=== PATIENT | male | born 1975 | race Caucasian/White ===

== ENCOUNTER 2019-07-17 21:36 | Emergency (ER) | payer OTHER ==
[~2019-07-17] VITALS: Ht 182.9 cm; Wt 97.5 kg
--- OUTSIDE RECORDS SUMMARY | ~2019-07-17 | XMS | Clinical Summary ---
Demographics + + + | Address | [address] | | | [place] [address] | + + + | Home Phone | | + + + | Preferred Language | Unknown | + + + | Marital Status | Single | + + + | Gnosticist Affiliation | 1013 | + + + | Race | Unknown | + + + | Ethnic Group | Unknown | + + + Author + + + | Author | [facility] | | | and [place] | + + + | Organization | [facility] | | | and [place] | + + + | Address | Unknown | + + + | Phone | Unavailable | + + + Support + + +---------+ + | Name | Relationship | Address | Phone | + + +---------+ + | Mary Annas | ECON | Unknown | | + + +---------+ + Care Team Providers + +------+ + | Care Electroless Plater Name | Role | Phone | + +------+ + | Pedro Carlisle MD | PCP | | + +------+ + Allergies No Known Allergies Medications + + + +---------+------+------+-------+ | Medication | Sig | Dispensed | Refills | Star | End | Statu | | | | | | t | Date | s | | | | | | Date | | | + + + +---------+------+------+-------+ | ALPRAZolam (XANAX) | Take 0.5 mg by mouth | | 0 | | | Activ | | 0.5 mg tablet | as needed for | | | | | e | | | Anxiety. | | | | | | + + + +---------+------+------+-------+ | metoprolol | Take 1 tablet by | 30 | 1 | 07/1 | | Activ | | succinate | mouth Daily. | tablet | | 3/20 | | e | | (TOPROL-XL) 50 mg 24 | | | | 19 | | | | hr tablet | | | | | | | + + + +---------+------+------+-------+ | nicotine | Place 1 patch onto | 30 | 0 | 07/1 | | Activ | | (NICODERM) 14 mg/24 | the skin every 24 | patch | | 3/20 | | e | | hr | hours. | | | 19 | | | + + + +---------+------+------+-------+ Active Problems + + + | Problem | Noted Date | + + + | Heroin use | 08/22/2018 | + + + | Methamphetamine use | 08/22/2018 | + + + | Anxiety | 08/22/2018 | + + + | Chronic pain syndrome | 08/22/2018 | + + + | Type 2 myocardial infarction | 08/22/2018 | + + + | Paroxysmal SVT (supraventricular tachycardia) | 08/22/2018 | + + + | Smoking | 08/22/2018 | + + + Immunizations + + + + | Name | Administration Dates | Next Due | + + + + | Hep B (PED/ADOL) 3 | 08/02/2013 | | | DOSE | | | + + + + | PNEUMOCOCCAL | 07/29/2013 | | | POLYSACCHARIDE | | | | 23-VALENT (PPSV23) | | | + + + + Social History + +-------+ +--------+------+ | Tobacco Use | Types | Packs/Day | Years | Date | | | | | Used | | + +-------+ +--------+------+ | Current Every Day | | 0.5 | 10 | | | Smoker | | | | | + +-------+ +--------+------+ + +---+---+---+ | Smokeless Tobacco: | | | | | Never Used | | | | + +---+---+---+ + + +---------+ + | Alcohol Use | Drinks/Week | oz/Week | Comments | + + +---------+ + | Not Currently | | | | + + +---------+ + + + + | Sex Assigned at | Date Recorded | | | | + + + | Not on file | | + + + + + + + | Job Start Date | Occupation | Industry | + + + + | Not on file | Not on file | Not on file | + + + + + + + + | Travel History | Travel Start | Travel End | + + + + + + | No recent travel history available. | + + Last Filed Vital Signs + + + + + | Vital Sign | Reading | Time Taken | Comments | + + + + + | Blood Pressure | 138/87 | 08/23/2018 12:52 PM | | | | | PDT | | + + + + + | Pulse | 65 | 08/23/2018 12:52 PM | | | | | PDT | | + + + + + | Temperature | 36.4 C (97.6 F) | 08/23/2018 12:52 PM | | | | | PDT | | + + + + + | Respiratory Rate | 18 | 08/23/2018 12:52 PM | | | | | PDT | | + + + + + | Oxygen Saturation | 98% | 08/23/2018 12:52 PM | | | | | PDT | | + + + + + | Inhaled Oxygen | - | - | | | Concentration | | | | + + + + + | Weight | 92.9 kg (204 lb 12.9 | 08/23/2018 6:00 AM | | | | oz) | PDT | | + + + + + | Height | 185.4 cm (6' 1") | 08/22/2018 7:29 PM | | | | | PDT | | + + + + + | Body Mass Index | 27.02 | 08/22/2018 7:29 PM | | | | | PDT | | + + + + + Plan of Treatment + + + + + | Health Maintenance | Due Date | Last Done | Comments | + + + + + | Vaccine: | | | | | Dtap/Tdap/Td (1 - | 6 | | | | Tdap) | | | | + + + + + | Vaccine: Influenza | | 11/19/2017, 12/22/2014, | | | (Season Ended) | 0 | 11/11/2013, Additional history | | | | | exists | | + + + + + | Vaccine: | Completed | 07/29/2013 | | | Pneumococcal 19-64 | | | | + + + + + Results Not on filefrom Last 3 Months Insurance + +--------+ +--------+ +---------+--------+ | Payer | Benefi | Subscriber | Effect | Phone | Address | Type | | | t Plan | ID | [place] | | | | | | / | | Dates | | | | | | Group | | | | | | + +--------+ +--------+ +---------+--------+ | [place] | MEDICA | [id number] | | [phone] | | [place] | | | [place] | | [phone]-Pr | 2 | | id | | | PLUS | | esent | | | | + +--------+ +--------+ +---------+--------+ + +--------+ +--------+ + + | Guarantor Name | Accoun | Relation to | Date | Phone | Billing Address | | | t Type | Patient | of | | | | | | | | | | + +--------+ +--------+ + + | Rohit Cheek | Person | Self [birth year] | [address] | | | al/Fam | | 1976 | [phone] | [place] [address] | | | phillip | | | 7 (Home) | | + +--------+ +--------+ + + Advance Directives + + + + + | Type | Date Recorded | Patient | Explanation | | | | Training Designer | | + + + + + | Power of | | | | | Sales And Events Coordinator | | | | + + + + + | Advance | 08/22/2018 4:08 | | | | Directive | PM | | | + + + + + + + + + + | Code Status | Date | Date | Comments | | | Activated | Inactivated | | + + + + + | Full Code | 08/22/2018 | 08/23/2018 | | | | 4:49 PM | 4:38 PM | | + + + + +
--- OUTSIDE RECORDS SUMMARY | ~2019-07-17 | XMS | Encounter Summary ---
Demographics + + + | Address | [address] | | | [place] [address] | + + + | Home Phone | | + + + | Preferred Language | Unknown | + + + | Marital Status | Single | + + + | Congregation Affiliation | 1013 | + + + | Race | Unknown | + + + | Ethnic Group | Unknown | + + + Author + + + | Author | [facility] | | | and [place] | + + + | Organization | [facility] | | | and [...] Team Providers + +------+ + | Care Grades 9 Through 12 Teacher Name | Role | Phone | + +------+ + | Pedro Carlisle MD | PCP | | + +------+ + Reason for Visit Auth/Cert +--------+--------+ + + + + | Status | Reason | Specialty | Diagnoses / | Referred By | Referred To | | | | | Procedures | Contact | Contact | +--------+--------+ + + + + | | | | Diagnoses | | | | | | | tachycardia | | | +--------+--------+ + + + + Encounter Details +--------+ + + + + | Date | Type | Department | Care Team | Description | +--------+ + + + + | 08/22/ | Hospital | [facility] | Chicho Hurley, | Anxiety; Heroin use; | | 2019 - | Encounter | [facility] | MD Shanelle [address] | NSTEMI (non-ST | | | | [address] [place] | [address] [place] | elevated myocardial | | 08/23/ | | [place] [address] | [place] [address] | infarction) ([facility]); | | 2019 | | [phone] | [phone] | Paroxysmal SVT | | | | | | (supraventricular | | | | | Niko Gruber, | tachycardia) ([facility]); | | | | | [address] | 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[place], [place] | re-entry | | | | | [address] | tachycardia) ([facility]); | | | | | [phone] | Type 2 myocardial | | | | | | infarction ([facility]) | +--------+ + + + + Social History + [...] recent travel history available. | + + documented as of this encounter Last Filed Vital Signs + + + [...] | | + + + + + documented in this encounter Discharge Summaries Niko Gruber MD - 08/23/2018 12:54 PM PDTFormatting of this note might be different f rom the original. DISCHARGE SUMMARY Patient Name: Lucy Cheek : 1975 Date of Admission: 08/22/2018 Date of Discharge: 08/23/18 Admitting Physician: Shanelle Hurley MD Discharging Physician: Niko Gruber MD Primary Care Provider: Pedro Carlisle MD Discharge Diagnoses: Principal Problem: Paroxysmal SVT (supraventricular tachycardia) Active Problems: Heroin use Methamphetamine use Chronic pain syndrome Type 2 myocardial infarction Smoking Anxiety Resolved Problems: * No resolved hospital problems. * Patient Active Problem List Diagnosis Heroin use Methamphetamine use Anxiety Chronic pain syndrome Type 2 myocardial infarction Paroxysmal SVT (supraventricular tachycardia) Smoking Consultants: Dr. Pradip Duarte of cardiology Procedures: 08/22 Echo: Left ventricle is normal in size with mildly reduced systolic function. LVEF is estimated in the range of 40-45%. Diastolic parameters are within normal limits. Mitral valve is mildly thickened with mild regurgitation. Structurally normal tricuspid valve with mild insufficiency and peak velocity consistent with RVSP 51-56 mmHg. Left atrium is mildly enlarged. No results found. Labs in the last 24 hours: Recent Results (from the past 24 hour(s)) Troponin I Result Value Ref Range Troponin I 1.15 (HH) <0.06 ng/mL Basic Metabolic Panel Result Value Ref Range Na 140 136 - 145 mmol/L K 3.8 3.4 - 5.1 mmol/L Cl 107 98 - 107 mmol/L CO2 29 20 - 31 mmol/L Anion Gap 4 3 - 16 mmol/L Glucose 94 60 - 106 mg/dL BUN 19 9 - 23 mg/dL Creatinine 0.99 0.70 - 1.30 mg/dL eGFR if not >60 >=60 mL/min/1.73m2 Ca 8.8 8.7 - 10.4 mg/dL BUN/Creatinine Ratio 19.2 CBC with Differential Result Value Ref Range WBC 9.4 4.0 - 11.0 K/uL RBC 4.53 4.30 - 5.70 M/uL Hemoglobin 13.7 13.5 - 18.0 g/dL Hematocrit 41.5 40.0 - 51.0 % MCV 91.6 83.0 - 101.0 fL MCH 30.2 28.0 - 35.0 pg MCHC 33.0 32.0 - 36.0 g/dL RDW-CV 15.0 (H) <15.0 % RDW-SD 50.3 (H) 35.1 - 46.3 fL Platelet Count 185 140 - 440 K/uL MPV 10.5 6.5 - 12.4 fL % Neutrophils 68.0 45.0 - 82.0 % % Lymphocytes 22.3 20.0 - 45.0 % % Monocytes 8.0 4.0 - 12.0 % % Eosinophils 0.7 0.0 - 5.0 % % Basophils 0.5 0.0 - 1.0 % % Immature Granulocytes 0.5 (H) 0.0 - 0.4 % Absolute Neutrophils 6.38 1.80 - 8.50 K/uL Absolute Lymphocytes 2.10 0.60 - 3.20 K/uL Absolute Monocytes 0.75 0.00 - 1.00 K/uL Absolute Eosinophils 0.07 0.00 - 0.40 K/uL Absolute Basophils 0.05 0.00 - 0.10 K/uL Absolute Immature Granulocytes 0.05 (H) 0.00 - 0.03 K/uL % nRBC 0 0 - 2 per 100 WBCs Absolute nRBC 0.00 0.00 - 0.01 K/uL Magnesium Result Value Ref Range Magnesium 1.9 1.6 - 2.6 mg/dL Phosphorus Result Value Ref Range Phosphorus 3.9 2.4 - 5.1 mg/dL ECG 12 lead Result Value Ref Range VENTRICULAR RATE EKG 71 BPM ATRIAL RATE 71 BPM P-R INTERVAL 140 ms QRS DURATION 92 ms Q-T INTERVAL 400 ms Q-T INTERVAL (CORRECTED) 434 ms P WAVE AXIS 61 degrees QRS AXIS 43 degrees T AXIS 53 degrees INTERPRETATION TEXT Normal sinus rhythm Voltage criteria for left ventricular hypertrophy No previous ECGs available Confirmed by MARGARET KEITH MD ([id number]) on 08/23/2018 7:19:58 AM ECHO Complete Result Value Ref Range BASELINE BLOOD PRESSURE 127/87 mmHg Patient Weight (lbs) 202lbs Patient Height 6'1 Inferior Vena Cava Diameter at Inspiration 1.2 cm Inferior Vena Cava Diameter at Expiration 2.4 cm LVIDd 5.75 cm FS 25 % LA volume 128.89 mL Ascending aorta 3.8 cm Aortic arch 3.27 cm AV mean gradient 1.85 mmHg Aortic Valve Area by Continuity VTI 4.84 cm2 MV Area by P 1/2 method 3.06 cm2 IVRT 96.89 msec LVOT diameter 2.78 cm LVOT peak rodri 65.94 cm/s LVOT peak VTI 13.54 cm AV peak rodri 86.11 cm/s AV VTI 16.97 cm MR max rodri 353.41 cm/s AV peak gradient 2.97 mmHg MV VTI 139.89 cm MV Pressure 1/2 time 71.79 msec LA Volume Index 60 mL/m2 AV LVOT Peak Gradient 1.74 mmHg AV LVOT Mean Gradient 1.05 mmHg TR Peak Gradient 46 mmHg TR Velocity 339.61 cm LV Diastolic Length 4C 9.09 cm LV Thornton's Biplane EF 38 % LV ED Volume (Thornton's) 162.08 ml LV ED Volume Index 75 ml/m2 LV ES Volume 100.43 ml LVOT Mean Velocity 48.91 cm/s MR Alias Velocity 32.12 cm/s MV E' Lateral Velocity 6 cm/s MV E' Septal Velocity 5 cm/s MV Deceleration [place] 127.02 cm/s2 MV Deceleration Time 247.55 msec MV E/A Ratio 0.8 MV Peak A-Wave 39.53 cm/s MV Peak E-Wave 31.44 cm/s AV Mean Velocity 65.68 cm/s LA/Aorta Ratio 1.08 LA Area 29.07 cm2 LA Systolic Pressure 8.55 mmHg MR Pisa Radius 0.58 cm MR Pisa Area 0.2 cm2 MV E/E SEPTAL 6.29 MV E/E LATERAL 5.24 LA Major 0.1697 cm LV ES Volume Index 46 ml/m2 Aortic Root Diameter 4.18 cm IVS Diastolic Thickness MM 1.35 cm LVPW Diastolic Thickness MM 1.22 cm IVS Systolic Thickness MM 1.61 cm LV Systolic Diameter MM 4.3 cm LVPW Systolic Thickness MM 1.7 cm AV Cusp Seperation MM 2.22 cm LA Systolic Diameter MM 4.5 cm TAPSE 1.8 cm Troponin I Result Value Ref Range Troponin I 0.94 (HH) <0.06 ng/mL Basic Metabolic Panel Result Value Ref Range Na 141 136 - 145 mmol/L K 4.0 3.4 - 5.1 mmol/L Cl 109 (H) 98 - 107 mmol/L CO2 27 20 - 31 mmol/L Anion Gap 5 3 - 16 mmol/L Glucose 91 60 - 106 mg/dL BUN 17 9 - 23 mg/dL Creatinine 0.88 0.70 - 1.30 mg/dL eGFR if not >60 >=60 mL/min/1.73m2 Ca 8.8 8.7 - 10.4 mg/dL BUN/Creatinine Ratio 19.3 CBC no Differential Result Value Ref Range WBC 5.9 4.0 - 11.0 K/uL RBC 4.67 4.30 - 5.70 M/uL Hemoglobin 14.0 13.5 - 18.0 g/dL Hematocrit 42.7 40.0 - 51.0 % MCV 91.4 83.0 - 101.0 fL MCH 30.0 28.0 - 35.0 pg MCHC 32.8 32.0 - 36.0 g/dL RDW-CV 14.7 <15.0 % RDW-SD 49.6 (H) 35.1 - 46.3 fL Platelet Count 189 140 - 440 K/uL MPV 10.8 6.5 - 12.4 fL % nRBC 0 0 - 2 per 100 WBCs Absolute nRBC 0.00 0.00 - 0.01 K/uL Magnesium Result Value Ref Range Magnesium 2.0 1.6 - 2.6 mg/dL Troponin I Result Value Ref Range Troponin I 0.58 (HH) <0.06 ng/mL Lipid Panel Result Value Ref Range Triglycerides 189 (H) <=150 mg/dL Cholesterol 124 <=200 mg/dL HDL 37 (L) 40 - 60 mg/dL Chol/HDL Ratio 3.4 LDL, Calculated 49 <=130 mg/dL Drugs of Abuse, Screen, Urine Result Value Ref Range Amphetamine Screen, Urine Negative Negative Barbiturates Screen, Urine Negative Negative Benzodiazepines Screen, Urine Positive (A) Negative Cannabinoids Screen, Urine Negative Negative Cocaine Screen, Urine Negative Negative Methadone Screen, Urine Negative Negative Opiates Screen, Urine Negative Negative Reason for Admission: Please refer to the H&P for full details. In short, this is a 43 y.o. 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 Problem-Oriented Hospital Course: AVNRT: - Recurrent episodes, noted in May ER visit at [facility] as well - Presented to [facility] with this on 08/22, resolved there, transferred for further car diac workup - Started on scheduled metoprolol, no further episodes while in the hospital - This has been a recurrent issue per his report and ER report from May - He had no evidence of heart failure on exam, although EF diminished on echo to 40-45%, tatum devlin due to recent episode of tachycardia - Discussed with Dr. Duarte, who recommended that he follow up with PCP, to consider exerci se treadmill and referral to EP for possible ablation Type 2 TX: - Troponin peaked at 1.15, then fell - Thought to be secondary to above, although consider outpatient treadmill test - Toprol daily Polysubstance abuse: - Admits to IV methamphetamine/heroin use 45 days ago, although denies current use - UDS did not show methamphetamine or opiates - Encourage cessation/outpatient treatment, which he plans to do Smoking: - Encourage cessation - Nicotine patch PRN ordered Anxiety: - Lorazepam PRN given in the hospital, takes alprazolam PRN as outpatient Chronic pain: - Has been on methadone in the past, no acute issues, defer to outpatient provider The patient improved more quickly than expected, and did not require 2 nights of hospitaliz ation. Code Status: Full Code Disposition: Home with mother Discharge Condition: stable Follow-up Information Pedro Carlisle MD In 1 week. Specialty: Emergency Medicine Contact information: [address] [place] [address] [place] [address] Discharge Medications New Medications Details metoprolol succinate 50 mg 24 hr tablet Take 1 tablet by mouth Daily. aka: TOPROL-XL nicotine 14 mg/[address] 1 patch onto the skin every 24 hours. aka: NICODERM Unchanged Medications Details ALPRAZolam 0.5 mg tablet Take 0.5 mg by mouth as needed for Anxiety. aka: XANAX Studies With Pending Results: None Less than 30 minutes were spent on discharge and coordination of post-hospital care. Electronically signed by: Niko Gruber MD, 08/23/2018 12:55 [facility] documented in this encounter Discharge Instructions Instructions Niko Gruber MD - 08/23/2018You were admitted with an extremely fast hea rt rate causing stress on the heart. You need to take metoprolol (Toprol) 50 mg daily in or mathieu to avoid episodes of fast heart rate in the future. The nicotine patch can help you to quit smoking, which will also take stress off the heart. Drink at least 2-3 liters of fluid daily, more if you spend time outside working. documented in this encounter Medications at Time of Discharge + + + +---------+ + + | Medication | Sig | Dispensed | Refills | Start | End Date | | | | | | Date | | + + + +---------+ + + | ALPRAZolam (XANAX) | Take 0.5 mg by mouth | | 0 | | | | 0.5 mg tablet | as needed for | | | | | | | Anxiety. | | | | | + + + +---------+ + + | metoprolol | Take 1 tablet by | 30 | 1 | 08/24/19 | | | succinate | mouth Daily. | tablet | | 19 | | | (TOPROL-XL) 50 mg 24 | | | | | | | hr tablet | | | | | | + + + +---------+ + + | nicotine | Place 1 patch onto | 30 | 0 | 08/24/19 | | | (NICODERM) 14 mg/24 | the skin every 24 | patch | | 19 | | | hr | hours. | | | | | + + + +---------+ + + documented as of this encounter Progress Notes Niko Gruber MD - 08/22/2018 7:[address] Duarte, based on his stor y, would not recommend starting heparin drip, would monitor on telemetry and check echo and check troponins overnight. Start cardiac diet. Sandi Ho, Media Marketing Coordinator - 08/22/2018 7:23 PM PDTF ormatting of this note might be different from the original. HEPARIN MONITORING AND DOSING PER PHARMACY Lucy Cheek is a 43 y.o. male admitted on 08/22/2018 15:36. Heparin infusion is ordered. Diagnosis: ACS Protocol: CARDIAC DOSE 0.2- 0.4 units/mL Maximums: bolus 7,000 units, infusion 1,400 unit/h r Initial assessment: Describe any recent anticoagulant use prior to heparin initiation: na If PHOTOGRAPHER MOTION PICTURE medlist shows Xa inhibitor oral agent or LMWH subcutaneous Consider baseline anti-Xa and evaluate renal function. If recent oral Xa inhibitor, use PTT monitoring for 1-5 days depending on renal func tion and then switch to anti-xa monitoring. Bleeding risks NO History of liver dysfunction or ETOH abuse: NO History of HIT: NO Reason for no bolus or use of Cardiac dose in non-cardiac pts: No Recent Labs Lab 08/22/18 1614 HGB 13.7 HCT 41.5 PLT 185 Date 08/22 Time of Xa test Xa PTT Platelets 185 Current (units/hr) 0 Bolus (units) Hold (minutes) New (units/hr) * Weight at start of infusion 91.9 kg (adjustments based on this dosing weight) ASSESSMENT/PLAN: 1. Communicate with prescriber within 24 hours of infusion start to discuss bleeding risks, clotting risks, goals for therapy, and any other prescriber preferences. 2. DC other anticoagulants as appropriate (list): na 3. Dosing plan: Any adverse events or interruptions in therapy: No, initiating infusion Bolus: 1,100 units IV x 1 Infusion: Initiate at 5,500 units/hr Per dosing protocol 4. Discussed and coordinated with nurse 5. Weight. Admission: Weight: 91.9 kg (202 lb 9.6 oz) Wt. Current: Weight: 91.9 kg (202 lb 9.6 oz) 6. Monitoring - report to attending provider if: HGB < 8 g/dL or drop greater than 2 g/dL from baseline = 11.7 g/dL HCT < 25% or drop greater than 6 points from baseline = 35.5 % PLT < 100 K/uL or drop greater than 50% from baseline = 91 K/uL Rate greater than 25 units/kg/hr = 2,297 units/hr ? Stat PTT, PT/INR, and CBC without diff. if not already done. Draw prior to giving heparin bolus or starting infusion, then initiate heparin therapy SID after labs are drawn. Consider anti-Xa if prior oral Xa inhibitor or LMWH and evaluate latisha l function. ? CBC without diff every other day while on Heparin. ? Xa 6hrs after infusion initiation and any rate change until 2 consecutive Xa are in range then daily. ? If bolus is 5,000 units or greater, consider ordering Xa/PTT in 8 hours ? Next anti-Xa ordered for: 08/23 @ 0400. IMPROVE Bleeding Risk Score Calculator Table: Heparin Infusion Dosing and Monitoring Per P&T approved Heparin Infusion Protocol Electronically signed by: Sandi Martinez, Media Marketing Coordinator 08/22/2018 19:23 docu mented in this encounter Plan of Treatment Not on filedocumented as of this encounter Procedures + +--------+ + + + | Procedure Name | Priori | Date/Time | Associated Diagnosis | Comments | | | ty | | | | + +--------+ + + + | DRUGS OF ABUSE, | Routin | 08/23/2018 | | Results for this | | SCREEN, URINE | e | 7:29 AM | | procedure are in the | | | | PDT | | results section. | + +--------+ + + + | LIPID PANEL | Routin | 08/23/2018 | | Results for this | | | e | 4:35 AM | | procedure are in the | | | | PDT | | results section. | + +--------+ + + + | TROPONIN I | Routin | 08/23/2018 | | Results for this | | | e | 4:35 AM | | procedure are in the | | | | PDT | | results section. | + +--------+ + + + | CBC NO DIFFERENTIAL | Routin | 08/23/2018 | | Results for this | | | e | 4:35 AM | | procedure are in the | | | | PDT | | results section. | + +--------+ + + + | MAGNESIUM | Routin | 08/23/2018 | | Results for this | | | e | 4:35 AM | | procedure are in the | | | | PDT | | results section. | + +--------+ + + + | BASIC METABOLIC | Routin | 08/23/2018 | | Results for this | | PANEL | e | 4:35 AM | | procedure are in the | | | | PDT | | results section. | + +--------+ + + + | TROPONIN I | Routin | 08/22/2018 | | Results for this | | | e | 9:08 PM | | procedure are in the | | | | PDT | | results section. | + +--------+ + + + | ECHO COMPLETE | SID | 08/22/2018 | | Results for this | | | | 7:15 PM | | procedure are in the | | | | PDT | | results section. | + +--------+ + + + | ECG 12 LEAD | SID | 08/22/2018 | | Results for this | | | | 4:28 PM | | procedure are in the | | | | PDT | | results section. | + +--------+ + + + | TROPONIN I | Routin | 08/22/2018 | | Results for this | | | e | 4:14 PM | | procedure are in the | | | | PDT | | results section. | + +--------+ + + + | CBC WITH | Routin | 08/22/2018 | | Results for this | | DIFFERENTIAL | e | 4:14 PM | | procedure are in the | | | | PDT | | results section. | + +--------+ + + + | PHOSPHORUS | Add-On | 08/22/2018 | | Results for this | | | | 4:14 PM | | procedure are in the | | | | PDT | | results section. | + +--------+ + + + | MAGNESIUM | Add-On | 08/22/2018 | | Results for this | | | | 4:14 PM | | procedure are in the | | | | PDT | | results section. | + +--------+ + + + | BASIC METABOLIC | Routin | 08/22/2018 | | Results for this | | PANEL | e | 4:14 PM | | procedure are in the | | | | PDT | | results section. | + +--------+ + + + | ECG - EXTERNAL SCAN | | 08/22/2018 | | Results for this | | | | 12:00 AM | | procedure are in the | | | | PDT | | results section. | + +--------+ + + + documented in this encounter Results Drugs of Abuse, Screen, Urine (08/23/2018 7:29 AM PDT) + + + + + + | Component | Value | Ref Range | Performed | Pathologist | | | | | At | Signature | + + + + + + | Amphetamine | Negative | Negative | [facility] | | | Screen, | | | [facility] | | | Urine | | | MEDICAL | | | | | | CENTER - | | | | | | LABORATORY | | + + + + + + | Barbiturate | Negative | Negative | [facility] | | | s Screen, | | | [facility] | | | Urine | | | MEDICAL | | | | | | CENTER - | | | | | | LABORATORY | | + + + + + + | Benzodiazep | Positive (A) | Negative | [facility] | | | rizwan | | | [facility] | | | Screen, | | | MEDICAL | | | Urine | | | CENTER - | | | | | | LABORATORY | | + + + + + + | Cannabinoid | Negative | Negative | [facility] | | | s Screen, | | | [facility] | | | Urine | | | MEDICAL | | | | | | CENTER - | | | | | | LABORATORY | | + + + + + + | Cocaine | Negative | Negative | [facility] | | | Screen, | | | [facility] | | | Urine | | | MEDICAL | | | | | | CENTER - | | | | | | LABORATORY | | + + + + + + | Methadone | Negative | Negative | [facility] | | | Screen, | | | [facility] | | | Urine | | | MEDICAL | | | | | | CENTER - | | | | | | LABORATORY | | + + + + + + | Opiates | Negative | Negative | [facility] | | | Screen, | | | [facility] | | | Urine | | | MEDICAL | | | | | | CENTER - | | | | | | LABORATORY | | + + + + + + + + | Specimen | + + | Urine | + + + + + + + | Performing | Address | City/State/Zipcode | Phone Number | | Organization | | | | + + + + + | [facility] | [address] | [place] | [phone] | | [facility] | | [address] | | | - LABORATORY | | | | + + + + + Lipid Panel (08/23/2018 4:35 AM PDT) + +---------+ + + + | Component | Value | Ref Range | Performed | Pathologist | | | | | At | Signature | + +---------+ + + + | Triglycerid | 189 (H) | <=150 mg/dL | [facility] | | | es | | | [facility] | | | | | | MEDICAL | | | | | | CENTER - | | | | | | LABORATORY | | + +---------+ + + + | Cholesterol | 124 | <=200 mg/dL | [facility] | | | | | | [facility] | | | | | | MEDICAL | | | | | | CENTER - | | | | | | LABORATORY | | + +---------+ + + + | HDL | 37 (L) | 40 - 60 mg/dL | [facility] | | | | | | [facility] | | | | | | MEDICAL | | | | | | CENTER - | | | | | | LABORATORY | | + +---------+ + + + | Chol/HDL | 3.4 | | [facility] | | | Ratio | | | [facility] | | | | | | MEDICAL | | | | | | CENTER - | | | | | | LABORATORY | | + +---------+ + + + | LDL, | 49 | <=130 mg/dL | [facility] | | | Calculated | | | [facility] | | | | | | MEDICAL | | | | | | CENTER - | | | | | | LABORATORY | | + +---------+ + + + + + | Specimen | + + | Blood | + + + + + + + | Performing | Address | City/State/Zipcode | Phone Number | | Organization | | | | + + + + + | [facility] | [address] | [place] | [phone] | | [facility] | | [address] | | | - LABORATORY | | | | + + + + + Troponin I (08/23/2018 4:35 AM PDT) + + + + + + | Component | Value | Ref Range | Performed | Pathologist | | | | | At | Signature | + + + + + + | Troponin I | 0.58 ()Comment: | <0.06 ng/mL | [facility] | | | | Comment:Reference | | [facility] | | | | Ranges: 0.00-0.06 = | | MEDICAL | | | | NORMAL >0.06 = | | CENTER - | | | | SUSPICIOUS FOR | | LABORATORY | | | | MYOCARDIAL DAMAGE NOTE: | | | | | | Values greater than | | | | | | 0.78 ng/mL have been | | | | | | shown to be strongly | | | | | | associated with acute | | | | | | myocardial infarction. | | | | | | The [employer] | | | | | | Cardiology (ACC) | | | | | | recommends a decision | | | | | | limit of 0.06 ng/mL for | | | | | | this assay. Results | | | | | | greater than 0.06 can | | | | | | reflect a pre-infarct | | | | | | acute coronary syndrome, | | | | | | but can also reflect | | | | | | myocardial necrosis or | | | | | | injury that is not due | | | | | | to coronary artery | | | | | | disease. Some of these | | | | | | causes are sepsis, | | | | | | hypocolemia, atrial | | | | | | fibrillation, heart | | | | | | failure, pulmonary | | | | | | embolism, myocarditis, | | | | | | myocardial contusion, | | | | | | and renal failure. The | | | | | | diagnosis of myocardial | | | | | | infarction should be | | | | | | based on a combination | | | | | | of the patient's | | | | | | clinical presentation | | | | | | and the clinical | | | | | | laboratory test results | | | | | | (especially serial | | | | | | troponin levels). | | | | | | Consistent with previous | | | | | | results. | | | | + + + + + + + + | Specimen | + + | Blood | + + + + + + + | Performing | Address | City/State/Zipcode | Phone Number | | Organization | | | | + + + + + | [facility] | [address] | [place] | [phone] | | [facility] | | [address] | | | - LABORATORY | | | | + + + + + Magnesium (08/23/2018 4:35 AM PDT) + +-------+ + + + | Component | Value | Ref Range | Performed | Pathologist | | | | | At | Signature | + +-------+ + + + | Magnesium | 2.0 | 1.6 - 2.6 mg/dL | [facility] | | | | | | [facility] | | | | | | MEDICAL | | | | | | CENTER - | | | | | | LABORATORY | | + +-------+ + + + + + | Specimen | + + | Blood | + + + + + + + | Performing | Address | City/State/Zipcode | Phone Number | | Organization | | | | + + + + + | [facility] | [address] | [place] | [phone] | | [facility] | | [address] | | | - LABORATORY | | | | + + + + + CBC no Differential (08/23/2018 4:35 AM PDT) + + + + + + | Component | Value | Ref Range | Performed | Pathologist | | | | | At | Signature | + + + + + + | WBC | 5.9 | 4.0 - 11.0 K/uL | [facility] | | | | | | [facility] | | | | | | MEDICAL | | | | | | CENTER - | | | | | | LABORATORY | | + + + + + + | RBC | 4.67 | 4.30 - 5.70 | [facility] | | | | | M/uL | [facility] | | | | | | MEDICAL | | | | | | CENTER - | | | | | | LABORATORY | | + + + + + + | Hemoglobin | 14.0 | 13.5 - 18.0 | [facility] | | | | | g/dL | [facility] | | | | | | MEDICAL | | | | | | CENTER - | | | | | | LABORATORY | | + + + + + + | Hematocrit | 42.7 | 40.0 - 51.0 % | [facility] | | | | | | [facility] | | | | | | MEDICAL | | | | | | CENTER - | | | | | | LABORATORY | | + + + + + + | MCV | 91.4 | 83.0 - 101.0 fL | [facility] | | | | | | [facility] | | | | | | MEDICAL | | | | | | CENTER - | | | | | | LABORATORY | | + + + + + + | MCH | 30.0 | 28.0 - 35.0 pg | [facility] | | | | | | [facility] | | | | | | MEDICAL | | | | | | CENTER - | | | | | | LABORATORY | | + + + + + + | MCHC | 32.8 | 32.0 - 36.0 | [facility] | | | | | g/dL | [facility] | | | | | | [facility] | | | | | | [facility] - | | | | | | LABORATORY | | + + + + + + | RDW-CV | 14.7 | <15.0 % | [facility] | | | | | | [facility] | | | | [facility] | [facility] | | | | | | [facility] - | | | | | | LABORATORY | | + + + + + + | RDW-SD | 49.6 (H) | 35.1 - 46.3 fL | [facility] | | | | | | [facility] | [facility] | [facility] | | | | | | [facility] - | | | | | | LABORATORY | | + + + + + + | Platelet | 189 | 140 - 440 K/uL | [facility] | | | Count | | | [facility] | | | | | | [facility] | | | | | | [facility] - | | | | | | LABORATORY | | + + + + + + | MPV | 10.8 | 6.5 - 12.4 fL | [facility] | | | | | | [facility] | | [facility] | [facility] | | | | | | [facility] - | | | | | | LABORATORY | | + + + + + + | % nRBC | 0 | 0 - 2 per 100 | [facility] | | | | | WBCs | [facility] | | | | | | [facility] | | | | | | [facility] - | | | | | | LABORATORY | | + + + + + + | Absolute | 0.00 | 0.00 - 0.01 | [facility] | | | nRBC | | K/uL | [facility] | | | | | | [facility] | | | | | | [facility] - | | | | | | LABORATORY | | + + + + + + + + | Specimen | + + | Blood | + + + + + + + | Performing | Address | City/State/Zipcode | Phone Number | | Organization | | | | + + + + + | [facility] | [address] | [place] | [phone] | | [facility] | | [address] | | | - LABORATORY | | | | + + + + + Basic Metabolic Panel (08/23/2018 4:35 AM PDT) + + + + + + | Component | Value | Ref Range | Performed | Pathologist | | | | | At | Signature | + + + + + + | Na | 141 | 136 - 145 | [facility] | | | | | mmol/L | [facility] | | | | | | [facility] | | | | | | [facility] - | | | | | | LABORATORY | | + + + + + + | K | 4.0 | 3.4 - 5.1 | [facility] | | | | | mmol/L | [facility] | | | | | | [facility] | | | | | | CENTER - | | | | | | LABORATORY | | + + + + + + | Cl | 109 (H) | 98 - 107 mmol/L | [facility] | | | | | | [facility] | | | | | | [facility] | | | | | | [facility] - | | | | | | LABORATORY | | + + + + + + | CO2 | 27 | 20 - 31 mmol/L | [facility] | | | | | | [facility] | | | | | | [facility] | | | | | | [facility] - | | | | | | LABORATORY | | + + + + + + | Anion Gap | 5 | 3 - 16 mmol/L | [facility] | | | | | | [facility] | | | | | | [facility] | | | | | | [facility] - | | | | | | LABORATORY | | + + + + + + | Glucose | 91 | 60 - 106 mg/dL | [facility] | | | | | | [facility] | | | | | | [facility] | | | | | | [facility] - | | | | | | LABORATORY | | + + + + + + | BUN | 17 | 9 - 23 mg/dL | [facility] | | | | | | [facility] | | | | | | [facility] | | | | | | CENTER - | | | | | | LABORATORY | | + + + + + + | Creatinine | 0.88 | 0.70 - 1.30 | [facility] | | | | | mg/dL | [facility] | | | | | | [facility] | | | | | | CENTER - | | | | | | LABORATORY | | + + + + + + | eGFR if not | >60Comment: GLOMERULAR | >=60 | [facility] | | | | FILTRATION | mL/min/1.73m2 | [facility] | | | COMORAN | RATE,ESTIMATED | | MEDICAL | | | | mL/min/1.52x9Apqx than | | CENTER - | | | | 60 Chronic kidney | | LABORATORY | | | | disease,if found over a | | | | | | 3-month period.Less than | | | | | | 15 Kidney failureFor | | | | | | | | | | | | Americans,multiply the | | | | | | calculated GFR by 1.21. | | | | | | | | | | + + + + + + | Calcium | 8.8 | 8.7 - 10.4 | [facility] | | | | | mg/dL | [facility] | | | | | | MEDICAL | | | | | | CENTER - | | | | | | LABORATORY | | + + + + + + | BUN/Creatin | 19.3 | | [facility] | | | ine Ratio | | | [facility] | | | | | | [facility] | | | | | | CENTER - | | | | | | LABORATORY | | + + + + + + + + | Specimen | + + | Blood | + + + + + + + | Performing | Address | City/State/Zipcode | Phone Number | | Organization | | | | + + + + + | [facility] | [address] | [place] | [phone] | | [facility] | | [address] | | | - LABORATORY | | | | + + + + + Troponin I (08/22/2018 9:08 PM PDT) + + + + + + | Component | Value | Ref Range | Performed | Pathologist | | | | | At | Signature | + + + + + + | Troponin I | 0.94 ()Comment: | <0.06 ng/mL | [facility] | | | | Consistent with previous | | [facility] | | | | results. | | MEDICAL | | | | Comment:Reference | | CENTER - | | | | Ranges: 0.00-0.06 = | | LABORATORY | | | | NORMAL >0.06 = | | | | | | SUSPICIOUS FOR | | | | | | MYOCARDIAL DAMAGE NOTE: | | | | | | Values greater than | | | | | | 0.78 ng/mL have been | | | | | | shown to be strongly | | | | | | associated with acute | | | | | | myocardial infarction. | | | | | | The [employer] | | | | | | Cardiology (ACC) | | | | | | recommends a decision | | | | | | limit of 0.06 ng/mL for | | | | | | this assay. Results | | | | | | greater than 0.06 can | | | | | | reflect a pre-infarct | | | | | | acute coronary syndrome, | | | | | | but can also reflect | | | | | | myocardial necrosis or | | | | | | injury that is not due | | | | | | to coronary artery | | | | | | disease. Some of these | | | | | | causes are sepsis, | | | | | | hypocolemia, atrial | | | | | | fibrillation, heart | | | | | | failure, pulmonary | | | | | | embolism, myocarditis, | | | | | | myocardial contusion, | | | | | | and renal failure. The | | | | | | diagnosis of myocardial | | | | | | infarction should be | | | | | | based on a combination | | | | | | of the patient's | | | | | | clinical presentation | | | | | | and the clinical | | | | | | laboratory test results | | | | | | (especially serial | | | | | | troponin levels). | | | | + + + + + + + + | Specimen | + + | Blood | + + + + + + + | Performing | Address | City/State/Zipcode | Phone Number | | Organization | | | | + + + + + | [facility] | [address] | [place] | [phone] | | [facility] | | [address] | | | - LABORATORY | | | | + + + + + ECHO Complete (08/22/2018 7:15 PM PDT) + +--------+ + + + | Component | Value | Ref Range | Performed | Pathologist | | | | | At | Signature | + +--------+ + + + | BASELINE | 127/87 | mmHg | [facility] | | | BLOOD | | | | | | PRESSURE | | | | | + +--------+ + + + | Patient | 202lbs | | [facility] | | | Weight | | | | | | (lbs) | | | | | + +--------+ + + + | Patient | 6'1 | | [facility] | | | Height | | | | | + +--------+ + + + | Inferior | 1.2 | cm | [facility] | | | Vena Cava | | | | | | Diameter at | | | | | | | | | | | | Inspiration | | | | | + +--------+ + + + | Inferior | 2.4 | cm | [facility] | | | Vena Cava | | | | | | Diameter at | | | | | | Expiration | | | | | + +--------+ + + + | LVIDd | 5.75 | cm | [facility] | | + +--------+ + + + | FS | 25 | % | [facility] | | + +--------+ + + + | LA volume | 128.89 | mL | [facility] | | + +--------+ + + + | Ascending | 3.8 | cm | [facility] | | | aorta | | | | | + +--------+ + + + | Aortic arch | 3.27 | cm | [facility] | | + +--------+ + + + | AV mean | 1.85 | mmHg | [facility] | | | gradient | | | | | + +--------+ + + + | Aortic | 4.84 | cm2 | [facility] | | | Valve Area | | | | | | by | | | | | | Continuity | | | | | | VTI | | | | | + +--------+ + + + | MV Area by | 3.06 | cm2 | [facility] | | | P 1/2 | | | | | | method | | | | | + +--------+ + + + | IVRT | 96.89 | msec | [facility] | | + +--------+ + + + | LVOT | 2.78 | cm | [facility] | | | diameter | | | | | + +--------+ + + + | LVOT peak | 65.94 | cm/s | [facility] | | | rodri | | | | | + +--------+ + + + | LVOT peak | 13.54 | cm | [facility] | | | VTI | | | | | + +--------+ + + + | AV peak rodri | 86.11 | cm/s | [facility] | | + +--------+ + + + | AV VTI | 16.97 | cm | [facility] | | + +--------+ + + + | MR max rodri | 353.41 | cm/s | [facility] | | + +--------+ + + + | AV peak | 2.97 | mmHg | [facility] | | | gradient | | | | | + +--------+ + + + | MV VTI | 139.89 | cm | [facility] | | + +--------+ + + + | MV Pressure | 71.79 | msec | [facility] | | | 1/2 time | | | | | + +--------+ + + + | LA Volume | 60 | mL/m2 | [facility] | | | Index | | | | | + +--------+ + + + | AV LVOT | 1.74 | mmHg | [facility] | | | Peak | | | | | | Gradient | | | | | + +--------+ + + + | AV LVOT | 1.05 | mmHg | [facility] | | | Mean | | | | | | Gradient | | | | | + +--------+ + + + | TR Peak | 46 | mmHg | [facility] | | | Gradient | | | | | + +--------+ + + + | TR Velocity | 339.61 | cm | [facility] | | + +--------+ + + + | LV | 9.09 | cm | [facility] | | | Diastolic | | | | | | Length 4C | | | | | + +--------+ + + + | LV | 38 | % | [facility] | | | Thornton's | | | | | | Biplane EF | | | | | + +--------+ + + + | LV ED | 162.08 | ml | [facility] | | | Volume | | | | | | (Thornton's) | | | | | + +--------+ + + + | LV ED | 75 | ml/m2 | [facility] | | | Volume | | | | | | Index | | | | | + +--------+ + + + | LV ES | 100.43 | ml | [facility] | | | Volume | | | | | + +--------+ + + + | LVOT Mean | 48.91 | cm/s | [facility] | | | Velocity | | | | | + +--------+ + + + | MR Alias | 32.12 | cm/s | [facility] | | | Velocity | | | | | + +--------+ + + + | MV E' | 6 | cm/s | [facility] | | | Lateral | | | | | | Velocity | | | | | + +--------+ + + + | MV E' | 5 | cm/s | [facility] | | | Septal | | | | | | Velocity | | | | | + +--------+ + + + | MV | 127.02 | cm/s2 | [facility] | | | Deceleratio | | | | | | n [place] | | | | | + +--------+ + + + | MV | 247.55 | msec | [facility] | | | Deceleratio | | | | | | n Time | | | | | + +--------+ + + + | MV E/A | 0.8 | | [facility] | | | Ratio | | | | | + +--------+ + + + | MV Peak | 39.53 | cm/s | [facility] | | | A-Wave | | | | | + +--------+ + + + | MV Peak | 31.44 | cm/s | [facility] | | | E-Wave | | | | | + +--------+ + + + | AV Mean | 65.68 | cm/s | [facility] | | | Velocity | | | | | + +--------+ + + + | LA/Aorta | 1.08 | | [facility] | | | Ratio | | | | | + +--------+ + + + | LA Area | 29.07 | cm2 | [facility] | | + +--------+ + + + | LA Systolic | 8.55 | mmHg | [facility] | | | Pressure | | | | | + +--------+ + + + | MR Pisa | 0.58 | cm | [facility] | | | Radius | | | | | + +--------+ + + + | MR Pisa | 0.2 | cm2 | [facility] | | | Area | | | | | + +--------+ + + + | MV E/E | 6.29 | | [facility] | | | SEPTAL | | | | | + +--------+ + + + | MV E/E | 5.24 | | [facility] | | | LATERAL | | | | | + +--------+ + + + | LA Major | 0.1697 | cm | [facility] | | + +--------+ + + + | LV ES | 46 | ml/m2 | [facility] | | | Volume | | | | | | Index | | | | | + +--------+ + + + | Aortic Root | 4.18 | cm | [facility] | | | Diameter | | | | | + +--------+ + + + | IVS | 1.35 | cm | [facility] | | | Diastolic | | | | | | Thickness | | | | | | MM | | | | | + +--------+ + + + | LVPW | 1.22 | cm | [facility] | | | Diastolic | | | | | | Thickness | | | | | | MM | | | | | + +--------+ + + + | IVS | 1.61 | cm | [facility] | | | Systolic | | | | | | Thickness | | | | | | MM | | | | | + +--------+ + + + | LV Systolic | 4.3 | cm | [facility] | | | Diameter | | | | | | MM | | | | | + +--------+ + + + | LVPW | 1.7 | cm | [facility] | | | Systolic | | | | | | Thickness | | | | | | MM | | | | | + +--------+ + + + | AV Cusp | 2.22 | cm | [facility] | | | Seperation | | | | | | MM | | | | | + +--------+ + + + | LA Systolic | 4.5 | cm | [facility] | | | Diameter | | | | | | MM | | | | | + +--------+ + + + | TAPSE | 1.8 | cm | [facility] | | + +--------+ + + + | LVEF-TTE | 40 | | [facility] | | | TRANSTHORAC | | | | | | IC ECHO | | | | | + +--------+ + + + + + | Specimen | + + | | + + + + --+ | Narrative | Performed At | + + --+ | Transthoracic | [facility] | | Echocardiography Report (TTE) Demographics Patient Name SAM | | | LUCY Stevens Room Number 433 Patient Number | | | [id number] Date of Study 08/22/2018 Visit | | | Number [id number] Referring | | | Physician IBRAHIMA Winn Number Date of 1975 | | | 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 | | | Procedure dateDate: 08/22/2018Start: 06:25 PM Height: 73 inchesWeight: | | | 202 poundsBSA: 2.16 m^2BMI: 26.65 kg/m^2 ConclusionsSummaryLeft | | | ventricle is normal in size with mildly reduced systolic function. | | | LVEFis estimated in the range of 40-45%.Diastolic parameters are | | | within normal limits.Mitral valve is mildly thickened with mild | | | regurgitation.Structurally normal tricuspid valve with mild | | | insufficiency and peakvelocity consistent with RVSP 51-56 mmHg.Left | | | atrium is mildly enlarged. | | | Signature | | | | | | PM | | | -------- FindingsMitral ValveMitral valve is mildly thickened with | | | mild regurgitation.Aortic ValveAortic valve is trileaflet without | | | significant stenosis or regurgitation.Tricuspid ValveStructurally | | | normal tricuspid valve with mild insufficiency and peakvelocity | | | consistent with RVSP 51-56 mmHg.Pulmonic ValveTrace pulmonic | | | insufficiency.Left AtriumLeft atrium is mildly enlarged.Left | | | VentricleLeft ventricle is normal in size with mildly reduced systolic | | | function. LVEFis estimated in the range of 40-45%.Diastolic | | | parameters are within normal limits.Right AtriumRight atrium is mildly | | | enlarged.Right VentricleNormal right ventricular size.Right ventricle | | | global systolic function is normal.TAPSE = 2 cm.Pericardial | | | EffusionNo evidence of pericardial effusion.Pleural EffusionNo | | | evidence of pleural effusion.MiscellaneousMeasurements and | | | calculations provided in the report sections maybeincomplete. | | | Additional m-mode, 2D, Doppler, Doppler tissue, strain, andother | | | hemodynamic assessments performed and documented within the | | | imageviewer. Valves Mitral Valve Peak E-Wave: 31.44 cm/s | | | LESLIE PISA: 0.2 cm^2 Peak A-Wave: 39.53 cm/s Tissue Doppler | | | Septal e' Velocity: 5.00 cm/s Lateral e' Velocity: 6.00 | | | cm/s Septal E/e' Ratio: Lateral E/e' | | | Ratio:5.24 Aortic Valve Peak Velocity: 86.11 cm/s | | | Area (continuity): 4.84 cm^2 Peak Gradient: 2.97 mmHg | | | Mean Gradient: 1.85 mmHg Tricuspid Valve TR Velocity: 339.61 cm/s | | | LVOT Peak Velocity: 65.94 cm/s LVOT Diameter: 2.78 cm Structures | | | Left Atrium LA A/P Dimension: 4.5 cm LA Area: | | | 29.07 cm^2 LA/Aorta:1.08 LA | | | Volume: 128.89 ml LA Vol/BSA Index: 60 mL/m^2 LA Major:0.1697 Left | | | Ventricle Diastolic Dimension: 5.75 cm Systolic | | | Dimension: 4.3 cm Septum Diastolic: 1.35 cm PW Diastolic: 1.22 cm EF | | | Rimwnbpyw02% EF Calculated: 38.03% Right Ventrical TAPSE: 1.8 cm | | | Miscellaneous Aorta Aortic Root: 4.18 cm Ascending Aorta: 3.8 cm | | |Tricuspid Valve | | |Structurally normal tricuspid valve with mild insufficiency and peak | | |velocity consistent with RVSP 51-56 mmHg. | | |Pulmonic Valve | | |Trace pulmonic insufficiency. | | |Left Atrium | | |Left atrium is mildly enlarged. | | |Left Ventricle | | |Left ventricle is normal in size with mildly reduced systolic function. LVEF | | |is estimated in the range of 40-45%. | | |Diastolic parameters are within normal limits. | | |Right Atrium | | |Right atrium is mildly enlarged. | | |Right Ventricle | | |Normal right ventricular size. | | |Right ventricle global systolic function is normal. | | |TAPSE = 2 cm. | | |Pericardial Effusion | | |No evidence of pericardial effusion. | | |Pleural Effusion | | |No evidence of pleural effusion. | | |Miscellaneous | | |Measurements and calculations provided in the report sections maybe | | |incomplete. Additional m-mode, 2D, Doppler, Doppler tissue, strain, and | | |other hemodynamic assessments performed and documented within the image | | |viewer. | | | | | |Valves | | | | | | Mitral Valve | | | | | | Peak E-Wave: 31.44 cm/s LESLIE PISA: 0.2 cm^2 | | | Peak A-Wave: 39.53 cm/s | | | | | | Tissue Doppler | | | | | | Septal e' Velocity: 5.00 cm/s Lateral e' Velocity: 6.00 cm/s | | | Septal E/e' Ratio: Lateral E/e' Ratio:5.24 | | | | | | Aortic Valve | | | | | | Peak Velocity: 86.11 cm/s Area (continuity): 4.84 cm^2 | | | Peak Gradient: 2.97 mmHg Mean Gradient: 1.85 mmHg | | | | | | Tricuspid Valve | | | | | | TR Velocity: 339.61 cm/s | | | | | | LVOT | | | | | | Peak Velocity: 65.94 cm/s | | | LVOT Diameter: 2.78 cm | | | | | |Structures | | | | | | Left Atrium | | | | | | LA A/P Dimension: 4.5 cm LA Area: 29.07 cm^2 | | | LA/Aorta:1.08 LA Volume: 128.89 ml | | | LA Vol/BSA Index: 60 mL/m^2 | | | LA Major:0.1697 | | | | | | Left Ventricle | | | | | | Diastolic Dimension: 5.75 cm Systolic Dimension: 4.3 cm | | | Septum Diastolic: 1.35 cm | | | PW Diastolic: 1.22 cm | | | EF Aktaeryto28% | | | EF Calculated: 38.03% | | | | | | Right Ventrical | | | | | | TAPSE: 1.8 cm | | | | | | Miscellaneous | | | | | | Aorta | | | | | | Aortic Root: 4.18 cm | | | Ascending Aorta: 3.8 cm | | | | | + + --+ + + | Procedure Note | + + | Pierre, Rad Results In - 08/23/2018 1:24 PM PDT Transthoracic Echocardiography Report | | (TTE) Demographics Patient Name SAM Stevens Room Number 433 Patient | | Number [id number] Date of Study 08/22/2018 Visit Number [id number] | | Referring Physician IBRAHIMA Winn Number Date of | | 1975 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 LVEFis estimated in the range | | of 40-45%.Diastolic parameters are within normal limits.Mitral valve is mildly thickened | | with mild regurgitation.Structurally normal tricuspid valve with mild insufficiency and | | peakvelocity consistent with RVSP 51-56 mmHg.Left atrium is mildly | | enlarged.Signature | | ------ | | 01:24 | | PM FindingsMi | | tral ValveMitral valve is mildly thickened with mild regurgitation.Aortic ValveAortic | | valve is trileaflet without significant stenosis or regurgitation.Tricuspid | | ValveStructurally normal tricuspid valve with mild insufficiency and peakvelocity | | consistent with RVSP 51-56 mmHg.Pulmonic ValveTrace pulmonic insufficiency.Left | | AtriumLeft atrium is mildly enlarged.Left VentricleLeft ventricle is normal in size with | | mildly reduced systolic function. LVEFis estimated in the range of 40-45%.Diastolic | | parameters are within normal limits.Right AtriumRight atrium is mildly enlarged.Right | | VentricleNormal right ventricular size.Right ventricle global systolic function is | | normal.TAPSE = 2 cm.Pericardial EffusionNo evidence of pericardial effusion.Pleural | | EffusionNo evidence of pleural effusion.MiscellaneousMeasurements and calculations | | provided in the report sections maybeincomplete. Additional m-mode, 2D, Doppler, Doppler | | tissue, strain, andother hemodynamic assessments performed and documented within the | | imageviewer.Valves Mitral Valve Peak E-Wave: 31.44 cm/s LESLIE PISA: 0.2 cm^2 | | Peak A-Wave: 39.53 cm/s Tissue Doppler Septal e' Velocity: 5.00 cm/s Lateral e' | | Velocity: 6.00 cm/s Septal E/e' Ratio: Lateral E/e' Ratio:5.24 Aortic | | Valve Peak Velocity: 86.11 cm/s Area (continuity): 4.84 cm^2 Peak Gradient: | | 2.97 mmHg Mean Gradient: 1.85 mmHg Tricuspid Valve TR Velocity: 339.61 cm/s | | LVOT Peak Velocity: 65.94 cm/s LVOT Diameter: 2.78 cmStructures Left Atrium LA A/P | | Dimension: 4.5 cm LA Area: 29.07 cm^2 LA/Aorta:1.08 | | LA Volume: 128.89 ml LA Vol/BSA Index: 60 mL/m^2 LA Major:0.1697 Left Ventricle | | Diastolic Dimension: 5.75 cm Systolic Dimension: 4.3 cm Septum Diastolic: 1.35 | | cm PW Diastolic: 1.22 cm EF Pthphjdva75% EF Calculated: 38.03% Right Ventrical TAPSE: | | 1.8 cm Miscellaneous Aorta Aortic Root: 4.18 cm Ascending Aorta: 3.8 cm | |velocity consistent with RVSP 51-56 mmHg. | |Left atrium is mildly enlarged. | | | |Signature | | | | Electronically signed by BETINA CIFUENTES MD(Interpreting physician) on | | 08/23/2018 01:24 PM | | | | | |Findings | |Mitral Valve | |Mitral valve is mildly thickened with mild regurgitation. | |Aortic Valve | |Aortic valve is trileaflet without significant stenosis or regurgitation. | |Tricuspid Valve | |Structurally normal tricuspid valve with mild insufficiency and peak | |velocity consistent with RVSP 51-56 mmHg. | |Pulmonic Valve | |Trace pulmonic insufficiency. | |Left Atrium | |Left atrium is mildly enlarged. | |Left Ventricle | |Left ventricle is normal in size with mildly reduced systolic function. LVEF | |is estimated in the range of 40-45%. | |Diastolic parameters are within normal limits. | |Right Atrium | |Right atrium is mildly enlarged. | |Right Ventricle | |Normal right ventricular size. | |Right ventricle global systolic function is normal. | |TAPSE = 2 cm. | |Pericardial Effusion | |No evidence of pericardial effusion. | |Pleural Effusion | |No evidence of pleural effusion. | |Miscellaneous | |Measurements and calculations provided in the report sections maybe | |incomplete. Additional m-mode, 2D, Doppler, Doppler tissue, strain, and | |other hemodynamic assessments performed and documented within the image | |viewer. | | | |Valves | | | | Mitral Valve | | | | Peak E-Wave: 31.44 cm/s LESLIE PISA: 0.2 cm^2 | | Peak A-Wave: 39.53 cm/s | | | | Tissue Doppler | | | | Septal e' Velocity: 5.00 cm/s Lateral e' Velocity: 6.00 cm/s | | Septal E/e' Ratio: Lateral E/e' Ratio:5.24 | | | | Aortic Valve | | | | Peak Velocity: 86.11 cm/s Area (continuity): 4.84 cm^2 | | Peak Gradient: 2.97 mmHg Mean Gradient: 1.85 mmHg | | | | Tricuspid Valve | | | | TR Velocity: 339.61 cm/s | | | | LVOT | | | | Peak Velocity: 65.94 cm/s | | LVOT Diameter: 2.78 cm | | | |Structures | | | | Left Atrium | | | | LA A/P Dimension: 4.5 cm LA Area: 29.07 cm^2 | | LA/Aorta:1.08 LA Volume: 128.89 ml | | LA Vol/BSA Index: 60 mL/m^2 | | LA Major:0.1697 | | | | Left Ventricle | | | | Diastolic Dimension: 5.75 cm Systolic Dimension: 4.3 cm | | Septum Diastolic: 1.35 cm | | PW Diastolic: 1.22 cm | | EF Qznnodyap35% | | EF Calculated: 38.03% | | | | Right Ventrical | | | | TAPSE: 1.8 cm | | | | Miscellaneous | | | | Aorta | | | | Aortic Root: 4.18 cm | | Ascending Aorta: 3.8 cm | + + + +---------+ + + | Performing | Address | City/State[facility] | Phone Number | | Organization | | | | + +---------+ + + | [facility] | | | | + +---------+ + + ECG 12 lead (08/22/2018 4:28 PM PDT) + + + + + + | Component | Value | Ref Range | Performed | Pathologist | | | | | At | Signature | + + + + + + | VENTRICULAR | 71 | BPM | [facility] | | | RATE EKG | | | | | + + + + + + | ATRIAL RATE | 71 | BPM | [facility] | | + + + + + + | P-R | 140 | ms | [facility] | | | INTERVAL | | | | | + + + + + + | QRS | 92 | ms | [facility] | | | DURATION | | | | | + + + + + + | Q-T | 400 | ms | [facility] | | | INTERVAL | | | | | + + + + + + | Q-T | 434 | ms | [facility] | | | INTERVAL | | | | | | (CORRECTED) | | | | | + + + + + + | P WAVE AXIS | 61 | degrees | [facility] | | + + + + + + | QRS AXIS | 43 | degrees | [facility] | | + + + + + + | T AXIS | 53 | degrees | [facility] | | + + + + + + | INTERPRETAT | Normal sinus | | [facility] | | | ION TEXT | rhythmVoltage criteria | | | | | | for left ventricular | | | | | | hypertrophyNo previous | | | | | | ECGs availableConfirmed | | | | | | by MARGARET KEITH MD | | | | | | ([id number]) on 08/23/2018 | | | | | | 7:19:58 AM | | | | + + + + + + + + | Specimen | + + | | + + + + + | Narrative | Performed At | + + + | | | + + + + +---------+ + + | Performing | Address | City/State/Zipcode | Phone Number | | Organization | | | | + +---------+ + + | [facility] | | | | + +---------+ + + Phosphorus (08/22/2018 4:14 PM PDT) + +-------+ + + + | Component | Value | Ref Range | Performed | Pathologist | | | | | At | Signature | + +-------+ + + + | Phosphorus | 3.9 | 2.4 - 5.1 mg/dL | [facility] | | | | | | [facility] | | | [facility] | [facility] - | | | | | | [facility]ATORY | | + +-------+ + + + + + | Specimen | + + | Blood | + + + + + + + | Performing | Address | City/State/Zipcode | Phone Number | | Organization | | | | + + + + + | [facility] | [address] | [place] | [phone] | | [facility] | | [id number] | | | - LABORATORY | | | | + + + + + Magnesium (08/22/2018 4:14 PM PDT) + +-------+ + + + | Component | Value | Ref Range | Performed | Pathologist | | | | | At | Signature | + +-------+ + + + | Magnesium | 1.9 | 1.6 - 2.6 mg/dL | [facility] | | | [facility] | [facility] | | | | | [facility] - | | | | | | LABORATORY | | + +-------+ + + + + + | Specimen | + + | Blood | + + + + + + + | Performing | Address | City/State/Zipcode | Phone Number | | Organization | | | | + + + + + | [facility] | [address] | [place] | [phone] | | [facility] | | [address] | | | - LABORATORY | | | | + + + + + CBC with Differential (08/22/2018 4:14 PM PDT) + + + + + + | Component | Value | Ref Range | Performed | Pathologist | | | | | At | Signature | + + + + + + | WBC | 9.4 | 4.0 - 11.0 K/uL | [facility] | | | | | [facility] | | | | | | [facility] | | | | | | [facility] - | | | | | | LABORATORY | | + + + + + + | RBC | 4.53 | 4.30 - 5.70 | [facility] | | | | | M/uL | [facility] | | | [facility] | | [facility] - | | | | | | LABORATORY | | + + + + + + | Hemoglobin | 13.7 | 13.5 - 18.0 | [facility] | | | | | g/dL | [facility] | | | [facility] | [facility] | | | | | | [facility] - | | | | | | LABORATORY | | + + + + + + | Hematocrit | 41.5 | 40.0 - 51.0 % | [facility] | [facility] | | | | | | [facility] | | | | | | [facility] - | | | | | | LABORATORY | | + + + + + + | MCV | 91.6 | 83.0 - 101.0 fL | [facility] | | | | | [facility] | | | | | | [facility] | | | | | | [facility] - | | | | | | LABORATORY | | + + + + + + | MCH | 30.2 | 28.0 - 35.0 pg | [facility] | | | | | [facility] | | | | | | [facility] | | | | | | [facility] - | | | | | | LABORATORY | | + + + + + + | MCHC | 33.0 | 32.0 - 36.0 | [facility] | | | | | g/dL | [facility] | | | | | | [facility] | | | | | | CENTER - | | | | | | LABORATORY | | + + + + + + | RDW-CV | 15.0 (H) | <15.0 % | [facility] | | | | | [facility] | | | | | | [facility] | | | | | | [facility] - | | | | | | LABORATORY | | + + + + + + | RDW-SD | 50.3 (H) | 35.1 - 46.3 fL | [facility] | | | | | [facility] | | | | | | [facility] | | | | | | [facility] - | | | | | | LABORATORY | | + + + + + + | Platelet | 185 | 140 - 440 K/uL | [facility] | | | Count | | | [facility] | | | | | | [facility] | | | | | | CENTER - | | | | | | LABORATORY | | + + + + + + | MPV | 10.5 | 6.5 - 12.4 fL | [facility] | | | | | [facility] | | | | | | [facility] | | | | | | [facility] - | | | | | | LABORATORY | | + + + + + + | % | 68.0 | 45.0 - 82.0 % | [facility] | | | Neutrophils | | | [facility] | | | | | | [facility] | | | | | | CENTER - | | | | | | LABORATORY | | + + + + + + | % | 22.3 | 20.0 - 45.0 % | [facility] | | | Lymphocytes | | | [facility] | | | | | | [facility] | | | | | | CENTER - | | | | | | LABORATORY | | + + + + + + | % Monocytes | 8.0 | 4.0 - 12.0 % | [facility] | | | | | | [facility] | | | | | | [facility] | | | | | | [facility] - | | | | | | LABORATORY | | + + + + + + | % | 0.7 | 0.0 - 5.0 % | [facility] | | | Eosinophils | | | [facility] | | | | | | [facility] | | | | | | CENTER - | | | | | | LABORATORY | | + + + + + + | % Basophils | 0.5 | 0.0 - 1.0 % | [facility] | | | | | | [facility] | | | | | | [facility] | | | | | | C[facility] - | | | | | | LABORATORY | | + + + + + + | % Immature | 0.5 (H)Comment: | 0.0 - 0.4 % | [facility] | | | Granulocyte | Preliminary studies have | | [facility] | | | s | indicated the IG% | | MEDICAL | | | | and/or IG# show promise | | CENTER - | | | | as an early indicator | | LABORATORY | | | | for infection. | | | | + + + + + + | Absolute | 6.38 | 1.80 - 8.50 | [facility] | | | Neutrophils | | K/uL | [facility] | | | | | | [facility] | | | | | | CENTER - | | | | | | LABORATORY | | + + + + + + | Absolute | 2.10 | 0.60 - 3.20 | [facility] | | | Lymphocytes | | K/uL | [facility] | | | | | | [facility]ICAL | | | | | | CENTER - | | | | | | LABORATORY | | + + + + + + | Absolute | 0.75 | 0.00 - 1.00 | [facility] | | | Monocytes | | K/uL | [facility] | | | | | | [facility]ICAL | | | | | | CENTER - | | | | | | LABORATORY | | + + + + + + | Absolute | 0.07 | 0.00 - 0.40 | [facility] | | | Eosinophils | | K/uL | [facility] | | | | | | MEDICAL | | | | | | CENTER - | | | | | | LABORATORY | | + + + + + + | Absolute | 0.05 | 0.00 - 0.10 | [facility] | | | Basophils | | K/uL | [facility] | | | | | | [facility] | | | | | | CENTER - | | | | | | LABORATORY | | + + + + + + | Absolute | 0.05 (H) | 0.00 - 0.03 | [facility] | | | Immature | | K/uL | [facility] | | | Granulocyte | | | MEDICAL | | | s | | | CENTER - | | | | | | LABORATORY | | + + + + + + | % nRBC | 0 | 0 - 2 per 100 | [facility] | | | | | WBCs | [facility] | | | | | | [facility]ICAL | | | | | | CENTER - | | | | | | LABORATORY | | + + + + + + | Absolute | 0.00 | 0.00 - 0.01 | [facility] | | | nRBC | | K/uL | [facility] | | | | | | [facility]ICAL | | | | | | CENTER - | | | | | | LABORATORY | | + + + + + + + + | Specimen | + + | Blood | + + + + + + + | Performing | Address | City/State/Zipcode | Phone Number | | Organization | | | | + + + + + | [facility] | [address] | [place], [place] | [phone] | | [facility] | | [address] | | | - LABORATORY | | | | + + + + + Basic Metabolic Panel (08/22/2018 4:14 PM PDT) + + + + + + | Component | Value | Ref Range | Performed | Pathologist | | | | | At | Signature | + + + + + + | Na | 140 | 136 - 145 | [facility] | | | | | mmol/L | [facility] | | | | | | MEDICAL | | | | | | CENTER - | | | | | | LABORATORY | | + + + + + + | K | 3.8 | 3.4 - 5.1 | [facility] | | | | | mmol/L | [facility] | | | | | | MEDICAL | | | | | | CENTER - | | | | | | LABORATORY | | + + + + + + | Cl | 107 | 98 - 107 mmol/L | [facility] | | | | | | [facility] | | | | | | [facility]ICAL | | | | | | CENTER - | | | | | | LABORATORY | | + + + + + + | CO2 | 29 | 20 - 31 mmol/L | [facility] | | | | | | [facility] | | | | | | MEDICAL | | | | | | CENTER - | | | | | | LABORATORY | | + + + + + + | Anion Gap | 4 | 3 - 16 mmol/L | [facility] | | | | | | [facility] | | | | | | MEDICAL | | | | | | CENTER - | | | | | | LABORATORY | | + + + + + + | Glucose | 94 | 60 - 106 mg/dL | [facility] | | | | | | [facility] | | | | | | MEDICAL | | | | | | CENTER - | | | | | | LABORATORY | | + + + + + + | BUN | 19 | 9 - 23 mg/dL | [facility] | | | | | | [facility] | | | | | | MED[facility] | | | | | | CENTER - | | | | | | LABORATORY | | + + + + + + | Creatinine | 0.99 | 0.70 - 1.30 | [facility] | | | | | mg/dL | [facility] | | | | | | [facility] | | | | | | CENTER - | | | | | | LABORATORY | | + + + + + + | eGFR if not | >60Comment: GLOMERULAR | >=60 | [facility] | | | | FILTRATION | mL/min/1.73m2 | [facility] | | | COMORAN | RATE,ESTIMATED | | MEDICAL | | | | mL/min/1.91t7Ndrg than | | CENTER - | | | | 60 Chronic kidney | | LABORATORY | | | | disease,if found over a | | | | | | 3-month period.Less than | | | | | | 15 Kidney failureFor | | | | | | | | | | | | Americans,multiply the | | | | | | calculated GFR by 1.21. | | | | | | | | | | + + + + + + | Calcium | 8.8 | 8.7 - 10.4 | [facility] | | | | | mg/dL | [facility] | | | | | | MEDICAL | | | | | | CENTER - | | | | | | LABORATORY | | + + + + + + | BUN/Creatin | 19.2 | | [facility] | | | ine Ratio | | | [facility] | | | | | | MEDICAL | | | | | | CENTER - | | | | | | LABORATORY | | + + + + + + + + | Specimen | + + | Blood | + + + + + + + | Performing | Address | City/State/Zipcode | Phone Number | | Organization | | | | + + + + + | [facility] | [address] | [place] | [phone] | | [facility] | | [address] | | | - LABORATORY | | | | + + + + + Troponin I (08/22/2018 4:14 PM PDT) + + + + + + | Component | Value | Ref Range | Performed | Pathologist | | | | | At | Signature | + + + + + + | Troponin I | 1.15 ()Comment: | <0.06 ng/mL | [facility] | | | | Critical Result called | | [facility] | | | | to and read back by kandace | | PATRICIA | | | | mayela GLORIA on 08/22/2018 | | CENTER - | | | | at 16:52 by Jermaine | | LABORATORY | | | | Tom. | | | | | | Comment:Reference | | | | | | Ranges: 0.00-0.06 = | | | | | | NORMAL >0.06 = | | | | | | SUSPICIOUS FOR | | | | | | MYOCARDIAL DAMAGE NOTE: | | | | | | Values greater than | | | | | | 0.78 ng/mL have been | | | | | | shown to be strongly | | | | | | associated with acute | | | | | | myocardial infarction. | | | | | | The [employer] | | | | | | Cardiology (ACC) | | | | | | recommends a decision | | | | | | limit of 0.06 ng/mL for | | | | | | this assay. Results | | | | | | greater than 0.06 can | | | | | | reflect a pre-infarct | | | | | | acute coronary syndrome, | | | | | | but can also reflect | | | | | | myocardial necrosis or | | | | | | injury that is not due | | | | | | to coronary artery | | | | | | disease. Some of these | | | | | | causes are sepsis, | | | | | | hypocolemia, atrial | | | | | | fibrillation, heart | | | | | | failure, pulmonary | | | | | | embolism, myocarditis, | | | | | | myocardial contusion, | | | | | | and renal failure. The | | | | | | diagnosis of myocardial | | | | | | infarction should be | | | | | | based on a combination | | | | | | of the patient's | | | | | | clinical presentation | | | | | | and the clinical | | | | | | laboratory test results | | | | | | (especially serial | | | | | | troponin levels). | | | | + + + + + + + + | Specimen | + + | Blood | + + + + + + + | Performing | Address | City/State/Zipcode | Phone Number | | Organization | | | | + + + + + | [facility] | [address] | [place] | [phone] | | [facility] | | [address] | | | - LABORATORY | | | | + + + + + ECG - EXTERNAL SCAN (08/22/2018 12:00 AM PDT) + + + | Narrative | Performed At | + + + | Ordered by an | | | unspecified provider. 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 dysrhythmias | + + | Type 2 myocardial infarction (HCC) | + + | Methamphetamine use ([facility]) Nondependent amphetamine or related acting sympathomimetic | | abuse, unspecified | + + | Chronic pain syndrome | + + | Smoking Tobacco use disorder | + + documented in this encounter Administered Medications + +--------+ +--------+------+------+ | Medication Order | MAR | Action | Dose | Rate | Site | | | Action | Date | | | | + +--------+ +--------+------+------+ | aspirin tablet 325 mg 325 mg, | Given | 08/24/19 | 325 mg | | | | Oral, DAILY, First dose on Fri | | 19 9:13 | | | | | 08/22/18 at 1700 | | AM PDT | | | | + +--------+ +--------+------+------+ +-------+ +--------+---+---+ | Given | 08/23/19 | 325 mg | | | | | 19 5:13 | | | | | | PM PDT | | | | +-------+ +--------+---+---+ +---+---+ | | | +---+---+ + +-------+ +-------+---+---+ | atorvaSTATin (LIPITOR) tablet | Given | 08/23/19 | 80 mg | | | | 80 mg 80 mg, Oral, NIGHTLY, | | 19 8:54 | | | | | First dose on Sat08/22/18 at 2100 | | PM PDT | | | | + +-------+ +-------+---+---+ +---+---+ | | | +---+---+ + +-------+ +------+---+---+ | LORazepam (ATIVAN) tablet 1-2 | Given | 08/23/19 | 1 mg | | | | mg 1-2 mg, Oral, EVERY 6 HOURS | | 19 5:29 | | | | | PRN, Anxiety, Starting Fri | | PM PDT | | | | | 08/22/18 at 1706 | | | | | | + +-------+ +------+---+---+ +---+---+ | | | +---+---+ + +-------+ +-------+---+---+ | metoprolol succinate | Given | 08/24/19 | 50 mg | | | | (TOPROL-XL) ER tablet 50 mg 50 | | 19 1:55 | | | | | mg, Oral, DAILY, First dose on | | PM PDT | | | | | 08/23/18 at 1300, Tablet may | | | | | | | be cut where scored but do not | | | | | | | crush., | | | | | | + +-------+ +-------+---+---+ +---+---+ | | | +---+---+ + +-------+ +-------+---+---+ | metoprolol tartrate (LOPRESSOR) | Given | 08/24/19 | 25 mg | | | | tablet 25 mg 25 mg, Oral, 2 | | 19 9:13 | | | | | TIMES DAILY, First dose on Fri | | AM PDT | | | | | 08/22/18 at 1645 | | | | | | + +-------+ +-------+---+---+ +-------+ +-------+---+---+ | Given | 08/23/19 | 25 mg | | | | | 19 5:13 | | | | | | PM PDT | | | | +-------+ +-------+---+---+ + +---+ | | | + +---+ | nicotine (NICODERM) 14 mg/24 hr | | | 1 patch 1 patch, Transdermal, | | | DAILY PRN, Nicotine Craving, | | | Starting 08/22/18 at 1717 | | + +---+ | | | + +---+ + +-------+ +--------+---+---+ | nitroglycerin (NITRO-BID) 2% | Given | 08/23/19 | 1 inch | | | | ointment 1 inch 1 inch, Topical, | | 19 5:13 | | | | | EVERY 6 HOURS (4 times per day), | | PM PDT | | | | | First dose on Sat08/22/18 at | | | | | | | 1715 | | | | | | + +-------+ +--------+---+---+ +---+---+ | | | +---+---+ + +-------+ +--------+---+---+ | nitroglycerin (NITROSTAT) SL | Given | 08/23/19 | 0.4 mg | | | | tablet 0.4 mg 0.4 mg, | | 19 10:37 | | | | | Sublingual, EVERY 5 MIN PRN, | | PM PDT | | | | | Chest pain, Starting Sat08/22/18 | | | | | | | at 2200, Maximum of 3 doses in 15 | | | | | | | minutes., | | | | | | + +-------+ +--------+---+---+ +-------+ +--------+---+---+ | Given | 08/23/19 | 0.4 mg | | | | | 19 10:31 | | | | | | PM PDT | | | | +-------+ +--------+---+---+ | Given | 08/23/19 | 0.4 mg | | | | | 19 10:24 | | | | | | PM PDT | | | | +-------+ +--------+---+---+ +---+---+ | | | +---+---+ + +-------+ +--------+---+---+ | potassium chloride (Klor-Con | Given | 08/23/19 | 20 mEq | | | | M20) ER tablet 20 mEq 20 mEq, | | 19 5:29 | | | | | Oral, ONCE, 08/22/18 at 1730, | | PM PDT | | | | | For 1 dose | | | | | | + +-------+ +--------+---+---+ +---+---+ | | | +---+---+ documented in this encounter
--- OUTSIDE RECORDS SUMMARY | ~2019-07-17 | XMS | Clinical Summary ---
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
--- OUTSIDE RECORDS SUMMARY | ~2019-07-17 | XMS | Encounter Summary ---
Demographics + + + | Address | [address] | | | [place] [address] | + + + | Home Phone | | + + + | Preferred Language | Unknown | + + + | Marital Status | Single | + + + | Alevism Affiliation | [id number] | + + + | Race | Unknown | + + + | Ethnic Group | Unknown | + + + Author + + + | Author | [facility] | | | and [place] | + + + | Organization | [facility] | | [...] Team Providers + +------+ + | Care Japanese Interpreter Name | Role | Phone | + +------+ + PCP | Unavailable | + +------+ + Encounter Details +--------+ + + + + | Date | Type | Department | Care Team | Description | +--------+ + + + + | 07/28/ | Hospital | [facility] | Brandon Kimball, | Acute renal failure | | 2013 - | Encounter | [facility] | [address] | ([facility]); Metabolic | | | | CARE [address]LO[address] | [place] [address] | acidosis; | | 08/05/ | | [address] | [phone] | Hyperkalemia; | | 2013 | | [place], [place] | | Allodynia; Chronic | | | | [address] | | pain syndrome; | | | | [phone] | | History of heroin | | | | | | abuse; Chronic | | | | | | hepatitis C without | | | | | | mention of hepatic | | | | | | coma (HCC); | | | | | | Dehydration; | | | | | | Hyperkalemia, | | | | | | diminished renal | | | | | | excretion; Prerenal | | | | | | acute renal failure | | | | | | (HCC) | +--------+ + + + + Social History + +-------+ +--------+------+ | Tobacco Use | Types | Packs/Day | Years | Date | | | | | Used | | + +-------+ +--------+------+ | Never Assessed | | | | | + +-------+ +--------+------+ + + + | Sex Assigned at [...] + + documented as of this encounter Discharge Summaries Everardo Mcdowell MD - 08/05/2013 1:51 PM PDTFormatting of this note might be different f rom the original. Discharge Summaries by Everardo Mcdowell MD at 08/05/13 3001 Author: Everardo Mcdowell MD Service: (none) Author Type: Physician Filed: 08/05/13 9928 Date of Service: 08/05/13 1351 Status: Addendum Orchestra Director: Everardo Mcdowell MD (Physician) Related Notes: Original Note by Everardo Mcdowell MD (Physician) filed at 08/05/13 1402 [facility] Service: Hospitalist Discharge Summary Date of Admission: 07/28/2013 Date of Discharge: 08/05/2013 Discharge Provider: Everardo Mcdowell MD Treatment Team: Consulting Physician: Shirley Dutton MD Consulting Physician: Jameson Bedolla MD Consulting Physician: Tommy Khan DO Consulting Physician: Steffen Woodward MD Admitting Provider: Brandon Kimball MD Discharge Diagnoses: Principal Problem: *Acute renal failure Active Problems: Hyperkalemia, diminished renal excretion Oliguria Prerenal acute renal failure Metabolic acidosis Dehydration Illicit drug use Chronic hepatitis C without mention of hepatic coma Resolved Problems: * No resolved hospital problems. * Procedures: HD catheter placement. Significant Diagnostic Studies: 1. Severe muscle edema most pronounced within the left gluteus medius, also involving the l eft gluteus minimus as well as portions of the left gluteus albina and left obturator inter nus. The gluteus medius muscle appears edematous and expanded with abnormal signal and morph ology. 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 Trauma with multif ocal muscle strains could also cause this appearance. Cannot exclude ill-defined intramuscul ar hematoma or phlegmon within the gluteus medius. However, no simple drainable fluid is neo ntified. 2. No hip joint effusion. No evidence of septic arthritis. No evidence of osteomyelitis. No abscess identified on this noncontrast exam. 3. Subcutaneous soft tissue edema most pronounced in the region of the anterior left hip an d thigh. Cellulitis versus simple edema. BRIEF HISTORY OF PRESENTATION: Lucy Cheek is a 38 y.o. 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 Patient's also experienced several surge manuel to the right calf for fasciotomies secondary to heroin or IV drug use and popping. Repo rtedly it's been approximately 9 days since he last used. He presented to the outside hospit al with a 10 day history of having nausea and vomiting and some lower abdominal pain as well as bilateral flank pain. This not was not associated with any recent travel and he did not have diarrhea with this as well or report any fevers he did note that his urinary output was very diminished. At the outside hospital he was found to be in acute renal failure with BUNs of 118 creatini ne of 26 and potassium level was 5.9 he required replacement and treatment with calcium bica rbonate insulin and dextrose. He was thought to be profoundly dehydrated and was given 2 L o f normal saline and a liter of D5 with 150 of bicarbonate Patient was transferred here to [facility] for placement of hemodialysi s catheter and plan for urgent dialysis under the care of Dr. Dutton. Hemodialysis cathete r was placed in the right IJ by Dr. Healy in the emergency department. HOSPITAL COURSE: 1. Acute renal failure, possible secondary to dehydration, has Hep C, Dr Dutton is his ne phrologist, and Dr Wheeler is covering permcath placement was done yesterday, arrangement for outpatient HD was done to start paulina rrow. 2. Hyperkalemia, resolved 3.History of Illicit drug use,not active. Dr Bedolla is following for patient chronic hepatiti s C. 4. L leg swelling, L hip pain severe OA L leg US negative for DVT, continue Oxycodone as ne eded, his pain and swelling is improving, MRi pelvis obtained, MRI pelvis without contrast was done report as above, with muscle edema, and possible phlegmon, can't confirm any mass b ecause of contrast, no septic arthritis, no OM, no abscess, cellulitis versus edema reported but clinicaly there is no signs of infection. Pt is without any abx and has been clinically improving. Will monitor. CPKs are normal, doubt myositis without CPK. Possible as associati on with Acute renal failure. He needs to follow with Nephrology and order repeat MRI if swelling didn't resolve over nex t couple of weeks, or any worsening of symptoms. Past Medical History Diagnosis Date Hypertension Hepatitis C Past Surgical History Procedure Date Tibial fasciotomy compartment syndrome Right calf fasc No Known Allergies No prescriptions prior to admission DISCHARGE EXAM Vital Signs: BP 146/82 | Pulse 55 | Temp 98.7 F (37.1 C) (Oral) | Resp 20 | Ht 1.854 m (6' 1") | Wt 113.4 kg (250 lb) | BMI 32.99 kg/m2 | SpO2 96% Physical Examination: Constitutional: Alert and oriented to person, place, and time. Appears well-developed and w ell-nourished. Cardiovascular: Normal rate, regular rhythm, normal heart sounds with S1 and S2 and intact distal pulses. Exam reveals no gallop and no friction rub. No murmur heard. Pulmonary/Chest: Effort normal and breath sounds normal. No stridor. No respiratory distres s. no wheezes. no rales. exhibits no tenderness. Abdominal: Soft. Bowel sounds are normal. exhibits no distension and no mass. There is no t enderness. There is no rebound and no guarding. Musculoskeletal: Normal range of motion.exhibits no tenderness. exhibits no edema. Neurological: Alert and oriented to person, place, and time. Has normal reflexes. display s normal reflexes. No cranial nerve deficit. Exhibits normal muscle tone. Coordination norm al. Skin: Skin is warm and dry. No pallor. Psychiatric: Has a normal mood and affect. Behavior is normal. Judgment normal. Labs: Lab 08/05/1324 08/04/1324 08/03/13 0455 WBC 7.6 7.6 8.2 HGB 11.5* 11.5* 12.1* HCT 33.7* 33.6* 35.3* PLT 220 220 207 NEUTOPHILPCT 65.4 68.2 68.0 MONOPCT 12.5 11.2 10.7 Lab 08/05/1324 08/04/1324 08/03/13 0455 07/31/13 0528 NA 137 138 138 -- K 4.3 4.5 4.5 -- CL 102 102 100 -- CO2 26 24 28 -- BUN 62* 57* 52* -- CREATININE 11.94* 11.78* 11.75* -- CALCIUM -- -- -- -- PROT -- 5.7* 6.1* 5.3* BILITOT -- 0.4 0.4 0.4 ALKPHOS -- -- -- -- ALT -- 73* 82* 87* AST -- 42 45 37 GLUCOSE -- -- -- -- No components found with this basename: LABALBU:3 Lab 08/05/13 0524 08/04/13 0524 08/03/13 0455 MG 2.0 2.1 2.0 No results found for this basename: AMYLASE:3 in the last 168 hours No results found for this basename: PHART:3,PO2ART:3,MCG5NAH:3,E7OZXPAX:3,BEART:[address] 168 hours No results found for this basename: APTT:3,INR:3,PTT:3 in the last 168 hours Lab 08/05/13 0524 08/04/13 0524 08/03/13 0455 CKTOTAL 155 173 226 TROPONINI -- -- -- TROPONINT -- -- -- CKMBINDEX -- -- -- Disposition: Home Condition: Stable Code Status: Full Code Discharge Instructions Diet renal Activity as tolerated Call MD for: temperature >100.4 Call MD for: persistant nausea and vomiting Call MD for: severe uncontrolled pain Call MD for: difficulty breathing, headache or visual disturbances Call MD for: hives Call MD for: persistant dizziness or light-headedness Call MD for: extreme fatigue Follow up: MD Jason Murguia MD [address] [place] [address] In 1 week Shirley Dutton MD [facility] [address] [facility] [address] In 1 week [facility] [address] [place] [place] [id number] Medication List As of 08/05/2013 1:51 PM START taking these medications mupirocin 2 % nasal ointment QTY: 10 g Refills: 0 Commonly known as: BACTROBAN Apply to nares twice daily nystatin cream QTY: 30 g Refills: 0 Commonly known as: MYCOSTATIN Apply topically 3 (three) times daily as needed (to rash in skin folds). oxyCODONE 5 MG immediate release tablet QTY: 30 tablet Refills: 0 Commonly known as: ROXICODONE Take 1 tablet by mouth every 6 (six) hours as needed for Pain (for pain 2 to 4). Where to get your medications These are the prescriptions that you need to cloth picker. You may get these medications from any pharmacy. mupirocin 2 % nasal ointment nystatin cream oxyCODONE 5 MG immediate release tablet Discharge took 35 minutes, to include final examination, discussion of admission, and prepa ration of prescriptions, instructions for on-going care, follow-up and documentation of disc harge summary. Everardo Mcdowell MD 08/05/2013 documented in this encounter Progress Notes Rashel Wheeler MD - 08/05/2013 11:54 AM PDTFormatting of this note might be dif ferent from the original. Progress Notes by Rashel Wheeler MD at 08/05/13 7585 Author: Rashel Wheeler MD Service: Nephrology Author Type: Physician Filed: 08/05/13 115 Date of Service: 08/05/13 1151 Status: Signed Orchestra Director: Rashel Wheeler MD (Physician) [facility] Service: Nephrology Renal Consult Progress Note Lucy Cheek [id number] Hospital Day: LOS: 8 days SUBJECTIVE Patient Summary: Patient seen and examined. Feels well today. Has no complaints. Scheduled Medications bupivacaine (PF) 30 mL Infiltration Once [COMPLETED] bupivacaine (PF) 60 mL Infiltration Once ceFAZolin 2 g Intravenous Once ceFAZolin 2 g Intravenous Once [COMPLETED] ceFAZolin 2 g Intravenous Once docusate sodium 100 mg Oral BID Or docusate 100 mg Per OG Tube BID famotidine 20 mg Oral Daily Or famotidine 20 mg Intravenous Daily heparin (porcine) Intracatheter Daily [COMPLETED] heparin (porcine) 19,000 Units Intracatheter Once heparin (porcine) 3,000 Units Intracatheter Once heparin (porcine) 5,000 Units Subcutaneous Q8H lidocaine 1 patch Transdermal Daily lidocaine 10 mL Intradermal Once lidocaine 10 mL Intradermal Once mupirocin 1 applicator Nasal Once sodium bicarbonate buffer 5 mL Infiltration Once sodium bicarbonate buffer 5 mL Infiltration Once [DISCONTINUED] mupirocin 1 g Nasal BID Continuous Infusions PRN Medications acetaminophen, acetaminophen, albumin human, fentaNYL, fentaNYL, hydrALAZINE, HYDROmorphone , HYDROmorphone, labetalol, lip moisturizer, midazolam, morphine, nystatin, nystatin, ondans etron, ondansetron, oxyCODONE, oxyCODONE, sodium chloride OBJECTIVE Vital Signs: BP 146/82 | Pulse 50 | Temp 98.2 F (36.8 C) (Oral) | Resp 21 | Ht 1.854 m (6' 1") | Wt 113.4 kg (250 lb) | BMI 32.99 kg/m2 | SpO2 96% Intake/Output Summary (Last 24 hours) at 08/05/13 1154 Last data filed at 08/05/13 0416 Gross per 24 hour Intake 1375 ml Output 4300 ml Net -2925 ml Gen: NAD, A&Ox3 Neck: No JVD Pulm: CTA b/l, good air movement, no w/r/r CV: RRR, nl S1S2, no rub Abd: Soft, NT/ND, NABS Ext: no c/c/e Access: rt IJ permcath DATA Lab 08/05/1352308/04/1352308/03/1345408/02/13 0500 NA 137 138 138 136 K 4.3 4.5 4.5 4.6 CL 102 102 100 100 CO2 26 24 28 28 BUN 62* 57* 52* 40* CA 8.3* 8.2* 8.3* 8.2* PHOS 6.2* 7.4* 7.2* 6.0* MG 2.0 2.1 2.0 1.8 GLU -- -- -- -- Lab 08/05/1352308/04/1352308/03/13 0455 CREATININE 11.94* 11.78* 11.75* Lab 08/05/1352308/04/1352308/03/13 0455 08/02/13 0500 07/31/13 0528 ALB 3.4* 3.2* 3.3* 3.2* -- ALP -- 31* 34* -- 24* AST -- 42 45 -- 37 ALT -- 73* 82* -- 87* INR -- -- -- -- -- Lab 08/05/1352308/04/1352308/03/135 06/22/14 0500 WBC 7.6 7.6 8.2 7.4 RBC 3.55* 3.54* 3.73* 3.98* HGB 11.5* 11.5* 12.1* 12.8* HCT 33.7* 33.6* 35.3* 38.0* PLT 220 220 207 199 MCV 95.1 95.0 94.8 95.4 RDW 41.1 40.7 41.1 40.7 LYMPH -- -- -- -- No results found for this basename: INR:4,PT:4,PTT:4 in the last 168 hours PROBLEM LIST Principal Problem: *Acute renal failure Active Problems: Hyperkalemia, diminished renal excretion Oliguria Prerenal acute renal failure Metabolic acidosis Dehydration Illicit drug use Chronic hepatitis C without mention of hepatic coma ASSESSMENT & PLAN Mr. Cheek is a pleasant 38 yo gentleman with no known past medical history except for histo ry of IV drug abuse (none in last 3 years) , ? Mild hypertension on no meds, who was transfe rred from [facility] after he was found to be hyperkalemic with kidney failure and acidos is. 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 He started c/o low back pain and generalized weakness about 10 days ago and th en started taking NSAIDS For pain ( ibuprofen about 4-6 daily) . He started developing gradu al intractable nausea and vomiting and later on he started having low urine output. At one p oint in time he reports anuria for 2-3 days. He saw few physicians in urgent care in [facility] area and they told him to take Advil for pain management as his fatigue and muscles aches ( especially in lower extremities an back) worsened. He was seen in urgent care yesterday a nd was directed [facility] ED today where his labs showed Cr of 27, bun 186, CO2 16 and [ otassiumof 130. His cpk was 2237, uric acid 17.1, and phos 13.4. He was transferred to [facility] for management. Pt denies any history of CKD, DM, Nephrolithiasis, pyelonephritis, recent intake of illicit drugs such as cocaine or heroin, denies BPH or history of obstruction. He has not been expo sed to IV contrast. ARF Ml sec to dehydration+aleve clearance still not better, would anticipate short term acute dialysis, will hold off dialy sis today Renal w/u (shania, anca, complements, hiv, urine eos, renal dopplers have been negative, excep t for hep c ), cryo pending Would not recommend MRI/ct with contrast at this time S/p pc placement, has been accepted at [facility] dialysis unit to start Acute hd on //sat Would anticipate very short term need for acute dialysis Ok for discharge from renal standpoint Will f/u as o/p Plan d/w Dr Christianson Disposition: Home today Code Status: Full Code Rashel Wheeler MD 08/05/2013 11:54 AM Thomas Rodriguez MD - 08/05/2013 8:27 AM PDTFormatting of this note might be different from the origina l. Progress Notes by Jameson Bedolla MD at 08/05/13826 Author: Jameson Bedolla MD Service: Infectious Disease Author Type: Physician Filed: 08/05/13911 Date of Service: 08/05/13826 Status: Signed Orchestra Director: Jameson Bedolla MD (Physician) CONSULT NOTE 08/05/2013 9:11 AM PRIMARY PHYSICIAN JASON PRIDE CONSULT REQUEST FROM Everardo Mcdowell MD HISTORY OF PRESENT ILLNESS The patient is a 38 y.o.-year-old male with significant problems of HTN, h/o IV drug abuse 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 This was diagnosed when he was incarated. S/p liver biopsy In 2012 stage 2. This was done in [facility]. The patient was advised to be treated for later stages. ( the patient was incarcerated for 3 years. 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 The patient last incarceration from 2010 to 2013. Was released May 12, 2013 and doing well. The patient normal kidney function . The patient has a job in [employer] and enrolled at college. The patient was dehydrated 07/19/13 for sprain his ankle treated with ibuprofen and has on a nd off vomiting.for 10 days lower abdominal and flank pain. The patient went to [facility]. Was later transferred to [facility] 07/28/13 . HD catheter placed in R IJ in our ED. Admitte to [facility] . Urgent HD was done, he had 2 in ICU . No hydronephrosis on US. CPK trending down.Due to the hepatitis c infection, thus an infectious disease (ID) consult done for further evaluat ion and management. Work up done show The patient is immune to hepatitis A and serology for the hepatitis b is negative will check for hepatitis B antihbs and if negative And will need hepatitis B vacci nation. The patient had vaccination for hepatitis B 3x in 2012 but no antibody . Hepatitis C viral load of 6.1 (A) Log IU/mL HCV RNA VIRAL LOAD 4002469 (A) He has hiv and syphilis screen which were negative And left leg and knee and hip problem with swelling unclear etiology x ray show old fractur e on lateral malleolus. MRI 08/01/13 of the left hip done results show unclear etiology Concern with cellulitis cl inical picture relates more for trauma related but likely related to his renal failure . Feeling better. Last hemodialysis on 08/01/13 S/P permacath 08/04/13 and consider hemodialysis afterwards. MRSA screen negative. Past Medical History Diagnosis Date Hypertension Hepatitis C Past Surgical History Procedure Date Tibial fasciotomy compartment syndrome Right calf fasc Current Facility-Administered Medications Medication Dose Route Frequency Provider Last Rate Last Dose acetaminophen (TYLENOL) tablet 650 mg 650 mg Oral Q6H PRN WENDY Paiz 650 mg at 07/30/13 0816 Or acetaminophen (TYLENOL) suppository 650 mg 650 mg Rectal Q6H PRN TERE Paiz P albumin human 25 % solution 12.5 g 12.5 g Intravenous Q1H PRN Shirley Dutton MD bupivacaine (PF) (MARCAINE) 0.25 % injection 30 mL 30 mL Infiltration Once Jeff dumont MD [COMPLETED] bupivacaine (PF) (MARCAINE) 0.25 % injection 60 mL 60 mL Infiltration Once Jeff Llanes MD 30 mL at 08/04/13 1632 ceFAZolin (ANCEF) IVPB 2 g 2 g Intravenous Once Jeff Llanes MD ceFAZolin (ANCEF) IVPB 2 g 2 g Intravenous Once Jeff Llanes MD [COMPLETED] ceFAZolin (ANCEF) IVPB 2 g 2 g Intravenous Once Jeff Llanes MD 2 g at 08/04/13 1621 docusate sodium (COLACE) capsule 100 mg 100 mg Oral BID WENDY Paiz 100 m g at 08/05/13 0900 Or docusate (COLACE) 50 mg/5 mL liquid 100 mg 100 mg Per OG Tube BID NIURKA Paiz NP famotidine (PEPCID) tablet 20 mg 20 mg Oral Daily Pioneer H Tolentino, RPH 20 mg at 0900 Or famotidine (PEPCID) IVPB 20 mg 20 mg Intravenous Daily Pioneer H Tolentino, RPH fentaNYL (SUBLIMAZE) injection 50 mcg 50 mcg Intravenous Q5 Min PRN Jeff Llanes MD fentaNYL (SUBLIMAZE) injection 50 mcg 50 mcg Intravenous PRN Jeff Llanes MD 50 mcg at 08/04/13 1634 heparin (porcine) 1000 unit/mL injection Intracatheter Daily Shirley Dutton MD 3, 200 Units at 07/30/13 1508 [COMPLETED] heparin (porcine) injection 19,000 Units 19,000 Units Intracatheter Once S corrie Llanes MD 19,000 Units at 08/04/13 1642 heparin (porcine) injection 3,000 Units 3,000 Units Intracatheter Once Jeff tate MD heparin (porcine) injection 5,000 Units 5,000 Units Subcutaneous Q8H WENDY Paiz 5,000 Units at 08/05/13 0530 hydrALAZINE (APRESOLINE) injection 10 mg 10 mg Intravenous Q1H PRN Jessica Paiz ENGINEERING ASSOCIATE 10 mg at 08/04/13 1942 HYDROmorphone (DILAUDID) injection 0.5 mg 0.5 mg Intravenous Q3H PRN Lilian Forbes MD Or HYDROmorphone (DILAUDID) injection 1 mg 1 mg Intravenous Q3H PRN Lilian Forbes MD 1 mg at 08/05/13 0900 labetalol (NORMODYNE) injection 10 mg 10 mg Intravenous Q10 Min PRN WENDY Paiz lidocaine (LIDODERM) 5 % patch 1 patch 1 patch Transdermal Daily Tung Dietz MD 1 patch at 08/05/13 0900 lidocaine 1 % injection 10 mL 10 mL Intradermal Once Jeff Llanes MD lidocaine 1 % injection 10 mL 10 mL Intradermal Once Jeff Llanes MD lip moisturizer (CHAPSTICK) ointment Topical PRN WENDY Paiz midazolam (VERSED) injection 2 mg 2 mg Intravenous PRN Jeff Llanes MD 2 mg a t 08/04/13 1634 morphine injection 1 mg 1 mg Intravenous Q1H PRN Tung Dietz MD mupirocin (BACTROBAN) 2 % nasal ointment 1 applicator 1 applicator Nasal Once Gisselle Llanes MD nystatin (MYCOSTATIN) 409755 UNIT/ML suspension 500,000 Units 5 mL Mouth/Throat 4x Preethi ly PRN WENDY Paiz nystatin (MYCOSTATIN) cream Topical TID PRN WENDY Paiz ondansetron (ZOFRAN) tablet 4 mg 4 mg Oral Q6H PRN WENDY Paiz Or ondansetron (ZOFRAN) injection 4 mg 4 mg Intravenous Q6H PRN WENDY Paiz 4 mg at 08/05/13 0413 sodium bicarbonate buffer (NEUT) 4(.2) % injection 5 mL 5 mL Infiltration Once Nba Llanes MD sodium bicarbonate buffer (NEUT) 4(.2) % injection 5 mL 5 mL Infiltration Once Nba Llanes MD sodium chloride 0.9 % bolus 100 mL 100 mL Intravenous Q30 Min PRN Rasehl Wheeler MD [DISCONTINUED] mupirocin (BACTROBAN) 2 % nasal ointment 1 g 1 g Nasal BID Jeff conroy MD No Known Allergies History Social History Marital Status: Single Spouse Name: N/A Number of Children: N/A Years of Education: N/A Occupational History Not on file. Social History Main Topics Smoking status: Current Every Day Smoker -- 0.5 packs/day Smokeless tobacco: Not on file Alcohol Use: No Drug Use: Yes Special: Heroin, IV, Methamphetamines Comment: none for last 3 years Sexually Active: Other Topics Concern Not on file Social History Narrative No narrative on file No smoking. No alcohol intake. Recreational Drug Use NO Travel No Pets Immunization History Administered Date(s) Administered Hepatitis B 08/02/2013 Pneumococcal Polysaccharide 07/29/2013 S/p Pneumococcal No Influenza Family History Problem Relation Age of Onset Nephrolithiasis Mother REVIEW OF SYSTEMS General: The patient noted to have no problem of fever,no weight loss and no chills. Neurologic: Denies any headache, any lightheadedness. No loss of consciousness or seizure. Cardiac: Denies Chest Pain, Palpitation, Dyspnea on Exertion Pulmonary: Denies cough, wheezing and hemoptysis GASTROINTESTINAL: Denies nausea vomiting, and diarrhea. GENITOURINARY: Noted no dysuria, urgency, or frequency. Hematological : Denies any ecchymosis, bleeding or hematuria Endocrine: Denies any polyphagia, polyuria or hot and cold intolerance Musculoskeletal: with joint pain and with Swelling better. Skin : Denies any new rashes or cutaneous changes. Rest of the review of systems is unremarkable. PHYSICAL EXAMINATION VITAL SIGNS Wt Readings from Last 3 Encounters: 08/04/13 113.4 kg (250 lb) Temp Readings from Last 3 Encounters: 08/05/13 98.2 F (36.8 C) Oral BP Readings from Last 3 Encounters: 08/05/13 180/101 Pulse Readings from Last 3 Encounters: 08/05/13 50 Head: Normocephalic atraumatic HEENT: [place] palpebral conjunctivae. Anicteric sclerae. No tonsillopharyngeal congestion. Neck : Noted no Cervical Lymphadenopathy Right neck with hemodialsis catheter. CHEST:Clear Breath Sounds Bilateral . Hemodialysis catheter HEART: Regular rate and rhythm. No murmurs thrills or rubs ABDOMEN: Soft, flat. No tenderness. No hepatosplenomegaly. GROIN AREA: Negative for intertrigo. EXTREMITIES: Lower extremities with left knee edema and left leg and foot with edema improv ed . Right leg and foot to have no edema. Left hip with no tenderness with Discomfort NEUROLOGIC: No localizing signs. Skin : NO rash or ecchymosis. LABORATORY DATA Lab Results Component Value Date WBC 7.6 08/05/2013 HGB 11.5* 08/05/2013 HCT 33.7* 08/05/2013 PLT 220 08/05/2013 ALT 73* 08/04/2013 AST 42 08/04/2013 NA 137 08/05/2013 K 4.3 08/05/2013 CL 102 08/05/2013 CREATININE 11.94* 08/05/2013 BUN 62* 08/05/2013 CO2 26 08/05/2013 GLUF 94 08/05/2013 HGBA1C 5.4 07/29/2013 Hepatic Function Panel: Lab Results Component Value Date PROT 5.7* 08/04/2013 ALB 3.4* 08/05/2013 BILITOT 0.4 08/04/2013 ALP 31* 08/04/2013 AST 42 08/04/2013 ALT 73* 08/04/2013 Lipase: No results found for this basename: LIPASE U/A: No results found for this basename: COLORU, CLARITYU, MEROPENEM, LEUKOCYTESUR, NITRITE, UROBILINOGEN, PROTEINUA, PHUR, BLOODU, KETONES, BILIRUBINUR, GLUCOSEU DIAGNOSTIC IMAGING MRI pelvis without contrast [[id number]] Resulted:08/01/13 1659 Order Status:Completed Update d:08/01/13 1702 Narrative: EXAM: MR PELVIS WITHOUT CONTRAST EXAM DATE: 08/01/2013 10:25 AM. CLINICAL HISTORY: Chronic pain. Acute renal failure. History of heroin abuse. Left hip pain . COMPARISON: Left hip radiographs 07/30/2013. TECHNIQUE: Coronal T1 and STIR. Axial T1 and STIR. FINDINGS: Bones and articular surfaces: No hip joint effusion. Mild cartilage thinning and irregulari ty and marginal osteophyte formation in both hips. Marrow signal appears normal. No evidence of fracture or destructive bone lesion. Sacroiliac joints appear symmetric and within anastasiya l limits. Soft tissues: Nonspecific diffuse subcutaneous soft tissue edema. This is most pronounced o n the left anteriorly at the level of the hip and proximal thigh. Severe edema throughout th e left gluteus medius and minimus muscles. Small amount of edema within the lateral fibers o f the left gluteus albina. The left gluteus medius muscle appears expanded with some hetero genous signal and morphology. Difficult to differentiate between edematous expanded muscle t issue versus edematous muscle with possibility of some degree of intramuscular hematoma or p hlegmon. However, no appreciable simple-appearing drainable fluid. Edema also extends into t he right obturator internus muscle. Impression: 1. Severe muscle edema most pronounced within the left gluteus medius, also involving the l eft gluteus minimus as well as portions of the left gluteus albina and left obturator inter nus. The gluteus medius muscle appears edematous and expanded with abnormal signal and morph ology. 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 Trauma with multif ocal muscle strains could also cause this appearance. Cannot exclude ill-defined intramuscul ar hematoma or phlegmon within the gluteus medius. However, no simple drainable fluid is neo ntified. 2. No hip joint effusion. No evidence of septic arthritis. No evidence of osteomyelitis. No abscess identified on this noncontrast exam. 3. Subcutaneous soft tissue edema most pronounced in the region of the anterior left hip an d thigh. Cellulitis versus simple edema. Lucy Reinoso #[id number] (CSN: [id number]) (38 y.o. M) (Adm: 07/28/13) [id number] Radiology Results (last 7 days) X-ray femur left [[id number]] Resulted:08/01/131740 Order Status:Completed Updated:08/01/131746 Narrative: LUCY CHEEK XR FEMUR LEFT, XR TIBIA FIBULA LEFT, XR FOOT LEFT 08/01/2013 10:53 AM HISTORY: 38 years. Male. Trauma with left leg and foot pain TECHNIQUE: XR FEMUR LEFT, XR TIBIA FIBULA LEFT, XR FOOT LEFT. Frontal and lateral view of the femur ta jaqui in sections (4 views), frontal and lateral view of the tibia and fibula taken in section s (4 views) and left foot series. (3 views). Total of 11 images obtained. COMPARISON: None. FINDINGS: Left femur: The left hip show some degenerative changes but no flattening or fragmentation of the femoral head. Femoral neck and shaft are normal in appearance no evidence of fracture s or periosteal reaction. The view of the knee is normal in appearance. Left tib-fib: Tibial plateau smooth no evidence of fractures. No intra-articular free fragm ents. No evidence of significant joint effusion or erosive arthritis. The tibia and fibula s how no fractures or erosive lesions no periosteal reaction or soft tissue calcification limi fili view of the ankle suggest some degenerative changes. There is a transverse well-corticat ed lucency through the tip of the lateral malleolus suggesting residual of a old fracture. Left foot the phalanges and metatarsals are normal in appearance. The tarsal ossicles show no evidence of fractures. Os trigonum is noted. Impression: 1. No evidence of fracture of the left femur. 2. Residual old fracture lateral malleolus. No evidence of a acute fracture of the tibia or fibula. 3. No evidence of fracture or dislocation of the left foot. 4. Correlate clinically, followup study if the patient continues to be symptomatic. X-ray tibia fibula left [[id number]] Resulted:08/01/131740 Order Status:Completed Updated:08/01/131746 Narrative: LUCY CHEEK XR FEMUR LEFT, XR TIBIA FIBULA LEFT, XR FOOT LEFT 08/01/2013 10:53 AM HISTORY: 38 years. Male. Trauma with left leg and foot pain TECHNIQUE: XR FEMUR LEFT, XR TIBIA FIBULA LEFT, XR FOOT LEFT. Frontal and lateral view of the femur ta jaqui in sections (4 views), frontal and lateral view of the tibia and fibula taken in section s (4 views) and left foot series. (3 views). Total of 11 images obtained. COMPARISON: None. FINDINGS: Left femur: The left hip show some degenerative changes but no flattening or fragmentation of the femoral head. Femoral neck and shaft are normal in appearance no evidence of fracture s or periosteal reaction. The view of the knee is normal in appearance. Left tib-fib: Tibial plateau smooth no evidence of fractures. No intra-articular free fragm ents. No evidence of significant joint effusion or erosive arthritis. The tibia and fibula s how no fractures or erosive lesions no periosteal reaction or soft tissue calcification limi fili view of the ankle suggest some degenerative changes. There is a transverse well-corticat ed lucency through the tip of the lateral malleolus suggesting residual of a old fracture. Left foot the phalanges and metatarsals are normal in appearance. The tarsal ossicles show no evidence of fractures. Os trigonum is noted. Impression: 1. No evidence of fracture of the left femur. 2. Residual old fracture lateral malleolus. No evidence of a acute fracture of the tibia or fibula. 3. No evidence of fracture or dislocation of the left foot. 4. Correlate clinically, followup study if the patient continues to be symptomatic. X-ray foot left [[id number]] Resulted:08/01/13 1741 Order Status:Completed Updated:08/01/131746 Narrative: LUYC CHEEK XR FEMUR LEFT, XR TIBIA FIBULA LEFT, XR FOOT LEFT 08/01/2013 10:53 AM HISTORY: 38 years. Male. Trauma with left leg and foot pain TECHNIQUE: XR FEMUR LEFT, XR TIBIA FIBULA LEFT, XR FOOT LEFT. Frontal and lateral view of the femur ta jaqui in sections (4 views), frontal and lateral view of the tibia and fibula taken in section s (4 views) and left foot series. (3 views). Total of 11 images obtained. COMPARISON: None. FINDINGS: Left femur: The left hip show some degenerative changes but no flattening or fragmentation of the femoral head. Femoral neck and shaft are normal in appearance no evidence of fracture s or periosteal reaction. The view of the knee is normal in appearance. Left tib-fib: Tibial plateau smooth no evidence of fractures. No intra-articular free fragm ents. No evidence of significant joint effusion or erosive arthritis. The tibia and fibula s how no fractures or erosive lesions no periosteal reaction or soft tissue calcification limi fili view of the ankle suggest some degenerative changes. There is a transverse well-corticat ed lucency through the tip of the lateral malleolus suggesting residual of a old fracture. Left foot the phalanges and metatarsals are normal in appearance. The tarsal ossicles show no evidence of fractures. Os trigonum is noted. Impression: 1. No evidence of fracture of the left femur. 2. Residual old fracture lateral malleolus. No evidence of a acute fracture of the tibia or fibula. 3. No evidence of fracture or dislocation of the left foot. 4. Correlate clinically, followup study if the patient continues to be symptomatic. pelvis without contrast [[id number]] Resulted:08/01/13 1659 Order Status:Completed Updated:08/01/131701 Narrative: EXAM: MR PELVIS WITHOUT CONTRAST EXAM DATE: 08/01/2013 10:25 AM. CLINICAL HISTORY: Chronic pain. Acute renal failure. History of heroin abuse. Left hip pain . COMPARISON: Left hip radiographs 07/30/2013. TECHNIQUE: Coronal T1 and STIR. Axial T1 and STIR. FINDINGS: Bones and articular surfaces: No hip joint effusion. Mild cartilage thinning and irregulari ty and marginal osteophyte formation in both hips. Marrow signal appears normal. No evidence of fracture or destructive bone lesion. Sacroiliac joints appear symmetric and within anastasiya l limits. Soft tissues: Nonspecific diffuse subcutaneous soft tissue edema. This is most pronounced o n the left anteriorly at the level of the hip and proximal thigh. Severe edema throughout th e left gluteus medius and minimus muscles. Small amount of edema within the lateral fibers o f the left gluteus albina. The left gluteus medius muscle appears expanded with some hetero genous signal and morphology. Difficult to differentiate between edematous expanded muscle t issue versus edematous muscle with possibility of some degree of intramuscular hematoma or p hlegmon. However, no appreciable simple-appearing drainable fluid. Edema also extends into t he right obturator internus muscle. Impression: 1. Severe muscle edema most pronounced within the left gluteus medius, also involving the l eft gluteus minimus as well as portions of the left gluteus albina and left obturator inter nus. The gluteus medius muscle appears edematous and expanded with abnormal signal and morph ology. 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 Trauma with multif ocal muscle strains could also cause this appearance. Cannot exclude ill-defined intramuscul ar hematoma or phlegmon within the gluteus medius. However, no simple drainable fluid is neo ntified. 2. No hip joint effusion. No evidence of septic arthritis. No evidence of osteomyelitis. No abscess identified on this noncontrast exam. 3. Subcutaneous soft tissue edema most pronounced in the region of the anterior left hip an d thigh. Cellulitis versus simple edema. [facility] Electronically signed by Samy Woodward MD on Aug 01 2013 4:59PM Referring Provider Line: [id number] ID: [id number] X-ray hip 2 view left [[id number]] Resulted:07/30/131920 Order Status:Completed Updated:07/30/131925 Narrative: LUCY CHEEK 1975 XR HIP 2 VIEW LEFT 07/30/2013 7:19 PM INDICATION: Hip pain COMPARISON: None TECHNIQUE: Two views of the left hip FINDINGS: The sacroiliac joints and symphysis pubis are normal. There are no bony pelvic fr actures. There is moderate left and severe right osteoarthritis of the hip joints with moder ate spurring. Some osteophyte formation is also noted along the femoral head neck junction b ilaterally, right greater than left. There is no acute fracture or dislocation. There appear s to be some cellulitis or subcutaneous edema. Impression: 1. 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 Ultrasound doppler venous leg left [[id number]] Resulted:07/30/131804 Order Status:Completed Updated:07/30/131809 Narrative: LUCY NOLANDES 1975 US DOPPLER VENOUS LEG LEFT 07/30/2013 5:59 PM HISTORY: Lower extremity swelling COMPARISON: None. TECHNIQUE: Left lower extremity venous duplex, quinonez scale, color flow and spectral analysis performed FINDINGS: The deep venous system is normal on grayscale imaging. Normal compressibility and augmentation is demonstrated. The calf veins are patent on color flow assessment. There is no Hills's cyst. Moderate subcutaneous edema is noted along the calf. Impression: 1. No evidence of lower extremity deep vein thrombosis. Ultrasound retroperitoneal limited [[id number]] Resulted:07/30/131803 Order Status:Completed Updated:07/30/131808 Narrative: LUCY CHEEK 1975 US RETROPERITONEAL LIMITED 07/30/2013 5:59 PM INDICATION: Renal enlargement, renal failure COMPARISON: 07/28/13 TECHNIQUE: Retroperitoneal ultrasound, grayscale and color Doppler assessment FINDINGS: The right kidney measures 14.3 cm in length. Transverse dimensions of the right k idney are 8.3 x 7.2 cm. Again, a generous appearance of the renal thickness is noted. Normal arterial and venous waveforms are documented throughout the right kidney. Slight increased echogenicity of the renal cortex is again demonstrated. The left kidney measures 13.8 x 7.2 x 6.4 cm. There is a slightly echogenic appearance of t he renal cortex. A normal venous and arterial waveform are documented in the left kidney as well. Impression: 1. No evidence of renal vein thrombosis or obstruction of the renal arterial system. Chest AP portable [[id number]] Resulted:07/28/13 1546 Order Status:Completed Updated:07/29/13 0820 Narrative: LUCY CHEEK XR CHEST 1 VIEW 07/28/2013 3:05 PM HISTORY: 38 years. Male. Renal failure TECHNIQUE: One view portable obtained 1435 COMPARISON: None FINDINGS: Central line via right internal jugular vein, tip cavoatrial junction. Borderline cardiac e nlargement. Pulmonary veins are somewhat engorged, however. Large osteophyte formation extending superiorly from the distal clavicle Impression: 1. Central line right internal jugular vein. No evidence of pneumothorax. Pulmonary venous engorgement indicating fluid overload. Heart size top normal. 2. Large osteophyte formation above the distal clavicle X-ray chest 1 view [[id number]] Resulted:07/29/13 0705 Order Status:Completed Updated:07/29/13 0710 Narrative: LUCY CHEEK XR CHEST 1 VIEW 07/29/2013 5:11 AM History: 38 years. Male. Acute renal failure. Technique: AP portable upright technique was performed at 1435 hours. Comparison: 07/28/13 Findings: The inspiratory effort is moderate. No lung consolidation or pleural effusion vis ualized. Mild cardiomegaly is still present. The upper lobe pulmonary vasculature is distended, alhaji cating grade 1 pulmonary venous hypertension, a precursor to interstitial edema. No visible pulmonary edema at present, however. The pulmonary melissa and mediastinal contours are normal. The thoracic aorta is normal, without dilatation or calcification. A large caliber right internal jugular central venous catheter is noted with its tip in the distal superior vena cava, unchanged. No acute osseous findings. Exostosis on the distal le ft clavicle, a chronic finding. Impression: 1. Mild cardiomegaly and grade 1 pulmonary venous hypertension, unchanged. 2. Incomplete inspiratory effort. 3. Persistent central venous catheter, unchanged. X-ray chest 1 view [[id number]] Resulted:07/29/1357 Order Status:Completed Updated:07/29/1357 Narrative: This is a non-reportable procedure without a radiologist report and is used for image storage only Ultrasound kidneys and bladder [[id number]] Resulted:07/28/131727 Order Status:Completed Updated:07/28/131732 Narrative: LUCY CHEEK 1975 US KIDNEYS AND BLADDER 07/28/2013 4:39 PM HISTORY: Hyperkalemia with acute renal failure COMPARISON: None. TECHNIQUE: Transabdominal ultrasound of the kidneys and bladder, grayscale and color flow e valuation. FINDINGS: The right kidney measures 14.5 x 8.3 x 7.5 cm. There is limited visualization of the liver which appears hypoechoic relative to the right kidney. Normal vascularity is noted throughout the renal hilum. There is no hydronephrosis or renal mass. The left kidney measu res 13.4 x 7.9 x 7.2 cm. There is normal cortical thickness. Normal vascularity is seen thro ughout the hilum. There is no hydronephrosis. The bladder measures 5.4 x 6.3 x 7.0 cm. There is a prevoid volume of 124 mL. No ureteral jets are documented. Impression: 1. Slightly enlarged appearance of the kidneys bilaterally with a increased echogenic appe arance. This is nonspecific but may reflect underlying medical renal disease or related to d iabetes. Lucy Cheek is a 38 y.o. male with the following Problems Patient Active Problem List Diagnosis Hyperkalemia, diminished renal excretion Oliguria Prerenal acute renal failure Metabolic acidosis Dehydration Illicit drug use Acute renal failure Chronic hepatitis C without mention of hepatic coma Plan: Follow up hepatitis C genotype viral load positive Follow up fibrosure to work up the staging of the liver. Cryoglobulin for any relation of hepatitis C quantiferon gold tb blood test negative.. Discussed treatment options for olysio and sovaldi once the Renal function recovers. Discussed with Dr. Everardo Mcdowell MD and Dr. Wheeler who agreed and will Thank you very much for the consult. JAMESON BEDOLLA MD onversion Transaction , Provider Unknown - 08/04/2013 2:12 PM PDT Progress Notes by Toshia Sparks at 08/04/13 1412 Author: Toshia Sparks Service: (none) Author Type: Coordinator Filed: 08/04/13 1420 Date of Service: 08/04/13 141 Status: Signed Orchestra Director: Toshia Sparks (Coordinator) Patients dialysis schedule is as follows: [facility] [address] [place] [address] Saturday, & Saturday @ 10:15am Patient needs to arrive on his 08-06-13 @ 9:30am for new patient paperwork. Rashel Carcamo MD - 08/04/2013 1:25 PM PDT Progress Notes by Rashel Wheeler MD at 08/04/13 1325 Author: Rashel Wheeler MD Service: Nephrology Author Type: Physician Filed: 08/04/13 1331 Date of Service: 08/04/13 1325 Status: Signed Orchestra Director: Rashel Wheeler MD (Physician) [facility] Service: Nephrology Renal Consult Progress Note Lucy Cheek [id number] Hospital Day: LOS: 7 days SUBJECTIVE Patient Summary: Patient seen and examined. Feels well today. Has no complaints. Scheduled Medications bupivacaine (PF) 30 mL Infiltration Once ceFAZolin 2 g Intravenous Once docusate sodium 100 mg Oral BID Or docusate 100 mg Per OG Tube BID famotidine 20 mg Oral Daily Or famotidine 20 mg Intravenous Daily heparin (porcine) Intracatheter Daily heparin (porcine) 19,000 Units Intracatheter Once heparin (porcine) 5,000 Units Subcutaneous Q8H lidocaine 1 patch Transdermal Daily lidocaine 10 mL Intradermal Once sodium bicarbonate buffer 5 mL Infiltration Once [DISCONTINUED] mupirocin 1 g Nasal BID Continuous Infusions PRN Medications acetaminophen, acetaminophen, albumin human, fentaNYL, hydrALAZINE, HYDROmorphone, HYDROmor phone, labetalol, lip moisturizer, morphine, nystatin, nystatin, ondansetron, ondansetron, s odium chloride OBJECTIVE Vital Signs: BP 150/91 | Pulse 50 | Temp 98.1 F (36.7 C) (Oral) | Resp 16 | Ht 1.854 m (6' 1") | Wt 113.4 kg (250 lb) | BMI 32.99 kg/m2 | SpO2 96% Intake/Output Summary (Last 24 hours) at 08/04/13 1325 Last data filed at 08/04/13 0425 Gross per 24 hour Intake 1000 ml Output 2900 ml Net -1900 ml Gen: NAD, A&Ox3 Neck: No JVD Pulm: CTA b/l, good air movement, no w/r/r CV: RRR, nl S1S2, no rub Abd: Soft, NT/ND, NABS Ext: left leg trace edma DATA Lab 08/04/1352308/03/1345408/02/13 0500 08/01/13 0506 NA 138 138 136 134* K 4.5 4.5 4.6 4.7 CL 102 100 100 98* CO2 24 28 28 23 BUN 57* 52* 40* 67* CA 8.2* 8.3* 8.2* 8.2* PHOS 7.4* 7.2* 6.0* 7.8* MG 2.1 2.0 1.8 2.0 GLU -- -- -- -- Lab 08/04/13 0508/03/13 0455 08/02/13 0500 CREATININE 11.78* 11.75* 10.15* Lab 08/04/13 0508/03/13 0455 08/02/13 0500 08/01/13 0506 07/31/13 0528 ALB 3.2* 3.3* 3.2* 3.1* -- ALP 31* 34* -- -- 24* AST 42 45 -- -- 37 ALT 73* 82* -- -- 87* INR -- -- -- -- -- Lab 08/04/13 0524 08/03/13 0455 08/02/13 0500 08/01/13 0506 WBC 7.6 8.2 7.4 8.8 RBC 3.54* 3.73* 3.98* 4.05* HGB 11.5* 12.1* 12.8* 13.3 HCT 33.6* 35.3* 38.0* 38.4* PLT 220 207 199 194 MCV 95.0 94.8 95.4 94.8 RDW 40.7 41.1 40.7 40.7 LYMPH -- -- -- -- No results found for this basename: INR:4,PT:4,PTT:4 in the last 168 hours PROBLEM LIST Principal Problem: *Acute renal failure Active Problems: Hyperkalemia, diminished renal excretion Oliguria Prerenal acute renal failure Metabolic acidosis Dehydration Illicit drug use Chronic hepatitis C without mention of hepatic coma ASSESSMENT & PLAN Mr. Cheek is a pleasant 38 yo gentleman with no known past medical history except for histo ry of IV drug abuse (none in last 3 years) , ? Mild hypertension on no meds, who was transfe rred from [facility] after he was found to be hyperkalemic with kidney failure and acidos is. 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 He started c/o low back pain and generalized weakness about 10 days ago and th en started taking NSAIDS For pain ( ibuprofen about 4-6 daily) . He started developing gradu al intractable nausea and vomiting and later on he started having low urine output. At one p oint in time he reports anuria for 2-3 days. He saw few physicians in urgent care in [facility] on area and they told him to take Advil for pain management as his fatigue and muscles aches ( especially in lower extremities an back) worsened. He was seen in urgent care yesterday a nd was directed [facility] ED today where his labs showed Cr of 27, bun 186, CO2 16 and [ otassiumof 130. His cpk was 2237, uric acid 17.1, and phos 13.4. He was transferred to [facility] for management. Pt denies any history of CKD, DM, Nephrolithiasis, pyelonephritis, recent intake of illicit drugs such as cocaine or heroin, denies BPH or history of obstruction. He has not been expo sed to IV contrast. ARF Ml sec to dehydration+aleve clearance still not better, would anticipate short term acute dialysis, will hold off dialy sis today Renal w/u (shania, anca, complements, hiv, urine eos, renal dopplers have been negative, excep t for hep c ), cryo pending Would not recommend MRI/ct with contrast at this time Will place a PC and arrange for OP acute dialysis, can be discharged once he has dialysis p lacement and pc placed Will f/u as o/p Code Status: Full Code Rashel Wheeler MD 08/04/2013 1:25 PM Everardo Barnes MD - 08/04/2013 11:06 AM PDTFormatting of this note might be different from the mary carmen gikalin. Progress Notes by Everardo Mcdowell MD at 08/04/13 1106 Author: Everardo Mcdowell MD Service: (none) Author Type: Physician Filed: 08/04/132004 Date of Service: 08/04/13 1106 Status: Signed Orchestra Director: Everardo Mcdowell MD (Physician) [facility] Service: Hospitalist Progress Note Pt: Lucy Cheek AGE/SEX: 38 y.o. male ROOM: [id number] : 1975 PCP: JASON PRIDE ADMIT DATE: 07/28/2013 TODAY'S DATE: 08/04/2013 Hospital Day/Hospital Course: LOS: 7 days SUBJECTIVE: Patient seen and examine. Complaint of left leg and hip pain and swelling. Scheduled Medications: bupivacaine (PF) 30 mL Infiltration Once ceFAZolin 2 g Intravenous Once docusate sodium 100 mg Oral BID Or docusate 100 mg Per OG Tube BID famotidine 20 mg Oral Daily Or famotidine 20 mg Intravenous Daily heparin (porcine) Intracatheter Daily heparin (porcine) 19,000 Units Intracatheter Once heparin (porcine) 5,000 Units Subcutaneous Q8H lidocaine 1 patch Transdermal Daily lidocaine 10 mL Intradermal Once sodium bicarbonate buffer 5 mL Infiltration Once [DISCONTINUED] mupirocin 1 g Nasal BID Continuous Infusions PRN Medications acetaminophen, acetaminophen, albumin human, fentaNYL, hydrALAZINE, HYDROmorphone, HYDROmor phone, labetalol, lip moisturizer, morphine, nystatin, nystatin, ondansetron, ondansetron, s odium chloride Allergy: No Known Allergies OBJECTIVE: Vitals: Patient Vitals for the past 24 hrs: BP Temp Temp src Pulse Resp SpO2 Weight 08/04/13 0730 133/80 mmHg 97.8 F (36.6 C) Oral 62 18 97 % - 08/04/13 0421 158/82 mmHg 97.5 F (36.4 C) Axillary 49 20 98 % 113.4 kg (250 lb) 08/03/13 2358 140/90 mmHg 97.5 F (36.4 C) Oral 50 18 97 % - 08/03/132012 133/76 mmHg 98.4 F (36.9 C) Oral 48 20 98 % - 08/03/13 1707 139/83 mmHg 98.4 F (36.9 C) Oral 82 20 97 % - 08/03/13 1152 134/83 mmHg 98.7 F (37.1 C) Oral 58 18 98 % - I&O Detailed Table: Intake/Output Summary (Last 24 hours) at 08/04/13 1106 Last data filed at 08/04/13 0425 Gross per 24 hour Intake 1000 ml Output 2900 ml Net -1900 ml Patient Vitals for the past 96 hrs: Weight 08/04/13 0421 113.4 kg (250 lb) 08/03/13 0448 113.5 kg (250 lb 3.6 oz) 08/02/13 0418 117 kg (257 lb 15 oz) 08/01/13 1340 116.8 kg (257 lb 8 oz) 08/01/13 0352 116.8 kg (257 lb 8 oz) Hemodynamics Last 24hrs: Physical Examination: Constitutional: Alert and oriented to person, place, and time. Appears well-developed and w ell-nourished. HEENT: Neck supple, no JVD, non icteric sclera. Cardiovascular: Normal rate, regular rhythm, normal heart sounds with S1 and S2, and intact distal pulses. Exam reveals no gallop and no friction rub. No murmur heard. Pulmonary/Chest: Effort normal and breath sounds normal. No stridor. No respiratory distres s. no wheezes. no rales. exhibits no tenderness. Abdominal: Soft. Bowel sounds are normal. exhibits no distension and no mass. There is no t enderness. There is no rebound and no guarding. Extremeties/Musculoskeletal: Normal range of motion.exhibits no tenderness. exhibits +3 E sonal on left leg. Neurological: Alert and oriented to person, place, and time. Has normal reflexes. display s normal reflexes. No cranial nerve deficit. Exhibits normal muscle tone. Coordination norm al. Skin: Skin is warm and dry. No pallor. Psychiatric: Has a normal mood and affect. Behavior is normal. Judgment normal. LABS: Lab 08/04/1352308/03/1345408/02/13 0500 WBC 7.6 8.2 7.4 HGB 11.5* 12.1* 12.8* HCT 33.6* 35.3* 38.0* PLT 220 207 199 NEUTOPHILPCT 68.2 68.0 69.5 MONOPCT 11.2 10.7 12.1 Lab 08/04/1352308/03/135 08/02/13 0500 07/31/13 0528 NA 138 138 136 -- K 4.5 4.5 4.6 -- CL 102 100 100 -- CO2 24 28 28 -- BUN 57* 52* 40* -- CREATININE 11.78* 11.75* 10.15* -- CALCIUM -- -- -- -- PROT 5.7* 6.1* -- 5.3* BILITOT 0.4 0.4 -- 0.4 ALKPHOS -- -- -- -- ALT 73* 82* -- 87* AST 42 45 -- 37 GLUCOSE -- -- -- -- Phosphorus: Lab Results Component Value Date PHOS 7.4* 08/04/2013 No components found with this basename: LABALBU:3 Lab 08/04/1352308/03/13 0455 08/02/13 0500 MG 2.1 2.0 1.8 No results found for this basename: AMYLASE:3 in the last 168 hours No results found for this basename: PHART:3,PO2ART:3,NZJ0WXB:3,L8GTMNGA:3,BEART:[address] 168 hours No results found for this basename: APTT:3,INR:3,PTT:3 in the last 168 hours No results found for this basename: TSH:3,T3FREE:3,FREET4:3 in the last 168 hours Lab 08/04/13 0524 08/03/13 0455 08/02/13 0500 CKTOTAL 173 226 265 TROPONINI -- -- -- TROPONINT -- -- -- CKMBINDEX -- -- -- PROBLEM LIST Principal Problem: *Acute renal failure Active Problems: Hyperkalemia, diminished renal excretion Oliguria Prerenal acute renal failure Metabolic acidosis Dehydration Illicit drug use Chronic hepatitis C without mention of hepatic coma ASSESSMENT & PLAN 1. Acute renal failure, possible secondary to dehydration, has Hep C, Dr Dutton and Dr Tyler nathan is covering permcath placement today then arrangement for outpatient HD. 2. Hyperkalemia, resolved 3.History of Illicit drug use,not active. Dr Bedolla is following for patient chronic hepatiti s C. 4. L leg swelling, L hip pain severe OA L leg US negative for DVT cont lidoderm patch, not much relief from dilaudid per pt, MRi pelvis obtained, possible ma ss according to Dr Santamaria but Dr Wheeler does not approve contrast so will have to hold off on this. MRI reviewed, no septic arthritis, no OM, no abscess, cellulitis versus edema reported but doubt infection. Pt is without any abx and has been clinically stable. Will rico itor. CPKs also trending down 5. DVT pps heparin SQ. I spent 25 minutes in examining, evaluating and providing further management for this patie nt today. Everardo Mcdowell MD 08/04/2013 11:06 AM onversion Transac tion, Provider Unknown - 08/04/2013 9:27 AM PDTFormatting of this note might be different f rom the original. Progress Notes by Toshia Sparks at 08/04/13926 Author: Toshia Sparks Service: (none) Author Type: Coordinator Filed: 08/04/1328 Date of Service: 08/04/13926 Status: Signed Orchestra Director: Toshia Sparks (Coordinator) Patient chose [facility] to receive his ACUTE outpatient dialysis. I faxed the paper work to [facility] ( ) @ 9:09am. Once [facility] releases the dialysis sche dule I will notify the care team. Grupo Harris ARNP - 08/04/2013 8:07 AM PDTFormatting of this note might be different from the or iginal. Progress Notes by WENDY Benítez at 08/04/13806 Author: WENDY Benítez Service: Orthopedic Surgery Author Type: Advanced Registered Nurse Practitioner Filed: 08/26/13 1504 Date of Service: 08/04/13806 Status: Signed Orchestra Director: WENDY Benítez (Advanced Registered Nurse Practitioner) [facility] Service: Orthopedic Surgery Progress Note 08/04/2013 Hospital Day: LOS: 7 days Post-Op Day: * No surgery found * SUBJECTIVE Patient Summary: Patient sleeping, is hoping for DC today after dialysis port placeme nt Events Overnight: none Scheduled Medications bupivacaine (PF) 30 mL Infiltration Once ceFAZolin 2 g Intravenous Once docusate sodium 100 mg Oral BID Or docusate 100 mg Per OG Tube BID famotidine 20 mg Oral Daily Or famotidine 20 mg Intravenous Daily heparin (porcine) Intracatheter Daily heparin (porcine) 19,000 Units Intracatheter Once heparin (porcine) 5,000 Units Subcutaneous Q8H lidocaine 1 patch Transdermal Daily lidocaine 10 mL Intradermal Once sodium bicarbonate buffer 5 mL Infiltration Once [DISCONTINUED] mupirocin 1 g Nasal BID Continuous Infusions PRN Medications acetaminophen, acetaminophen, albumin human, fentaNYL, hydrALAZINE, HYDROmorphone, HYDROmor phone, labetalol, lip moisturizer, morphine, nystatin, nystatin, ondansetron, ondansetron, s odium chloride OBJECTIVE Vital Signs: BP 133/80 | Pulse 62 | Temp 97.8 F (36.6 C) (Oral) | Resp 18 | Ht 1.854 m (6' 1") | Wt 113.4 kg (250 lb) | BMI 32.99 kg/m2 | SpO2 97% Left Ankle Exam Swelling: moderate Tenderness The patient is experiencing no tenderness. Left Knee Exam Tenderness The patient is experiencing no tenderness. Range of Motion Extension: 0 Flexion: 100 Other Erythema: absent Sensation: normal Pulse: present Swelling: moderate Left Hip Exam Tenderness The patient is experiencing no tenderness. Other Sensation: normal Pulse: present DATA CBC: Lab Results Component Value Date WBC 7.6 08/04/2013 RBC 3.54* 08/04/2013 HGB 11.5* 08/04/2013 HCT 33.6* 08/04/2013 MCV 95.0 08/04/2013 MCH 32.5 08/04/2013 MCHC 34.2 08/04/2013 RDW 40.7 08/04/2013 PLT 220 08/04/2013 MPV 9.1 08/04/2013 DIFFTYPE AUTOMATED 08/04/2013 CMP: Lab Results Component Value Date NA 138 08/04/2013 K 4.5 08/04/2013 CL 102 08/04/2013 CO2 24 08/04/2013 ANIONGAP 17 08/04/2013 GLUF 93 08/04/2013 BUN 57* 08/04/2013 CREATININE 11.78* 08/04/2013 BCR 5 08/04/2013 CA 8.2* 08/04/2013 PROT 5.7* 08/04/2013 ALB 3.2* 08/04/2013 GLOB 2.5 08/04/2013 BILITOT 0.4 08/04/2013 ALP 31* 08/04/2013 AST 42 08/04/2013 ALT 73* 08/04/2013 EGFR 5* 08/04/2013 PT/INR: No results found for this basename: PROTIME, INR PTT: No results found for this basename: APTT [APTT Results Procedure Component Value Units Date/Time MRSA by PCR [[id number]] Collected:08/03/13 1202 Specimen Information:Nasopharyngeal / Nares Updated:08/03/13 1323 SOURCE NARES(NOSE) RESULT NEGATIVE PROBLEM LIST Principal Problem: *Acute renal failure Active Problems: Hyperkalemia, diminished renal excretion Oliguria Prerenal acute renal failure Metabolic acidosis Dehydration Illicit drug use Chronic hepatitis C without mention of hepatic coma ASSESSMENT & PLAN A)1. Left LE swelling 2. Left hip pain 3. Left foot pain P) Non surgical intervention from ortho planned Will f/u as outpatient in 2 weeks Code Status: Full Code WENDY Benítez 08/04/2013 AChua, Jameson Schmidt MD - 0 08/04/2013 7:24 AM PDT Progress Notes by Jameson Bedolla MD at 08/04/13723 Author: Jameson Bedolla MD Service: Infectious Disease Author Type: Physician Filed: 08/04/13 0819 Date of Service: 08/04/13723 Status: Signed Orchestra Director: Jameson Bedolla MD (Physician) CONSULT NOTE 08/04/2013 8:15 AM PRIMARY PHYSICIAN JASON PRIDE CONSULT REQUEST FROM Everardo Mcdowell MD HISTORY OF PRESENT ILLNESS The patient is a 38 y.o.-year-old male with significant problems of HTN, h/o IV drug abuse 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 This was diagnosed when he was incarated. S/p liver biopsy In 2012 stage 2. This was done in [facility]. The patient was advised to be treated for later stages. ( the patient was incarcerated for 3 years. 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 The patient last incarceration from 2010 to 2013. Was released May 12, 2013 and doing well. The patient normal kidney function . The patient has a job in [employer] and enrolled at college. The patient was dehydrated 07/19/13 for sprain his ankle treated with ibuprofen and has on a nd off vomiting.for 10 days lower abdominal and flank pain. The patient went to [facility]. Was later transferred to [facility] 07/28/13 . HD catheter placed in R IJ in our ED. Admitte to I . Urgent HD was done, he had 2 in ICU . No hydronephrosis on US. CPK trending down.Due to the hepatitis c infection, thus an infectious disease (ID) consult done for further evaluat ion and management. Work up done show The patient is immune to hepatitis A and serology for the hepatitis b is negative will check for hepatitis B antihbs and if negative And will need hepatitis B vacci nation. The patient had vaccination for hepatitis B 3x in 2012 but no antibody . Hepatitis C viral load of 6.1 (A) Log IU/mL HCV RNA VIRAL LOAD [id number] (A) He has hiv and syphilis screen which were negative And left leg and knee and hip problem with swelling unclear etiology x ray show old fractur e on lateral malleolus. MRI 08/01/13 of the left hip done results show unclear etiology Concern with cellulitis cl inical picture relates more for trauma related Feeling better. Last hemodialysis on 08/01/13 For permacath today and consider hemodialysis afterwards. MRSA screen negative. Past Medical History Diagnosis Date Hypertension Hepatitis C Past Surgical History Procedure Date Tibial fasciotomy compartment syndrome Right calf fasc Current Facility-Administered Medications Medication Dose Route Frequency Provider Last Rate Last Dose acetaminophen (TYLENOL) tablet 650 mg 650 mg Oral Q6H PRN WENDY Paiz 650 mg at 07/30/13 0816 Or acetaminophen (TYLENOL) suppository 650 mg 650 mg Rectal Q6H PRN TERE Paiz albumin human 25 % solution 12.5 g 12.5 g Intravenous Q1H PRN Shirley Dutton MD bupivacaine (PF) (MARCAINE) 0.25 % injection 30 mL 30 mL Infiltration Once Jeff dumont MD ceFAZolin (ANCEF) IVPB 2 g 2 g Intravenous Once Jeff Llanes MD docusate sodium (COLACE) capsule 100 mg 100 mg Oral BID WENDY Paiz 100 m g at 08/03/13 2103 Or docusate (COLACE) 50 mg/5 mL liquid 100 mg 100 mg Per OG Tube BID NIURKA Paiz NP famotidine (PEPCID) tablet 20 mg 20 mg Oral Daily Coty H Tolentino, RPH 20 mg at 0813 Or famotidine (PEPCID) IVPB 20 mg 20 mg Intravenous Daily Coty H Tolentino, RPH fentaNYL (SUBLIMAZE) injection 50 mcg 50 mcg Intravenous Q5 Min PRN Jeff Llanes MD heparin (porcine) 1000 unit/mL injection Intracatheter Daily Shirley Dutton MD 3, 200 Units at 07/30/13 1508 heparin (porcine) injection 19,000 Units 19,000 Units Intracatheter Once Jeff huitron MD heparin (porcine) injection 5,000 Units 5,000 Units Subcutaneous Q8H WENDY Paiz 5,000 Units at 08/03/13 0622 hydrALAZINE (APRESOLINE) injection 10 mg 10 mg Intravenous Q1H PRN Jessica Paiz ENGINEERING ASSOC[employer]ATE HYDROmorphone (DILAUDID) injection 0.5 mg 0.5 mg Intravenous Q3H PRN Lilian Forbes MD Or HYDROmorphone (DILAUDID) injection 1 mg 1 mg Intravenous Q3H PRN Lilian Forbes MD 1 mg at 08/04/13 0430 labetalol (NORMODYNE) injection 10 mg 10 mg Intravenous Q10 Min PRN WENDY Paiz lidocaine (LIDODERM) 5 % patch 1 patch 1 patch Transdermal Daily Tung Dietz MD 1 patch at 08/03/13 0812 lidocaine 1 % injection 10 mL 10 mL Intradermal Once Jeff Llanes MD lip moisturizer (CHAPSTICK) ointment Topical PRN WENDY Paiz morphine injection 1 mg 1 mg Intravenous Q1H PRN Tung Dietz MD nystatin (MYCOSTATIN) 330636 UNIT/ML suspension 500,000 Units 5 mL Mouth/Throat 4x Preethi ly PRN WENDY Paiz nystatin (MYCOSTATIN) cream Topical TID PRN WENDY Paiz ondansetron (ZOFRAN) tablet 4 mg 4 mg Oral Q6H PRN WENDY Paiz Or ondansetron (ZOFRAN) injection 4 mg 4 mg Intravenous Q6H PRN WENDY Paiz 4 mg at 08/03/13 2103 sodium bicarbonate buffer (NEUT) 4(.2) % injection 5 mL 5 mL Infiltration Once Nba Llanes MD sodium chloride 0.9 % bolus 100 mL 100 mL Intravenous Q30 Min PRN Rashel Wheeler MD [DISCONTINUED] mupirocin (BACTROBAN) 2 % nasal ointment 1 g 1 g Nasal BID Jeff conroy MD No Known Allergies History Social History Marital Status: Single Spouse Name: N/A Number of Children: N/A Years of Education: N/A Occupational History Not on file. Social History Main Topics Smoking status: Current Every Day Smoker -- 0.5 packs/day Smokeless tobacco: Not on file Alcohol Use: No Drug Use: Yes Special: Heroin, IV, Methamphetamines Comment: none for last 3 years Sexually Active: Other Topics Concern Not on file Social History Narrative No narrative on file No smoking. No alcohol intake. Recreational Drug Use NO Travel No Pets Immunization History Administered Date(s) Administered Hepatitis B 08/02/2013 Pneumococcal Polysaccharide 07/29/2013 S/p Pneumococcal No Influenza Family History Problem Relation Age of Onset Nephrolithiasis Mother REVIEW OF SYSTEMS General: The patient noted to have no problem of fever,no weight loss and no chills. Neurologic: Denies any headache, any lightheadedness. No loss of consciousness or seizure. Cardiac: Denies Chest Pain, Palpitation, Dyspnea on Exertion Pulmonary: Denies cough, wheezing and hemoptysis GASTROINTESTINAL: Denies nausea vomiting, and diarrhea. GENITOURINARY: Noted no dysuria, urgency, or frequency. Hematological : Denies any ecchymosis, bleeding or hematuria Endocrine: Denies any polyphagia, polyuria or hot and cold intolerance Musculoskeletal: with joint pain and with Swelling better. Skin : Denies any new rashes or cutaneous changes. Rest of the review of systems is unremarkable. PHYSICAL EXAMINATION VITAL SIGNS Wt Readings from Last 3 Encounters: 08/04/13 113.4 kg (250 lb) Temp Readings from Last 3 Encounters: 08/04/13 97.8 F (36.6 C) Oral BP Readings from Last 3 Encounters: 08/04/13 133/80 Pulse Readings from Last 3 Encounters: 08/04/13 62 Head: Normocephalic atraumatic HEENT: [place] palpebral conjunctivae. Anicteric sclerae. No tonsillopharyngeal congestion. Neck : Noted no Cervical Lymphadenopathy Right neck with hemodialsis catheter. CHEST:Clear Breath Sounds Bilateral . Hemodialysis catheter HEART: Regular rate and rhythm. No murmurs thrills or rubs ABDOMEN: Soft, flat. No tenderness. No hepatosplenomegaly. GROIN AREA: Negative for intertrigo. EXTREMITIES: Lower extremities with left knee edema and left leg and foot with edema . Righ t leg and foot to have no edema. Left hip with no tenderness with Discomfort NEUROLOGIC: No localizing signs. Skin : NO rash or ecchymosis. LABORATORY DATA Lab Results Component Value Date WBC 7.6 08/04/2013 HGB 11.5* 08/04/2013 HCT 33.6* 08/04/2013 PLT 220 08/04/2013 ALT 73* 08/04/2013 AST 42 08/04/2013 NA 138 08/04/2013 K 4.5 08/04/2013 CL 102 08/04/2013 CREATININE 11.78* 08/04/2013 BUN 57* 08/04/2013 CO2 24 08/04/2013 GLUF 93 08/04/2013 HGBA1C 5.4 07/29/2013 Hepatic Function Panel: Lab Results Component Value Date PROT 5.7* 08/04/2013 ALB 3.2* 08/04/2013 BILITOT 0.4 08/04/2013 ALP 31* 08/04/2013 AST 42 08/04/2013 ALT 73* 08/04/2013 Lipase: No results found for this basename: LIPASE U/A: No results found for this basename: COLORU, CLARITYU, MEROPENEM, LEUKOCYTESUR, NITRITE, UROBILINOGEN, PROTEINUA, PHUR, BLOODU, KETONES, BILIRUBINUR, GLUCOSEU DIAGNOSTIC IMAGING MRI pelvis without contrast [[id number]] Resulted:08/01/13 1659 Order Status:Completed Update d:08/01/13 1702 Narrative: EXAM: MR PELVIS WITHOUT CONTRAST EXAM DATE: 08/01/2013 10:25 AM. CLINICAL HISTORY: Chronic pain. Acute renal failure. History of heroin abuse. Left hip pain . COMPARISON: Left hip radiographs 07/30/2013. TECHNIQUE: Coronal T1 and STIR. Axial T1 and STIR. FINDINGS: Bones and articular surfaces: No hip joint effusion. Mild cartilage thinning and irregulari ty and marginal osteophyte formation in both hips. Marrow signal appears normal. No evidence of fracture or destructive bone lesion. Sacroiliac joints appear symmetric and within anastasiya l limits. Soft tissues: Nonspecific diffuse subcutaneous soft tissue edema. This is most pronounced o n the left anteriorly at the level of the hip and proximal thigh. Severe edema throughout th e left gluteus medius and minimus muscles. Small amount of edema within the lateral fibers o f the left gluteus albina. The left gluteus medius muscle appears expanded with some hetero genous signal and morphology. Difficult to differentiate between edematous expanded muscle t issue versus edematous muscle with possibility of some degree of intramuscular hematoma or p hlegmon. However, no appreciable simple-appearing drainable fluid. Edema also extends into t he right obturator internus muscle. Impression: 1. Severe muscle edema most pronounced within the left gluteus medius, also involving the l eft gluteus minimus as well as portions of the left gluteus albina and left obturator inter nus. The gluteus medius muscle appears edematous and expanded with abnormal signal and morph ology. 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 Trauma with multif ocal muscle strains could also cause this appearance. Cannot exclude ill-defined intramuscul ar hematoma or phlegmon within the gluteus medius. However, no simple drainable fluid is neo ntified. 2. No hip joint effusion. No evidence of septic arthritis. No evidence of osteomyelitis. No abscess identified on this noncontrast exam. 3. Subcutaneous soft tissue edema most pronounced in the region of the anterior left hip an d thigh. Cellulitis versus simple edema. YESY BronxLucy #[id number] (CSN: [id number]) (38 y.o. M) (Adm: 07/28/13) [id number] Radiology Results (last 7 days) X-ray femur left [[id number]] Resulted:08/01/131740 Order Status:Completed Updated:08/01/131746 Narrative: LUCY CHEEK XR FEMUR LEFT, XR TIBIA FIBULA LEFT, XR FOOT LEFT 08/01/2013 10:53 AM HISTORY: 38 years. Male. Trauma with left leg and foot pain TECHNIQUE: XR FEMUR LEFT, XR TIBIA FIBULA LEFT, XR FOOT LEFT. Frontal and lateral view of the femur ta jaqui in sections (4 views), frontal and lateral view of the tibia and fibula taken in section s (4 views) and left foot series. (3 views). Total of 11 images obtained. COMPARISON: None. FINDINGS: Left femur: The left hip show some degenerative changes but no flattening or fragmentation of the femoral head. Femoral neck and shaft are normal in appearance no evidence of fracture s or periosteal reaction. The view of the knee is normal in appearance. Left tib-fib: Tibial plateau smooth no evidence of fractures. No intra-articular free fragm ents. No evidence of significant joint effusion or erosive arthritis. The tibia and fibula s how no fractures or erosive lesions no periosteal reaction or soft tissue calcification limi fili view of the ankle suggest some degenerative changes. There is a transverse well-corticat ed lucency through the tip of the lateral malleolus suggesting residual of a old fracture. Left foot the phalanges and metatarsals are normal in appearance. The tarsal ossicles show no evidence of fractures. Os trigonum is noted. Impression: 1. No evidence of fracture of the left femur. 2. Residual old fracture lateral malleolus. No evidence of a acute fracture of the tibia or fibula. 3. No evidence of fracture or dislocation of the left foot. 4. Correlate clinically, followup study if the patient continues to be symptomatic. X-ray tibia fibula left [[id number]] Resulted:08/01/131740 Order Status:Completed Updated:08/01/131746 Narrative: LUCY CHEEK XR FEMUR LEFT, XR TIBIA FIBULA LEFT, XR FOOT LEFT 08/01/2013 10:53 AM HISTORY: 38 years. Male. Trauma with left leg and foot pain TECHNIQUE: XR FEMUR LEFT, XR TIBIA FIBULA LEFT, XR FOOT LEFT. Frontal and lateral view of the femur ta jaqui in sections (4 views), frontal and lateral view of the tibia and fibula taken in section s (4 views) and left foot series. (3 views). Total of 11 images obtained. COMPARISON: None. FINDINGS: Left femur: The left hip show some degenerative changes but no flattening or fragmentation of the femoral head. Femoral neck and shaft are normal in appearance no evidence of fracture s or periosteal reaction. The view of the knee is normal in appearance. Left tib-fib: Tibial plateau smooth no evidence of fractures. No intra-articular free fragm ents. No evidence of significant joint effusion or erosive arthritis. The tibia and fibula s how no fractures or erosive lesions no periosteal reaction or soft tissue calcification limi fili view of the ankle suggest some degenerative changes. There is a transverse well-corticat ed lucency through the tip of the lateral malleolus suggesting residual of a old fracture. Left foot the phalanges and metatarsals are normal in appearance. The tarsal ossicles show no evidence of fractures. Os trigonum is noted. Impression: 1. No evidence of fracture of the left femur. 2. Residual old fracture lateral malleolus. No evidence of a acute fracture of the tibia or fibula. 3. No evidence of fracture or dislocation of the left foot. 4. Correlate clinically, followup study if the patient continues to be symptomatic. X-ray foot left [[id number]] Resulted:08/01/131740 Order Status:Completed Updated:08/01/131746 Narrative: LUCY CHEEK XR FEMUR LEFT, XR TIBIA FIBULA LEFT, XR FOOT LEFT 08/01/2013 10:53 AM HISTORY: 38 years. Male. Trauma with left leg and foot pain TECHNIQUE: XR FEMUR LEFT, XR TIBIA FIBULA LEFT, XR FOOT LEFT. Frontal and lateral view of the femur ta jaqui in sections (4 views), frontal and lateral view of the tibia and fibula taken in section s (4 views) and left foot series. (3 views). Total of 11 images obtained. COMPARISON: None. FINDINGS: Left femur: The left hip show some degenerative changes but no flattening or fragmentation of the femoral head. Femoral neck and shaft are normal in appearance no evidence of fracture s or periosteal reaction. The view of the knee is normal in appearance. Left tib-fib: Tibial plateau smooth no evidence of fractures. No intra-articular free fragm ents. No evidence of significant joint effusion or erosive arthritis. The tibia and fibula s how no fractures or erosive lesions no periosteal reaction or soft tissue calcification limi fili view of the ankle suggest some degenerative changes. There is a transverse well-corticat ed lucency through the tip of the lateral malleolus suggesting residual of a old fracture. Left foot the phalanges and metatarsals are normal in appearance. The tarsal ossicles show no evidence of fractures. Os trigonum is noted. Impression: 1. No evidence of fracture of the left femur. 2. Residual old fracture lateral malleolus. No evidence of a acute fracture of the tibia or fibula. 3. No evidence of fracture or dislocation of the left foot. 4. Correlate clinically, followup study if the patient continues to be symptomatic. pelvis without contrast [[id number]] Resulted:08/01/13 1659 Order Status:Completed Updated:08/01/131701 Narrative: EXAM: MR PELVIS WITHOUT CONTRAST EXAM DATE: 08/01/2013 10:25 AM. CLINICAL HISTORY: Chronic pain. Acute renal failure. History of heroin abuse. Left hip pain . COMPARISON: Left hip radiographs 07/30/2013. TECHNIQUE: Coronal T1 and STIR. Axial T1 and STIR. FINDINGS: Bones and articular surfaces: No hip joint effusion. Mild cartilage thinning and irregulari ty and marginal osteophyte formation in both hips. Marrow signal appears normal. No evidence of fracture or destructive bone lesion. Sacroiliac joints appear symmetric and within anastasiya l limits. Soft tissues: Nonspecific diffuse subcutaneous soft tissue edema. This is most pronounced o n the left anteriorly at the level of the hip and proximal thigh. Severe edema throughout th e left gluteus medius and minimus muscles. Small amount of edema within the lateral fibers o f the left gluteus albina. The left gluteus medius muscle appears expanded with some hetero genous signal and morphology. Difficult to differentiate between edematous expanded muscle t issue versus edematous muscle with possibility of some degree of intramuscular hematoma or p hlegmon. However, no appreciable simple-appearing drainable fluid. Edema also extends into t he right obturator internus muscle. Impression: 1. Severe muscle edema most pronounced within the left gluteus medius, also involving the l eft gluteus minimus as well as portions of the left gluteus albina and left obturator inter nus. The gluteus medius muscle appears edematous and expanded with abnormal signal and morph ology. 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 Trauma with multif ocal muscle strains could also cause this appearance. Cannot exclude ill-defined intramuscul ar hematoma or phlegmon within the gluteus medius. However, no simple drainable fluid is neo ntified. 2. No hip joint effusion. No evidence of septic arthritis. No evidence of osteomyelitis. No abscess identified on this noncontrast exam. 3. Subcutaneous soft tissue edema most pronounced in the region of the anterior left hip an d thigh. Cellulitis versus simple edema. RADIA Electronically signed by Samy Woodward MD on Aug 01 2013 4:59PM Referring Provider Line: [id number] ID: [id number] X-ray hip 2 view left [[id number]] Resulted:07/30/131920 Order Status:Completed Updated:07/30/131925 Narrative: LUCY Stevens SAM 1975 XR HIP 2 VIEW LEFT 07/30/2013 7:19 PM INDICATION: Hip pain COMPARISON: None TECHNIQUE: Two views of the left hip FINDINGS: The sacroiliac joints and symphysis pubis are normal. There are no bony pelvic fr actures. There is moderate left and severe right osteoarthritis of the hip joints with moder ate spurring. Some osteophyte formation is also noted along the femoral head neck junction b ilaterally, right greater than left. There is no acute fracture or dislocation. There appear s to be some cellulitis or subcutaneous edema. Impression: 1. 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 Ultrasound doppler venous leg left [[id number]] Resulted:07/30/131804 Order Status:Completed Updated:07/30/131809 Narrative: LUCY Stevens SAM 1975 US DOPPLER VENOUS LEG LEFT 07/30/2013 5:59 PM HISTORY: Lower extremity swelling COMPARISON: None. TECHNIQUE: Left lower extremity venous duplex, quinonez scale, color flow and spectral analysis performed FINDINGS: The deep venous system is normal on grayscale imaging. Normal compressibility and augmentation is demonstrated. The calf veins are patent on color flow assessment. There is no Hills's cyst. Moderate subcutaneous edema is noted along the calf. Impression: 1. No evidence of lower extremity deep vein thrombosis. Ultrasound retroperitoneal limited [[id number]] Resulted:07/30/131803 Order Status:Completed Updated:07/30/131808 Narrative: LUCY NOLANDES 1975 US RETROPERITONEAL LIMITED 07/30/2013 5:59 PM INDICATION: Renal enlargement, renal failure COMPARISON: 07/28/13 TECHNIQUE: Retroperitoneal ultrasound, grayscale and color Doppler assessment FINDINGS: The right kidney measures 14.3 cm in length. Transverse dimensions of the right k idney are 8.3 x 7.2 cm. Again, a generous appearance of the renal thickness is noted. Normal arterial and venous waveforms are documented throughout the right kidney. Slight increased echogenicity of the renal cortex is again demonstrated. The left kidney measures 13.8 x 7.2 x 6.4 cm. There is a slightly echogenic appearance of t he renal cortex. A normal venous and arterial waveform are documented in the left kidney as well. Impression: 1. No evidence of renal vein thrombosis or obstruction of the renal arterial system. Chest AP portable [[id number]] Resulted:07/28/13 1546 Order Status:Completed Updated:07/29/13 0820 Narrative: LUCY CHEEK XR CHEST 1 VIEW 07/28/2013 3:05 PM HISTORY: 38 years. Male. Renal failure TECHNIQUE: One view portable obtained 1435 COMPARISON: None FINDINGS: Central line via right internal jugular vein, tip cavoatrial junction. Borderline cardiac e nlargement. Pulmonary veins are somewhat engorged, however. Large osteophyte formation extending superiorly from the distal clavicle Impression: 1. Central line right internal jugular vein. No evidence of pneumothorax. Pulmonary venous engorgement indicating fluid overload. Heart size top normal. 2. Large osteophyte formation above the distal clavicle X-ray chest 1 view [[id number]] Resulted:07/29/13 0705 Order Status:Completed Updated:07/29/13 0710 Narrative: LUCY M SAM XR CHEST 1 VIEW 07/29/2013 5:11 AM History: 38 years. Male. Acute renal failure. Technique: AP portable upright technique was performed at 1435 hours. Comparison: 07/28/13 Findings: The inspiratory effort is moderate. No lung consolidation or pleural effusion vis ualized. Mild cardiomegaly is still present. The upper lobe pulmonary vasculature is distended, alhaji cating grade 1 pulmonary venous hypertension, a precursor to interstitial edema. No visible pulmonary edema at present, however. The pulmonary melissa and mediastinal contours are normal. The thoracic aorta is normal, without dilatation or calcification. A large caliber right internal jugular central venous catheter is noted with its tip in the distal superior vena cava, unchanged. No acute osseous findings. Exostosis on the distal le ft clavicle, a chronic finding. Impression: 1. Mild cardiomegaly and grade 1 pulmonary venous hypertension, unchanged. 2. Incomplete inspiratory effort. 3. Persistent central venous catheter, unchanged. X-ray chest 1 view [[id number]] Resulted:07/29/13 0058 Order Status:Completed Updated:07/29/13 0058 Narrative: This is a non-reportable procedure without a radiologist report and is used for image storage only Ultrasound kidneys and bladder [[id number]] Resulted:07/28/13 1728 Order Status:Completed Updated:07/28/13 1733 Narrative: LUCY CHEEK 1975 US KIDNEYS AND BLADDER 07/28/2013 4:39 PM HISTORY: Hyperkalemia with acute renal failure COMPARISON: None. TECHNIQUE: Transabdominal ultrasound of the kidneys and bladder, grayscale and color flow e valuation. FINDINGS: The right kidney measures 14.5 x 8.3 x 7.5 cm. There is limited visualization of the liver which appears hypoechoic relative to the right kidney. Normal vascularity is noted throughout the renal hilum. There is no hydronephrosis or renal mass. The left kidney measu res 13.4 x 7.9 x 7.2 cm. There is normal cortical thickness. Normal vascularity is seen thro ughout the hilum. There is no hydronephrosis. The bladder measures 5.4 x 6.3 x 7.0 cm. There is a prevoid volume of 124 mL. No ureteral jets are documented. Impression: 1. Slightly enlarged appearance of the kidneys bilaterally with a increased echogenic appe arance. This is nonspecific but may reflect underlying medical renal disease or related to d iabetes. Lucy Cheek is a 38 y.o. male with the following Problems Patient Active Problem List Diagnosis Hyperkalemia, diminished renal excretion Oliguria Prerenal acute renal failure Metabolic acidosis Dehydration Illicit drug use Acute renal failure Chronic hepatitis C without mention of hepatic coma Plan: Follow up hepatitis C genotype viral load positive Follow up fibrosure to work up the staging of the liver. Cryoglobulin for any relation of hepatitis C quantiferon gold tb blood test. Discussed treatment options for olysio and sovaldi once the Renal function recovers. Discussed with Dr. Moon and Dr. Wheeler who agreed and will Thank you very much for the consult. JAMESON BEDOLLA MD Grupo Harris ARNP - 0 08/03/2013 9:26 PM PDT Progress Notes by WENDY Benítez at 08/03/132125 Author: WENDY Benítez Service: Orthopedic Surgery Author Type: Advanced Registered Nurse Practitioner Filed: 08/26/13 1504 Date of Service: 08/03/132125 Status: Signed Orchestra Director: WENDY Benítez (Advanced Registered Nurse Practitioner) [facility] Service: Orthopedic Surgery Progress Note 08/03/2013 Hospital Day: LOS: 6 days Post-Op Day: * No surgery found * SUBJECTIVE Patient Summary: Patient doing well, swelling is decreasing, pain is well controlled Events Overnight: none Scheduled Medications bupivacaine (PF) 30 mL Infiltration Once ceFAZolin 2 g Intravenous Once docusate sodium 100 mg Oral BID Or docusate 100 mg Per OG Tube BID famotidine 20 mg Oral Daily Or famotidine 20 mg Intravenous Daily heparin (porcine) Intracatheter Daily heparin (porcine) 19,000 Units Intracatheter Once heparin (porcine) 5,000 Units Subcutaneous Q8H lidocaine 1 patch Transdermal Daily lidocaine 10 mL Intradermal Once sodium bicarbonate buffer 5 mL Infiltration Once [DISCONTINUED] furosemide 40 mg Intravenous BIDPC [DISCONTINUED] mupirocin 1 g Nasal BID Continuous Infusions PRN Medications acetaminophen, acetaminophen, albumin human, fentaNYL, hydrALAZINE, HYDROmorphone, HYDROmor phone, labetalol, lip moisturizer, morphine, nystatin, nystatin, ondansetron, ondansetron, s odium chloride OBJECTIVE Vital Signs: BP 133/76 | Pulse 48 | Temp 98.4 F (36.9 C) (Oral) | Resp 20 | Ht 1.854 m (6' 1") | Wt 113.5 kg (250 lb 3.6 oz) | BMI 33.02 kg/m2 | SpO2 98% Left Ankle Exam Swelling: moderate Tenderness The patient is experiencing no tenderness. Other Erythema: absent Sensation: normal Pulse: present Left Knee Exam Tenderness The patient is experiencing no tenderness. Range of Motion Extension: normal Flexion: normal Other Erythema: absent Scars: absent Sensation: normal Pulse: present Swelling: moderate Left Hip Exam Tenderness The patient is experiencing no tenderness. Range of Motion Extension: normal Flexion: normal Internal Rotation: normal External Rotation: normal Abduction: normal Adduction: normal Other Erythema: absent Sensation: normal Pulse: present DATA CBC: Lab Results Component Value Date WBC 8.2 08/03/2013 RBC 3.73* 08/03/2013 HGB 12.1* 08/03/2013 HCT 35.3* 08/03/2013 MCV 94.8 08/03/2013 MCH 32.6 08/03/2013 MCHC 34.4 08/03/2013 RDW 41.1 08/03/2013 PLT 207 08/03/2013 MPV 9.2 08/03/2013 DIFFTYPE AUTOMATED 08/03/2013 CMP: Lab Results Component Value Date NA 138 08/03/2013 K 4.5 08/03/2013 CL 100 08/03/2013 CO2 28 08/03/2013 ANIONGAP 15 08/03/2013 GLUF 89 08/03/2013 BUN 52* 08/03/2013 CREATININE 11.75* 08/03/2013 BCR 4 08/03/2013 CA 8.3* 08/03/2013 PROT 6.1* 08/03/2013 ALB 3.3* 08/03/2013 GLOB 2.8 08/03/2013 BILITOT 0.4 08/03/2013 ALP 34* 08/03/2013 AST 45 08/03/2013 ALT 82* 08/03/2013 EGFR 5* 08/03/2013 PT/INR: No results found for this basename: PROTIME, INR PTT: No results found for this basename: APTT [APTT Results Procedure Component Value Units Date/Time MRSA by PCR [[id number]] Collected:08/03/13 1202 Specimen Information:Nasopharyngeal / Nares Updated:08/03/13 1323 SOURCE NARES(NOSE) RESULT NEGATIVE PROBLEM LIST Principal Problem: *Acute renal failure Active Problems: Hyperkalemia, diminished renal excretion Oliguria Prerenal acute renal failure Metabolic acidosis Dehydration Illicit drug use Chronic hepatitis C without mention of hepatic coma ASSESSMENT & PLAN A) 1. Left LE swelling 2. Left hip pain 3. Left foot pain P) No need for surgical intervention at this point. Continue to ambulate and WBAT O.K to DC from ortho perspective Code Status: Full Code WENDY Benítez 08/03/2013 onversion TransPhuc morton Unknown - 08/03/2013 1:18 PM PDT Case Management by Omid Trejo MS, SALES REPRESENTATIVE [employer] at 08/03/13 1318 Author: Omid Trejo MS, SALES REPRESENTATIVE [employer] Service: (none) Author Type: Sign Maintenance Filed: 08/03/13 1319 Date of Service: 08/03/13 1318 Status: Signed Orchestra Director: Omid Trejo MS, SALES REPRESENTATIVE [employer] (Sign Maintenance) Discharge planning: CM provided referral to [facility] dialysis coordinator re: pt's anticipat ed HD needs. Tung Martines MD - 08/03/2013 12:00 PM PDT Progress Notes by Tung Dietz MD at 08/03/13 1200 Author: Tung Dietz MD Service: (none) Author Type: Physician Filed: 08/03/13 2280 Date of Service: 08/03/13 1200 Status: Addendum Orchestra Director: Tung Dietz MD (Physician) Related Notes: Original Note by Tung Dietz MD (Physician) filed at 08/03/13 5353 [facility] Service: Hospitalist Progress Note Pt: Lucy Cheek AGE/SEX: 38 y.o. male ROOM: 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 HD catheter placed in R IJ in our ED. Admitted to ICU . Urgent HD was done n ICU . No hydronephrosis on US. CPK trending down . He is being followed by Dr Wheeler. Today d ecision was made not to do kidney biopsy. GFR in 24 hour collection is 7 and so he has not been clearing very well despite UO improvement. Permacath placement will be done today. And planned for d;'c once outpatient HD is set up.He has a chronic issue of L leg swelling. MR i was done, showing muscular edema. No defiinite fluid collection or joint fluid collection. Dr Santamaria recommended iamging with contrast but this was not approved at this time by Ne phrology. Need to follow this up outpt. SUBJECTIVE: Patient seen and examined. Reports mild nausea. No vomiting. Denies other complaints. Await ing permacath placement Scheduled Medications: ceFAZolin 2 g Intravenous Once docusate sodium 100 mg Oral BID Or docusate 100 mg Per OG Tube BID famotidine 20 mg Oral Daily Or famotidine 20 mg Intravenous Daily heparin (porcine) Intracatheter Daily heparin (porcine) 5,000 Units Subcutaneous Q8H [COMPLETED] hepatitis B vac recombinant 2 mL Intramuscular Once lidocaine 1 patch Transdermal Daily lidocaine 10 mL Intradermal Once mupirocin 1 g Nasal BID sodium bicarbonate buffer 5 mL Infiltration Once [DISCONTINUED] furosemide 40 mg Intravenous BIDPC Continuous Infusions PRN Medications acetaminophen, acetaminophen, albumin human, hydrALAZINE, HYDROmorphone, HYDROmorphone, lab etalol, lip moisturizer, morphine, nystatin, nystatin, ondansetron, ondansetron, sodium chlo ride Allergy: No Known Allergies OBJECTIVE: Vitals: Patient Vitals for the past 24 hrs: BP Temp Temp src Pulse Resp SpO2 Weight 08/03/13 1152 134/83 mmHg 98.7 F (37.1 C) Oral 58 18 98 % - 08/03/13 0830 135/89 mmHg 98.6 F (37 C) Oral 54 18 97 % - 08/03/13 0448 - - - - - - 113.5 kg (250 lb 3.6 oz) 08/03/13 0445 160/102 mmHg 98 F (36.7 C) Temporal 62 16 95 % - 08/02/13 2356 139/93 mmHg 98.4 F (36.9 C) Temporal 62 14 93 % - 08/02/132002 146/94 mmHg 98.4 F (36.9 C) Temporal 66 18 93 % - 08/02/13 1506 145/89 mmHg 98.4 F (36.9 C) Oral 76 18 96 % - I&O Detailed Table: Intake/Output Summary (Last 24 hours) at 08/03/13 1200 Last data filed at 08/03/13 0448 Gross per 24 hour Intake 2000 ml Output 2600 ml Net -600 ml Patient Vitals for the past 96 hrs: Weight 08/03/13 0448 113.5 kg (250 lb 3.6 oz) 08/02/13 0418 117 kg (257 lb 15 oz) 08/01/13 1340 116.8 kg (257 lb 8 oz) 08/01/13 0352 116.8 kg (257 lb 8 oz) 07/31/13 0402 116.3 kg (256 lb 6.3 oz) Hemodynamics Last 24hrs: Physical Examination: Constitutional: Alert and oriented to person, place and time. Appears well developed and we ll nourished. HEENT: 3mm pupils, moist mucous membranes, pink conjunctivae and anicteric sclerae. No cerv ical lymphadenopathy. HD catheter in R IJ Cardiovascular: Normal rate and rhythm. Normal heart sounds with S1 and S2. No murmurs, gal lops or rubs. Pulmonary: Patient is able to speak in full sentences. Breath sounds are clear bilaterally. No wheezing or rales. Abdominal: Soft and non-tender. Bowel sounds are present. No rebound or guarding. Extremities: L leg circumference from thighs to leg are bigger than R. Not tight to touch, not tender or warm to touch No calf pain. Tenderness to L hip on palpation , full ROM . R ca lf with scars from fasciotomy Neurological: Grossly non focal Skin: Warm and dry. No rashes or open wounds. Psychiatric: Normal mood and affect. Normal judgment and behavior. LABS: Lab 08/03/1345408/02/13 05008/01/13 0506 WBC 8.2 7.4 8.8 HGB 12.1* 12.8* 13.3 HCT 35.3* 38.0* 38.4* PLT 207 199 194 NEUTOPHILPCT 68.0 69.5 67.9 MONOPCT 10.7 12.1 11.1 Lab 08/03/1345408/02/13 05008/01/13 05007/31/13 0528 NA 138 136 134* -- K 4.5 4.6 4.7 -- CL 100 100 98* -- CO2 28 28 23 -- BUN 52* 40* 67* -- CREATININE 11.75* 10.15* 14.43* -- CALCIUM -- -- -- -- PROT 6.1* -- -- 5.3* BILITOT 0.4 -- -- 0.4 ALKPHOS -- -- -- -- ALT 82* -- -- 87* AST 45 -- -- 37 GLUCOSE -- -- -- -- Phosphorus: Lab Results Component Value Date PHOS 7.2* 08/03/2013 No components found with this basename: LABALBU:3 Lab 08/03/1345408/02/13 05008/01/13 0506 MG 2.0 1.8 2.0 No results found for this basename: AMYLASE:3 in the last 168 hours No results found for this basename: PHART:3,PO2ART:3,HVM0XPK:3,L8UDHGHX:3,BEART:[address] 168 hours No results found for this basename: APTT:3,INR:3,PTT:3 in the last 168 hours No results found for this basename: TSH:3,T3FREE:3,FREET4:3 in the last 168 hours Lab 08/03/1345408/02/13 0500 08/01/13 0506 CKTOTAL 226 265 320 TROPONINI -- -- -- TROPONINT -- -- -- CKMBINDEX -- -- -- PROBLEM LIST Principal Problem: *Acute renal failure Active Problems: Hyperkalemia, diminished renal excretion Oliguria Prerenal acute renal failure Metabolic acidosis Dehydration Illicit drug use Chronic hepatitis C without mention of hepatic coma ASSESSMENT & PLAN Principal Problem: *Acute renal failure - thought to be secondary to profound dehydration, NSAID use - follow results of SHANIA, ANCA, complements, HIV , urine eosinophils negative but has Hep C - Dr Dutton follows/ Dr Wheeler covering -thought is that this could still be acute versus chronic but this remains to be seen int eh next few weeks. After permcath placement he will g et HD 2 weeks and will go from there -US renal done no hydronephrosis -lasix discontinued Active Problems: Hyperkalemia, resolved -resolved Oliguria - overall improving , monitor Is and Os Metabolic acidosis - improved Dehydration - tresolved - monitor Is and Os closely Illicit drug use, history of - no active issue at this time Chronic hepatitis C without mention of hepatic coma - Dr Bedolla is consulted L leg swelling, L hip pain - xray L hip - reviewed, severe OA - L leg US negative for DVT - doubt compartment syndrome at this time , CPKs trending down -cont lidoderm patch, not much relief from dilaudid per pt - MRi pelvis obtained, possible mass according to Dr Santamaria but Dr Wheeler does not a pprove contrast so will have to hold off on this - xray leg,ankle and foot on L - no acute pathology , old fx Lateral malleolus - MRI reviewed, no septic arthritis, no OM, no abscess, cellulitis versus edema reported b ut doubt infection. Pt is without any abx and has been clinically stable. Will monitor. CPKs also trending down DVT pps hep sq and mechanical devices Discussed with Dr liam DIETZ MD 08/03/2013 12:00 PM Rashel Lui MD - 08/03/2013 10:01 AM PDTFormatting of this note might be different from the mary carmen guido. Progress Notes by Rashel Wheeler MD at 08/03/13 1001 Author: Rashel Wheeler MD Service: Nephrology Author Type: Physician Filed: 08/03/13 1004 Date of Service: 08/03/13 1001 Status: Signed Orchestra Director: Rashel Wheeler MD (Physician) [facility] Service: Nephrology Renal Consult Progress Note Lucy Cheek [id number] Hospital Day: LOS: 6 days SUBJECTIVE Patient Summary: Patient seen and examined. Feels well today. Has no complaints. Scheduled Medications docusate sodium 100 mg Oral BID Or docusate 100 mg Per OG Tube BID famotidine 20 mg Oral Daily Or famotidine 20 mg Intravenous Daily heparin (porcine) Intracatheter Daily heparin (porcine) 5,000 Units Subcutaneous Q8H [COMPLETED] hepatitis B vac recombinant 2 mL Intramuscular Once lidocaine 1 patch Transdermal Daily [DISCONTINUED] furosemide 40 mg Intravenous BIDPC Continuous Infusions PRN Medications acetaminophen, acetaminophen, albumin human, hydrALAZINE, HYDROmorphone, HYDROmorphone, lab etalol, lip moisturizer, morphine, nystatin, nystatin, ondansetron, ondansetron, sodium chlo ride OBJECTIVE Vital Signs: BP 135/89 | Pulse 54 | Temp 98.6 F (37 C) (Oral) | Resp 18 | Ht 1.854 m (6' 1") | Wt 11 3.5 kg (250 lb 3.6 oz) | BMI 33.02 kg/m2 | SpO2 97% Intake/Output Summary (Last 24 hours) at 08/03/13 1001 Last data filed at 08/03/13 0448 Gross per 24 hour Intake 2000 ml Output 2600 ml Net -600 ml Gen: NAD, A&Ox3 Neck: No JVD Pulm: CTA b/l, good air movement, no w/r/r CV: RRR, nl S1S2, no rub Abd: Soft, NT/ND, NABS Ext:trace edema in left leg Access: rt ij morley DATA Lab 08/03/13 0455 08/02/13 0500 08/01/13 0506 07/31/13 0528 NA 138 136 134* 134* K 4.5 4.6 4.7 4.9 CL 100 100 98* 101 CO2 28 28 23 24 BUN 52* 40* 67* 63* CA 8.3* 8.2* 8.2* 7.9* PHOS 7.2* 6.0* 7.8* 6.9* MG 2.0 1.8 2.0 2.0 GLU -- -- -- -- Lab 08/03/13 0455 08/02/13 0500 08/01/13 0506 CREATININE 11.75* 10.15* 14.43* Lab 08/03/13 0455 08/02/13 0500 08/01/13 0506 07/31/13 0528 ALB 3.3* 3.2* 3.1* 2.8* ALP 34* -- -- 24* AST 45 -- -- 37 ALT 82* -- -- 87* INR -- -- -- -- Lab 08/03/13 0455 08/02/13 0500 08/01/13 0506 07/31/13 0528 WBC 8.2 7.4 8.8 7.6 RBC 3.73* 3.98* 4.05* 3.97* HGB 12.1* 12.8* 13.3 13.1* HCT 35.3* 38.0* 38.4* 37.5* PLT 207 199 194 164 MCV 94.8 95.4 94.8 94.6 RDW 41.1 40.7 40.7 41.1 LYMPH -- -- -- -- No results found for this basename: INR:4,PT:4,PTT:4 in the last 168 hours PROBLEM LIST Principal Problem: *Acute renal failure Active Problems: Hyperkalemia, diminished renal excretion Oliguria Prerenal acute renal failure Metabolic acidosis Dehydration Illicit drug use Chronic hepatitis C without mention of hepatic coma ASSESSMENT & PLAN Mr. Cheek is a pleasant 38 yo gentleman with no known past medical history except for histo ry of IV drug abuse (none in last 3 years) , ? Mild hypertension on no meds, who was transfe rred from [facility] after he was found to be hyperkalemic with kidney failure and acidos is. 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 He started c/o low back pain and generalized weakness about 10 days ago and th en started taking NSAIDS For pain ( ibuprofen about 4-6 daily) . He started developing gradu al intractable nausea and vomiting and later on he started having low urine output. At one p oint in time he reports anuria for 2-3 days. He saw few physicians in urgent care in [facility] on area and they told him to take Advil for pain management as his fatigue and muscles aches ( especially in lower extremities an back) worsened. He was seen in urgent care yesterday a nd was directed [facility] ED today where his labs showed Cr of 27, bun 186, CO2 16 and [ otassiumof 130. His cpk was 2237, uric acid 17.1, and phos 13.4. He was transferred to [facility] for management. Pt denies any history of CKD, DM, Nephrolithiasis, pyelonephritis, recent intake of illicit drugs such as cocaine or heroin, denies BPH or history of obstruction. He has not been expo sed to IV contrast. ARF Ml sec to dehydration+aleve use Starting to put out more urine, did respond well to 100mg iv lasix, will hold off dialysis today, crcl of 7 ml/min Will stop lasix 40 mg iv bid Renal w/u (shania, anca, complements, hiv, urine eos, renal dopplers have been negative, excep t for hep c ), cryo pending Would not recommend MRI/ct with contrast at this time Will place a PC and arrange for OP acute dialysis Disposition: Home once o/p dialysis and pc is placed Code Status: Full Code Rashel Wheeler MD 08/03/2013 10:01 AM Thomas Rodriguez MD - 08/03/2013 8:28 AM PDTFormatting of this note might be different from the jaylen michael Progress Notes by Jameson Bedolla MD at 08/03/13827 Author: Jameson Bedolla MD Service: Infectious Disease Author Type: Physician Filed: 08/03/1318 Date of Service: 08/03/13827 Status: Signed Orchestra Director: Jameson Bedolla MD (Physician) CONSULT NOTE 08/03/2013 9:14 AM PRIMARY PHYSICIAN JASON PRIDE CONSULT REQUEST FROM Tnug Dietz MD HISTORY OF PRESENT ILLNESS The patient is a 38 y.o.-year-old male with significant problems of HTN, h/o IV drug abuse 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 This was diagnosed when he was incarated. S/p liver biopsy In 2012 stage 2. This was done in [facility]. The patient was advised to be treated for later stages. ( the patient was incarcerated for 3 years. 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 The patient last incarceration from 2010 to 2013. Was released May 12, 2013 and doing well. The patient normal kidney function . The patient has a job in [employer] and enrolled at [employer]. The patient was dehydrated 07/19/13 for sprain his ankle treated with ibuprofen and has on a nd off vomiting.for 10 days lower abdominal and flank pain. The patient went to [facility]. Was later transferred to [facility] 07/28/13 . HD catheter placed in R IJ in our ED. Admitte to [facility] . Urgent HD was done, he had 2 in ICU . No hydronephrosis on US. CPK trending down.Due to the hepatitis c infection, thus an infectious disease (ID) consult done for further evaluat ion and management. Work up done show The patient is immune to hepatitis A and serology for the hepatitis b is negative will check for hepatitis B antihbs and if negative And will need hepatitis B vacci nation. The patient had vaccination for hepatitis B 3x in 2012 but no antibody . Hepatitis C viral load of 6.1 (A) Log IU/mL HCV RNA VIRAL LOAD 1660962 (A) He has hiv and syphilis screen which were negative And left leg and knee and hip problem with swelling unclear etiology x ray show old fractur e on lateral malleolus. MRI 08/01/13 of the left hip done results show unclear etiology Concern with cellulitis cl inical picture relates more for trauma related Feeling better. Last hemodialysis on 08/01/13 Past Medical History Diagnosis Date Hypertension Hepatitis C Past Surgical History Procedure Date Tibial fasciotomy compartment syndrome Right calf fasc Current Facility-Administered Medications Medication Dose Route Frequency Provider Last Rate Last Dose acetaminophen (TYLENOL) tablet 650 mg 650 mg Oral Q6H PRN TERE PaizP 650 mg at 07/30/13 0816 Or acetaminophen (TYLENOL) suppository 650 mg 650 mg Rectal Q6H PRN TERE Paiz P albumin human 25 % solution 12.5 g 12.5 g Intravenous Q1H PRN Shirley Dutton MD docusate sodium (COLACE) capsule 100 mg 100 mg Oral BID WENDY Paiz 100 m g at 08/03/13 0813 Or docusate (COLACE) 50 mg/5 mL liquid 100 mg 100 mg Per OG Tube BID NIURKA Paiz NP famotidine (PEPCID) tablet 20 mg 20 mg Oral Daily Coty H Tolentino, RPH 20 mg at 0813 Or famotidine (PEPCID) IVPB 20 mg 20 mg Intravenous Daily Coty H Tolentino, RPH heparin (porcine) 1000 unit/mL injection Intracatheter Daily Shirley Dutton MD 3, 200 Units at 07/30/13 1508 heparin (porcine) injection 5,000 Units 5,000 Units Subcutaneous Q8H WENDY Paiz 5,000 Units at 08/03/13 0622 [COMPLETED] hepatitis B vaccine (RECOMBIVAX-HB) injection 2 mL Intramuscular Once Thomas Bedolla MD 20 mcg at 08/02/13 1301 hydrALAZINE (APRESOLINE) injection 10 mg 10 mg Intravenous Q1H PRN Jessica Paiz HYDROmorphone (DILAUDID) injection 0.5 mg 0.5 mg Intravenous Q3H PRN Lilian Forbes MD Or HYDROmorphone (DILAUDID) injection 1 mg 1 mg Intravenous Q3H PRN Lilian Forbes MD 1 mg at 08/03/13 0450 labetalol (NORMODYNE) injection 10 mg 10 mg Intravenous Q10 Min PRN WENDY Paiz lidocaine (LIDODERM) 5 % patch 1 patch 1 patch Transdermal Daily Tung Dietz MD 1 patch at 08/03/13 0812 lip moisturizer (CHAPSTICK) ointment Topical PRN WENDY Paiz morphine injection 1 mg 1 mg Intravenous Q1H PRN Tung Dietz MD nystatin (MYCOSTATIN) [id number] UNIT/ML suspension 500,000 Units 5 mL Mouth/Throat 4x Preethi ly PRN WENDY Paiz nystatin (MYCOSTATIN) cream Topical TID PRN WENDY Paiz ondansetron (ZOFRAN) tablet 4 mg 4 mg Oral Q6H PRN WENDY Paiz Or ondansetron (ZOFRAN) injection 4 mg 4 mg Intravenous Q6H PRN WENDY Paiz 4 mg at 08/02/13 0829 sodium chloride 0.9 % bolus 100 mL 100 mL Intravenous Q30 Min PRN Rashel Wheeler MD [DISCONTINUED] furosemide (LASIX) injection 40 mg 40 mg Intravenous BIDPC Rashel blackburn MD 40 mg at 08/02/13 1759 No Known Allergies History Social History Marital Status: Single Spouse Name: N/A Number of Children: N/A Years of Education: N/A Occupational History Not on file. Social History Main Topics Smoking status: Current Every Day Smoker -- 0.5 packs/day Smokeless tobacco: Not on file Alcohol Use: No Drug Use: Yes Special: Heroin, IV, Methamphetamines Comment: none for last 3 years Sexually Active: Other Topics Concern Not on file Social History Narrative No narrative on file No smoking. No alcohol intake. Recreational Drug Use NO Travel No Pets Immunization History Administered Date(s) Administered Hepatitis B 08/02/2013 Pneumococcal Polysaccharide 07/29/2013 S/p Pneumococcal No Influenza Family History Problem Relation Age of Onset Nephrolithiasis Mother REVIEW OF SYSTEMS General: The patient noted to have no problem of fever,no weight loss and no chills. Neurologic: Denies any headache, any lightheadedness. No loss of consciousness or seizure. Cardiac: Denies Chest Pain, Palpitation, Dyspnea on Exertion Pulmonary: Denies cough, wheezing and hemoptysis GASTROINTESTINAL: Denies nausea vomiting, and diarrhea. GENITOURINARY: Noted no dysuria, urgency, or frequency. Hematological : Denies any ecchymosis, bleeding or hematuria Endocrine: Denies any polyphagia, polyuria or hot and cold intolerance Musculoskeletal: with joint pain and with Swelling better. Skin : Denies any new rashes or cutaneous changes. Rest of the review of systems is unremarkable. PHYSICAL EXAMINATION VITAL SIGNS Wt Readings from Last 3 Encounters: 08/03/13 113.5 kg (250 lb 3.6 oz) Temp Readings from Last 3 Encounters: 08/03/13 98.6 F (37 C) Oral BP Readings from Last 3 Encounters: 08/03/13 135/89 Pulse Readings from Last 3 Encounters: 08/03/13 54 Head: Normocephalic atraumatic HEENT: [place] palpebral conjunctivae. Anicteric sclerae. No tonsillopharyngeal congestion. Neck : Noted no Cervical Lymphadenopathy Right neck with hemodialsis catheter. CHEST:Clear Breath Sounds Bilateral . Hemodialysis catheter HEART: Regular rate and rhythm. No murmurs thrills or rubs ABDOMEN: Soft, flat. No tenderness. No hepatosplenomegaly. GROIN AREA: Negative for intertrigo. EXTREMITIES: Lower extremities with left knee edema and left leg and foot with edema . Righ t leg and foot to have no edema. Left hip with no tenderness with Discomfort NEUROLOGIC: No localizing signs. Skin : NO rash or ecchymosis. LABORATORY DATA Lab Results Component Value Date WBC 8.2 08/03/2013 HGB 12.1* 08/03/2013 HCT 35.3* 08/03/2013 PLT 207 08/03/2013 ALT 82* 08/03/2013 AST 45 08/03/2013 NA 138 08/03/2013 K 4.5 08/03/2013 CL 100 08/03/2013 CREATININE 11.75* 08/03/2013 BUN 52* 08/03/2013 CO2 28 08/03/2013 GLUF 89 08/03/2013 HGBA1C 5.4 07/29/2013 Hepatic Function Panel: Lab Results Component Value Date PROT 6.1* 08/03/2013 ALB 3.3* 08/03/2013 BILITOT 0.4 08/03/2013 ALP 34* 08/03/2013 AST 45 08/03/2013 ALT 82* 08/03/2013 Lipase: No results found for this basename: LIPASE U/A: No results found for this basename: COLORU, CLARITYU, MEROPENEM, LEUKOCYTESUR, NITRITE, UROBILINOGEN, PROTEINUA, PHUR, BLOODU, KETONES, BILIRUBINUR, GLUCOSEU DIAGNOSTIC IMAGING MRI pelvis without contrast [[id number]] Resulted:08/01/13 1650 Order Status:Completed Update d:08/01/13 5007 Narrative: EXAM: MR PELVIS WITHOUT CONTRAST EXAM DATE: 08/01/2013 10:25 AM. CLINICAL HISTORY: Chronic pain. Acute renal failure. History of heroin abuse. Left hip pain . COMPARISON: Left hip radiographs 07/30/2013. TECHNIQUE: Coronal T1 and STIR. Axial T1 and STIR. FINDINGS: Bones and articular surfaces: No hip joint effusion. Mild cartilage thinning and irregulari ty and marginal osteophyte formation in both hips. Marrow signal appears normal. No evidence of fracture or destructive bone lesion. Sacroiliac joints appear symmetric and within anastasiya l limits. Soft tissues: Nonspecific diffuse subcutaneous soft tissue edema. This is most pronounced o n the left anteriorly at the level of the hip and proximal thigh. Severe edema throughout th e left gluteus medius and minimus muscles. Small amount of edema within the lateral fibers o f the left gluteus albina. The left gluteus medius muscle appears expanded with some hetero genous signal and morphology. Difficult to differentiate between edematous expanded muscle t issue versus edematous muscle with possibility of some degree of intramuscular hematoma or p hlegmon. However, no appreciable simple-appearing drainable fluid. Edema also extends into t he right obturator internus muscle. Impression: 1. Severe muscle edema most pronounced within the left gluteus medius, also involving the l eft gluteus minimus as well as portions of the left gluteus albina and left obturator inter nus. The gluteus medius muscle appears edematous and expanded with abnormal signal and morph ology. 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 Trauma with multif ocal muscle strains could also cause this appearance. Cannot exclude ill-defined intramuscul ar hematoma or phlegmon within the gluteus medius. However, no simple drainable fluid is neo ntified. 2. No hip joint effusion. No evidence of septic arthritis. No evidence of osteomyelitis. No abscess identified on this noncontrast exam. 3. Subcutaneous soft tissue edema most pronounced in the region of the anterior left hip an d thigh. Cellulitis versus simple edema. Lucy Reinoso #[id number] (CSN: [id number]) (38 y.o. M) (Adm: 07/28/13) [id number] Radiology Results (last 7 days) X-ray femur left [[id number]] Resulted:08/01/131740 Order Status:Completed Updated:08/01/131746 Narrative: LUCY CHEEK XR FEMUR LEFT, XR TIBIA FIBULA LEFT, XR FOOT LEFT 08/01/2013 10:53 AM HISTORY: 38 years. Male. Trauma with left leg and foot pain TECHNIQUE: XR FEMUR LEFT, XR TIBIA FIBULA LEFT, XR FOOT LEFT. Frontal and lateral view of the femur ta jaqui in sections (4 views), frontal and lateral view of the tibia and fibula taken in section s (4 views) and left foot series. (3 views). Total of 11 images obtained. COMPARISON: None. FINDINGS: Left femur: The left hip show some degenerative changes but no flattening or fragmentation of the femoral head. Femoral neck and shaft are normal in appearance no evidence of fracture s or periosteal reaction. The view of the knee is normal in appearance. Left tib-fib: Tibial plateau smooth no evidence of fractures. No intra-articular free fragm ents. No evidence of significant joint effusion or erosive arthritis. The tibia and fibula s how no fractures or erosive lesions no periosteal reaction or soft tissue calcification limi fili view of the ankle suggest some degenerative changes. There is a transverse well-corticat ed lucency through the tip of the lateral malleolus suggesting residual of a old fracture. Left foot the phalanges and metatarsals are normal in appearance. The tarsal ossicles show no evidence of fractures. Os trigonum is noted. Impression: 1. No evidence of fracture of the left femur. 2. Residual old fracture lateral malleolus. No evidence of a acute fracture of the tibia or fibula. 3. No evidence of fracture or dislocation of the left foot. 4. Correlate clinically, followup study if the patient continues to be symptomatic. X-ray tibia fibula left [[id number]] Resulted:08/01/13 174 Order Status:Completed Updated:08/01/131746 Narrative: LUCY CHEEK XR FEMUR LEFT, XR TIBIA FIBULA LEFT, XR FOOT LEFT 08/01/2013 10:53 AM HISTORY: 38 years. Male. Trauma with left leg and foot pain TECHNIQUE: XR FEMUR LEFT, XR TIBIA FIBULA LEFT, XR FOOT LEFT. Frontal and lateral view of the femur ta jaqui in sections (4 views), frontal and lateral view of the tibia and fibula taken in section s (4 views) and left foot series. (3 views). Total of 11 images obtained. COMPARISON: None. FINDINGS: Left femur: The left hip show some degenerative changes but no flattening or fragmentation of the femoral head. Femoral neck and shaft are normal in appearance no evidence of fracture s or periosteal reaction. The view of the knee is normal in appearance. Left tib-fib: Tibial plateau smooth no evidence of fractures. No intra-articular free fragm ents. No evidence of significant joint effusion or erosive arthritis. The tibia and fibula s how no fractures or erosive lesions no periosteal reaction or soft tissue calcification limi fili view of the ankle suggest some degenerative changes. There is a transverse well-corticat ed lucency through the tip of the lateral malleolus suggesting residual of a old fracture. Left foot the phalanges and metatarsals are normal in appearance. The tarsal ossicles show no evidence of fractures. Os trigonum is noted. Impression: 1. No evidence of fracture of the left femur. 2. Residual old fracture lateral malleolus. No evidence of a acute fracture of the tibia or fibula. 3. No evidence of fracture or dislocation of the left foot. 4. Correlate clinically, followup study if the patient continues to be symptomatic. X-ray foot left [[id number]] Resulted:08/01/131740 Order Status:Completed Updated:08/01/131746 Narrative: LUCY CHEEK XR FEMUR LEFT, XR TIBIA FIBULA LEFT, XR FOOT LEFT 08/01/2013 10:53 AM HISTORY: 38 years. Male. Trauma with left leg and foot pain TECHNIQUE: XR FEMUR LEFT, XR TIBIA FIBULA LEFT, XR FOOT LEFT. Frontal and lateral view of the femur ta jaqui in sections (4 views), frontal and lateral view of the tibia and fibula taken in section s (4 views) and left foot series. (3 views). Total of 11 images obtained. COMPARISON: None. FINDINGS: Left femur: The left hip show some degenerative changes but no flattening or fragmentation of the femoral head. Femoral neck and shaft are normal in appearance no evidence of fracture s or periosteal reaction. The view of the knee is normal in appearance. Left tib-fib: Tibial plateau smooth no evidence of fractures. No intra-articular free fragm ents. No evidence of significant joint effusion or erosive arthritis. The tibia and fibula s how no fractures or erosive lesions no periosteal reaction or soft tissue calcification limi fili view of the ankle suggest some degenerative changes. There is a transverse well-corticat ed lucency through the tip of the lateral malleolus suggesting residual of a old fracture. Left foot the phalanges and metatarsals are normal in appearance. The tarsal ossicles show no evidence of fractures. Os trigonum is noted. Impression: 1. No evidence of fracture of the left femur. 2. Residual old fracture lateral malleolus. No evidence of a acute fracture of the tibia or fibula. 3. No evidence of fracture or dislocation of the left foot. 4. Correlate clinically, followup study if the patient continues to be symptomatic. pelvis without contrast [[id number]] Resulted:08/01/13 1659 Order Status:Completed Updated:08/01/139 Narrative: EXAM: MR PELVIS WITHOUT CONTRAST EXAM DATE: 08/01/2013 10:25 AM. CLINICAL HISTORY: Chronic pain. Acute renal failure. History of heroin abuse. Left hip pain . COMPARISON: Left hip radiographs 07/30/2013. TECHNIQUE: Coronal T1 and STIR. Axial T1 and STIR. FINDINGS: Bones and articular surfaces: No hip joint effusion. Mild cartilage thinning and irregulari ty and marginal osteophyte formation in both hips. Marrow signal appears normal. No evidence of fracture or destructive bone lesion. Sacroiliac joints appear symmetric and within anastasiya l limits. Soft tissues: Nonspecific diffuse subcutaneous soft tissue edema. This is most pronounced o n the left anteriorly at the level of the hip and proximal thigh. Severe edema throughout th e left gluteus medius and minimus muscles. Small amount of edema within the lateral fibers o f the left gluteus albina. The left gluteus medius muscle appears expanded with some hetero genous signal and morphology. Difficult to differentiate between edematous expanded muscle t issue versus edematous muscle with possibility of some degree of intramuscular hematoma or p hlegmon. However, no appreciable simple-appearing drainable fluid. Edema also extends into t he right obturator internus muscle. Impression: 1. Severe muscle edema most pronounced within the left gluteus medius, also involving the l eft gluteus minimus as well as portions of the left gluteus albina and left obturator inter nus. The gluteus medius muscle appears edematous and expanded with abnormal signal and morph ology. 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 Trauma with multif ocal muscle strains could also cause this appearance. Cannot exclude ill-defined intramuscul ar hematoma or phlegmon within the gluteus medius. However, no simple drainable fluid is neo ntified. 2. No hip joint effusion. No evidence of septic arthritis. No evidence of osteomyelitis. No abscess identified on this noncontrast exam. 3. Subcutaneous soft tissue edema most pronounced in the region of the anterior left hip an d thigh. Cellulitis versus simple edema. RAD[facility] Electronically signed by Samy Woodward MD on Aug 01 2013 4:59PM Referring Provider Line: [id number] ID: [id number] X-ray hip 2 view left [[id number]] Resulted:07/30/131920 Order Status:Completed Updated:07/30/131925 Narrative: LUCY CHEEK 1975 XR HIP 2 VIEW LEFT 07/30/2013 7:19 PM INDICATION: Hip pain COMPARISON: None TECHNIQUE: Two views of the left hip FINDINGS: The sacroiliac joints and symphysis pubis are normal. There are no bony pelvic fr actures. There is moderate left and severe right osteoarthritis of the hip joints with moder ate spurring. Some osteophyte formation is also noted along the femoral head neck junction b ilaterally, right greater than left. There is no acute fracture or dislocation. There appear s to be some cellulitis or subcutaneous edema. Impression: 1. 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 Ultrasound doppler venous leg left [[id number]] Resulted:07/30/131804 Order Status:Completed Updated:07/30/131809 Narrative: LUCY CHEEK 1975 US DOPPLER VENOUS LEG LEFT 07/30/2013 5:59 PM HISTORY: Lower extremity swelling COMPARISON: None. TECHNIQUE: Left lower extremity venous duplex, quinonez scale, color flow and spectral analysis performed FINDINGS: The deep venous system is normal on grayscale imaging. Normal compressibility and augmentation is demonstrated. The calf veins are patent on color flow assessment. There is no Hills's cyst. Moderate subcutaneous edema is noted along the calf. Impression: 1. No evidence of lower extremity deep vein thrombosis. Ultrasound retroperitoneal limited [[id number]] Resulted:07/30/13 1804 Order Status:Completed Updated:07/30/13 180 Narrative: LUCY CHEEK 1975 US RETROPERITONEAL LIMITED 07/30/2013 5:59 PM INDICATION: Renal enlargement, renal failure COMPARISON: 07/28/13 TECHNIQUE: Retroperitoneal ultrasound, grayscale and color Doppler assessment FINDINGS: The right kidney measures 14.3 cm in length. Transverse dimensions of the right k idney are 8.3 x 7.2 cm. Again, a generous appearance of the renal thickness is noted. Normal arterial and venous waveforms are documented throughout the right kidney. Slight increased echogenicity of the renal cortex is again demonstrated. The left kidney measures 13.8 x 7.2 x 6.4 cm. There is a slightly echogenic appearance of t he renal cortex. A normal venous and arterial waveform are documented in the left kidney as well. Impression: 1. No evidence of renal vein thrombosis or obstruction of the renal arterial system. Chest AP portable [[id number]] Resulted:07/28/13 1546 Order Status:Completed Updated:07/29/13 0820 Narrative: LUCY CHEEK XR CHEST 1 VIEW 07/28/2013 3:05 PM HISTORY: 38 years. Male. Renal failure TECHNIQUE: One view portable obtained 1435 COMPARISON: None FINDINGS: Central line via right internal jugular vein, tip cavoatrial junction. Borderline cardiac e nlargement. Pulmonary veins are somewhat engorged, however. Large osteophyte formation extending superiorly from the distal clavicle Impression: 1. Central line right internal jugular vein. No evidence of pneumothorax. Pulmonary venous engorgement indicating fluid overload. Heart size top normal. 2. Large osteophyte formation above the distal clavicle X-ray chest 1 view [[id number]] Resulted:07/29/13 0705 Order Status:Completed Updated:07/29/13 0710 Narrative: LUCY CHEEK XR CHEST 1 VIEW 07/29/2013 5:11 AM History: 38 years. Male. Acute renal failure. Technique: AP portable upright technique was performed at 1435 hours. Comparison: 07/28/13 Findings: The inspiratory effort is moderate. No lung consolidation or pleural effusion vis ualized. Mild cardiomegaly is still present. The upper lobe pulmonary vasculature is distended, alhaji cating grade 1 pulmonary venous hypertension, a precursor to interstitial edema. No visible pulmonary edema at present, however. The pulmonary melissa and mediastinal contours are normal. The thoracic aorta is normal, without dilatation or calcification. A large caliber right internal jugular central venous catheter is noted with its tip in the distal superior vena cava, unchanged. No acute osseous findings. Exostosis on the distal le ft clavicle, a chronic finding. Impression: 1. Mild cardiomegaly and grade 1 pulmonary venous hypertension, unchanged. 2. Incomplete inspiratory effort. 3. Persistent central venous catheter, unchanged. X-ray chest 1 view [[id number]] Resulted:07/29/13 0058 Order Status:Completed Updated:07/29/13 0058 Narrative: This is a non-reportable procedure without a radiologist report and is used for image storage only Ultrasound kidneys and bladder [[id number]] Resulted:07/28/13 1728 Order Status:Completed Updated:07/28/13 1733 Narrative: LUCY CHEEK 1975 US KIDNEYS AND BLADDER 07/28/2013 4:39 PM HISTORY: Hyperkalemia with acute renal failure COMPARISON: None. TECHNIQUE: Transabdominal ultrasound of the kidneys and bladder, grayscale and color flow e valuation. FINDINGS: The right kidney measures 14.5 x 8.3 x 7.5 cm. There is limited visualization of the liver which appears hypoechoic relative to the right kidney. Normal vascularity is noted throughout the renal hilum. There is no hydronephrosis or renal mass. The left kidney measu res 13.4 x 7.9 x 7.2 cm. There is normal cortical thickness. Normal vascularity is seen thro ughout the hilum. There is no hydronephrosis. The bladder measures 5.4 x 6.3 x 7.0 cm. There is a prevoid volume of 124 mL. No ureteral jets are documented. Impression: 1. Slightly enlarged appearance of the kidneys bilaterally with a increased echogenic appe arance. This is nonspecific but may reflect underlying medical renal disease or related to d iabetes. Lucy Cheek is a 38 y.o. male with the following Problems Patient Active Problem List Diagnosis Hyperkalemia, diminished renal excretion Oliguria Prerenal acute renal failure Metabolic acidosis Dehydration Illicit drug use Acute renal failure Chronic hepatitis C without mention of hepatic coma Plan: Follow up hepatitis C genotype viral load positive Follow up fibrosure to work up the staging of the liver. Cryoglobulin for any relation of hepatitis C quantiferon gold tb blood test. Discussed treatment options for olysio and sovaldi once the Renal function recovers. Discussed with Dr. Moon and Dr. Wheeler who agreed and will Thank you very much for the consult. JAMESON BEDOLLA MD Tung Martines MD - 08/02/2013 3:34 PM PDT Progress Notes by Tung Dietz MD at 08/02/13 3782 Author: Tung Dietz MD Service: (none) Author Type: Physician Filed: 08/02/131809 Date of Service: 08/02/131533 Status: Addendum Orchestra Director: Tung Dietz MD (Physician) Related Notes: Original Note by Tung Dietz MD (Physician) filed at 08/02/13 325 [facility] Service: Hospitalist Progress Note Pt: Lucy Cheek AGE/SEX: 38 y.o. male ROOM: 6627/6627-1 : 1975 PCP: JASON PRIDE ADMIT DATE: 07/28/2013 TODAY'S DATE: 08/02/2013 Hospital Day/Hospital Course: LOS: 5 days 38 y/o with hx of HTN, h/o IV drug abuse last use 3 years ago, hep C, compartment syndrome s/p fasciotomies on R leg for heroine use, smoker, transferred from [facility] for kidney failure , acidosis and hyperkalemia after 10 day historyof nausea, vomiting, lower abdominal and fla nk pain. . HD catheter placed in R IJ in our ED. Admitte dto ICU . Urgent HD was done, he zamora d 2 in ICU . No hydronephrosis on US. CPK trending down SUBJECTIVE: Patient seen and examined. Reports mild nausea. No vomiting. Denies other complaints. Creat improving, await decision for ? kidney biopsy in AM Scheduled Medications: docusate sodium 100 mg Oral BID Or docusate 100 mg Per OG Tube BID famotidine 20 mg Oral Daily Or famotidine 20 mg Intravenous Daily furosemide 40 mg Intravenous BIDPC heparin (porcine) Intracatheter Daily [COMPLETED] heparin (porcine) Intracatheter Once in dialysis heparin (porcine) 5,000 Units Subcutaneous Q8H [COMPLETED] hepatitis B vac recombinant 2 mL Intramuscular Once lidocaine 1 patch Transdermal Daily Continuous Infusions PRN Medications acetaminophen, acetaminophen, albumin human, hydrALAZINE, HYDROmorphone, HYDROmorphone, lab etalol, lip moisturizer, morphine, nystatin, nystatin, ondansetron, ondansetron, sodium chlo ride Allergy: No Known Allergies OBJECTIVE: Vitals: Patient Vitals for the past 24 hrs: BP Temp Temp src Pulse Resp SpO2 Weight 08/02/13 1506 145/89 mmHg 98.4 F (36.9 C) Oral 76 18 96 % - 08/02/13 1145 134/75 mmHg 98.2 F (36.8 C) Oral 86 19 98 % - 08/02/13 0807 122/69 mmHg 98.6 F (37 C) Oral 61 18 96 % - 08/02/13 0418 141/96 mmHg 98.4 F (36.9 C) Temporal 60 16 93 % 117 kg (257 lb 15 oz) 08/02/13 0003 132/82 mmHg 98.8 F (37.1 C) Temporal 64 16 93 % - 08/01/132008 163/92 mmHg 99 F (37.2 C) Temporal 66 18 96 % - 08/01/13 1805 154/99 mmHg 99 F (37.2 C) Oral 63 20 - - 08/01/13 1800 154/99 mmHg - - - - - - 08/01/13 1751 152/93 mmHg - - - - - - 08/01/13 1745 156/91 mmHg - - - - - - 08/01/13 1730 158/94 mmHg - - - - - - 08/01/13 1715 143/86 mmHg - - - - - - 08/01/13 1700 146/91 mmHg - - - - - - 08/01/13 1645 153/91 mmHg - - - - - - 08/01/13 1630 155/91 mmHg - - - - - - 08/01/13 1615 149/90 mmHg - - - - - - 08/01/13 1600 146/91 mmHg - - - - - - 08/01/13 1545 146/91 mmHg - - - - - - I&O Detailed Table: Intake/Output Summary (Last 24 hours) at 08/02/13 1534 Last data filed at 08/02/13 1300 Gross per 24 hour Intake 2800 ml Output 5075 ml Net -2275 ml Patient Vitals for the past 96 hrs: Weight 08/02/13 0418 117 kg (257 lb 15 oz) 08/01/13 1340 116.8 kg (257 lb 8 oz) 08/01/13 0352 116.8 kg (257 lb 8 oz) 07/31/13 0402 116.3 kg (256 lb 6.3 oz) 07/30/13 0422 116.1 kg (255 lb 15.3 oz) Hemodynamics Last 24hrs: Physical Examination: Constitutional: Alert and oriented to person, place and time. Appears well developed and we ll nourished. HEENT: 3mm pupils, moist mucous membranes, pink conjunctivae and anicteric sclerae. No cerv ical lymphadenopathy. HD catheter in R IJ Cardiovascular: Normal rate and rhythm. Normal heart sounds with S1 and S2. No murmurs, gal lops or rubs. Pulmonary: Patient is able to speak in full sentences. Breath sounds are clear bilaterally. No wheezing or rales. Abdominal: Soft and non-tender. Bowel sounds are present. No rebound or guarding. Extremities: L leg circumference from thighs to leg are bigger than R. Not tight to touch, not tender or warm to touch No calf pain. Tenderness to L hip on palpation , full ROM . R ca lf with scars from fasciotomy Neurological: Grossly non focal Skin: Warm and dry. No rashes or open wounds. Psychiatric: Normal mood and affect. Normal judgment and behavior. LABS: Lab 08/02/13 0500 08/01/13 05007/31/13 0528 WBC 7.4 8.8 7.6 HGB 12.8* 13.3 13.1* HCT 38.0* 38.4* 37.5* PLT 199 194 164 NEUTOPHILPCT 69.5 67.9 69.2 MONOPCT 12.1 11.1 13.4 Lab 08/02/13 0500 08/01/13 05007/31/13 0528 NA 136 134* 134* K 4.6 4.7 4.9 CL 100 98* 101 CO2 28 23 24 BUN 40* 67* 63* CREATININE 10.15* 14.43* 13.28* CALCIUM -- -- -- PROT -- -- 5.3* BILITOT -- -- 0.4 ALKPHOS -- -- -- ALT -- -- 87* AST -- -- 37 GLUCOSE -- -- -- Phosphorus: Lab Results Component Value Date PHOS 6.0* 08/02/2013 No components found with this basename: LABALBU:3 Lab 08/02/13 0500 08/01/13 05007/31/13 0528 MG 1.8 2.0 2.0 No results found for this basename: AMYLASE:3 in the last 168 hours No results found for this basename: PHART:3,PO2ART:3,VPM8WQH:3,L5AFEYUY:3,BEART:[address] 168 hours No results found for this basename: APTT:3,INR:3,PTT:3 in the last 168 hours No results found for this basename: TSH:3,T3FREE:3,FREET4:3 in the last 168 hours Lab 08/02/13 0500 08/01/13 05007/31/13 0528 CKTOTAL 265 320 394 TROPONINI -- -- -- TROPONINT -- -- -- CKMBINDEX -- -- -- PROBLEM LIST Principal Problem: *Acute renal failure Active Problems: Hyperkalemia, diminished renal excretion Oliguria Prerenal acute renal failure Metabolic acidosis Dehydration Illicit drug use Chronic hepatitis C without mention of hepatic coma ASSESSMENT & PLAN Principal Problem: *Acute renal failure - secondary to profound dehydration, NSAID use - Dr Dutton follows/ Dr Wheeler coverng - - thought is it is more likely acute rather than chronic but this remians to be seen, Ne phrology woskyler dlike pt to be observed 2-3 more days -US renal done no hydronephrosis - plan is if unimproved overall kidney biopsy and permacath Saturday - improving overall, cont to monitor - placed on lasix bid by Nephrology Active Problems: Hyperkalemia, resolved -telemetry - for HD Oliguria - overall improving , monitor Is and Os Metabolic acidosis - stable Dehydration - monitor Is and Os closely Illicit drug use, history of - no active issue at this time Chronic hepatitis C without mention of hepatic coma - Dr Bedolla consulted L leg swelling, L hip pain - xray L hip - reviewed, severe OA - L leg US negative for DVT - doubt compartment syndrome at this time , CPKs trending down - lidoderm patch, not much relief from dilaudid per pt - MRi pelvis obtained, possible mass according to Dr Santamaria but Dr Wheeler does not a pprove contrast so will have to hold off on this - xray leg,ankle and foot on L - no acute pathology , old fx Lateral malleolus - MRI reviewed, no septic arthritis, no OM, no abscess, cellulitis versus edema reported b ut doubt infection. Pt is without any abx and has been clinically stable. Will monitor. CPKs also trending down - check SHANIA DVT pps hep sq and mechanical devices TUNG DIETZ MD 08/02/2013 3:34 PM Rashel Lui MD - 08/02/2013 11:36 AM PDTFormatting of this note might be different from the mary carmen gikalin. Progress Notes by Rashel Wheeler MD at 08/02/13 1682 Author: Rashel Wheeler MD Service: Nephrology Author Type: Physician Filed: 08/02/13 1131 Date of Service: 08/02/131135 Status: Signed Orchestra Director: Rashel Wheeler MD (Physician) [facility] Service: Nephrology Renal Consult Progress Note Lucy Cheek [id number] Hospital Day: LOS: 5 days SUBJECTIVE Patient Summary: Patient seen and examined. Feels well today. Has no complaints. Events Overnight: Made 2.5 l of urine overnight Scheduled Medications docusate sodium 100 mg Oral BID Or docusate 100 mg Per OG Tube BID famotidine 20 mg Oral Daily Or famotidine 20 mg Intravenous Daily furosemide 40 mg Intravenous BIDPC heparin (porcine) Intracatheter Daily [COMPLETED] heparin (porcine) Intracatheter Once in dialysis heparin (porcine) 5,000 Units Subcutaneous Q8H hepatitis B vac recombinant 2 mL Intramuscular Once lidocaine 1 patch Transdermal Daily Continuous Infusions PRN Medications acetaminophen, acetaminophen, albumin human, hydrALAZINE, HYDROmorphone, HYDROmorphone, lab etalol, lip moisturizer, morphine, nystatin, nystatin, ondansetron, ondansetron, sodium chlo ride OBJECTIVE Vital Signs: BP 122/69 | Pulse 61 | Temp 98.6 F (37 C) (Oral) | Resp 18 | Ht 1.854 m (6' 1") | Wt 11 7 kg (257 lb 15 oz) | BMI 34.04 kg/m2 | SpO2 96% Intake/Output Summary (Last 24 hours) at 08/02/13 1136 Last data filed at 08/02/13 0421 Gross per 24 hour Intake 3100 ml Output 4050 ml Net -950 ml Gen: NAD, A&Ox3 Neck: No JVD Pulm: CTA b/l, good air movement, no w/r/r CV: RRR, nl S1S2, no rub Abd: Soft, NT/ND, NABS Ext: Left leg 1+ edema Access: rt ij anna DATA Lab 08/02/13 0500 08/01/13 0506 07/31/13 0528 07/30/13 1320 07/30/13 0422 07/29/13 0400 NA 136 134* 134* -- 133* -- K 4.6 4.7 4.9 4.2 -- -- CL 100 98* 101 -- 99 -- CO2 28 23 24 -- 20* -- BUN 40* 67* 63* -- 102* -- CA 8.2* 8.2* 7.9* -- 7.0* -- PHOS 6.0* 7.8* 6.9* -- 7.6* -- MG 1.8 2.0 2.0 -- -- 2.3 GLU -- -- -- -- -- -- Lab 08/02/13 0500 08/01/13 0506 07/31/13 0528 07/30/13 0422 ALB 3.2* 3.1* 2.8* 2.4* ALP -- -- 24* -- AST -- -- 37 -- ALT -- -- 87* -- INR -- -- -- -- Lab 08/02/13 0500 08/01/13 0506 07/31/13 0528 07/30/13 0422 WBC 7.4 8.8 7.6 8.3 RBC 3.98* 4.05* 3.97* 4.18* HGB 12.8* 13.3 13.1* 13.5 HCT 38.0* 38.4* 37.5* 39.0 PLT 199 194 164 160 MCV 95.4 94.8 94.6 93.4 RDW 40.7 40.7 41.1 40.7 LYMPH -- -- -- -- No results found for this basename: INR:4,PT:4,PTT:4 in the last 168 hours PROBLEM LIST Principal Problem: *Acute renal failure Active Problems: Hyperkalemia, diminished renal excretion Oliguria Prerenal acute renal failure Metabolic acidosis Dehydration Illicit drug use Chronic hepatitis C without mention of hepatic coma ASSESSMENT & PLAN Mr. Cheek is a pleasant 38 yo gentleman with no known past medical history except for histo ry of IV drug abuse (none in last 3 years) , ? Mild hypertension on no meds, who was transfe rred from [facility] after he was found to be hyperkalemic with kidney failure and acidos is. 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 He started c/o low back pain and generalized weakness about 10 days ago and th en started taking NSAIDS For pain ( ibuprofen about 4-6 daily) . He started developing gradu al intractable nausea and vomiting and later on he started having low urine output. At one p oint in time he reports anuria for 2-3 days. He saw few physicians in urgent care in [facility] area and they told him to take Advil for pain management as his fatigue and muscles aches ( especially in lower extremities an back) worsened. He was seen in urgent care yesterday a nd was directed [facility] ED today where his labs showed Cr of 27, bun 186, CO2 16 and [ otassiumof 130. His cpk was 2237, uric acid 17.1, and phos 13.4. He was transferred to [facility] for management. Pt denies any history of CKD, DM, Nephrolithiasis, pyelonephritis, recent intake of illicit drugs such as cocaine or heroin, denies BPH or history of obstruction. He has not been expo sed to IV contrast. ARF Ml sec to dehydration+aleve use Starting to put out more urine, did respond well to 100mg iv lasix, will hold off dialysis today Will continue lasix 40 mg iv bid Renal w/u (shania, anca, complements, hiv, urine eos, renal dopplers have been negative, excep t for hep c ), cryo pending Would not recommend MRI/ct with contrast at this time If by Saturday he still does not show significant clearance, will plan on a PC, and a renal b iopsy Code Status: Full Code Rashel Wheeler MD 08/02/2013 11:36 AM Cindy Harris ARNP - 08/02/2013 10:33 AM PDTFormatting of this note might be different from the origin al. Progress Notes by WENDY Benítez at 08/02/13 1033 Author: WENDY Benítez Service: Orthopedic Surgery Author Type: Advanced Registered Nurse Practitioner Filed: 08/26/13 1504 Date of Service: 08/02/13 1033 Status: Signed Orchestra Director: WENDY Benítez (Advanced Registered Nurse Practitioner) [facility] Service: Orthopedic Surgery Progress Note 08/02/2013 Hospital Day: LOS: 5 days Post-Op Day: * No surgery found * SUBJECTIVE Patient Summary: Patient resting quietly, pain well controlled. Patient able to ambul ate halls independently, states leg feels better since he has been urinating out so much flu id. Events Overnight: none Scheduled Medications docusate sodium 100 mg Oral BID Or docusate 100 mg Per OG Tube BID famotidine 20 mg Oral Daily Or famotidine 20 mg Intravenous Daily furosemide 40 mg Intravenous BIDPC heparin (porcine) Intracatheter Daily [COMPLETED] heparin (porcine) Intracatheter Once in dialysis heparin (porcine) 5,000 Units Subcutaneous Q8H hepatitis B vac recombinant 2 mL Intramuscular Once lidocaine 1 patch Transdermal Daily Continuous Infusions PRN Medications acetaminophen, acetaminophen, albumin human, hydrALAZINE, HYDROmorphone, HYDROmorphone, lab etalol, lip moisturizer, morphine, nystatin, nystatin, ondansetron, ondansetron, sodium chlo ride OBJECTIVE Vital Signs: BP 122/69 | Pulse 61 | Temp 98.6 F (37 C) (Oral) | Resp 18 | Ht 1.854 m (6' 1") | Wt 11 7 kg (257 lb 15 oz) | BMI 34.04 kg/m2 | SpO2 96% Ortho Exam Left leg larger than right, CSM intact, pedal pulse 4+, no erythema or eccymosis. DATA CBC: Lab Results Component Value Date WBC 7.4 08/02/2013 RBC 3.98* 08/02/2013 HGB 12.8* 08/02/2013 HCT 38.0* 08/02/2013 MCV 95.4 08/02/2013 MCH 32.0 08/02/2013 MCHC 33.6 08/02/2013 RDW 40.7 08/02/2013 PLT 199 08/02/2013 MPV 9.1 08/02/2013 DIFFTYPE AUTOMATED 08/02/2013 CMP: Lab Results Component Value Date NA 136 08/02/2013 K 4.6 08/02/2013 CL 100 08/02/2013 CO2 28 08/02/2013 ANIONGAP 13 08/02/2013 GLUF 92 08/02/2013 BUN 40* 08/02/2013 CREATININE 10.15* 08/02/2013 BCR 4 08/02/2013 CA 8.2* 08/02/2013 PROT 5.3* 07/31/2013 ALB 3.2* 08/02/2013 GLOB 2.5 07/31/2013 BILITOT 0.4 07/31/2013 ALP 24* 07/31/2013 AST 37 07/31/2013 ALT 87* 07/31/2013 EGFR 6* 08/02/2013 PT/INR: No results found for this basename: PROTIME, INR PTT: No results found for this basename: APTT [APTT Results No Results found for the last 72 hours. X-ray Hip 2 View Left 07/30/2013 1. 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 Electronically s igned by Fredrick Willson MD on 07/30/2013 7:21 PM X-ray Femur Left 08/01/2013 1. No evidence of fracture of the left femur. 2. Residual old fracture lateral malleolus. No evidence of a acute fracture of the tibia or fibula. 3. No evidence of fract ure or dislocation of the left foot. 4. Correlate clinically, followup study if the patient continues to be symptomatic. X-ray Tibia Fibula Left 08/01/2013 1. No evidence of fracture of the left femur. 2. Residual old fracture lateral malleolus. No evidence of a acute fracture of the tibia or fibula. 3. No evidence of fract ure or dislocation of the left foot. 4. Correlate clinically, followup study if the patient continues to be symptomatic. X-ray Foot Left 08/01/2013 1. No evidence of fracture of the left femur. 2. Residual old fracture lateral malleolus. No evidence of a acute fracture of the tibia or fibula. 3. No evidence of fract ure or dislocation of the left foot. 4. Correlate clinically, followup study if the patient continues to be symptomatic. Mri Pelvis Without Contrast 08/01/2013 1. Severe muscle edema most pronounced within the left gluteus medius, also inv olving the left gluteus minimus as well as portions of the left gluteus albina and left obt urator internus. The gluteus medius muscle appears edematous and expanded with abnormal sign al and morphology. 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 Trauma with multifocal muscle strains could also cause this appearance. Cannot exclude ill-defined intramuscular hematoma or phlegmon within the gluteus medius. However, no simple drainable fluid is identified. 2. No hip joint effusion. No evidence of septic arthritis. No evidence of osteomyelitis. No abscess identified on this noncontrast exam. 3. Subcutaneous soft tissu e edema most pronounced in the region of the anterior left hip and thigh. Cellulitis versus simple edema. RADIA Electronically signed by Samy Woodward MD on Aug 01 2013 4:59PM Refe rring Provider Line: [phone] ID: [id number] PROBLEM LIST Principal Problem: *Acute renal failure Active Problems: Hyperkalemia, diminished renal excretion Oliguria Prerenal acute renal failure Metabolic acidosis Dehydration Illicit drug use Chronic hepatitis C without mention of hepatic coma ASSESSMENT & PLAN A) 1. Left LE swelling 2. Left hip pain 3. Left foot pain P) No need for surgical intervention Continue ambulation WBAT Spoke with Milly GLORIA no needs for patient from ortho Code Status: Full Code WENDY Benítez 08/02/2013 Jameson Rodriguez MD - 0 08/02/2013 7:13 AM PDT Progress Notes by Jameson Bedolla MD at 08/02/13 0713 Author: Jameson Bedolla MD Service: Infectious Disease Author Type: Physician Filed: 08/02/13 0933 Date of Service: 08/02/13712 Status: Addendum Orchestra Director: Jameson eBdolla MD (Physician) Related Notes: Original Note by Jameson Bedolla MD (Physician) filed at 08/02/13 0931 CONSULT NOTE 08/02/2013 9:27 AM PRIMARY PHYSICIAN JASON PRIDE CONSULT REQUEST FROM Tung Dietz MD HISTORY OF PRESENT ILLNESS The patient is a 38 y.o.-year-old male with significant problems of HTN, h/o IV drug abuse 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 This was diagnosed when he was incarated. S/p liver biopsy In 2013 stage 2. This was done in [facility]. The patient was advised to be treated for later stages. ( the patient was incarcerated for 3 years. 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 The patient last incarceration from 2010 to 2013. Was released May 12, 2013 and doing well. The patient normal kidney function . The patient has a job in [employer] and enrolled at [employer]. The patient was dehydrated 07/19/13 for sprain his ankle treated with ibuprofen and has on a nd off vomiting.for 10 days lower abdominal and flank pain. The patient went to [facility]. Was later transferred to [facility] 07/28/13 . HD catheter placed in R IJ in our ED. Admitte to I . Urgent HD was done, he had 2 in ICU . No hydronephrosis on US. CPK trending down.Due to the hepatitis c infection, thus an infectious disease (ID) consult done for further evaluat ion and management. Work up done show The patient is immune to hepatitis A and serology for the hepatitis b is negative will check for hepatitis B antihbs and if negative And will need hepatitis B vacci nation. The patient had vaccination for hepatitis B 3x in 2012 . He has hiv and syphilis screen which were negative And left leg and knee and hip problem with swelling unclear etiology x ray show old fractur e on lateral malleolus. MRI of the left hip done results pending. Feeling better. Past Medical History Diagnosis Date Hypertension Hepatitis C Past Surgical History Procedure Date Tibial fasciotomy compartment syndrome Right calf fasc Current Facility-Administered Medications Medication Dose Route Frequency Provider Last Rate Last Dose acetaminophen (TYLENOL) tablet 650 mg 650 mg Oral Q6H PRN WENDY Paiz 650 mg at 07/30/13 0816 Or acetaminophen (TYLENOL) suppository 650 mg 650 mg Rectal Q6H PRN TERE Paiz albumin human 25 % solution 12.5 g 12.5 g Intravenous Q1H PRN Shirley Dutton MD docusate sodium (COLACE) capsule 100 mg 100 mg Oral BID WENDY Paiz 100 m g at 08/01/134 Or docusate (COLACE) 50 mg/5 mL liquid 100 mg 100 mg Per OG Tube BID NIURKA Paiz NP famotidine (PEPCID) tablet 20 mg 20 mg Oral Daily Coty H Tolentino, RPH 20 mg at 0909 Or famotidine (PEPCID) IVPB 20 mg 20 mg Intravenous Daily Coty H Tolentino, RPH furosemide (LASIX) injection 40 mg 40 mg Intravenous BIDPC Rashel Wheeler MD 40 mg at 08/02/13 0829 heparin (porcine) 1000 unit/mL injection Intracatheter Daily Shirley Dutton MD 3, 200 Units at 07/30/13 1508 [COMPLETED] heparin (porcine) 1000 unit/mL injection Intracatheter Once in dialysis V carol Wheeler MD 3,200 Units at 08/01/13 1800 heparin (porcine) injection 5,000 Units 5,000 Units Subcutaneous Q8H WENDY Paiz 5,000 Units at 08/02/13 0619 hydrALAZINE (APRESOLINE) injection 10 mg 10 mg Intravenous Q1H PRN Jessica Paiz HYDROmorphone (DILAUDID) injection 0.5 mg 0.5 mg Intravenous Q3H PRN Lilian Forbes MD Or HYDROmorphone (DILAUDID) injection 1 mg 1 mg Intravenous Q3H PRN Lilian Forbes MD 1 mg at 08/02/13 0829 labetalol (NORMODYNE) injection 10 mg 10 mg Intravenous Q10 Min PRN WENDY Paiz lidocaine (LIDODERM) 5 % patch 1 patch 1 patch Transdermal Daily Tung Dietz MD 1 patch at 08/02/13 0828 lip moisturizer (CHAPSTICK) ointment Topical PRN WENDY Paiz morphine injection 1 mg 1 mg Intravenous Q1H PRN Tung Dietz MD nystatin (MYCOSTATIN) [id number] UNIT/ML suspension 500,000 Units 5 mL Mouth/Throat 4x Preethi ly PRN WENDY Paiz nystatin (MYCOSTATIN) cream Topical TID PRN WENDY Paiz ondansetron (ZOFRAN) tablet 4 mg 4 mg Oral Q6H PRN WENDY Paiz Or ondansetron (ZOFRAN) injection 4 mg 4 mg Intravenous Q6H PRN WENDY Paiz 4 mg at 08/02/13 0829 sodium chloride 0.9 % bolus 100 mL 100 mL Intravenous Q30 Min PRN Rashel Wheeler MD No Known Allergies History Social History Marital Status: Single Spouse Name: N/A Number of Children: N/A Years of Education: N/A Occupational History Not on file. Social History Main Topics Smoking status: Current Every Day Smoker -- 0.5 packs/day Smokeless tobacco: Not on file Alcohol Use: No Drug Use: Yes Special: Heroin, IV, Methamphetamines Comment: none for last 3 years Sexually Active: Other Topics Concern Not on file Social History Narrative No narrative on file No smoking. No alcohol intake. Recreational Drug Use NO Travel No Pets Immunization History Administered Date(s) Administered Pneumococcal Polysaccharide 07/29/2013 S/p Pneumococcal No Influenza Family History Problem Relation Age of Onset Nephrolithiasis Mother REVIEW OF SYSTEMS General: The patient noted to have no problem of fever,no weight loss and no chills. Neurologic: Denies any headache, any lightheadedness. No loss of consciousness or seizure. Cardiac: Denies Chest Pain, Palpitation, Dyspnea on Exertion Pulmonary: Denies cough, wheezing and hemoptysis GASTROINTESTINAL: Denies nausea vomiting, and diarrhea. GENITOURINARY: Noted no dysuria, urgency, or frequency. Hematological : Denies any ecchymosis, bleeding or hematuria Endocrine: Denies any polyphagia, polyuria or hot and cold intolerance Musculoskeletal: with joint pain and with Swelling better. Skin : Denies any new rashes or cutaneous changes. Rest of the review of systems is unremarkable. PHYSICAL EXAMINATION VITAL SIGNS Wt Readings from Last 3 Encounters: 08/02/13 117 kg (257 lb 15 oz) Temp Readings from Last 3 Encounters: 08/02/13 98.6 F (37 C) Oral BP Readings from Last 3 Encounters: 08/02/13 122/69 Pulse Readings from Last 3 Encounters: 08/02/13 61 Head: Normocephalic atraumatic HEENT: [place] palpebral conjunctivae. Anicteric sclerae. No tonsillopharyngeal congestion. Neck : Noted no Cervical Lymphadenopathy Right neck with hemodialsis catheter. CHEST:Clear Breath Sounds Bilateral . Hemodialysis catheter HEART: Regular rate and rhythm. No murmurs thrills or rubs ABDOMEN: Soft, flat. No tenderness. No hepatosplenomegaly. GROIN AREA: Negative for intertrigo. EXTREMITIES: Lower extremities with left knee edema and left leg and foot with edema . Righ t leg and foot to have no edema. Left hip slurry control tender. Discomfort NEUROLOGIC: No localizing signs. Skin : NO rash or ecchymosis. LABORATORY DATA Lab Results Component Value Date WBC 7.4 08/02/2013 HGB 12.8* 08/02/2013 HCT 38.0* 08/02/2013 PLT 199 08/02/2013 ALT 87* 07/31/2013 AST 37 07/31/2013 NA 136 08/02/2013 K 4.6 08/02/2013 CL 100 08/02/2013 CREATININE 10.15* 08/02/2013 BUN 40* 08/02/2013 CO2 28 08/02/2013 GLUF 92 08/02/2013 HGBA1C 5.4 07/29/2013 Hepatic Function Panel: Lab Results Component Value Date PROT 5.3* 07/31/2013 ALB 3.2* 08/02/2013 BILITOT 0.4 07/31/2013 ALP 24* 07/31/2013 AST 37 07/31/2013 ALT 87* 07/31/2013 Lipase: No results found for this basename: LIPASE U/A: No results found for this basename: COLORU, CLARITYU, MEROPENEM, LEUKOCYTESUR, NITRITE, UROBILINOGEN, PROTEINUA, PHUR, BLOODU, KETONES, BILIRUBINUR, GLUCOSEU DIAGNOSTIC IMAGING Lucy Cheek #[id number] (CSN: [id number]) (38 y.o. M) (Adm: 07/28/13) [id number] Radiology Results (last 7 days) X-ray femur left [[id number]] Resulted:08/01/131740 Order Status:Completed Updated:08/01/131746 Narrative: LUCY CHEEK XR FEMUR LEFT, XR TIBIA FIBULA LEFT, XR FOOT LEFT 08/01/2013 10:53 AM HISTORY: 38 years. Male. Trauma with left leg and foot pain TECHNIQUE: XR FEMUR LEFT, XR TIBIA FIBULA LEFT, XR FOOT LEFT. Frontal and lateral view of the femur ta jaqui in sections (4 views), frontal and lateral view of the tibia and fibula taken in section s (4 views) and left foot series. (3 views). Total of 11 images obtained. COMPARISON: None. FINDINGS: Left femur: The left hip show some degenerative changes but no flattening or fragmentation of the femoral head. Femoral neck and shaft are normal in appearance no evidence of fracture s or periosteal reaction. The view of the knee is normal in appearance. Left tib-fib: Tibial plateau smooth no evidence of fractures. No intra-articular free fragm ents. No evidence of significant joint effusion or erosive arthritis. The tibia and fibula s how no fractures or erosive lesions no periosteal reaction or soft tissue calcification limi fili view of the ankle suggest some degenerative changes. There is a transverse well-corticat ed lucency through the tip of the lateral malleolus suggesting residual of a old fracture. Left foot the phalanges and metatarsals are normal in appearance. The tarsal ossicles show no evidence of fractures. Os trigonum is noted. Impression: 1. No evidence of fracture of the left femur. 2. Residual old fracture lateral malleolus. No evidence of a acute fracture of the tibia or fibula. 3. No evidence of fracture or dislocation of the left foot. 4. Correlate clinically, followup study if the patient continues to be symptomatic. X-ray tibia fibula left [[id number]] Resulted:08/01/131740 Order Status:Completed Updated:08/01/131746 Narrative: LUCY CHEEK XR FEMUR LEFT, XR TIBIA FIBULA LEFT, XR FOOT LEFT 08/01/2013 10:53 AM HISTORY: 38 years. Male. Trauma with left leg and foot pain TECHNIQUE: XR FEMUR LEFT, XR TIBIA FIBULA LEFT, XR FOOT LEFT. Frontal and lateral view of the femur ta jaqui in sections (4 views), frontal and lateral view of the tibia and fibula taken in section s (4 views) and left foot series. (3 views). Total of 11 images obtained. COMPARISON: None. FINDINGS: Left femur: The left hip show some degenerative changes but no flattening or fragmentation of the femoral head. Femoral neck and shaft are normal in appearance no evidence of fracture s or periosteal reaction. The view of the knee is normal in appearance. Left tib-fib: Tibial plateau smooth no evidence of fractures. No intra-articular free fragm ents. No evidence of significant joint effusion or erosive arthritis. The tibia and fibula s how no fractures or erosive lesions no periosteal reaction or soft tissue calcification limi fili view of the ankle suggest some degenerative changes. There is a transverse well-corticat ed lucency through the tip of the lateral malleolus suggesting residual of a old fracture. Left foot the phalanges and metatarsals are normal in appearance. The tarsal ossicles show no evidence of fractures. Os trigonum is noted. Impression: 1. No evidence of fracture of the left femur. 2. Residual old fracture lateral malleolus. No evidence of a acute fracture of the tibia or fibula. 3. No evidence of fracture or dislocation of the left foot. 4. Correlate clinically, followup study if the patient continues to be symptomatic. X-ray foot left [[id number]] Resulted:08/01/131740 Order Status:Completed Updated:08/01/131746 Narrative: LUCY Rodney NOLANDES XR FEMUR LEFT, XR TIBIA FIBULA LEFT, XR FOOT LEFT 08/01/2013 10:53 AM HISTORY: 38 years. Male. Trauma with left leg and foot pain TECHNIQUE: XR FEMUR LEFT, XR TIBIA FIBULA LEFT, XR FOOT LEFT. Frontal and lateral view of the femur ta jaqui in sections (4 views), frontal and lateral view of the tibia and fibula taken in section s (4 views) and left foot series. (3 views). Total of 11 images obtained. COMPARISON: None. FINDINGS: Left femur: The left hip show some degenerative changes but no flattening or fragmentation of the femoral head. Femoral neck and shaft are normal in appearance no evidence of fracture s or periosteal reaction. The view of the knee is normal in appearance. Left tib-fib: Tibial plateau smooth no evidence of fractures. No intra-articular free fragm ents. No evidence of significant joint effusion or erosive arthritis. The tibia and fibula s how no fractures or erosive lesions no periosteal reaction or soft tissue calcification limi fili view of the ankle suggest some degenerative changes. There is a transverse well-corticat ed lucency through the tip of the lateral malleolus suggesting residual of a old fracture. Left foot the phalanges and metatarsals are normal in appearance. The tarsal ossicles show no evidence of fractures. Os trigonum is noted. Impression: 1. No evidence of fracture of the left femur. 2. Residual old fracture lateral malleolus. No evidence of a acute fracture of the tibia or fibula. 3. No evidence of fracture or dislocation of the left foot. 4. Correlate clinically, followup study if the patient continues to be symptomatic. pelvis without contrast [[id number]] Resulted:08/01/13 1659 Order Status:Completed Updated:08/01/13 1702 Narrative: EXAM: MR PELVIS WITHOUT CONTRAST EXAM DATE: 08/01/2013 10:25 AM. CLINICAL HISTORY: Chronic pain. Acute renal failure. History of heroin abuse. Left hip pain . COMPARISON: Left hip radiographs 07/30/2013. TECHNIQUE: Coronal T1 and STIR. Axial T1 and STIR. FINDINGS: Bones and articular surfaces: No hip joint effusion. Mild cartilage thinning and irregulari ty and marginal osteophyte formation in both hips. Marrow signal appears normal. No evidence of fracture or destructive bone lesion. Sacroiliac joints appear symmetric and within anastasiya l limits. Soft tissues: Nonspecific diffuse subcutaneous soft tissue edema. This is most pronounced o n the left anteriorly at the level of the hip and proximal thigh. Severe edema throughout th e left gluteus medius and minimus muscles. Small amount of edema within the lateral fibers o f the left gluteus albina. The left gluteus medius muscle appears expanded with some hetero genous signal and morphology. Difficult to differentiate between edematous expanded muscle t issue versus edematous muscle with possibility of some degree of intramuscular hematoma or p hlegmon. However, no appreciable simple-appearing drainable fluid. Edema also extends into t he right obturator internus muscle. Impression: 1. Severe muscle edema most pronounced within the left gluteus medius, also involving the l eft gluteus minimus as well as portions of the left gluteus albina and left obturator inter nus. The gluteus medius muscle appears edematous and expanded with abnormal signal and morph ology. 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 Trauma with multif ocal muscle strains could also cause this appearance. Cannot exclude ill-defined intramuscul ar hematoma or phlegmon within the gluteus medius. However, no simple drainable fluid is neo ntified. 2. No hip joint effusion. No evidence of septic arthritis. No evidence of osteomyelitis. No abscess identified on this noncontrast exam. 3. Subcutaneous soft tissue edema most pronounced in the region of the anterior left hip an d thigh. Cellulitis versus simple edema. RADIA Electronically signed by Samy Woodward MD on Aug 01 2013 4:59PM Referring Provider Line: [id number] ID: [id number] X-ray hip 2 view left [[id number]] Resulted:07/30/131920 Order Status:Completed Updated:07/30/131925 Narrative: LUCY CHEEK 1975 XR HIP 2 VIEW LEFT 07/30/2013 7:19 PM INDICATION: Hip pain COMPARISON: None TECHNIQUE: Two views of the left hip FINDINGS: The sacroiliac joints and symphysis pubis are normal. There are no bony pelvic fr actures. There is moderate left and severe right osteoarthritis of the hip joints with moder ate spurring. Some osteophyte formation is also noted along the femoral head neck junction b ilaterally, right greater than left. There is no acute fracture or dislocation. There appear s to be some cellulitis or subcutaneous edema. Impression: 1. 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 Ultrasound doppler venous leg left [[id number]] Resulted:07/30/131804 Order Status:Completed Updated:07/30/131809 Narrative: LUCY HCEEK 1975 US DOPPLER VENOUS LEG LEFT 07/30/2013 5:59 PM HISTORY: Lower extremity swelling COMPARISON: None. TECHNIQUE: Left lower extremity venous duplex, quinonez scale, color flow and spectral analysis performed FINDINGS: The deep venous system is normal on grayscale imaging. Normal compressibility and augmentation is demonstrated. The calf veins are patent on color flow assessment. There is no Hills's cyst. Moderate subcutaneous edema is noted along the calf. Impression: 1. No evidence of lower extremity deep vein thrombosis. Ultrasound retroperitoneal limited [[id number]] Resulted:07/30/13 180 Order Status:Completed Updated:07/30/13 180 Narrative: LUCY CHEEK 1975 RETROPERITONEAL LIMITED 07/30/2013 5:59 PM INDICATION: Renal enlargement, renal failure COMPARISON: 07/28/13 TECHNIQUE: Retroperitoneal ultrasound, grayscale and color Doppler assessment FINDINGS: The right kidney measures 14.3 cm in length. Transverse dimensions of the right k idney are 8.3 x 7.2 cm. Again, a generous appearance of the renal thickness is noted. Normal arterial and venous waveforms are documented throughout the right kidney. Slight increased echogenicity of the renal cortex is again demonstrated. The left kidney measures 13.8 x 7.2 x 6.4 cm. There is a slightly echogenic appearance of t he renal cortex. A normal venous and arterial waveform are documented in the left kidney as well. Impression: 1. No evidence of renal vein thrombosis or obstruction of the renal arterial system. Chest AP portable [[id number]] Resulted:07/28/13 1546 Order Status:Completed Updated:07/29/13 0820 Narrative: LUCY CHEEK XR CHEST 1 VIEW 07/28/2013 3:05 PM HISTORY: 38 years. Male. Renal failure TECHNIQUE: One view portable obtained 1435 COMPARISON: None FINDINGS: Central line via right internal jugular vein, tip cavoatrial junction. Borderline cardiac e nlargement. Pulmonary veins are somewhat engorged, however. Large osteophyte formation extending superiorly from the distal clavicle Impression: 1. Central line right internal jugular vein. No evidence of pneumothorax. Pulmonary venous engorgement indicating fluid overload. Heart size top normal. 2. Large osteophyte formation above the distal clavicle X-ray chest 1 view [[id number]] Resulted:07/29/13 0705 Order Status:Completed Updated:07/29/13 0710 Narrative: LUCY CHEEK XR CHEST 1 VIEW 07/29/2013 5:11 AM History: 38 years. Male. Acute renal failure. Technique: AP portable upright technique was performed at 1435 hours. Comparison: 07/28/13 Findings: The inspiratory effort is moderate. No lung consolidation or pleural effusion vis ualized. Mild cardiomegaly is still present. The upper lobe pulmonary vasculature is distended, alhaji cating grade 1 pulmonary venous hypertension, a precursor to interstitial edema. No visible pulmonary edema at present, however. The pulmonary melissa and mediastinal contours are normal. The thoracic aorta is normal, without dilatation or calcification. A large caliber right internal jugular central venous catheter is noted with its tip in the distal superior vena cava, unchanged. No acute osseous findings. Exostosis on the distal le ft clavicle, a chronic finding. Impression: 1. Mild cardiomegaly and grade 1 pulmonary venous hypertension, unchanged. 2. Incomplete inspiratory effort. 3. Persistent central venous catheter, unchanged. X-ray chest 1 view [[id number]] Resulted:07/29/13 0058 Order Status:Completed Updated:07/29/13 0058 Narrative: This is a non-reportable procedure without a radiologist report and is used for image storage only Ultrasound kidneys and bladder [[id number]] Resulted:07/28/13 1728 Order Status:Completed Updated:07/28/13 173 Narrative: LUCY CHEEK 1975 US KIDNEYS AND BLADDER 07/28/2013 4:39 PM HISTORY: Hyperkalemia with acute renal failure COMPARISON: None. TECHNIQUE: Transabdominal ultrasound of the kidneys and bladder, grayscale and color flow e valuation. FINDINGS: The right kidney measures 14.5 x 8.3 x 7.5 cm. There is limited visualization of the liver which appears hypoechoic relative to the right kidney. Normal vascularity is noted throughout the renal hilum. There is no hydronephrosis or renal mass. The left kidney measu res 13.4 x 7.9 x 7.2 cm. There is normal cortical thickness. Normal vascularity is seen thro ughout the hilum. There is no hydronephrosis. The bladder measures 5.4 x 6.3 x 7.0 cm. There is a prevoid volume of 124 mL. No ureteral jets are documented. Impression: 1. Slightly enlarged appearance of the kidneys bilaterally with a increased echogenic appe arance. This is nonspecific but may reflect underlying medical renal disease or related to d iabetes. Lucy Cheek is a 38 y.o. male with the following Problems Patient Active Problem List Diagnosis Hyperkalemia, diminished renal excretion Oliguria Prerenal acute renal failure Metabolic acidosis Dehydration Illicit drug use Acute renal failure Chronic hepatitis C without mention of hepatic coma Plan: Follow up hepatitis C genotype viral load fibrosure to work up the staging of the liver. check antihbs for hepaititis B immunity negative will get double Dose of hepatitis B vaccination today. Cryoglobulin for any relation of hepatitis C quantiferon gold tb blood test. Discussed treatment options for olysio and sovaldi once the Renal function recovers. Discussed with Dr. Moon and Dr. Mazariegos who agreed and will Thank you very much for the consult. JAMESON BEDOLLA MD Hu, Rashel louise MD - 08/01/2013 12:22 PM PDTFormatting of this note might be different from the jaylen l. Progress Notes by Rashel Wheeler MD at 08/01/13 1222 Author: Rashel Wheeler MD Service: Nephrology Author Type: Physician Filed: 08/01/13 1230 Date of Service: 08/01/13 1222 Status: Addendum Orchestra Director: Rashel Wheeler MD (Physician) Related Notes: Original Note by Rashel Wheeler MD (Physician) filed at 08/01/13 1229 [facility] Service: Nephrology Renal Consult Progress Note Lucy Cheek [id number] Hospital Day: LOS: 4 days SUBJECTIVE Patient Summary: Patient seen and examined. Scheduled Medications docusate sodium 100 mg Oral BID Or docusate 100 mg Per OG Tube BID famotidine 20 mg Oral Daily Or famotidine 20 mg Intravenous Daily [COMPLETED] furosemide 100 mg Intravenous Once furosemide 40 mg Intravenous BIDPC heparin (porcine) Intracatheter Daily heparin (porcine) Intracatheter Once in dialysis heparin (porcine) 5,000 Units Subcutaneous Q8H lidocaine 1 patch Transdermal Daily [DISCONTINUED] famotidine 20 mg Intravenous BID [DISCONTINUED] famotidine 20 mg Oral BID [DISCONTINUED] pantoprazole 40 mg Intravenous QAM AC Continuous Infusions PRN Medications acetaminophen, acetaminophen, albumin human, hydrALAZINE, HYDROmorphone, HYDROmorphone, lab etalol, lip moisturizer, morphine, nystatin, nystatin, ondansetron, ondansetron, sodium chlo ride OBJECTIVE Vital Signs: BP 135/84 | Pulse 68 | Temp 98.1 F (36.7 C) (Oral) | Resp 16 | Ht 1.854 m (6' 1") | Wt 116.8 kg (257 lb 8 oz) | BMI 33.98 kg/m2 | SpO2 92% Intake/Output Summary (Last 24 hours) at 08/01/13 1222 Last data filed at 08/01/13 1147 Gross per 24 hour Intake 1900 ml Output 1600 ml Net 300 ml Gen: NAD, A&Ox3 Neck: No JVD Pulm: CTA b/l, good air movement, no w/r/r CV: RRR, nl S1S2, no rub Abd: Soft, NT/ND, NABS Ext: left leg 1+ edema Access: rt [facility] DATA Lab 08/01/13 0506 07/31/13 0528 07/30/13 1320 07/30/13 0422 07/29/13 1000 07/29/13 0400 2159 NA 134* 134* -- 133* 133* -- -- K 4.7 4.9 4.2 5.9* -- -- -- CL 98* 101 -- 99 97* -- -- CO2 23 24 -- 20* 25 -- -- BUN 67* 63* -- 102* 90* -- -- CA 8.2* 7.9* -- 7.0* 7.5* -- -- PHOS 7.8* 6.9* -- 7.6* -- 8.6* -- MG 2.0 2.0 -- -- -- 2.3 2.1 GLU -- -- -- -- -- -- -- Lab 08/01/13 0506 07/31/13 0528 07/30/13 0422 CREATININE 14.43* 13.28* 16.30* Lab 08/01/13 0506 07/31/13 0528 07/30/13 0422 07/29/13 0400 ALB 3.1* 2.8* 2.4* 3.2* ALP -- 24* -- -- AST -- 37 -- -- ALT -- 87* -- -- INR -- -- -- -- Lab 08/01/13 0506 07/31/13 0528 07/30/13 0422 07/29/13 0400 WBC 8.8 7.6 8.3 8.4 RBC 4.05* 3.97* 4.18* 4.35 HGB 13.3 13.1* 13.5 13.9 HCT 38.4* 37.5* 39.0 40.5 PLT 194 164 160 151 MCV 94.8 94.6 93.4 93.1 RDW 40.7 41.1 40.7 41.6 LYMPH -- -- -- -- No results found for this basename: INR:4,PT:4,PTT:4 in the last 168 hours PROBLEM LIST Principal Problem: *Acute renal failure Active Problems: Hyperkalemia, diminished renal excretion Oliguria Prerenal acute renal failure Metabolic acidosis Dehydration Illicit drug use Chronic hepatitis C without mention of hepatic coma ASSESSMENT & PLAN Mr. Cheek is a pleasant 38 yo gentleman with no known past medical history except for histo ry of IV drug abuse (none in last 3 years) , ? Mild hypertension on no meds, who was transfe rred from [facility] after he was found to be hyperkalemic with kidney failure and acidos is. 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 He started c/o low back pain and generalized weakness about 10 days ago and th en started taking NSAIDS For pain ( ibuprofen about 4-6 daily) . He started developing gradu al intractable nausea and vomiting and later on he started having low urine output. At one p oint in time he reports anuria for 2-3 days. He saw few physicians in urgent care in [facility] area and they told him to take Advil for pain management as his fatigue and muscles aches ( especially in lower extremities an back) worsened. He was seen in urgent care yesterday a nd was directed [facility] ED today where his labs showed Cr of 27, bun 186, CO2 16 and [ otassiumof 130. His cpk was 2237, uric acid 17.1, and phos 13.4. He was transferred to [facility] for management. Pt denies any history of CKD, DM, Nephrolithiasis, pyelonephritis, recent intake of illicit drugs such as cocaine or heroin, denies BPH or history of obstruction. He has not been expo sed to IV contrast. ARF Ml sec to dehydration+aleve use Starting to put out more urine, did respond well to 100mg iv lasix, but still not clearance , will dialyze him to day for clearance with no volume removal Will start lasix 40 mg iv bid Renal w/u (shania, anca, complements, hiv, urine eos, renal dopplers have been negative, excep t for hep c ), cryo pending Would not recommend MRI/ct with contrast at this time If by Saturday he still does not show significant clearance, will plan on a PC, and a renal b iopsy Plan d/w the pt and Dr Dietz Code Status: Full Code Rashel Wheeler MD 08/01/2013 12:22 PM Gutierrez MD - 08/01/2013 7:37 AM PDTFormatting of this note might be different from the mary carmen guido. Progress Notes by Tung Dietz MD at 08/01/13 0737 Author: Tung Dietz MD Service: (none) Author Type: Physician Filed: 08/01/13 1142 Date of Service: 08/01/13 0737 Status: Signed Orchestra Director: Tung Dietz MD (Physician) [facility] Service: Hospitalist Progress Note Pt: Lucy Cheek AGE/SEX: 38 y.o. male ROOM: [facility]/6627-1 : 1975 PCP: JASON PRIDE ADMIT DATE: 07/28/2013 TODAY'S DATE: 08/01/2013 Hospital Day/Hospital Course: LOS: 4 days 38 y/o with hx of HTN, h/o IV drug abuse last use 3 years ago, hep C, compartment syndrome s/p fasciotomies on R leg for heroine use, smoker, transferred from [facility] for kidney failure , acidosis and hyperkalemia after 10 day historyof nausea, vomiting, lower abdominal and fla nk pain. . HD catheter placed in R IJ in our ED. Admitte dto ICU . Urgent HD was done, he zamora d 2 in ICU . No hydronephrosis on US. CPK trending down SUBJECTIVE: Patient seen and examined. Reports no nausea or vomiting. Feels the L leg is less swollen. Improving Uo. Planned for HD today for clearance not fluid removal Scheduled Medications: docusate sodium 100 mg Oral BID Or docusate 100 mg Per OG Tube BID famotidine 20 mg Oral Daily Or famotidine 20 mg Intravenous Daily [COMPLETED] furosemide 100 mg Intravenous Once heparin (porcine) Intracatheter Daily heparin (porcine) 5,000 Units Subcutaneous Q8H lidocaine 1 patch Transdermal Daily [DISCONTINUED] famotidine 20 mg Intravenous BID [DISCONTINUED] famotidine 20 mg Oral BID [DISCONTINUED] pantoprazole 40 mg Intravenous QAM AC Continuous Infusions PRN Medications acetaminophen, acetaminophen, albumin human, hydrALAZINE, HYDROmorphone, HYDROmorphone, lab etalol, lip moisturizer, morphine, nystatin, nystatin, ondansetron, ondansetron Allergy: No Known Allergies OBJECTIVE: Vitals: Patient Vitals for the past 24 hrs: BP Temp Temp src Pulse Resp SpO2 Weight 08/01/13 0352 136/88 mmHg 97.7 F (36.5 C) Temporal 61 16 94 % 116.8 kg (257 lb 8 oz) 07/31/13 2340 139/90 mmHg 98.2 F (36.8 C) Temporal 61 16 96 % - 07/31/132000 137/79 mmHg 96.6 F (35.9 C) Temporal 67 14 93 % - 07/31/13 1541 143/93 mmHg 98.5 F (36.9 C) Oral 63 14 96 % - 07/31/13 1143 135/98 mmHg 98.3 F (36.8 C) Oral 62 16 97 % - I&O Detailed Table: Intake/Output Summary (Last 24 hours) at 08/01/13 0737 Last data filed at 08/01/13 0736 Gross per 24 hour Intake 1900 ml Output 1425 ml Net 475 ml Patient Vitals for the past 96 hrs: Weight 08/01/13 0352 116.8 kg (257 lb 8 oz) 07/31/13 0402 116.3 kg (256 lb 6.3 oz) 07/30/13 0422 116.1 kg (255 lb 15.3 oz) 07/29/13 1000 113.5 kg (250 lb 3.6 oz) 07/29/13 0730 113.4 kg (250 lb) 07/28/13 1601 115.1 kg (253 lb 12 oz) 07/28/13 1358 111.131 kg (245 lb) Hemodynamics Last 24hrs: Physical Examination: Constitutional: Alert and oriented to person, place and time. Appears well developed and we ll nourished. HEENT: 3mm pupils, moist mucous membranes, pink conjunctivae and anicteric sclerae. No cerv ical lymphadenopathy. HD catheter in R IJ Cardiovascular: Normal rate and rhythm. Normal heart sounds with S1 and S2. No murmurs, gal lops or rubs. Pulmonary: Patient is able to speak in full sentences. Breath sounds are clear bilaterally. No wheezing or rales. Abdominal: Soft and non-tender. Bowel sounds are present. No rebound or guarding. Extremities: L leg circumference from thighs to leg are bigger than R. Not tight to touch, not tender or warm to touch No calf pain. Tenderness to L hip on palpation , full ROM . R ca lf with scars from fasciotomy Neurological: Grossly non focal Skin: Warm and dry. No rashes or open wounds. Psychiatric: Normal mood and affect. Normal judgment and behavior. LABS: Lab 08/01/13 0506 07/31/13 0528 07/30/13 0422 WBC 8.8 7.6 8.3 HGB 13.3 13.1* 13.5 HCT 38.4* 37.5* 39.0 PLT 194 164 160 NEUTOPHILPCT 67.9 69.2 70.7 MONOPCT 11.1 13.4 13.4 Lab 08/01/13 0506 07/31/13 0528 07/30/13 1320 07/30/13 0422 NA 134* 134* -- 133* K 4.7 4.9 4.2 -- CL 98* 101 -- 99 CO2 23 24 -- 20* BUN 67* 63* -- 102* CREATININE 14.43* 13.28* -- 16.30* CALCIUM -- -- -- -- PROT -- 5.3* -- -- BILITOT -- 0.4 -- -- ALKPHOS -- -- -- -- ALT -- 87* -- -- AST -- 37 -- -- GLUCOSE -- -- -- -- Phosphorus: Lab Results Component Value Date PHOS 7.8* 08/01/2013 No components found with this basename: LABALBU:3 Lab 08/01/13 0506 07/31/13 0528 07/29/13 0400 MG 2.0 2.0 2.3 No results found for this basename: AMYLASE:3 in the last 168 hours No results found for this basename: PHART:3,PO2ART:3,DNY1OWS:3,O1TSLGSS:3,BEART:[address] 168 hours No results found for this basename: APTT:3,INR:3,PTT:3 in the last 168 hours No results found for this basename: TSH:3,T3FREE:3,FREET4:3 in the last 168 hours Lab 08/01/13 0506 07/31/13 0528 07/30/13 0422 CKTOTAL 320 394 649* TROPONINI -- -- -- TROPONINT -- -- -- CKMBINDEX -- -- -- PROBLEM LIST Principal Problem: *Acute renal failure Active Problems: Hyperkalemia, diminished renal excretion Oliguria Prerenal acute renal failure Metabolic acidosis Dehydration Illicit drug use Chronic hepatitis C without mention of hepatic coma ASSESSMENT & PLAN Principal Problem: *Acute renal failure - secondary to profound dehydration, NSAID use - Dr Dutton follows/ Dr Wheeler coverng - - thought is it is more likely acute rather than chronic but this remians to be seen, Ne phrology woul dlike pt to be observed 2-3 more days -US renal done no hydronephrosis - plan is if unimproved overall kidney biopsy and permacath Saturday Active Problems: Hyperkalemia, resolved -telemetry - for HD Oliguria - overall improving , monitor Is and Os Metabolic acidosis - stable Dehydration - hydrating NS at 150 cc/hr - monitor Is and Os closely Illicit drug use, history of - no active issue at this time Chronic hepatitis C without mention of hepatic coma - Dr Bedolla consulted L leg swelling, L hip pain - xray L hip - reviewed, severe OA - L leg US negative for DVT - doubt compartment syndrome at this time , CPKs trending down - lidoderm patch, not much relief from dilaudid per pt - MRi pelvis obtained, possible mass according to Dr Santamaria but Dr Wheeler does not a pprove contrast so will have to hold off on this - await xray leg,ankle and foot on L DVT pps hep sq and mechanical devices Discussed with Kailyn Wheeler, Dr Bedolla, Dr Santamaria and Dr Bill DIETZ MD 08/01/2013 7:37 AM onversion Transac tion, Provider Unknown - 07/31/2013 2:41 PM PDTFormatting of this note might be different f rom the original. Progress Notes by Coty Tolentino RPH at 07/31/13 1441 Author: Coty Tolentino RPH Service: (none) Author Type: Pharmacist Filed: 07/31/13 1441 Date of Service: 07/31/13 144 Status: Signed Orchestra Director: Coty Tolentino RPH (Pharmacist) Renal Dosing Monitoring: CREATININE: 13.28 mg/dL ABNORMAL (07/31/13 0528) Estimated creatinine clearance - Cockcroft-Gault CrCl: 10 mL/min Adjusting Famotidine 20 mg IV/PO BID to Famotidine 20 mg IV/PO daily due to hemodialysis. No other changes needed at this time. Pharmacist: Coty Tolentino 07/31/2013 2:38 PM Rashel Carcamo MD - 07/31/2013 1:04 PM PDT Progress Notes by Rashel Wheeler MD at 07/31/13 1304 Author: Rashel Wheeler MD Service: Nephrology Author Type: Physician Filed: 07/31/13 1310 Date of Service: 07/31/13 1304 Status: Signed Orchestra Director: Rashel Wheeler MD (Physician) [facility] Service: Nephrology Renal Consult Progress Note Lucy Cheek [id number] Hospital Day: LOS: 3 days SUBJECTIVE Patient Summary: Patient seen and examined. Feels well today. Has no complaints. Events Overnight: Made about 900ml of urine Scheduled Medications docusate sodium 100 mg Oral BID Or docusate 100 mg Per OG Tube BID heparin (porcine) Intracatheter Daily heparin (porcine) 5,000 Units Subcutaneous Q8H lidocaine 1 patch Transdermal Daily [START ON 08/01/2013] pantoprazole 40 mg Intravenous QAM AC Continuous Infusions PRN Medications acetaminophen, acetaminophen, albumin human, hydrALAZINE, HYDROmorphone, HYDROmorphone, lab etalol, lip moisturizer, morphine, nystatin, nystatin, ondansetron, ondansetron OBJECTIVE Vital Signs: BP 135/98 | Pulse 62 | Temp 98.3 F (36.8 C) (Oral) | Resp 16 | Ht 1.854 m (6' 1") | Wt 116.3 kg (256 lb 6.3 oz) | BMI 33.83 kg/m2 | SpO2 97% Intake/Output Summary (Last 24 hours) at 07/31/13 1305 Last data filed at 07/31/13 1145 Gross per 24 hour Intake 2750 ml Output 2700 ml Net 50 ml Gen: NAD, A&Ox3 Neck: No JVD Pulm: CTA b/l, good air movement, no w/r/r CV: RRR, nl S1S2, no rub Abd: Soft, NT/ND, NABS Ext:left leg swollen than right Access: rt ij anna I/O last 3 completed shifts: In: 6254 [P.O.:1520; I.V.:3034; Other:1700] Out: 2675 [Urine:975; Other:1700] DATA Lab 07/31/13 0528 07/30/13 1320 07/30/13 0422 07/29/13 1000 07/29/13 0400 06/17/14 2159 NA 134* -- 133* 133* 129* -- K 4.9 4.2 5.9* 4.3 -- -- CL 101 -- 99 97* 91* -- CO2 24 -- 20* 25 24 -- BUN 63* -- 102* 90* 137* -- CA 7.9* -- 7.0* 7.5* 7.7* -- PHOS 6.9* -- 7.6* -- 8.6* 7.2* MG 2.0 -- -- -- 2.3 2.1 GLU -- -- -- -- -- -- Lab 07/31/13 0528 07/30/13 0422 07/29/13 0400 ALB 2.8* 2.4* 3.2* ALP 24* -- -- AST 37 -- -- ALT 87* -- -- INR -- -- -- Lab 07/31/13 0528 07/30/132 07/29/130 07/28/132158 WBC 7.6 8.3 8.4 8.1 RBC 3.97* 4.18* 4.35 3.95* HGB 13.1* 13.5 13.9 12.8* HCT 37.5* 39.0 40.5 36.3* PLT 164 160 151 155 MCV 94.6 93.4 93.1 91.9 RDW 41.1 40.7 41.6 39.4 LYMPH -- -- -- -- No results found for this basename: INR:4,PT:4,PTT:4 in the last 168 hours PROBLEM LIST Principal Problem: *Acute renal failure Active Problems: Hyperkalemia, diminished renal excretion Oliguria Prerenal acute renal failure Metabolic acidosis Dehydration Illicit drug use Chronic hepatitis C without mention of hepatic coma ASSESSMENT & PLAN Mr. Cheek is a pleasant 38 yo gentleman with no known past medical history except for histo ry of IV drug abuse (none in last 3 years) , ? Mild hypertension on no meds, who was transfe rred from [facility] after he was found to be hyperkalemic with kidney failure and acidos is. 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 He started c/o low back pain and generalized weakness about 10 days ago and th en started taking NSAIDS For pain ( ibuprofen about 4-6 daily) . He started developing gradu al intractable nausea and vomiting and later on he started having low urine output. At one p oint in time he reports anuria for 2-3 days. He saw few physicians in urgent care in [facility] area and they told him to take Advil for pain management as his fatigue and muscles aches ( especially in lower extremities an back) worsened. He was seen in urgent care yesterday a nd was directed [facility] ED today where his labs showed Cr of 27, bun 186, CO2 16 and [ otassiumof 130. His cpk was 2237, uric acid 17.1, and phos 13.4. He was transferred to [facility] for management. Pt denies any history of CKD, DM, Nephrolithiasis, pyelonephritis, recent intake of illicit drugs such as cocaine or heroin, denies BPH or history of obstruction. He has not been expo sed to IV contrast. ARF Ml sec to dehydration+aleve use Starting to put out more urine Renal w/u (shania, anca, complements, hiv, urine eos, renal dopplers have been negative, excep t for hep c ) Will hold off dialysis today and monitor for signs of renal recovery,will hold off pc and b iopsy for now Will get ID involved for the care of hep c( Dr Bedolla informed) Will continue to follow with you Code Status: Full Code Rashel Wheeler MD 07/31/2013 1:05 PM Gutierrez MD - 07/31/2013 10:32 AM PDTFormatting of this note might be different from the mary carmen lora. Progress Notes by Tung Dietz MD at 07/31/13 1032 Author: Tung Dietz MD Service: (none) Author Type: Physician Filed: 07/31/13 1035 Date of Service: 07/31/13 1032 Status: Signed Orchestra Director: Tung Dietz MD (Physician) [facility] Service: Hospitalist Progress Note Pt: Lucy Cheek AGE/SEX: 38 y.o. 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 . HD catheter placed in R IJ in our ED. Admitte dto ICU . Urgent HD was done, he zamora d 2 in ICU . No hydronephrosis on US. CPK trending down SUBJECTIVE: Patient seen and examined. Reports some nausea, no vomiting. Afebrile. Pt did HD yesterday. , nephrology thinks patient should stay about 2-3 more days for observation on whether more permanent access can be placed. Scheduled Medications: docusate sodium 100 mg Oral BID Or docusate 100 mg Per OG Tube BID heparin (porcine) Intracatheter Daily heparin (porcine) 5,000 Units Subcutaneous Q8H lidocaine 1 patch Transdermal Daily Continuous Infusions [DISCONTINUED] sodium chloride Stopped (07/30/13 1115) PRN Medications acetaminophen, acetaminophen, albumin human, hydrALAZINE, HYDROmorphone, HYDROmorphone, lab etalol, lip moisturizer, morphine, nystatin, nystatin, ondansetron, ondansetron Allergy: No Known Allergies OBJECTIVE: Vitals: Patient Vitals for the past 24 hrs: BP Temp Temp src Pulse Resp SpO2 Weight 07/31/13 0737 133/86 mmHg 98.5 F (36.9 C) Oral 69 16 96 % - 07/31/13 0402 137/81 mmHg 98.1 F (36.7 C) Oral 76 19 97 % 116.3 kg (256 lb 6.3 oz) 07/30/13 2342 128/66 mmHg 99.2 F (37.3 C) Oral 77 18 96 % - 07/30/13 1933 146/89 mmHg 99.6 F (37.6 C) Oral 73 19 97 % - 07/30/13 1445 156/106 mmHg - - - - - - 07/30/13 1436 - - - 64 - - - 07/30/13 1430 151/85 mmHg - - - - - - 07/30/13 1315 143/86 mmHg - - - - - - 07/30/13 1300 138/85 mmHg - - 60 - 96 % - 07/30/13 1232 133/85 mmHg - - - - - - 07/30/13 1225 135/88 mmHg - - - - - - 07/30/13 1224 135/88 mmHg - - - - - - I&O Detailed Table: Intake/Output Summary (Last 24 hours) at 07/31/13 1032 Last data filed at 07/31/13 0739 Gross per 24 hour Intake 3155 ml Output 2700 ml Net 455 ml Patient Vitals for the past 96 hrs: Weight 07/31/13 0402 116.3 kg (256 lb 6.3 oz) 07/30/13 0422 116.1 kg (255 lb 15.3 oz) 07/29/13 1000 113.5 kg (250 lb 3.6 oz) 07/29/13 0730 113.4 kg (250 lb) 07/28/13 1601 115.1 kg (253 lb 12 oz) 07/28/13 1358 111.131 kg (245 lb) Hemodynamics Last 24hrs: Physical Examination: Constitutional: Alert and oriented to person, place and time. Appears well developed and we ll nourished. HEENT: 3mm pupils, moist mucous membranes, pink conjunctivae and anicteric sclerae. No cerv ical lymphadenopathy. HD catheter in R IJ Cardiovascular: Normal rate and rhythm. Normal heart sounds with S1 and S2. No murmurs, gal lops or rubs. Pulmonary: Patient is able to speak in full sentences. Breath sounds are clear bilaterally. No wheezing or rales. Abdominal: Soft and non-tender. Bowel sounds are present. No rebound or guarding. Extremities: L leg circumference from thighs to leg are bigger than R. Not tight to touch, not tender or warm to touch No calf pain. Tenderness to L hip on palpation , full ROM . R ca lf with scars from fasciotomy Neurological: Grossly non focal Skin: Warm and dry. No rashes or open wounds. Psychiatric: Normal mood and affect. Normal judgment and behavior. LABS: Lab 07/31/13 0528 07/30/13 04207/29/13 0400 WBC 7.6 8.3 8.4 HGB 13.1* 13.5 13.9 HCT 37.5* 39.0 40.5 PLT 164 160 151 NEUTOPHILPCT 69.2 70.7 75.2 MONOPCT 13.4 13.4 12.6 Lab 07/31/13 0528 07/30/13 1320 07/30/13 04207/29/13 1000 NA 134* -- 133* 133* K 4.9 4.2 5.9* -- CL 101 -- 99 97* CO2 24 -- 20* 25 BUN 63* -- 102* 90* CREATININE 13.28* -- 16.30* 13.05* CALCIUM -- -- -- -- PROT 5.3* -- -- -- BILITOT 0.4 -- -- -- ALKPHOS -- -- -- -- ALT 87* -- -- -- AST 37 -- -- -- GLUCOSE -- -- -- -- Phosphorus: Lab Results Component Value Date PHOS 6.9* 07/31/2013 No components found with this basename: LABALBU:3 Lab 07/31/13 0528 07/29/13 0400 07/28/13 2159 MG 2.0 2.3 2.1 No results found for this basename: AMYLASE:3 in the last 168 hours No results found for this basename: PHART:3,PO2ART:3,NSL3GNF:3,G2SMVCHC:3,BEART:[address] 168 hours No results found for this basename: APTT:3,INR:3,PTT:3 in the last 168 hours No results found for this basename: TSH:3,T3FREE:3,FREET4:3 in the last 168 hours Lab 07/31/13 0528 07/30/1342107/29/13 1000 CKTOTAL 394 649* 1011* TROPONINI -- -- -- TROPONINT -- -- -- CKMBINDEX -- -- -- PROBLEM LIST Principal Problem: *Acute renal failure Active Problems: Hyperkalemia, diminished renal excretion Oliguria Prerenal acute renal failure Metabolic acidosis Dehydration Illicit drug use Chronic hepatitis C without mention of hepatic coma ASSESSMENT & PLAN Principal Problem: *Acute renal failure - secondary to profound dehydration, NSAID use - Dr Dutton follows - - thought is it is more likely acute rather than chronic but this remians to be seen, Belkis hurley pt to be observed 2-3 more days -US renal done no hydronephrosis Active Problems: Hyperkalemia, resolved -telemetry - for HD Oliguria - overall improving , monitor Is and Os Metabolic acidosis - acidotic today, will likely get HD Dehydration - hydrating NS at 150 cc/hr - monitor Is and Os closely Illicit drug use, history of - no active issue at this time Chronic hepatitis C without mention of hepatic coma - would like to be set up with ID on discharge L leg swelling, L hip pain - xray L hip - reviewed, severe OA - L leg US negative for DVT - doubt compartment syndrome at this time , CPKs trending down - lidoderm patch, not much relief from dilaudid per pt DVT pps hep sq and mechanical devices TUNG DIETZ MD 07/31/2013 10:32 AM onversion Transac tion, Provider Unknown - 07/30/2013 1:22 PM PDTFormatting of this note might be different f rom the original. Case Management by Omid Trejo MS, SALES REPRESENTATIVE RAW [employer]IBERS at 07/30/13 1322 Author: Omid Trejo MS, SALES REPRESENTATIVE [employer] Service: (none) Author Type: Sign Maintenance Filed: 07/30/13 1331 Date of Service: 07/30/13 1322 Status: Addendum Orchestra Director: Omid Trejo MS, SALES REPRESENTATIVE [employer] (Sign Maintenance) Related Notes: Original Note by Omid Trejo MS, SALES REPRESENTATIVE [employer] (Sign Maintenance) filed at 07/30/13 1324 07/30/13 1318 Discharge Planning Evaluation Admitting Diagnosis Acute Renal Failure Readmission No Living Arrangements Alone Support Systems Parent Type of Residence Private residence House type (5th wheel) Independent with ADL's Yes Independent with Mobility Yes Home Care Services No Caregiver after Discharge No Mental Status Oriented Prior functional status CM met with pt to discuss plan of care post discharge. 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 Pt does not drive, family transports him when needed. Pt was a transfer from [facility] . Pt was not on HD prior , CM to remain avail re: HD status. Educated re: FMLA if pt is eligible with employer. Power of Cosmetologist Apprentice No Anticipated Discharge Plan Post Acute Care Needs None at this time Plan communicated to patient/family Yes Resources Financial concerns No Transportation issues No (His mother Jovana will cloth picker pt @ d/c.) Patient/Family concerns No Anticipated Disposition Facility Type (Home) CM met with pt to discuss plan of care post discharge. Pt is a 38 y.o.male living in [facility] independent Patient's PCP is: JASON PRIDE Patient's insurance: [place] Medicaid Coverage concerns:none reported Medication coverage/concerns: none Community resources utilized / needed: pt is a student, [place] Medicaid, CM to follow re: H D needs. CM called Leonarda, dialysis coordinator [phone], re: pt in house on HD. Assistance in transportation: Mom to transport Identification of any specific education / training: Educated re: FMLA if eligible. Barriers to Discharge / Alternative housing needed: none reported Anticipated DCP: [facility] [place] [facility] Shirley Sahni MD - 07/30/2013 10:17 AM PDTFormatting of this note might be different from dimitry torrez original. Progress Notes by Shirley Dutton MD at 07/30/13 1017 Author: Shirley Dutton MD Service: Nephrology Author Type: Physician Filed: 07/30/13 1042 Date of Service: 07/30/13 1017 Status: Addendum Orchestra Director: Shirley Dutton MD (Physician) Related Notes: Original Note by Shirley Dutton MD (Physician) filed at 07/30/13 1037 [facility] Followup -Nephrology I saw Mr. Lucy Cheek today for follow-up. he is interviewed, examined and meds/ labs/ i maging have been reviewed. Mr. Cheek is a pleasant 38 yo gentleman with no known past medical history except for histo ry of IV drug abuse (none in last 3 years) , ? Mild hypertension on no meds, who was transfe rred from [facility] after he was found to be hyperkalemic with kidney failure and acidos is. 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 He started c/o low back pain and generalized weakness about 10 days ago and th en started taking NSAIDS For pain ( ibuprofen about 4-6 daily) . He started developing gradu al intractable nausea and vomiting and later on he started having low urine output. At one p oint in time he reports anuria for 2-3 days. He saw few physicians in urgent care in [place] area and they told him to take Advil for pain management as his fatigue and muscles aches ( especially in lower extremities an back) worsened. He was seen in urgent care yesterday a nd was directed [facility] ED today where his labs showed Cr of 27, bun 186, CO2 16 and [ otassiumof 130. His cpk was 2237, uric acid 17.1, and phos 13.4. He was transferred to [facility] for management. Pt denies any history of CKD, DM, Nephrolithiasis, pyelonephritis, recent intake of illicit drugs such as cocaine or heroin, denies BPH or history of obstruction. He has not been expo sed to IV contrast. Review of Systems: The patient reports edema in left lower extremity since yesterday ( but he reports some humphrey ma for last one week which was not apparent on initial physical exam) . He denies chills and malaise and denies nausea, vomiting ( had one episode yesterday) dyspnea, edema, chest pa in and palpitations. He is feeling better and able to eat . All other review of systems are negative Physical Exam Blood pressure 134/88, pulse 72, temperature 98.4 F (36.9 C), temperature source Oral, resp. rate 18, height 1.854 m (6' 1"), weight 116.1 kg (255 lb 15.3 oz), SpO2 96.00%. Intake/Output Summary (Last 24 hours) at 07/30/13 1018 Last data filed at 07/30/13 0839 Gross per 24 hour Intake 4764 ml Output 356 ml Net 4408 ml 07/30 0700 - 06/19 1859 In: 120 [P.O.:120] Out: 175 [Urine:175] Constitutional: pt appears without distress. HENT: Normocephalic and atraumatic. Oropharynx is clear and moist. No oropharyngeal exudat e. Eyes: Pupils are equal, round. No scleral icterus. Neck: No JVD present. No tracheal deviation present. Cardiovascular: Normal rate. Exam reveals no gallop and no friction rub. No murmur heard. Pulmonary/Chest: No stridor. No respiratory distress. Pt has no wheezes, no rales. Abdominal: There is no distension and no masses or hepatosplenomegaly. There is no tendern ess and no rebound or guarding. Musculoskeletal: pt exhibits +2 edema in left lower extremity up to mid thigh which is ne w finding since yesterday's exam Lymphadenopathy: there is no cervical adenopathy. Neurological: pt is alert and oriented to person, place, and time. There is no asterixis. No facial asymmetry. Skin: Skin is warm and dry. No rash noted. No erythema. No pallor. Psychiatric: pt has a normal mood and affect. behavior is normal. Judgment and thought cont ent normal. Laboratory data most recent pertinent labs from 07/30/2013 Lab Results Component Value Date WBC 8.3 07/30/2013 HGB 13.5 07/30/2013 PLT 160 07/30/2013 NA 133* 07/30/2013 K 5.9* 07/30/2013 CL 99 07/30/2013 CO2 20* 07/30/2013 ANIONGAP 19 07/30/2013 BUN 102* 07/30/2013 CREATININE 16.30* 07/30/2013 PHOS 7.6* 07/30/2013 MG 2.3 07/29/2013 EGFR 4* 07/30/2013 Component Value Date/Time CREATININE 16.30* 07/30/2013 0422 CREATININE 13.05* 07/29/2013 1000 CREATININE 20.32* 07/29/2013 0400 CREATININE 19.48* 07/28/2013 2159 CREATININE 24.82* 07/28/2013 1418 RENAL ULTRASOUND: The right kidney measures 14.5 x 8.3 x 7.5 cm. There is limited visualiza tion of the liver which appears hypoechoic relative to the right kidney. Normal vascularity is noted throughout the renal hilum. There is no hydronephrosis or renal mass. The left kidn ey measures 13.4 x 7.9 x 7.2 cm. There is normal cortical thickness. Normal vascularity is s een throughout the hilum. There is no hydronephrosis. The bladder measures 5.4 x 6.3 x 7.0 c m. There is a prevoid volume of 124 mL. No ureteral jets are documented. CXR /18 Mild cardiomegaly is still present. The upper lobe pulmonary vasculature is distended, alhaji cating grade 1 pulmonary venous hypertension, a precursor to interstitial edema. No visible pulmonary edema at present, however. The pulmonary melissa and mediastinal contours are normal. The thoracic aorta is normal, without dilatation or calcification. A large caliber right internal jugular central venous catheter is noted with its tip in the distal superior vena cava, unchanged. No acute osseous findings. Exostosis on the distal le ft clavicle, a chronic finding. Assessment/Plan: OMAIRA/ ARF : likely hemodynamic and i am more inclined to think this is OMAIRA rather than ESRD based on the size of the kidneys and good cortical thickness. The kidneys are large which co uld be seen in HIV nephropathy, Diabetic disease and infiltrative disease but he has no risk factors for this . This also could be seen in OMAIRA as well as in renal vein thrombosis. He i s starting to make SOME urine so i would be inclined to continue hydration and hold off Bi opsy or permcath placement for now. Will plan Hd today ( day 3 ) for clearance and then ob serve over next 2-3 days. If no signs of recovery then a permcath and a biopsy should Be pu rsued. Renal vein doppler ordered. Continue to avoid all kinds of nephrotoxins. daily weights and strict I/O's Diet should be 0.8 gm/kg protein, 1 gm PO4, 2 gm Na, and 2 gm K restricted diet. medications to be dosed for estimated eGFR NSAIDs (including FINE 2 inhibitors) should not be used. Magnesium and aluminum containing antacids should be avoided. Magnesium or phosphorus containing laxatives should be avoided. Serologies: ANCA pending C3 and C4, SHANIA, KAPPA/LAMDA ratio,hepatitis B S ag , ASO, HIV negative hepatitis C Ab, POSITIVE Edema in left lower extremity : will order veous doppler to r/o DVT. D/c IVF. cpk is trendi ng down. Metabolic Acidosis: will be corrected with dialysis Hyponatremia: stable. monitor Hyperkalemia: will use 2 k bath today for dialysis. Hyperphosphatemia: improving with dialysis. reduce dietary phos intake to 1000 mg/day . BP control: BP control is adequate on the current regimen- -with goal being below 140/[address] wheeler will assume care as of 8 am on 07/31 SHIRLEY DUTTON MD FACP, FASN 07/30/2013 onversion Transa ction, Provider Unknown - 07/30/2013 8:14 AM PDT Progress Notes by Tera Leigh RN at 07/30/13813 Author: Tera Leigh RN Service: (none) Author Type: Registered Nurse Filed: 07/30/1316 Date of Service: 07/30/13813 Status: Signed Orchestra Director: Tera Leigh RN (Registered Nurse) Pt c/o pain 09/20 2 hrs s/p dilaudid 3mg iv. Tung Martines MD - 07/30/2013 7:29 AM PDT Progress Notes by Tung Dietz MD at 07/30/1329 Author: Tung Dietz MD Service: (none) Author Type: Physician Filed: 07/30/13 0957 Date of Service: 07/30/13728 Status: Signed Orchestra Director: Tung Dietz MD (Physician) [facility] Service: Hospitalist Progress Note Pt: Lucy Cheek AGE/SEX: 38 y.o. 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 . HD catheter placed in R IJ in our ED. Admitte dto ICU . Urgent HD was done, he zamora d 2 in ICU . No hydronephrosis on US. SUBJECTIVE: Patient seen and examined. Reports some nausea, 1 episode of vomiting this AM. k is up and creatinine is up. For HD today. C/o pain on L leg last few weeks. More swollen than R. Thin ks it is from sciatica and he also fell on his R hip prior to coming in to [facility] Scheduled Medications: docusate sodium 100 mg Oral BID Or docusate 100 mg Per OG Tube BID heparin (porcine) Intracatheter Daily heparin (porcine) 5,000 Units Subcutaneous Q8H [COMPLETED] pneumococcal 23-valent vaccine 0.5 mL Intramuscular Once Immunization Continuous Infusions sodium chloride 150 mL/hr at 07/30/13 0149 PRN Medications acetaminophen, acetaminophen, albumin human, hydrALAZINE, HYDROmorphone, HYDROmorphone, lab etalol, lip moisturizer, nystatin, nystatin, ondansetron, ondansetron Allergy: No Known Allergies OBJECTIVE: Vitals: Patient Vitals for the past 24 hrs: BP Temp Temp src Pulse Resp SpO2 Weight 07/30/13 0422 144/86 mmHg 98.3 F (36.8 C) Oral 76 19 96 % 116.1 kg (255 lb 15.3 oz) 07/29/13 2306 133/77 mmHg 98.4 F (36.9 C) Oral 76 18 97 % - 07/29/13 1904 135/80 mmHg 98.6 F (37 C) Oral 75 19 96 % - 07/29/13 1646 143/85 mmHg 98.6 F (37 C) Oral 72 16 96 % - 07/29/13 1600 106/55 mmHg 98.7 F (37.1 C) Oral 70 16 94 % - 07/29/13 1500 117/76 mmHg - - 70 - 94 % - 07/29/13 1400 127/68 mmHg - - 71 - - - 07/29/13 1330 - - - 72 - 97 % - 07/29/13 1300 129/73 mmHg - - 75 - - - 07/29/13 1230 - - - 72 - 97 % - 07/29/13 1200 122/67 mmHg 98.9 F (37.2 C) Oral 77 18 - - 07/29/13 1130 - - - 69 - 97 % - 07/29/13 1100 132/76 mmHg - - 73 - 96 % - 07/29/13 1015 133/79 mmHg - - - - - - 07/29/13 1000 128/76 mmHg - - 64 - - 113.5 kg (250 lb 3.6 oz) 07/29/13 0945 122/73 mmHg - - - - - - 07/29/13 0930 127/71 mmHg - - - - - - 07/29/13 0915 123/70 mmHg - - - - - - 07/29/13 0900 122/71 mmHg - - 66 - 96 % - 07/29/13 0845 122/69 mmHg - - - - - - 07/29/13 0830 119/69 mmHg - - - - - - 07/29/13 0815 118/67 mmHg - - - - - - 07/29/13 0800 128/74 mmHg 98.5 F (36.9 C) Oral 66 16 96 % - 07/29/13 0745 126/76 mmHg - - - - - - 07/29/13 0730 136/81 mmHg - - - - - 113.4 kg (250 lb) I&O Detailed Table: Intake/Output Summary (Last 24 hours) at 07/30/13 0729 Last data filed at 07/30/13 0628 Gross per 24 hour Intake 6244 ml Output 1781 ml Net 4463 ml Patient Vitals for the past 96 hrs: Weight 07/30/13 0422 116.1 kg (255 lb 15.3 oz) 07/29/13 1000 113.5 kg (250 lb 3.6 oz) 07/29/13 0730 113.4 kg (250 lb) 07/28/13 1601 115.1 kg (253 lb 12 oz) 07/28/13 1358 111.131 kg (245 lb) Hemodynamics Last 24hrs: Physical Examination: Constitutional: Alert and oriented to person, place and time. Appears well developed and we ll nourished. HEENT: 3mm pupils, moist mucous membranes, pink conjunctivae and anicteric sclerae. No cerv ical lymphadenopathy. HD catheter in R IJ Cardiovascular: Normal rate and rhythm. Normal heart sounds with S1 and S2. No murmurs, gal lops or rubs. Pulmonary: Patient is able to speak in full sentences. Breath sounds are clear bilaterally. No wheezing or rales. Abdominal: Soft and non-tender. Bowel sounds are present. No rebound or guarding. Extremities: L leg circumference from thighs to leg are bigger than R. Not tight to touch, not tender or warm to touch No calf pain. Tenderness to L hip on palpation , full ROM . R ca lf with scars from fasciotomy Neurological: Grossly non focal Skin: Warm and dry. No rashes or open wounds. Psychiatric: Normal mood and affect. Normal judgment and behavior. LABS: Lab 07/30/13 04207/29/13 0400 07/28/13 2159 WBC 8.3 8.4 8.1 HGB 13.5 13.9 12.8* HCT 39.0 40.5 36.3* PLT 160 151 155 NEUTOPHILPCT 70.7 75.2 -- MONOPCT 13.4 12.6 -- Lab 07/30/13 0422 07/29/13 1000 07/29/13 0400 NA 133* 133* 129* K 5.9* 4.3 6.3* CL 99 97* 91* CO2 20* 25 24 BUN 102* 90* 137* CREATININE 16.30* 13.05* 20.32* CALCIUM -- -- -- PROT -- -- -- BILITOT -- -- -- ALKPHOS -- -- -- ALT -- -- -- AST -- -- -- GLUCOSE -- -- -- Phosphorus: Lab Results Component Value Date PHOS 7.6* 07/30/2013 No components found with this basename: LABALBU:3 Lab 07/29/13 0400 07/28/13 2159 MG 2.3 2.1 No results found for this basename: AMYLASE:3 in the last 168 hours No results found for this basename: PHART:3,PO2ART:3,PZF3GTG:3,A4VPASME:3,BEART:[address] 168 hours No results found for this basename: APTT:3,INR:3,PTT:3 in the last 168 hours No results found for this basename: TSH:3,T3FREE:3,FREET4:3 in the last 168 hours Lab 07/30/13 0422 07/29/13 1000 07/29/13 0400 CKTOTAL 649* 1011* 1281* TROPONINI -- -- -- TROPONINT -- -- -- CKMBINDEX -- -- -- PROBLEM LIST Principal Problem: *Acute renal failure Active Problems: Hyperkalemia, diminished renal excretion Oliguria Prerenal acute renal failure Metabolic acidosis Dehydration Illicit drug use Chronic hepatitis C without mention of hepatic coma ASSESSMENT & PLAN Principal Problem: *Acute renal failure - secondary to profound dehydration, NSAID use - Dr Dutton follows - - thought is it is more likely acute rather than chronic but this remians to be seen -US renal done no hydronephrosis Active Problems: Hyperkalemia, -telemetry - for HD Oliguria - overall improving , monitor Is and Os Metabolic acidosis - acidotic today, will likely get HD Dehydration - hydrating NS at 150 cc/hr - monitor Is and Os closely Illicit drug use, history of - no active issue at this time Chronic hepatitis C without mention of hepatic coma - would like to be set up with ID on discharge L leg swelling, L hip pain - xray L hip - L leg US - doubt compartment syndrome at this time , CPKs trending down DVT pps hep sq and mechanical devices More than 35 mins were spent on the review of H/P, imaging and labs, formulation of assessm ent and plan, discussion with the patient/family, staff and providers. TUNG DIETZ MD 07/30/2013 7:29 AM Shirley Oliva MD - 07/29/2013 11:24 AM PDT Progress Notes by Shirley Dutton MD at 07/29/13 1124 Author: Shirley Dutton MD Service: Nephrology Author Type: Physician Filed: 07/29/13 1480 Date of Service: 07/29/13 1124 Status: Signed Orchestra Director: Shirley Dutton MD (Physician) [facility] Followup -Nephrology I saw . Lucy Cheek today for follow-up. he is interviewed, examined and meds/ labs/ i maging have been reviewed. Mr. Cheek is a pleasant 38 yo gentleman with no known past medical history except for histo ry of IV drug abuse (none in last 3 years) , ? Mild hypertension on no meds, who was transfe rred from [facility] after he was found to be hyperkalemic with kidney failure and acidos is. 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 He started c/o low back pain and generalized weakness about 10 days ago and th en started taking NSAIDS For pain ( ibuprofen about 4-6 daily) . He started developing gradu al intractable nausea and vomiting and later on he started having low urine output. At one p oint in time he reports anuria for 2-3 days. He saw few physicians in urgent care in [facility] on area and they told him to take Advil for pain management as his fatigue and muscles aches ( especially in lower extremities an back) worsened. He was seen in urgent care yesterday a nd was directed [facility] ED today where his labs showed Cr of 27, bun 186, CO2 16 and [ otassiumof 130. His cpk was 2237, uric acid 17.1, and phos 13.4. He was transferred to [facility] for management. Pt denies any history of CKD, DM, Nephrolithiasis, pyelonephritis, recent intake of illicit drugs such as cocaine or heroin, denies BPH or history of obstruction. He has not been expo sed to IV contrast. Review of Systems: The patient reports no problems. He denies chills and malaise and denies nausea, vomiting, dyspnea, edema, chest pain and palpitations. He is feeling better and able to eat . All ot her review of systems are negative Physical Exam Blood pressure 132/76, pulse 73, temperature 98.5 F (36.9 C), temperature source Oral, resp. rate 16, height 1.854 m (6' 1"), weight 113.5 kg (250 lb 3.6 oz), SpO2 96.00%. Intake/Output Summary (Last 24 hours) at 07/29/13 1125 Last data filed at 07/29/13 1106 Gross per 24 hour Intake 5172 ml Output 3480 ml Net 1692 ml 07/29 0700 - 07/29 1859 In: 1720 [P.O.:120] Out: 1780 [Urine:180] Constitutional: pt appears without distress. HENT: Normocephalic and atraumatic. Oropharynx is clear and moist. No oropharyngeal exudat e. Eyes: Pupils are equal, round. No scleral icterus. Neck: No JVD present. No tracheal deviation present. Cardiovascular: Normal rate. Exam reveals no gallop and no friction rub. No murmur heard. Pulmonary/Chest: No stridor. No respiratory distress. Pt has no wheezes, no rales. Abdominal: There is no distension and no masses or hepatosplenomegaly. There is no tendern ess and no rebound or guarding. Musculoskeletal: pt exhibits no edema in lower extremities Lymphadenopathy: there is no cervical adenopathy. Neurological: pt is alert and oriented to person, place, and time. There is no asterixis. No facial asymmetry. Skin: Skin is warm and dry. No rash noted. No erythema. No pallor. Psychiatric: pt has a normal mood and affect. behavior is normal. Judgment and thought cont ent normal. Laboratory data most recent pertinent labs from 07/29/2013 Lab Results Component Value Date WBC 8.4 07/29/2013 HGB 13.9 07/29/2013 PLT 151 07/29/2013 NA 133* 07/29/2013 K 4.3 07/29/2013 CL 97* 07/29/2013 CO2 25 07/29/2013 ANIONGAP 16 07/29/2013 BUN 90* 07/29/2013 CREATININE 13.05* 07/29/2013 PHOS 8.6* 07/29/2013 MG 2.3 07/29/2013 EGFR 5* 07/29/2013 Component Value Date/Time CREATININE 13.05* 07/29/2013 1000 CREATININE 20.32* 07/29/2013 0400 CREATININE 19.48* 07/28/2013 2159 CREATININE 24.82* 07/28/2013 1418 RENAL ULTRASOUND: The right kidney measures 14.5 x 8.3 x 7.5 cm. There is limited visualiza tion of the liver which appears hypoechoic relative to the right kidney. Normal vascularity is noted throughout the renal hilum. There is no hydronephrosis or renal mass. The left kidn ey measures 13.4 x 7.9 x 7.2 cm. There is normal cortical thickness. Normal vascularity is s een throughout the hilum. There is no hydronephrosis. The bladder measures 5.4 x 6.3 x 7.0 c m. There is a prevoid volume of 124 mL. No ureteral jets are documented. Assessment/Plan: OMAIRA/ ARF : likely hemodynamic and i am more inclined to think this is OMAIRA rather than ESRD based on the size of the kidneys and good cortical thickness. The kidneys are large which co uld be seen in HIV nephropathy, Diabetic disease and infiltrative disease but he has no risk factors for this . This also could be seen in OMAIRA as well. He is starting to make mor urine so i would be inclined to continue hydration and hold off Biopsy or permcath placement for now. Will plan Hd agan tomorrow for clearance and then observe over next 2-3 days. Continue to avoid all kinds of nephrotoxins. Continue IVF NS as ordered. We will reassess volume closely. daily weights and strict I/O's Diet should be 0.8 gm/kg protein, 1 gm PO4, 2 gm Na, and 2 gm K restricted diet. medications to be dosed for estimated eGFR NSAIDs (including FINE 2 inhibitors) should not be used. Magnesium and aluminum containing antacids should be avoided. Magnesium or phosphorus containing laxatives should be avoided. Serologies: ANCA, Anti-GBM, SHANIA-reflex,HIV, RPR pending C3 and C4, hepatitis B S ag , ASO negative hepatitis C Ab, POSITIVE Metabolic Acidosis: corrected with dialysis Hyponatremia: improving . monitor Hyperkalemia: will use 2 k bath today for dialysis. cpk is trending down. Hyperphosphatemia: improving with dialysis. reduce dietary phos intake to 1000 mg/day . BP control: BP control is adequate on the current regimen- -with goal being below 140/90 . Discussed with Kailyn Rodriguez and Mirela Thank you for asking me to participate in the care of your patient. I will be happy to cont inue to follow up on Mr. Lucy Cheek during hospitalization. SHIRLEY DUTTON MD FACP, FASN 07/29/2013 oAnselmo negron MD - 07/29/2013 10:54 AM PDT Progress Notes by Anselmo Rodriguez MD at 07/29/13 1053 Author: Anselmo Rodriguez MD Service: Employment Advisor Author Type: Employment Advisor Filed: 07/29/13 7582 Date of Service: 07/29/13 1059 Status: Signed Orchestra Director: Anselmo Rodriguez MD (Physician) [facility] Service: Employment Advisor Progress Note Lucy Cheek 38 y.o. Date of Admission: 07/28/2013 Requesting Physician: Dr. Dutton, Nephrology Indication for ICU Admission: Acute renal failure with hyperkalemia requiring emergent santa lysis. History Obtained From: patient, chart review Treatment Team: Consulting Physician: Shirley Dutton MD Admitting Provider: Brandon Kimball MD CHIEF COMPLAINT: Chief Complaint Patient presents with Emesis Acute Renal Failure HISTORY OF PRESENT ILLNESS Initial hx per Alma Salazar The patient is a 38 y.o. male with significant past medical history of IV drug use of hero in and methamphetamines, hepatitis C secondary to drug use, hypertension, and tobaccoism enoch roximately half a pack a day current smoker. Patient's also experienced several surgeries to the right calf for fasciotomies secondary to heroin or IV drug use and popping. Reportedly it's been approximately 9 days since he last used. He presented to the outside hospital with a 10 day history of having nausea and vomiting and some lower abdominal pain as well as bi lateral flank pain. This not was not associated with any recent travel and he did not have d iarrhea with this as well or report any fevers he did note that his urinary output was very diminished. At the outside hospital he was found to be in acute renal failure with BUNs of 1 18 creatinine of 26 and potassium level was 5.9 he required replacement and treatment with c alcium bicarbonate insulin and dextrose. He was thought to be profoundly dehydrated and was given 2 L of normal saline and a liter of D5 with 150 of bicarbonate Patient was transferr ed here to [facility] for placement of hemodialysis catheter and plan fo r urgent dialysis under the care of Dr. Dutton. Hemodialysis catheter was placed in the [facility] IJ by Dr. Healy in the emergency department. ICU Time Line: 07/28/13 Dialysis 07/29/13 Dialysis Overnight Events: No hydronephrosis by ultrasound and with improving numbers with dialysis , no metabolic acidosis now. Will transfer to the floor post dialysis. PAST MEDICAL HISTORY: Past Medical History Diagnosis Date Hypertension Hepatitis C PAST SURGICAL HISTORY: Past Surgical History Procedure Date Tibial fasciotomy compartment syndrome Right calf fasc MEDICATION ALLERGIES: No Known Allergies MEDICATIONS PRIOR TO ADMISSION: No prescriptions prior to admission FAMILY HISTORY OF SIGNIFICANCE: Family History Problem Relation Age of Onset Nephrolithiasis Mother SOCIAL HISTORY: History Social History Marital Status: Single Spouse Name: N/A Number of Children: N/A Years of Education: N/A Occupational History Not on file. Social History Main Topics Smoking status: Current Every Day Smoker -- 0.5 packs/day Smokeless tobacco: Not on file Alcohol Use: No Drug Use: Yes Special: Heroin, IV, Methamphetamines Comment: none for last 3 years Sexually Active: Other Topics Concern Not on file Social History Narrative No narrative on file PHYSICAL EXAM Vital Signs: BP 133/79 | Pulse 64 | Temp 98.5 F (36.9 C) (Oral) | Resp 16 | Ht 1.854 m (6' 1") | Wt 113.4 kg (250 lb) | BMI 32.99 kg/m2 | SpO2 96% EXAM GEN: Awake, alert, oriented x3, NAD NEURO: PERRLA, EOMI, no facial asymmetry, speech normal, moves all extremities well GCS:15 HEENT: sclerae clear, nonicteric, oral mmm, pink, no exudates, Dialysis catheter in the Rig ht IJ NECK: supple, trachea midline HEART: RRR, no murmur, rub or gallop LUNGS: clear b/l, no wheezing, crackles or rhonchi ABD: soft, nondistended, nontender to palpation, no masses EXTR: no edema, clubbing or cyanosis. Right calf with two compartment scars from old fascio dorie. SKIN: warm, dry, no rash or mottling; no e/o skin breakdown over the occiput, scapulae, elb ows, sacrum or heels RIJ HD catheter. DATA Lab 07/29/13 1000 07/29/13 0400 07/28/13 2159 NA 133* 129* 132* K 4.3 6.3* 5.1* CL 97* 91* 92* CO2 25 24 21* BUN 90* 137* 143* CREATININE 13.05* 20.32* 19.48* CALCIUM -- -- -- PROT -- -- -- BILITOT -- -- -- ALKPHOS -- -- -- ALT -- -- -- AST -- -- -- GLUCOSE -- -- -- Labs from outside hospital... I have reviewed all the lab results. There are some abnormalities that are not critical to the patient's health, but I would like to discuss these in person at an office appointment. Please ask him to schedule a follow up visit with me at his convenience. WBC:10.3 Hgb:16.1 Hct:44.1 Plt: 192 IMAGING PROBLEM LIST Principal Problem: *Acute renal failure Active Problems: Hyperkalemia, diminished renal excretion Oliguria Prerenal acute renal failure Metabolic acidosis Dehydration Illicit drug use Chronic hepatitis C without mention of hepatic coma ASSESSMENT & PLAN NEURO: Metabilioc Encephalopathy: Mild and improving no sign of dysequilibrium CARDIOVASCULAR: Hemodynamically stable. Closely observe while on HD. PULMONARY: Normal Pulmonary Physiology GI: Advance Diet RENAL: ARF: inpart prerenal secondary to profound dehydration. Also related to NSAID use in the face of dehydration Hyperkalemia: Emergently corrected with meds at the out side hospital. Will dialyze per Dr. Dutton. INFECTIOUS DISEASE: N/V may have been secondary to a viral illness but since no diarrhea most likely r/t rafael al failure. Will monitor for potential etiologies. HEME: Normal counts. ENDOCRINE: Monitor BS and cover if neccessary. MUSCULOSKELETAL: No concern PROPHYLAXIS: Stress ulcer prophylaxis: NA DVT prophylaxis: Heparin SC and SCD's Disposition: Transfer to the floor Code Status: Full Code Primary Care Physician: JASON PRIDE *Please bill 45 minutes of critical care time spent evaluating the patient, reviewing the d faviola and formulating a plan exclusive of all other procedures. ANSELMO RODRIGUEZ MD 07/29/2013 11:01 AM onversio n Transaction, Provider Unknown - 07/28/2013 4:05 PM PDTFormatting of this note might be di fferent from the original. Progress Notes by Chiquita Solis RPH at 07/28/13 160 Author: Chiquita Solis RPH Service: (none) Author Type: Pharmacist Filed: 07/28/131604 Date of Service: 07/28/131604 Status: Signed Orchestra Director: Chiquita Solis RPH (Pharmacist) Clinical Pharmacy Note: Renal Monitoring Lucy Cheek 38 y.o. male Ht Readings from Last 1 Encounters: 07/28/13 1.854 m (6' 1") Wt Readings from Last 1 Encounters: 07/28/13 111.131 kg (245 lb) Patient is on hemodialysis. Pharmacy dosing for renal function per WENDY Salazar. Currently, there are no medications needing to be adjusted. Pharmacy will continue to monit or for changes in medication orders and adjust accordingly. Chiquita Solis RPh 07/28/2013 4:05 PM docume nted in this encounter Plan of Treatment Not on filedocumented as of this encounter Procedures + +--------+ + + + | Procedure Name | Priori | Date/Time | Associated Diagnosis | Comments | | | ty | | | | + +--------+ + + + | HEPATITIS C | Routin | 08/05/2013 | | Results for this | | GENOTYPING | e | 9:47 AM | | procedure are in the | | | | PDT | | results section. | + +--------+ + + + | EXTERNAL LAB: CBC | Routin | 08/05/2013 | | Results for this | | | e | 5:24 AM | | procedure are in the | | | | PDT | | results section. | + +--------+ + + + | MAGNESIUM | Routin | 08/05/2013 | | Results for this | | | e | 5:24 AM | | procedure are in the | | | | PDT | | results section. | + +--------+ + + + | CK TOTAL | Routin | 08/05/2013 | | Results for this | | | e | 5:24 AM | | procedure are in the | | | | PDT | | results section. | + +--------+ + + + | RENAL FUNCTION PANEL | Routin | 08/05/2013 | | Results for this | | | e | 5:24 AM | | procedure are in the | | | | PDT | | results section. | + +--------+ + + + | IR PLACEMENT | Routin | 08/04/2013 | | Results for this | | TUNNELED CENTRAL | e | 5:06 PM | | procedure are in the | | VENOUS CATHETER > 5 | | PDT | | results section. | | YEARS | | | | | + +--------+ + + + | US GUIDED VASCULAR | Routin | 08/04/2013 | | Results for this | | ACCESS | e | 5:05 PM | | procedure are in the | | | | PDT | | results section. | + +--------+ + + + | EXTERNAL LAB: CBC | Routin | 08/04/2013 | | Results for this | | | e | 5:24 AM | | procedure are in the | | | | PDT | | results section. | + +--------+ + + + | PHOSPHORUS | Routin | 08/04/2013 | | Results for this | | | e | 5:24 AM | | procedure are in the | | | | PDT | | results section. | + +--------+ + + + | MAGNESIUM | Routin | 08/04/2013 | | Results for this | | | e | 5:24 AM | | procedure are in the | | | | PDT | | results section. | + +--------+ + + + | CK TOTAL | Routin | 08/04/2013 | | Results for this | | | e | 5:24 AM | | procedure are in the | | | | PDT | | results section. | + +--------+ + + + | COMPREHENSIVE | Routin | 08/04/2013 | | Results for this | | METABOLIC PANEL | e | 5:24 AM | | procedure are in the | | | | PDT | | results section. | + +--------+ + + + | MRSA NAAT | Routin | 08/03/2013 | | Results for this | | | e | 12:02 PM | | procedure are in the | | | | PDT | | results section. | + +--------+ + + + | EXTERNAL LAB: CBC | Routin | 08/03/2013 | | Results for this | | | e | 4:55 AM | | procedure are in the | | | | PDT | | results section. | + +--------+ + + + | SEDIMENTATION RATE, | Routin | 08/03/2013 | | Results for this | | AUTOMATED | e | 4:55 AM | | procedure are in the | | | | PDT | | results section. | + +--------+ + + + | C-REACTIVE PROTEIN | Routin | 08/03/2013 | | Results for this | | | e | 4:55 AM | | procedure are in the | | | | PDT | | results section. | + +--------+ + + + | PHOSPHORUS | Routin | 08/03/2013 | | Results for this | | | e | 4:55 AM | | procedure are in the | | | | PDT | | results section. | + +--------+ + + + | MAGNESIUM | Routin | 08/03/2013 | | Results for this | | | e | 4:55 AM | | procedure are in the | | | | PDT | | results section. | + +--------+ + + + | CK TOTAL | Routin | 08/03/2013 | | Results for this | | | e | 4:55 AM | | procedure are in the | | | | PDT | | results section. | + +--------+ + + + | COMPREHENSIVE | Routin | 08/03/2013 | | Results for this | | METABOLIC PANEL | e | 4:55 AM | | procedure are in the | | | | PDT | | results section. | + +--------+ + + + | UREA NITROGEN, | Routin | 08/02/2013 | | Results for this | | URINE, RANDOM | e | 1:11 PM | | procedure are in the | | | | PDT | | results section. | + +--------+ + + + | CREATININE, URINE, | Routin | 08/02/2013 | | Results for this | | RANDOM | e | 1:11 PM | | procedure are in the | | | | PDT | | results section. | + +--------+ + + + | EXTERNAL LAB: CBC | Routin | 08/02/2013 | | Results for this | | | e | 5:00 AM | | procedure are in the | | | | PDT | | results section. | + +--------+ + + + | CLINTON RADFORD, | Routin | 08/02/2013 | | Results for this | | REFLEX | e | 5:00 AM | | procedure are in the | | | | PDT | | results section. | + +--------+ + + + | MARBIN Bueno | Routin | 08/02/2013 | | Results for this | | FIBROSURE PANEL | e | 5:00 AM | | procedure are in the | | | | PDT | | results section. | + +--------+ + + + | NICOLE MARTÍNEZ | Routin | 08/02/2013 | | Results for this | | | e | 5:00 AM | | procedure are in the | | | | PDT | | results section. | + +--------+ + + + | CRYOGLOBULIN | Routin | 08/02/2013 | | Results for this | | | e | 5:00 AM | | procedure are in the | | | | PDT | | results section. | + +--------+ + + + | HEPATITIS B SURFACE | Routin | 08/02/2013 | | Results for this | | AB | e | 5:00 AM | | procedure are in the | | | | PDT | | results section. | + +--------+ + + + | PHOSPHORUS | Routin | 08/02/2013 | | Results for this | | | e | 5:00 AM | | procedure are in the | | | | PDT | | results section. | + +--------+ + + + | MAGNESIUM | Routin | 08/02/2013 | | Results for this | | | e | 5:00 AM | | procedure are in the | | | | PDT | | results section. | + +--------+ + + + | CK TOTAL | Routin | 08/02/2013 | | Results for this | | | e | 5:00 AM | | procedure are in the | | | | PDT | | results section. | + +--------+ + + + | ALBUMIN | Routin | 08/02/2013 | | Results for this | | | e | 5:00 AM | | procedure are in the | | | | PDT | | results section. | + +--------+ + + + | BASIC METABOLIC | Routin | 08/02/2013 | | Results for this | | PANEL | e | 5:00 AM | | procedure are in the | | | | PDT | | results section. | + +--------+ + + + | XR TIBIA FIBULA LEFT | Routin | 08/01/2013 | | Results for this | | 2 VW | e | 10:53 AM | | procedure are in the | | | | PDT | | results section. | + +--------+ + + + | XR FOOT LEFT 3 + VW | Routin | 08/01/2013 | | Results for this | | | e | 10:53 AM | | procedure are in the | | | | PDT | | results section. | + +--------+ + + + | XR FEMUR LEFT 2+VW | Routin | 08/01/2013 | | Results for this | | | e | 10:53 AM | | procedure are in the | | | | PDT | | results section. | + +--------+ + + + | MRI PELVIS WO | Routin | 08/01/2013 | | Results for this | | CONTRAST | e | 10:35 AM | | procedure are in the | | | | PDT | | results section. | + +--------+ + + + | EXTERNAL LAB: CBC | Routin | 08/01/2013 | | Results for this | | | e | 5:06 AM | | procedure are in the | | | | PDT | | results section. | + +--------+ + + + | HEPATITIS C | Routin | 08/01/2013 | | Results for this | | RNA,QUANTITATIVE,PCR | e | 5:06 AM | | procedure are in the | | | | PDT | | results section. | + +--------+ + + + | PHOSPHORUS | Routin | 08/01/2013 | | Results for this | | | e | 5:06 AM | | procedure are in the | | | | PDT | | results section. | + +--------+ + + + | MAGNESIUM | Routin | 08/01/2013 | | Results for this | | | e | 5:06 AM | | procedure are in the | | | | PDT | | results section. | + +--------+ + + + | CK TOTAL | Routin | 08/01/2013 | | Results for this | | | e | 5:06 AM | | procedure are in the | | | | PDT | | results section. | + +--------+ + + + | ALBUMIN | Routin | 08/01/2013 | | Results for this | | | e | 5:06 AM | | procedure are in the | | | | PDT | | results section. | + +--------+ + + + | BASIC METABOLIC | Routin | 08/01/2013 | | Results for this | | PANEL | e | 5:06 AM | | procedure are in the | | | | PDT | | results section. | + +--------+ + + + | URINALYSIS, REFLEX | Routin | 07/31/2013 | | Results for this | | MICROSCOPIC AND/OR | e | 4:45 PM | | procedure are in the | | CULTURE | | PDT | | results section. | + +--------+ + + + | URINALYSIS, | Routin | 07/31/2013 | | Results for this | | MICROSCOPIC ONLY | e | 4:45 PM | | procedure are in the | | | | PDT | | results section. | + +--------+ + + + | EXTERNAL LAB: CBC | Routin | 07/31/2013 | | Results for this | | | e | 5:28 AM | | procedure are in the | | | | PDT | | results section. | + +--------+ + + + | PHOSPHORUS | Routin | 07/31/2013 | | Results for this | | | e | 5:28 AM | | procedure are in the | | | | PDT | | results section. | + +--------+ + + + | MAGNESIUM | Routin | 07/31/2013 | | Results for this | | | e | 5:28 AM | | procedure are in the | | | | PDT | | results section. | + +--------+ + + + | CK TOTAL | Routin | 07/31/2013 | | Results for this | | | e | 5:28 AM | | procedure are in the | | | | PDT | | results section. | + +--------+ + + + | COMPREHENSIVE | Routin | 07/31/2013 | | Results for this | | METABOLIC PANEL | e | 5:28 AM | | procedure are in the | | | | PDT | | results section. | + +--------+ + + + | XR HIP LEFT 2-3 | Routin | 07/30/2013 | | Results for this | | VIEWS | e | 7:19 PM | | procedure are in the | | | | PDT | | results section. | + +--------+ + + + | VAS LOWER EXTREMITY | Routin | 07/30/2013 | | Results for this | | VENOUS LEFT | e | 5:59 PM | | procedure are in the | | | | PDT | | results section. | + +--------+ + + + | POTASSIUM | Routin | 07/30/2013 | | Results for this | | | e | 1:20 PM | | procedure are in the | | | | PDT | | results section. | + +--------+ + + + | EXTERNAL LAB: CBC | Routin | 07/30/2013 | | Results for this | | | e | 4:22 AM | | procedure are in the | | | | PDT | | results section. | + +--------+ + + + | CK TOTAL | Routin | 07/30/2013 | | Results for this | | | e | 4:22 AM | | procedure are in the | | | | PDT | | results section. | + +--------+ + + + | RENAL FUNCTION PANEL | Routin | 07/30/2013 | | Results for this | | | e | 4:22 AM | | procedure are in the | | | | PDT | | results section. | + +--------+ + + + | CK TOTAL | Routin | 07/29/2013 | | Results for this | | | e | 10:00 AM | | procedure are in the | | | | PDT | | results section. | + +--------+ + + + | BASIC METABOLIC | Routin | 07/29/2013 | | Results for this | | PANEL | e | 10:00 AM | | procedure are in the | | | | PDT | | results section. | + +--------+ + + + | ECG 12 LEAD | Routin | 07/29/2013 | | Results for this | | | e | 5:42 AM | | procedure are in the | | | | PDT | | results section. | + +--------+ + + + | XR CHEST 1 VIEW | Routin | 07/29/2013 | | Results for this | | | e | 5:11 AM | | procedure are in the | | | | PDT | | results section. | + +--------+ + + + | EXTERNAL LAB: CBC | Routin | 07/29/2013 | | Results for this | | | e | 4:00 AM | | procedure are in the | | | | PDT | | results section. | + +--------+ + + + | RPR, QUANT (REF) | Routin | 07/29/2013 | | Results for this | | | e | 4:00 AM | | procedure are in the | | | | PDT | | results section. | + +--------+ + + + | SHANIA PROFILE, REFLEX | Routin | 07/29/2013 | | Results for this | | | e | 4:00 AM | | procedure are in the | | | | PDT | | results section. | + +--------+ + + + | HIV 1 SCREEN, RAPID | Routin | 07/29/2013 | | Results for this | | | e | 4:00 AM | | procedure are in the | | | | PDT | | results section. | + +--------+ + + + | HEPATITIS A, B, C | Routin | 07/29/2013 | | Results for this | | PANEL, REFLEX | e | 4:00 AM | | procedure are in the | | | | PDT | | results section. | + +--------+ + + + | C3 AND C4 | Routin | 07/29/2013 | | Results for this | | | e | 4:00 AM | | procedure are in the | | | | PDT | | results section. | + +--------+ + + + | PROTEIN | Routin | 07/29/2013 | | Results for this | | ELECTROPHORESIS AND | e | 4:00 AM | | procedure are in the | | ESPINOZA WITH FLC, SERUM | | PDT | | results section. | + +--------+ + + + | GLOMERULAR BASEMENT | Routin | 07/29/2013 | | Results for this | | MEMBRANE AB, IGG | e | 4:00 AM | | procedure are in the | | | | PDT | | results section. | + +--------+ + + + | ANTISTREPTOLYSIN O, | Routin | 07/29/2013 | | Results for this | | QUANT | e | 4:00 AM | | procedure are in the | | | | PDT | | results section. | + +--------+ + + + | MAGNESIUM | Routin | 07/29/2013 | | Results for this | | | e | 4:00 AM | | procedure are in the | | | | PDT | | results section. | + +--------+ + + + | HEMOGLOBIN A1C | Routin | 07/29/2013 | | Results for this | | | e | 4:00 AM | | procedure are in the | | | | PDT | | results section. | + +--------+ + + + | CK TOTAL | Routin | 07/29/2013 | | Results for this | | | e | 4:00 AM | | procedure are in the | | | | PDT | | results section. | + +--------+ + + + | RENAL FUNCTION PANEL | Routin | 07/29/2013 | | Results for this | | | e | 4:00 AM | | procedure are in the | | | | PDT | | results section. | + +--------+ + + + | CBC WITH MANUAL | Routin | 07/28/2013 | | Results for this | | DIFFERENTIAL | e | 9:59 PM | | procedure are in the | | | | PDT | | results section. | + +--------+ + + + | PHOSPHORUS | Routin | 07/28/2013 | | Results for this | | | e | 9:59 PM | | procedure are in the | | | | PDT | | results section. | + +--------+ + + + | MAGNESIUM | Routin | 07/28/2013 | | Results for this | | | e | 9:59 PM | | procedure are in the | | | | PDT | | results section. | + +--------+ + + + | BASIC METABOLIC | Routin | 07/28/2013 | | Results for this | | PANEL | e | 9:59 PM | | procedure are in the | | | | PDT | | results section. | + +--------+ + + + | EOSINOPHIL SMEAR, | Routin | 07/28/2013 | | Results for this | | URINE | e | 6:06 PM | | procedure are in the | | | | PDT | | results section. | + +--------+ + + + | PROTEIN/CREATININE | Routin | 07/28/2013 | | Results for this | | RATIO, URINE | e | 6:06 PM | | procedure are in the | | | | PDT | | results section. | + +--------+ + + + | SODIUM, URINE, | Routin | 07/28/2013 | | Results for this | | RANDOM | e | 6:06 PM | | procedure are in the | | | | PDT | | results section. | + +--------+ + + + | PROTEIN, URINE, | Routin | 07/28/2013 | | Results for this | | RANDOM | e | 6:06 PM | | procedure are in the | | | | PDT | | results section. | + +--------+ + + + | CREATININE, URINE, | Routin | 07/28/2013 | | Results for this | | RANDOM | e | 6:06 PM | | procedure are in the | | | | PDT | | results section. | + +--------+ + + + | US RENAL LIMITED | Routin | 07/28/2013 | | Results for this | | | e | 5:29 PM | | procedure are in the | | | | PDT | | results section. | + +--------+ + + + | POC GLUCOSE | Routin | 07/28/2013 | | Results for this | | | e | 4:20 PM | | procedure are in the | | | | PDT | | results section. | + +--------+ + + + | MRSA NAAT | Routin | 07/28/2013 | | Results for this | | | e | 3:32 PM | | procedure are in the | | | | PDT | | results section. | + +--------+ + + + | XR CHEST 1 VIEW | Routin | 07/28/2013 | | Results for this | | | e | 3:05 PM | | procedure are in the | | | | PDT | | results section. | + +--------+ + + + | BASIC METABOLIC | Routin | 07/28/2013 | | Results for this | | PANEL | e | 2:18 PM | | procedure are in the | | | | PDT | | results section. | + +--------+ + + + | ECG 12 LEAD | Routin | 07/28/2013 | | Results for this | | | e | 2:13 PM | | procedure are in the | | | | PDT | | results section. | + +--------+ + + + | XR CHEST 1 VIEW | Routin | 07/28/2013 | | Results for this | | | e | 12:58 AM | | procedure are in the | | | | PDT | | results section. | + +--------+ + + + documented in this encounter Results Hepatitis C Genotyping (08/05/2013 9:47 AM PDT) + + + + + + | Component | Value | Ref Range | Performed | Pathologist | | | | | At | Signature | + + + + + + | HCV | TYPE 1AComment: HCV | | EXTERNAL | | | Genotype | GENOTYPE WAS DETERMINED | | LAB | | | | BY RT-PCR AND FERROCENE | | | | | | LABELLED PROBE.THIS | | | | | | ASSAY DETECTS AND | | | | | | DIFFERENTIATES THE 6 | | | | | | MAJOR HCV GENOTYPES | | | | | | ANDTHEIR MOST COMMON | | | | | | SUBTYPES (1A, 1B, 2A/C, | | | | | | 2B, 3, 4, 5, 6).THIS | | | | | | TEST WAS DEVELOPED AND | | | | | | ITS PERFORMANCE | | | | | | CHARACTERISTICS | | | | | | DETERMINEDBY [facility] | | | | | | DIVISION OF LABORATORY | | | | | | MEDICINE. IT HAS NOT | | | | | | BEENAPPROVED OR CLEARED | | | | | | BY THE [place] [employer] AND | | | | | | DRUG ADMINISTRATION. | | | | | | THISTEST SHOULD NOT BE | | | | | | REGARDED | | | | | | INVESTIGATIONAL OR FOR | | | | | | RESEARCH USE.Testing | | | | | | performed at [facility], [address] | | | | | [facility] | | | | | | [place] [address] | | | | + + + + + + + + | Specimen | + + | Blood specimen | | (specimen) | + + + +---------+ + + | Performing | Address | City/State/[facility] | Phone Number | | Organization | | | | + +---------+ + + | EXTERNAL LAB | | | | + +---------+ + + External Lab: CBC (08/05/2013 5:24 AM PDT) + + + + + + | Component | Value | Ref Range | Performed | Pathologist | | | | | At | Signature | + + + + + + | WBC | 7.6Comment: Testing | 3.8 - 11.0 K/uL | EXTERNAL | | | | performed at [facility], [address] | | LAB | | | | [address], | | | | | | [place] [address] | | | | + + + + + + | Red Blood | 3.55 (L)Comment: Testing | 4.20 - 5.70 | EXTERNAL | | | Cells | performed at [facility], [address] | M/uL | LAB | | | Counted | [address], | | | | | | [place] [address] | | | | + + + + + + | Hemoglobin | 11.5 (L)Comment: Testing | 13.2 - 17.0 | EXTERNAL | | | | performed at [facility], [address] | g/dL | LAB | | | | [address], | | | | | | [place] [address] | | | | + + + + + + | Hematocrit, | 33.7 (L)Comment: Testing | 39.0 - 50.0 % | EXTERNAL | | | POC | performed at [facility], [address] | | LAB | | | | [address], | | | | | | [place] [address] | | | | + + + + + + | MCV | 95.1Comment: Testing | 80.0 - 100.0 fl | EXTERNAL | | | | performed at [facility], [address] | | LAB | | | | [address], | | | | | | [place] [address] | | | | + + + + + + | MCH | 32.5Comment: Testing | 27.0 - 34.0 pg | EXTERNAL | | | | performed at [facility], [address] | | LAB | | | [address], | | | | | | [place] [address] | | | | + + + + + + | MCHC | 34.2Comment: Testing | 32.0 - 35.5 | EXTERNAL | | | | performed at [facility], [address] | g/dL | LAB | | | | [address], | | | | | | [place] [address] | | | | + + + + + + | RDW-CV | 41.1Comment: Testing | 37 - 53 fl | EXTERNAL | | | | performed at [facility], [address] | | LAB | | | | [address], | | | | | | [place] [address] | | | | + + + + + + | Platelet | 220Comment: Testing | 150 - 400 K/uL | EXTERNAL | | | Count | performed at [facility], [address] | | LAB | | | Plasma | [address], | | | | | | [place] [address] | | | | + + + + + + | MPV | 9.0Comment: Testing | fl | EXTERNAL | | | | performed at [facility], [address] | | LAB | | | | [address], | | | | | | [place] [address] | | | | + + + + + + | Differentia | AUTOMATEDComment: | | EXTERNAL | | | l Type | Testing performed at | | LAB | | | | [facility], [address] | | | | | | [place] | | | | | | [address] | | | | + + + + + + | % Segmented | 65.4Comment: Testing | % | EXTERNAL | | | | performed at [facility], [address] | | LAB | | | Neutrophils | [address], | | | | | | [place] [address] | | | | + + + + + + | % | 15.9Comment: Testing | % | EXTERNAL | | | Lymphocytes | performed at [facility], [address] | | LAB | | | | [address], | | | | | | [place] [address] | | | | + + + + + + | % Monocytes | 12.5Comment: Testing | % | EXTERNAL | | | | performed at [facility], [address] | | LAB | | | | [address], | | | | | | [place] [address] | | | | + + + + + + | % | 5.5Comment: Testing | % | EXTERNAL | | | Eosinophils | performed at [facility], [address] | | LAB | | | | [address], | | | | | | [place] [address] | | | | + + + + + + | % Basophils | 0.7Comment: Testing | % | EXTERNAL | | | | performed at [facility], [address] | | LAB | | | | [address], | | | | | | [place] [address] | | | | + + + + + + | Absolute | 5.0Comment: Testing | 1.9 - 7.4 K/uL | EXTERNAL | | | Segmented | performed at [facility], [address] | | LAB | | | Neutrophils | [address], | | | | | | [place] [address] | | | | + + + + + + | Absolute | 1.2Comment: Testing | 1.0 - 3.9 K/uL | EXTERNAL | | | Lymphocytes | performed at [facility], [address] | | LAB | | | | [address], | | | | | | [place] [address] | | | | + + + + + + | Absolute | 0.9 (H)Comment: Testing | 0 - 0.8 K/uL | EXTERNAL | | | Monocytes | performed at [facility], [address] | | LAB | | | | [address], | | | | | | [place] [address] | | | | + + + + + + | Absolute | 0.4Comment: Testing | 0 - 0.5 K/uL | EXTERNAL | | | Eosinophils | performed at [facility], [address] | | LAB | | | | [address], | | | | | | [place] [address] | | | | + + + + + + | Absolute | 0.1Comment: Testing | 0 - 0.1 K/uL | EXTERNAL | | | Basophils | performed at [facility], [address] | | LAB | | | | [address], | | | | | | [place] [address] | | | | + + + + + + + + | Specimen | + + | Blood specimen | | (specimen) | + + + +---------+ + + | Performing | Address | City/State/Zipcode | Phone Number | | Organization | | | | + +---------+ + + | EXTERNAL LAB | | | | + +---------+ + + Magnesium (08/05/2013 5:24 AM PDT) + + + + + + | Component | Value | Ref Range | Performed | Pathologist | | | | | At | Signature | + + + + + + | Magnesium | 2.0Comment: Testing | 1.7 - 2.4 mg/dL | EXTERNAL | | | | performed at [facility], [address] | | LAB | | | | [address], | | | | | | [place] [address] | | | | + + + + + + + + | Specimen | + + | Blood specimen | | (specimen) | + + + +---------+ + + | Performing | Address | City/State/Zipcode | Phone Number | | Organization | | | | + +---------+ + + | EXTERNAL LAB | | | | + +---------+ + + CK Total (08/05/2013 5:24 AM PDT) + + + + + + | Component | Value | Ref Range | Performed | Pathologist | | | | | At | Signature | + + + + + + | CK, Total | 155Comment: Testing | 55 - 400 U/L | EXTERNAL | | | | performed at [facility];[address] | | LAB | | | [address];[place], [place] | | | | | | [address] | | | | + + + + + + + + | Specimen | + + | Blood specimen | | (specimen) | + + + +---------+ + + | Performing | Address | City/State/Zipcode | Phone Number | | Organization | | | | + +---------+ + + | EXTERNAL LAB | | | | + +---------+ + + Renal Function Panel (08/05/2013 5:24 AM PDT) + + + + + + | Component | Value | Ref Range | Performed | Pathologist | | | | | At | Signature | + + + + + + | Na | 137Comment: Testing | 135 - 143 | EXTERNAL | | | | performed at [facility], [address] | mmol/L | LAB | | | | [address], | | | | | | [place] [address] | | | | + + + + + + | K | 4.3Comment: Testing | 3.5 - 4.9 | EXTERNAL | | | | performed at [facility], [address] | mmol/L | LAB | | | | [address], | | | | | | [place] [address] | | | | + + + + + + | Cl | 102Comment: Testing | 99 - 109 mmol/L | EXTERNAL | | | | performed at [facility], [address] | | LAB | | | | [address], | | | | | | [place] [address] | | | | + + + + + + | CO2 | 26Comment: Testing | 23 - 32 mmol/L | EXTERNAL | | | | performed at [facility], [address] | | LAB | | | | [address], | | | | | | [place] [address] | | | | + + + + + + | Anion Gap | 13Comment: Testing | 5 - 20 mmol/L | EXTERNAL | | | | performed at [facility], [address] | | LAB | | | | [address], | | | | | | [place] [address] | | | | + + + + + + | Glucose, | 94Comment: Testing | 65 - 99 mg/dL | EXTERNAL | | | Fasting | performed at [facility], [address] | | LAB | | | | [address], | | | | | | [place] [address] | | | | + + + + + + | BUN | 62 (H)Comment: Testing | 8 - 25 mg/dL | EXTERNAL | | | | performed at [facility], [address] | | LAB | | | | [address], | | | | | | [place] [address] | | | | + + + + + + | Creatinine | 11.94 (H)Comment: | 0.70 - 1.30 | EXTERNAL | | | | Testing performed at | mg/dL | LAB | | | | [facility], [address] | | | | | | [place] | | | | | | [address] | | | | + + + + + + | Calcium | 8.3 (L)Comment: Testing | 8.5 - 10.2 | EXTERNAL | | | | performed at [facility], [address] | mg/dL | LAB | | | | [address], | | | | | | [place] [address] | | | | + + + + + + | Albumin | 3.4 (L)Comment: Testing | 3.6 - 5.0 g/dL | EXTERNAL | | | | performed at [facility], [address] | | LAB | | | | [address], | | | | | | [place] [address] | | | | + + + + + + | PHOSPHORUS | 6.2 (H)Comment: Testing | 2.3 - 4.8 mg/dL | EXTERNAL | | | | performed at [facility], [address] | | LAB | | | | [address], | | | | | | [place] [address] | | | | + + + + + + | Estimated | 5 (L)Comment: GFR <60: | mL/min/1.73m2 | EXTERNAL | | | GFR | CHRONIC KIDNEY DISEASE, | | LAB | | | | IF FOUND OVER A 3 MONTH | | | | | | PERIOD.GFR <15: KIDNEY | | | | | | FAILURE.FOR | | | | | | AMERICANS, MULTIPLY THE | | | | | | CALCULATED GFR BY | | | | | | 1.210.Testing performed | | | | | | at [facility], [address] | | | | | | [address], | | | | | | [place] [address] | | | | + + + + + + + + | Specimen | + + | | + + + +---------+ + + | Performing | Address | City/State/[facility] | Phone Number | | Organization | | | | + +---------+ + + | EXTERNAL LAB | | | | + +---------+ + + IR Placement Tunneled CV Cath (08/04/2013 5:06 PM PDT) + + | Specimen | + + | | + + + + + | Impressions | Performed At | + + + | 1. Sonography of the lower neck veins. 2. Successful | | | placement of a 14.5-Tuvaluan dual-lumen 23-cm tunneled hemodialysis | | | catheter with its tip in the upper portion of the right atrium without | | | incidence. [id number], [id number], [address] | | + + + + + + | Narrative | Performed At | + + + | [facility] TUNN[facility]ED CATHETER INSERTION 08/04/2013 | | | 5:06 PM HISTORY: 38 years. Male. Acute renal failure, needs | | | access for continued hemodialysis 584.9. PROCEDURE: 1. | | | Sonography of the lower neck veins. 2. Sonographic guidance for | | | access into the right internal jugular vein. 3. Placement of 23 cm, | | | 14.5-Tuvaluan dual-lumen tunneled palindrome hemodialysis catheter in | | | the right upper chest with its tip in the upper right atrium. | | | MEDICATIONS/RADIATION DOSE: Lidocaine 1% for local anesthesia, | | | Versed 4 mg intravenous, Fentanyl 100 mcg intravenous, Ancef 2 g | | | intravenous. Radiation dose 0.1 mGy. Fluoroscopy time 0.1 minutes. | | | Intra-procedure sedation time 16 minutes. Appropriate physiologic | | | monitoring, maintenance of adequate conscious sedation and | | | independent half-way supervision of the conscious sedation was | | | performed throughout the procedure. FINDINGS: 1. Sonography of | | | the lower neck veins revealed widely patent, compressible right | | | internal jugular vein. 2. Real-time visualization of the needle | | | entry into the right internal jugular vein under sonography was noted. | | | Image documenting the same was obtained and placed in patient | | | records. 3. Upper chest radiograph shows dual-lumen, 14.5-Tuvaluan, | | | 23-cm, tunneled dialysis catheter with its tip in the upper portion | | | of the right atrium. PROCEDURE: Informed written consent | | | obtained from the patient after explaining the procedure, risks and | | | alternatives. The patient understood the discussion and expressed a | | | wish to proceed. The appropriate side and site was labeled and | | | initialed as an independent process antecedent to the imaging and | | | intervention, as per protocol at this institution. The patient | | | was placed supine on the x-ray table. Sonography of the lower neck | | | veins revealed widely patent and compressible right jugular vein. | | | Supraclavicular and infraclavicular regions are prepped in the usual | | | sterile fashion. Skin and subcutaneous tissues then infiltrated | | | with 1% lidocaine. Right internal jugular vein was accessed using a | | | micropuncture needle and exchanged for a 4-Tuvaluan micropuncture sheath | | | over a 0.018 wire. Skin in the infraclavicular region was | | | infiltrated with 1% lidocaine and a 5-mm skin incision was made. A | | | 14.5-Tuvaluan, dual-lumen, 23-cm tunneled hemodialysis catheter was | | | placed a subcutaneous tunnel using a metallic tunneler. The 4-Tuvaluan | | | sheath was exchanged for a 0.035, 3-mm J-wire with its tip in the | | | right atrium under fluoroscopy guidance. The skin and subcutaneous | | | tract was dilated using at 12 and 14-Tuvaluan facial dilators. A | | | 15-Tuvaluan peel-away sheath was placed over the wire with its tip in | | | the upper right atrium. Free end of the dialysis catheter was | | | placed with its tip in the upper right atrium and sheath was removed. | | | Venotomy site and catheter insertion site closure using purse string | | | suture with 3-0 Vicryl. Dermabond was also applied to insertion and | | | venotomy site. The catheter was secured to the skin using 2-0 | | | Prolene. Both ports of the catheter aspirated and flushed freely. | | | The radiograph of the upper chest was obtained. | | + + + + + | Procedure Note | + + | Celso Jay Conversion - 09/26/2018 3:53 PM PDT [facility] | | CATHETER INSERTION08/04/2013 5:06 PM HISTORY:38 years. Male. Acute renal failure, needs | | access for continued hemodialysis 584.9. PROCEDURE: 1. Sonography of the lower neck | | veins.2. Sonographic guidance for access into the right internal jugular vein.3. | | Placement of 23 cm, 14.5-Tuvaluan dual-lumen tunneled palindrome hemodialysis catheter in | | the right upper chest with its tip in the upper right atrium. MEDICATIONS/RADIATION | | DOSE: Lidocaine 1% for local anesthesia, Versed 4 mg intravenous, Fentanyl 100 mcg | | intravenous, Ancef 2 g intravenous. Radiation dose 0.1 mGy. Fluoroscopy time 0.1 | | minutes. Intra-procedure sedation time 16 minutes. Appropriate physiologic | | monitoring, maintenance of adequate conscious sedation and independent half-way | | supervision of the conscious sedation was performed throughout the procedure. | | FINDINGS:1. Sonography of the lower neck veins revealed widely patent, compressible | | right internal jugular vein.2. Real-time visualization of the needle entry into the | | right internal jugular vein under sonography was noted. Image documenting the same was | | obtained and placed in patient records.3. Upper chest radiograph shows dual-lumen, | | 14.5-Tuvaluan, 23-cm, tunneled dialysis catheter with its tip in the upper portion of the | | right atrium. PROCEDURE: Informed written consent obtained from the patient after | | explaining the procedure, risks and alternatives. The patient understood the discussion | | and expressed a wish to proceed. The appropriate side and site was labeled and | | initialed as an independent process antecedent to the imaging and intervention, as per | | protocol at this institution. The patient was placed supine on the x-ray table. | | Sonography of the lower neck veins revealed widely patent and compressible right jugular | | vein. Supraclavicular and infraclavicular regions are prepped in the usual sterile | | fashion. Skin and subcutaneous tissues then infiltrated with 1% lidocaine. Right | | internal jugular vein was accessed using a micropuncture needle and exchanged for a | | 4-Tuvaluan micropuncture sheath over a 0.018 wire. Skin in the infraclavicular region was | | infiltrated with 1% lidocaine and a 5-mm skin incision was made. A 14.5-Tuvaluan, | | dual-lumen, 23-cm tunneled hemodialysis catheter was placed a subcutaneous tunnel using | | a metallic tunneler. The 4-Tuvaluan sheath was exchanged for a 0.035, 3-mm J-wire with | | its tip in the right atrium under fluoroscopy guidance. The skin and subcutaneous tract | | was dilated using at 12 and 14-Tuvaluan facial dilators. A 15-Tuvaluan peel-away sheath | | was placed over the wire with its tip in the upper right atrium. Free end of the | | dialysis catheter was placed with its tip in the upper right atrium and sheath was | | removed. Venotomy site and catheter insertion site closure using purse string suture | | with 3-0 Vicryl. Dermabond was also applied to insertion and venotomy site. The | | catheter was secured to the skin using 2-0 Prolene. Both ports of the catheter | | aspirated and flushed freely. The radiograph of the upper chest was obtained. | | IMPRESSION: 1. Sonography of the lower neck veins.2. Successful placement of a | | 14.5-Tuvaluan dual-lumen 23-cm tunneled hemodialysis catheter with its tip in the upper | | portion of the right atrium without incidence. [id number], 40843, 12017 | |IMPRESSION: | | | |1. Sonography of the lower neck veins. | |2. Successful placement of a 14.5-Tuvaluan dual-lumen 23-cm tunneled hemodialysis catheter w ith its tip in the upper portion of the right atrium without incidence. | | | |67193, 48811, 52460 | | | | | + + US Guided Vascular Access (08/04/2013 5:05 PM PDT) + + | Specimen | + + | | + + + + + | Impressions | Performed At | + + + | 1. Sonography of the lower neck veins. 2. Successful | | | placement of a 14.5-Tuvaluan dual-lumen 23-cm tunneled hemodialysis | | | catheter with its tip in the upper portion of the right atrium without | | | incidence. 80282, 95168, 25483 | | + + + + + + | Narrative | Performed At | + + + | [facility] TUNNELED CATHETER INSERTION 08/04/2013 | | | 5:06 PM HISTORY: 38 years. Male. Acute renal failure, needs | | | access for continued hemodialysis 584.9. PROCEDURE: 1. | | | Sonography of the lower neck veins. 2. Sonographic guidance for | | | access into the right internal jugular vein. 3. Placement of 23 cm, | | | 14.5-Tuvaluan dual-lumen tunneled palindrome hemodialysis catheter in | | | the right upper chest with its tip in the upper right atrium. | | | MEDICATIONS/RADIATION DOSE: Lidocaine 1% for local anesthesia, | | | Versed 4 mg intravenous, Fentanyl 100 mcg intravenous, Ancef 2 g | | | intravenous. Radiation dose 0.1 mGy. Fluoroscopy time 0.1 minutes. | | | Intra-procedure sedation time 16 minutes. Appropriate physiologic | | | monitoring, maintenance of adequate conscious sedation and | | | independent half-way supervision of the conscious sedation was | | | performed throughout the procedure. FINDINGS: 1. Sonography of | | | the lower neck veins revealed widely patent, compressible right | | | internal jugular vein. 2. Real-time visualization of the needle | | | entry into the right internal jugular vein under sonography was noted. | | | Image documenting the same was obtained and placed in patient | | | records. 3. Upper chest radiograph shows dual-lumen, 14.5-Tuvaluan, | | | 23-cm, tunneled dialysis catheter with its tip in the upper portion | | | of the right atrium. PROCEDURE: Informed written consent | | | obtained from the patient after explaining the procedure, risks and | | | alternatives. The patient understood the discussion and expressed a | | | wish to proceed. The appropriate side and site was labeled and | | | initialed as an independent process antecedent to the imaging and | | | intervention, as per protocol at this institution. The patient | | | was placed supine on the x-ray table. Sonography of the lower neck | | | veins revealed widely patent and compressible right jugular vein. | | | Supraclavicular and infraclavicular regions are prepped in the usual | | | sterile fashion. Skin and subcutaneous tissues then infiltrated | | | with 1% lidocaine. Right internal jugular vein was accessed using a | | | micropuncture needle and exchanged for a 4-Tuvaluan micropuncture sheath | | | over a 0.018 wire. Skin in the infraclavicular region was | | | infiltrated with 1% lidocaine and a 5-mm skin incision was made. A | | | 14.5-Tuvaluan, dual-lumen, 23-cm tunneled hemodialysis catheter was | | | placed a subcutaneous tunnel using a metallic tunneler. The 4-Tuvaluan | | | sheath was exchanged for a 0.035, 3-mm J-wire with its tip in the | | | right atrium under fluoroscopy guidance. The skin and subcutaneous | | | tract was dilated using at 12 and 14-Tuvaluan facial dilators. A | | | 15-Tuvaluan peel-away sheath was placed over the wire with its tip in | | | the upper right atrium. Free end of the dialysis catheter was | | | placed with its tip in the upper right atrium and sheath was removed. | | | Venotomy site and catheter insertion site closure using purse string | | | suture with 3-0 Vicryl. Dermabond was also applied to insertion and | | | venotomy site. The catheter was secured to the skin using 2-0 | | | Prolene. Both ports of the catheter aspirated and flushed freely. | | | The radiograph of the upper chest was obtained. | | + + + + + | Procedure Note | + + | Pierre, Rad Conversion - 09/26/2018 3:53 PM PDT [facility]NEL[facility] | | CATHETER INSERTION08/04/2013 5:06 PM HISTORY:38 years. Male. Acute renal failure, needs | | access for continued hemodialysis 584.9. PROCEDURE: 1. Sonography of the lower neck | | veins.2. Sonographic guidance for access into the right internal jugular vein.3. | | Placement of 23 cm, 14.5-Tuvaluan dual-lumen tunneled palindrome hemodialysis catheter in | | the right upper chest with its tip in the upper right atrium. MEDICATIONS/RADIATION | | DOSE: Lidocaine 1% for local anesthesia, Versed 4 mg intravenous, Fentanyl 100 mcg | | intravenous, Ancef 2 g intravenous. Radiation dose 0.1 mGy. Fluoroscopy time 0.1 | | minutes. Intra-procedure sedation time 16 minutes. Appropriate physiologic | | monitoring, maintenance of adequate conscious sedation and independent half-way | | supervision of the conscious sedation was performed throughout the procedure. | | FINDINGS:1. Sonography of the lower neck veins revealed widely patent, compressible | | right internal jugular vein.2. Real-time visualization of the needle entry into the | | right internal jugular vein under sonography was noted. Image documenting the same was | | obtained and placed in patient records.3. Upper chest radiograph shows dual-lumen, | | 14.5-Tuvaluan, 23-cm, tunneled dialysis catheter with its tip in the upper portion of the | | right atrium. PROCEDURE: Informed written consent obtained from the patient after | | explaining the procedure, risks and alternatives. The patient understood the discussion | | and expressed a wish to proceed. The appropriate side and site was labeled and | | initialed as an independent process antecedent to the imaging and intervention, as per | | protocol at this institution. The patient was placed supine on the x-ray table. | | Sonography of the lower neck veins revealed widely patent and compressible right jugular | | vein. Supraclavicular and infraclavicular regions are prepped in the usual sterile | | fashion. Skin and subcutaneous tissues then infiltrated with 1% lidocaine. Right | | internal jugular vein was accessed using a micropuncture needle and exchanged for a | | 4-Tuvaluan micropuncture sheath over a 0.018 wire. Skin in the infraclavicular region was | | infiltrated with 1% lidocaine and a 5-mm skin incision was made. A 14.5-Tuvaluan, | | dual-lumen, 23-cm tunneled hemodialysis catheter was placed a subcutaneous tunnel using | | a metallic tunneler. The 4-Tuvaluan sheath was exchanged for a 0.035, 3-mm J-wire with | | its tip in the right atrium under fluoroscopy guidance. The skin and subcutaneous tract | | was dilated using at 12 and 14-Tuvaluan facial dilators. A 15-Tuvaluan peel-away sheath | | was placed over the wire with its tip in the upper right atrium. Free end of the | | dialysis catheter was placed with its tip in the upper right atrium and sheath was | | removed. Venotomy site and catheter insertion site closure using purse string suture | | with 3-0 Vicryl. Dermabond was also applied to insertion and venotomy site. The | | catheter was secured to the skin using 2-0 Prolene. Both ports of the catheter | | aspirated and flushed freely. The radiograph of the upper chest was obtained. | | IMPRESSION: 1. Sonography of the lower neck veins.2. Successful placement of a | | 14.5-Tuvaluan dual-lumen 23-cm tunneled hemodialysis catheter with its tip in the upper | | portion of the right atrium without incidence. 77999, 96653, 18671 | |IMPRESSION: | | | |1. Sonography of the lower neck veins. | |2. Successful placement of a 14.5-Tuvaluan dual-lumen 23-cm tunneled hemodialysis catheter w ith its tip in the upper portion of the right atrium without incidence. | | | |75436, 22610, 64318 | | | | | + + External Lab: CBC (08/04/2013 5:24 AM PDT) + + + + + + | Component | Value | Ref Range | Performed | Pathologist | | | | | At | Signature | + + + + + + | WBC | 7.6Comment: Testing | 3.8 - 11.0 K/uL | EXTERNAL | | | | performed at [facility], [address] | | LAB | | | | [address], | | | | | | [place] [address] | | | | + + + + + + | Red Blood | 3.54 (L)Comment: Testing | 4.20 - 5.70 | EXTERNAL | | | Cells | performed at [facility], [address] | M/uL | LAB | | | Counted | [address], | | | | | | [place] [address] | | | | + + + + + + | Hemoglobin | 11.5 (L)Comment: Testing | 13.2 - 17.0 | EXTERNAL | | | | performed at [facility], [address] | g/dL | LAB | | | | [address], | | | | | | [place] [address] | | | | + + + + + + | Hematocrit, | 33.6 (L)Comment: Testing | 39.0 - 50.0 % | EXTERNAL | | | POC | performed at [facility], [address] | | LAB | | | | [address], | | | | | | [place] [address] | | | | + + + + + + | MCV | 95.0Comment: Testing | 80.0 - 100.0 fl | EXTERNAL | | | | performed at [facility], [address] | | LAB | | | | [address], | | | | | | [place] [address] | | | | + + + + + + | MCH | 32.5Comment: Testing | 27.0 - 34.0 pg | EXTERNAL | | | | performed at [facility], [address] | | LAB | | | | [address], | | | | | | [place] [address] | | | | + + + + + + | MCHC | 34.2Comment: Testing | 32.0 - 35.5 | EXTERNAL | | | | performed at [facility], [address] | g/dL | LAB | | | | [address], | | | | | | [place] [address] | | | | + + + + + + | RDW-CV | 40.7Comment: Testing | 37 - 53 fl | EXTERNAL | | | | performed at [facility], [address] | | LAB | | | | [address], | | | | | | [place] [address] | | | | + + + + + + | Platelet | 220Comment: Testing | 150 - 400 K/uL | EXTERNAL | | | Count | performed at [facility], [address] | | LAB | | | Plasma | [address], | | | | | | [place] [address] | | | | + + + + + + | MPV | 9.1Comment: Testing | fl | EXTERNAL | | | | performed at [facility], [address] | | LAB | | | | [address], | | | | | | [place] [address] | | | | + + + + + + | Differentia | AUTOMATEDComment: | | EXTERNAL | | | l Type | Testing performed at | | LAB | | | | [facility], [address] | | | | | | [place] | | | | | | [address] | | | | + + + + + + | % Segmented | 68.2Comment: Testing | % | EXTERNAL | | | | performed at [facility], [address] | | LAB | | | Neutrophils | [address], | | | | | | [place] [address] | | | | + + + + + + | % | 15.1Comment: Testing | % | EXTERNAL | | | Lymphocytes | performed at [facility], [address] | | LAB | | | | [address], | | | | | | [place] [address] | | | | + + + + + + | % Monocytes | 11.2Comment: Testing | % | EXTERNAL | | | | performed at [facility], [address] | | LAB | | | | [address], | | | | | | [place] [address] | | | | + + + + + + | % | 4.9Comment: Testing | % | EXTERNAL | | | Eosinophils | performed at [facility], [address] | | LAB | | | | [address], | | | | | | [place] [address] | | | | + + + + + + | % Basophils | 0.6Comment: Testing | % | EXTERNAL | | | | performed at [facility], [address] | | LAB | | | | [address], | | | | | | [place] [address] | | | | + + + + + + | Absolute | 5.2Comment: Testing | 1.9 - 7.4 K/uL | EXTERNAL | | | Segmented | performed at [facility], [address] | | LAB | | | Neutrophils | [address], | | | | | | [place] [address] | | | | + + + + + + | Absolute | 1.1Comment: Testing | 1.0 - 3.9 K/uL | EXTERNAL | | | Lymphocytes | performed at [facility], [address] | | LAB | | | | [address], | | | | | | [place] [address] | | | | + + + + + + | Absolute | 0.8Comment: Testing | 0 - 0.8 K/uL | EXTERNAL | | | Monocytes | performed at [facility], [address] | | LAB | | | [address], | | | | | | [place] [address] | | | | + + + + + + | Absolute | 0.4Comment: Testing | 0 - 0.5 K/uL | EXTERNAL | | | Eosinophils | performed at [facility], [address] | | LAB | | | | [address], | | | | | | [place] [address] | | | | + + + + + + | Absolute | 0.0Comment: Testing | 0 - 0.1 K/uL | EXTERNAL | | | Basophils | performed at [facility], [address] | | LAB | | | | [address], | | | | | | [place] [address] | | | | + + + + + + + + | Specimen | + + | Blood specimen | | (specimen) | + + + +---------+ + + | Performing | Address | City/State/Zipcode | Phone Number | | Organization | | | | + +---------+ + + | EXTERNAL LAB | | | | + +---------+ + + Phosphorus (08/04/2013 5:24 AM PDT) + + + + + + | Component | Value | Ref Range | Performed | Pathologist | | | | | At | Signature | + + + + + + | PHOSPHORUS | 7.4 (H)Comment: Testing | 2.3 - 4.8 mg/dL | EXTERNAL | | | | performed at [facility], [address] | | LAB | | | | [address], | | | | | | [place] [address] | | | | + + + + + + + + | Specimen | + + | Blood specimen | | (specimen) | + + + +---------+ + + | Performing | Address | City/State/Zipcode | Phone Number | | Organization | | | | + +---------+ + + | EXTERNAL LAB | | | | + +---------+ + + Magnesium (08/04/2013 5:24 AM PDT) + + + + + + | Component | Value | Ref Range | Performed | Pathologist | | | | | At | Signature | + + + + + + | Magnesium | 2.1Comment: Testing | 1.7 - 2.4 mg/dL | EXTERNAL | | | | performed at [facility], [address] | | LAB | | | | [address], | | | | | | [place] [address] | | | | + + + + + + + + | Specimen | + + | Blood specimen | | (specimen) | + + + +---------+ + + | Performing | Address | City/State/Zipcode | Phone Number | | Organization | | | | + +---------+ + + | EXTERNAL LAB | | | | + +---------+ + + CK Total (08/04/2013 5:24 AM PDT) + + + + + + | Component | Value | Ref Range | Performed | Pathologist | | | | | At | Signature | + + + + + + | CK, Total | 173Comment: Testing | 55 - 400 U/L | EXTERNAL | | | | performed at [facility];[address] | | LAB | | | | [address];[place], [place] | | | | | | [address] | | | | + + + + + + + + | Specimen | + + | Blood specimen | | (specimen) | + + + +---------+ + + | Performing | Address | City/State/Zipcode | Phone Number | | Organization | | | | + +---------+ + + | EXTERNAL LAB | | | | + +---------+ + + Comprehensive Metabolic Panel (08/04/2013 5:24 AM PDT) + + + + + + | Component | Value | Ref Range | Performed | Pathologist | | | | | At | Signature | + + + + + + | Na | 138Comment: Testing | 135 - 143 | EXTERNAL | | | | performed at [facility], [address] | mmol/L | LAB | | | | [address], | | | | | | [place] [address] | | | | + + + + + + | K | 4.5Comment: Testing | 3.5 - 4.9 | EXTERNAL | | | | performed at [facility], [address] | mmol/L | LAB | | | | [address], | | | | | | [place] [address] | | | | + + + + + + | Cl | 102Comment: Testing | 99 - 109 mmol/L | EXTERNAL | | | | performed at [facility], [address] | | LAB | | | | [address], | | | | | | [place] [address] | | | | + + + + + + | CO2 | 24Comment: Testing | 23 - 32 mmol/L | EXTERNAL | | | | performed at [facility], [address] | | LAB | | | | [address], | | | | | | [place] [address] | | | | + + + + + + | Anion Gap | 17Comment: Testing | 5 - 20 mmol/L | EXTERNAL | | | | performed at [facility], [address] | | LAB | | | | [address], | | | | | | [place] [address] | | | | + + + + + + | Glucose, | 93Comment: Testing | 65 - 99 mg/dL | EXTERNAL | | | Fasting | performed at [facility], [address] | | LAB | | | | [address], | | | | | | [place] [address] | | | | + + + + + + | BUN | 57 (H)Comment: Testing | 8 - 25 mg/dL | EXTERNAL | | | | performed at [facility], [address] | | LAB | | | | [address], | | | | | | [place] [address] | | | | + + + + + + | Creatinine | 11.78 (H)Comment: | 0.70 - 1.30 | EXTERNAL | | | | Testing performed at | mg/dL | LAB | | | | [facility], [address] | | | | | | [place] | | | | | | [address] | | | | + + + + + + | BUN/Creatin | 5Comment: Testing | | EXTERNAL | | | ine Ratio | performed at [facility], [address] | | LAB | | | | [address], | | | | | | [place] [address] | | | | + + + + + + | Calcium | 8.2 (L)Comment: Testing | 8.5 - 10.2 | EXTERNAL | | | | performed at [facility], [address] | mg/dL | LAB | | | | [address], | | | | | | [place] [address] | | | | + + + + + + | Protein, | 5.7 (L)Comment: Testing | 6.3 - 8.2 g/dL | EXTERNAL | | | Total | performed at [facility], [address] | | LAB | | | | [address], | | | | | | [place] [address] | | | | + + + + + + | Albumin | 3.2 (L)Comment: Testing | 3.6 - 5.0 g/dL | EXTERNAL | | | | performed at [facility], [address] | | LAB | | | | [address], | | | | | | [place] [address] | | | | + + + + + + | Globulin | 2.5Comment: Testing | 1.3 - 4.9 g/dL | EXTERNAL | | | | performed at [facility], [address] | | LAB | | | | [address], | | | | | | [place] [address] | | | | + + + + + + | A/G Ratio | 1.3Comment: Testing | 1.0 - 2.4 | EXTERNAL | | | | performed at [facility], [address] | | LAB | | | | [address], | | | | | | [place] [address] | | | | + + + + + + | Bilirubin | 0.4Comment: Testing | 0.1 - 1.5 mg/dL | EXTERNAL | | | Total | performed at [facility], [address] | | LAB | | | | [address], | | | | | | [place] [address] | | | | + + + + + + | ALP, | 31 (L)Comment: Testing | 35 - 115 U/L | EXTERNAL | | | External | performed at [facility], [address] | | LAB | | | | [address], | | | | | | [place] [address] | | | | + + + + + + | AST | 42Comment: Testing | 10 - 45 U/L | EXTERNAL | | | | performed at [facility], [address] | | LAB | | | | [address], | | | | | | [place] [address] | | | | + + + + + + | ALT | 73 (H)Comment: Testing | 10 - 65 U/L | EXTERNAL | | | | performed at [facility], [address] | | LAB | | | | [address], | | | | | | [place] [address] | | | | + + + + + + | Estimated | 5 (L)Comment: GFR <60: | mL/min/1.73m2 | EXTERNAL | | | GFR | CHRONIC KIDNEY DISEASE, | | LAB | | | | IF FOUND OVER A 3 MONTH | | | | | | PERIOD.GFR <15: KIDNEY | | | | | | FAILURE.FOR | | | | | | AMERICANS, MULTIPLY THE | | | | | | CALCULATED GFR BY | | | | | | 1.210.Testing performed | | | | | | at [facility], [address] | | | | | | [address], | | | | | | [place] [address] | | | | + + + + + + + + | Specimen | + + | Blood specimen | | (specimen) | + + + +---------+ + + | Performing | Address | City/State/Zipcode | Phone Number | | Organization | | | | + +---------+ + + | EXTERNAL LAB | | | | + +---------+ + + MRSA NAAT (08/03/2013 12:02 PM PDT) + + | Specimen | + + | | + + + + + | Narrative | Performed At | + + + | SOURCE NARES(NOSE) | EXTERNAL LAB | | Testing performed at [facility];[address] [place] [address];[place] [address] MRSA PCR | | | NEGATIVE Testing performed at | | | [facility];[address] [place] [address];[place] [address] | | + + + + +---------+ + + | Performing | Address | City/State/Zipcode | Phone Number | | Organization | | | | + +---------+ + + | EXTERNAL LAB | | | | + +---------+ + + Sedimentation rate, automated (08/03/2013 4:55 AM PDT) + + + + + + | Component | Value | Ref Range | Performed | Pathologist | | | | | At | Signature | + + + + + + | Sed Rate | 29 (H)Comment: Testing | 0 - 15 mm/Hr | EXTERNAL | | | | performed at [facility], [address] | | LAB | | | | [address], | | | | | | [place] [address] | | | | + + + + + + + + | Specimen | + + | Blood specimen | | (specimen) | + + + +---------+ + + | Performing | Address | City/State/Zipcode | Phone Number | | Organization | | | | + +---------+ + + | EXTERNAL LAB | | | | + +---------+ + + External Lab: CBC (08/03/2013 4:55 AM PDT) + + + + + + | Component | Value | Ref Range | Performed | Pathologist | | | | | At | Signature | + + + + + + | WBC | 8.2Comment: Testing | 3.8 - 11.0 K/uL | EXTERNAL | | | | performed at [facility], [address] | | LAB | | | | [address], | | | | | | [place] [address] | | | | + + + + + + | Red Blood | 3.73 (L)Comment: Testing | 4.20 - 5.70 | EXTERNAL | | | Cells | performed at [facility], [address] | M/uL | LAB | | | Counted | [address], | | | | | | [place] [address] | | | | + + + + + + | Hemoglobin | 12.1 (L)Comment: Testing | 13.2 - 17.0 | EXTERNAL | | | | performed at [facility], [address] | g/dL | LAB | | | | [address], | | | | | | [place] [address] | | | | + + + + + + | Hematocrit, | 35.3 (L)Comment: Testing | 39.0 - 50.0 % | EXTERNAL | | | POC | performed at [facility], [address] | | LAB | | | | [address], | | | | | | [place] [address] | | | | + + + + + + | MCV | 94.8Comment: Testing | 80.0 - 100.0 fl | EXTERNAL | | | | performed at [facility], [address] | | LAB | | | | [address], | | | | | | [place] [address] | | | | + + + + + + | MCH | 32.6Comment: Testing | 27.0 - 34.0 pg | EXTERNAL | | | | performed at [facility], [address] | | LAB | | | | [address], | | | | | | [place] [address] | | | | + + + + + + | MCHC | 34.4Comment: Testing | 32.0 - 35.5 | EXTERNAL | | | | performed at [facility], [address] | g/dL | LAB | | | | [address], | | | | | | [place] [address] | | | | + + + + + + | RDW-CV | 41.1Comment: Testing | 37 - 53 fl | EXTERNAL | | | | performed at [facility], [address] | | LAB | | | | [address], | | | | | | [place] [address] | | | | + + + + + + | Platelet | 207Comment: Testing | 150 - 400 K/uL | EXTERNAL | | | Count | performed at [facility], [address] | | LAB | | | Plasma | [address], | | | | | | [place] [address] | | | | + + + + + + | MPV | 9.2Comment: Testing | fl | EXTERNAL | | | | performed at [facility], [address] | | LAB | | | | [address], | | | | | | [place] [address] | | | | + + + + + + | Differentia | AUTOMATEDComment: | | EXTERNAL | | | l Type | Testing performed at | | LAB | | | | [facility], [address] | | | | | | [place] | | | | | | [address] | | | | + + + + + + | % Segmented | 68.0Comment: Testing | % | EXTERNAL | | | | performed at [facility], [address] | | LAB | | | Neutrophils | [address], | | | | | | [place], [place] [address] | | | | + + + + + + | % | 16.6Comment: Testing | % | EXTERNAL | | | Lymphocytes | performed at [facility], [address] | | LAB | | | | [address], | | | | | | [place], [place] [address] | | | | + + + + + + | % Monocytes | 10.7Comment: Testing | % | EXTERNAL | | | | performed at [facility], [address] | | LAB | | | | [address], | | | | | | [place] [address] | | | | + + + + + + | % | 4.1Comment: Testing | % | EXTERNAL | | | Eosinophils | performed at [facility], [address] | | LAB | | | | [address], | | | | | | [place] [address] | | | | + + + + + + | % Basophils | 0.6Comment: Testing | % | EXTERNAL | | | | performed at [facility], [address] | | LAB | | | | [address], | | | | | | [place] [address] | | | | + + + + + + | Absolute | 5.6Comment: Testing | 1.9 - 7.4 K/uL | EXTERNAL | | | Segmented | performed at [facility], [address] | | LAB | | | Neutrophils | [address], | | | | | | [place] [address] | | | | + + + + + + | Absolute | 1.4Comment: Testing | 1.0 - 3.9 K/uL | EXTERNAL | | | Lymphocytes | performed at [facility], [address] | | LAB | | | | [address], | | | | | | [place] [address] | | | | + + + + + + | Absolute | 0.9 (H)Comment: Testing | 0 - 0.8 K/uL | EXTERNAL | | | Monocytes | performed at [facility], [address] | | LAB | | | | [address], | | | | | | [place] [address] | | | | + + + + + + | Absolute | 0.3Comment: Testing | 0 - 0.5 K/uL | EXTERNAL | | | Eosinophils | performed at [facility], [address] | | LAB | | | | [address], | | | | | | [place] [address] | | | | + + + + + + | Absolute | 0.0Comment: Testing | 0 - 0.1 K/uL | EXTERNAL | | | Basophils | performed at [facility], [address] | | LAB | | | | [address], | | | | | | [place] [address] | | | | + + + + + + + + | Specimen | + + | Blood specimen | | (specimen) | + + + +---------+ + + | Performing | Address | City/State/Zipcode | Phone Number | | Organization | | | | + +---------+ + + | EXTERNAL LAB | | | | + +---------+ + + C-Reactive Protein (08/03/2013 4:55 AM PDT) + + + + + + | Component | Value | Ref Range | Performed | Pathologist | | | | | At | Signature | + + + + + + | CRP | 1.9 (H)Comment: Testing | mg/dL | EXTERNAL | | | | performed at [facility], [address] | | LAB | | | | [address], | | | | | | [place] [address] | | | | + + + + + + + + | Specimen | + + | Blood specimen | | (specimen) | + + + +---------+ + + | Performing | Address | City/State/Zipcode | Phone Number | | Organization | | | | + +---------+ + + | EXTERNAL LAB | | | | + +---------+ + + Phosphorus (08/03/2013 4:55 AM PDT) + + + + + + | Component | Value | Ref Range | Performed | Pathologist | | | | | At | Signature | + + + + + + | PHOSPHORUS | 7.2 (H)Comment: Testing | 2.3 - 4.8 mg/dL | EXTERNAL | | | | performed at [facility], [address] | | LAB | | | | [address], | | | | | | [place] [address] | | | | + + + + + + + + | Specimen | + + | Blood specimen | | (specimen) | + + + +---------+ + + | Performing | Address | City/State/Zipcode | Phone Number | | Organization | | | | + +---------+ + + | EXTERNAL LAB | | | | + +---------+ + + Magnesium (08/03/2013 4:55 AM PDT) + + + + + + | Component | Value | Ref Range | Performed | Pathologist | | | | | At | Signature | + + + + + + | Magnesium | 2.0Comment: Testing | 1.7 - 2.4 mg/dL | EXTERNAL | | | | performed at [facility], [address] | | LAB | | | | [address], | | | | | | [place] [address] | | | | + + + + + + + + | Specimen | + + | Blood specimen | | (specimen) | + + + +---------+ + + | Performing | Address | City/State/Zipcode | Phone Number | | Organization | | | | + +---------+ + + | EXTERNAL LAB | | | | + +---------+ + + CK Total (08/03/2013 4:55 AM PDT) + + + + + + | Component | Value | Ref Range | Performed | Pathologist | | | | | At | Signature | + + + + + + | CK, Total | 226Comment: Testing | 55 - 400 U/L | EXTERNAL | | | | performed at [facility];[address] | | LAB | | | | [address];[place] | | | | | | [address] | | | | + + + + + + + + | Specimen | + + | Blood specimen | | (specimen) | + + + +---------+ + + | Performing | Address | City/State/Zipcode | Phone Number | | Organization | | | | + +---------+ + + | EXTERNAL LAB | | | | + +---------+ + + Comprehensive Metabolic Panel (08/03/2013 4:55 AM PDT) + + + + + + | Component | Value | Ref Range | Performed | Pathologist | | | | | At | Signature | + + + + + + | Na | 138Comment: Testing | 135 - 143 | EXTERNAL | | | | performed at [facility], [address] | mmol/L | LAB | | | | [address], | | | | | | [place] [address] | | | | + + + + + + | K | 4.5Comment: Testing | 3.5 - 4.9 | EXTERNAL | | | | performed at [facility], [address] | mmol/L | LAB | | | | [address], | | | | | | [place] [address] | | | | + + + + + + | Cl | 100Comment: Testing | 99 - 109 mmol/L | EXTERNAL | | | | performed at [facility], [address] | | LAB | | | | [address], | | | | | | [place] [address] | | | | + + + + + + | CO2 | 28Comment: Testing | 23 - 32 mmol/L | EXTERNAL | | | | performed at [facility], [address] | | LAB | | | | [address], | | | | | | [place] [address] | | | | + + + + + + | Anion Gap | 15Comment: Testing | 5 - 20 mmol/L | EXTERNAL | | | | performed at [facility], [address] | | LAB | | | | [address], | | | | | | [place] [address] | | | | + + + + + + | Glucose, | 89Comment: Testing | 65 - 99 mg/dL | EXTERNAL | | | Fasting | performed at [facility], [address] | | LAB | | | | [address], | | | | | | [place] [address] | | | | + + + + + + | BUN | 52 (H)Comment: Testing | 8 - 25 mg/dL | EXTERNAL | | | | performed at [facility], [address] | | LAB | | | | [address], | | | | | | [place] [address] | | | | + + + + + + | Creatinine | 11.75 (H)Comment: | 0.70 - 1.30 | EXTERNAL | | | | Testing performed at | mg/dL | LAB | | | | [facility], [address] | | | | | | [place] | | | | | | [address] | | | | + + + + + + | BUN/Creatin | 4Comment: Testing | | EXTERNAL | | | ine Ratio | performed at [facility], [address] | | LAB | | | | [address], | | | | | | [place] [address] | | | | + + + + + + | Calcium | 8.3 (L)Comment: Testing | 8.5 - 10.2 | EXTERNAL | | | | performed at [facility], [address] | mg/dL | LAB | | | | [address], | | | | | | [place] [address] | | | | + + + + + + | Protein, | 6.1 (L)Comment: Testing | 6.3 - 8.2 g/dL | EXTERNAL | | | Total | performed at [facility], [address] | | LAB | | | | [address], | | | | | | [place] [address] | | | | + + + + + + | Albumin | 3.3 (L)Comment: Testing | 3.6 - 5.0 g/dL | EXTERNAL | | | | performed at [facility], [address] | | LAB | | | [address], | | | | | | [place] [address] | | | | + + + + + + | Globulin | 2.8Comment: Testing | 1.3 - 4.9 g/dL | EXTERNAL | | | | performed at [facility], [address] | | LAB | | | | [address], | | | | | | [place] [address] | | | | + + + + + + | A/G Ratio | 1.2Comment: Testing | 1.0 - 2.4 | EXTERNAL | | | | performed at [facility], [address] | | LAB | | | | [address], | | | | | | [place] [address] | | | | + + + + + + | Bilirubin | 0.4Comment: Testing | 0.1 - 1.5 mg/dL | EXTERNAL | | | Total | performed at [facility], [address] | | LAB | | | | [address], | | | | | | [place] [address] | | | | + + + + + + | ALP, | 34 (L)Comment: Testing | 35 - 115 U/L | EXTERNAL | | | External | performed at [facility], [address] | | LAB | | | | [address], | | | | | | [place] [address] | | | | + + + + + + | AST | 45Comment: Testing | 10 - 45 U/L | EXTERNAL | | | | performed at [facility], [address] | | LAB | | | | [address], | | | | | | [place] [address] | | | | + + + + + + | ALT | 82 (H)Comment: Testing | 10 - 65 U/L | EXTERNAL | | | | performed at [facility], [address] | | LAB | | | | [address], | | | | | | [place] [address] | | | | + + + + + + | Estimated | 5 (L)Comment: GFR <60: | mL/min/1.73m2 | EXTERNAL | | | GFR | CHRONIC KIDNEY DISEASE, | | LAB | | | | IF FOUND OVER A 3 MONTH | | | | | | PERIOD.GFR <15: KIDNEY | | | | | | FAILURE.FOR | | | | | | AMERICANS, MULTIPLY THE | | | | | | CALCULATED GFR BY | | | | | | 1.210.Testing performed | | | | | | at [facility], [address] | | | | | | [address], | | | | | | [place] [address] | | | | + + + + + + + + | Specimen | + + | Blood specimen | | (specimen) | + + + +---------+ + + | Performing | Address | City/State/Zipcode | Phone Number | | Organization | | | | + +---------+ + + | EXTERNAL LAB | | | | + +---------+ + + Urea Nitrogen, Urine, Random (08/02/2013 1:11 PM PDT) + + + + + + | Component | Value | Ref Range | Performed | Pathologist | | | | | At | Signature | + + + + + + | Urea | 97.0Comment: Testing | mg/dL | EXTERNAL | | | Nitrogen, | performed at [facility], [address] | | LAB | | | Urine | [address], | | | | | | [place] [address] | | | | + + + + + + + + | Specimen | + + | | + + + +---------+ + + | Performing | Address | City/State/Zipcode | Phone Number | | Organization | | | | + +---------+ + + | EXTERNAL LAB | | | | + +---------+ + + Creatinine, Urine, Random (08/02/2013 1:11 PM PDT) + + + + + + | Component | Value | Ref Range | Performed | Pathologist | | | | | At | Signature | + + + + + + | Creatinine, | 37.2Comment: Testing | mg/dL | EXTERNAL | | | Urine | performed at [facility], [address] | | LAB | | | | [address], | | | | | | [place] [address] | | | | + + + + + + + + | Specimen | + + | Urine specimen | | (specimen) | + + + +---------+ + + | Performing | Address | City/State/Zipcode | Phone Number | | Organization | | | | + +---------+ + + | EXTERNAL LAB | | | | + +---------+ + + Quantiferon Gold (08/02/2013 5:00 AM PDT) + + + + + + | Component | Value | Ref Range | Performed | Pathologist | | | | | At | Signature | + + + + + + | Quantiferon | NEGATIVEComment: Testing | | EXTERNAL | | | TB Gold | performed at [facility], [address] | | LAB | | | | [address] [facility] | | | | | | [place] [address] | | | | + + + + + + | TB 1 | 0.00Comment: <0.35 M | IU/mL | EXTERNAL | | | Antigen | TUBERCULOSIS | | LAB | | | Minus NIL | UNLIKELYTHIS IS A | | | | | | QUALITATIVE TEST. THE | | | | | | IU/ML VALUE SHOULD NOT | | | | | | BE USED TOMONITOR | | | | | | DISEASE PROGRESSION OR | | | | | | RESPONSE TO THERAPY. | | | | | | DIAGNOSING OREXCLUDING | | | | | | TUBERCULOSIS DISEASE | | | | | | AND ASSESSING THE | | | | | | PROBABILITY OF | | | | | | LTBIREQUIRE A | | | | | | COMBINATION OF | | | | | | EPIDEMIOLOGICAL, | | | | | | HISTORICAL, MEDICAL | | | | | | ANDDIAGNOSTIC FINDINGS | | | | | | THAT SHOULD BE TAKEN | | | | | | INTO ACCOUNT | | | | | | WHENINTERPRETING | | | | | | QUANTIFERON-TB GOLD | | | | | | RESULTS.Testing | | | | | | performed at [facility], [address] | | | | | | [address] | | | | | | [place] [address] | | | | + + + + + + + + | Specimen | + + | | + + + +---------+ + + | Performing | Address | City/State/Zipcode | Phone Number | | Organization | | | | + +---------+ + + | EXTERNAL LAB | | | | + +---------+ + + SHANIA Screen, Quant, Reflex (08/02/2013 5:00 AM PDT) + + + + + + | Component | Value | Ref Range | Performed | Pathologist | | | | | At | Signature | + + + + + + | Interpretat | NEGATIVEComment: | | EXTERNAL | | | ion: | Reference range: | | LAB | | | | NEGATIVETesting | | | | | | performed at [facility], [address] | | | | | | [address] | | | | | | [place] [address] | | | | + + + + + + | Result | 0.4 (A)Comment: | U | EXTERNAL | | | | Reference range: | | LAB | | | | <1.0Testing performed at | | | | | | [facility], [address] | | | | | | [place] | | | | | | [address] | | | | + + + + + + + + | Specimen | + + | | + + + +---------+ + + | Performing | Address | City/State/Zipcode | Phone Number | | Organization | | | | + +---------+ + + | EXTERNAL LAB | | | | + +---------+ + + Hepatitis C, Fibrosure Panel (08/02/2013 5:00 AM PDT) + + + + + + | Component | Value | Ref Range | Performed | Pathologist | | | | | At | Signature | + + + + + + | HCV | 0.35 (H)Comment: Testing | 0.00 - 0.21 | EXTERNAL | | | FibroSURE | performed at [facility] | | LAB | | | Results | [place], [address] | | | | | | [employer], [place] [address] | | | | + + + + + + | FIBROSURE | F1 TO [id number]: Testing | | EXTERNAL | | | STAGE | performed at [facility] | | LAB | | | | [place], [address] | | | | | | [address], [place] [address] | | | | + + + + + + | Necroinflam | 0.55 (H)Comment: Testing | 0.00 - 0.17 | EXTERNAL | | | mat | performed at [facility] | | LAB | | | Activity | [place], [address] | | | | | Score | [address] [address], [place] [address] | | | | + + + + + + | Necroinflam | SEE BELOWComment: A2, | | EXTERNAL | | | mat | MODERATE ACTIVITYTesting | | LAB | | | Activity | performed at [facility] | | | | | Grade | [place], [address] | | | | | | [place] [address] | | | | + + + + + + | Alpha | 290 (H)Comment: Testing | 110 - 276 mg/dL | EXTERNAL | | | 2-Macroglob | performed by [facility], | | LAB | | | gela Qn | [address] [facility], | | | | | | [place] [address] | | | | + + + + + + | Haptoglobin | 203 (H)Comment: Testing | 34 - 200 mg/dL | EXTERNAL | | | | performed by [facility], | | LAB | | | | [address] [facility], | | | | | | [place] [address] | | | | + + + + + + | Apolipoprot | 79 (L)Comment: Testing | 110 - 180 mg/dL | EXTERNAL | | | ein A-1 | performed by [facility], | | LAB | | | | [address] [facility], | | | | | | [place] [address] | | | | + + + + + + | Bilirubin, | 0.3Comment: Testing | 0.0 - 1.2 mg/dL | EXTERNAL | | | Total | performed by [facility], | | LAB | | | | [address], | | | | | | [facility] [address] | | | | + + + + + + | Gamma | 36Comment: Testing | 0 - 65 IU/L | EXTERNAL | | | Glutamyl | performed by [facility], | | LAB | | | [address] | [address], | | | | | | [place] [address] | | | | + + + + + + | ALT (SGPT) | 91 (H)Comment: Testing | 0 - 55 IU/L | EXTERNAL | | | P5P | performed by [facility], | | LAB | | | | [address], | | | | | | [facility] [address] | | | | + + + + + + | Interpretat | SEE BELOWComment: | | EXTERNAL | | | ion: | QUANTITATIVE RESULTS OF | | LAB | | | | 6 BIOCHEMICAL TESTS ARE | | | | | | ANALYZED USINGA | | | | | | COMPUTATIONAL ALGORITHM | | | | | | TO PROVIDE A | | | | | | QUANTITATIVE | | | | | | SURROGATEMARKER | | | | | | (0.0-1.0) FOR LIVER | | | | | | FIBROSIS (METAVIR F0-F4) | | | | | | AND | | | | | | FORNECROINFLAMMATORY | | | | | | ACTIVITY (METAVIR | | | | | | A0-A3).FIBROSIS SCORING: | | | | | | <0.21 = STAGE F0 | | | | | | - NO FIBROSIS0.21 - 0.27 | | | | | | = STAGE F0 - F10.27 - | | | | | | 0.31 = STAGE F1 - PORTAL | | | | | | FIBROSIS0.31 - 0.48 = | | | | | | STAGE F1 - F20.48 - 0.58 | | | | | | = STAGE F2 - BRIDGING | | | | | | FIBROSIS WITH FEW | | | | | | SEPTA0.58 - 0.72 = STAGE | | | | | | F3 - BRIDGING FIBROSIS | | | | | | WITH MANY SEPTA0.72 - | | | | | | 0.74 = STAGE F3 - F4 | | | | | | >0.74 = STAGE F4 - | | | | | | CIRRHOSISNECROINFLAMM | | | | | | ACTIVITY SCORING: | | | | | | <0.17 = GRADE A0 - NO | | | | | | ACTIVITY0.17 - 0.29 = | | | | | | GRADE A0 - A10.29 - 0.36 | | | | | | = GRADE A1 - MINIMAL | | | | | | ACTIVITY0.36 - 0.52 = | | | | | | GRADE A1 - A20.52 - 0.60 | | | | | | = GRADE A2 - MODERATE | | | | | | ACTIVITY0.60 - 0.62 = | | | | | | GRADE A2 - A3 | | | | | | >0.62 = GRADE A3 - | | | | | | SEVERE ACTIVITYTesting | | | | | | performed at [facility] | | | | | | [place], [address] | | | | | | [place] [address] | | | | + + + + + + | Limitations | SEE BELOWComment: THE | | EXTERNAL | | | : | NEGATIVE PREDICTIVE | | LAB | | | | VALUE OF A FIBROTEST | | | | | | SCORE <0.31 (ABSENCE | | | | | | OFCLINICALLY SIGNIFICANT | | | | | | FIBROSIS) WAS 85% WHEN | | | | | | COMPARED TO LIVER | | | | | | BIOPSYIN 1,270 HCV | | | | | | INFECTED PATIENTS WITH A | | | | | | 38% PREVALENCE OF | | | | | | SIGNIFICANTLIVER | | | | | | FIBROSIS (F2, 3 OR 4). | | | | | | THE POSITIVE PREDICTIVE | | | | | | VALUE OF A FIBRO-TEST | | | | | | SCORE >0.48 (F2, 3, 4) | | | | | | WAS 61% IN THAT SAME | | | | | | PATIENT COHORT. | | | | | | HCVFIBROSURE IS NOT | | | | | | RECOMMENDED IN PATIENTS | | | | | | WITH GILBERT DISEASE, | | | | | | ACUTEHEMOLYSIS (E.G. HCV | | | | | | RIBAVIRIN THERAPY | | | | | | MEDIATED HEMOLYSIS) | | | | | | ACUTE HEPA-TITIS OF THE | | | | | | LIVER, EXTRA-HEPATIC | | | | | | CHOLESTASIS, TRANSPLANT | | | | | | PATIENTS,AND/OR RENAL | | | | | | INSUFFICIENCY PATIENTS. | | | | | | ANY OF THESE CLINICAL | | | | | | SITUATIONSMAY LEAD TO | | | | | | INACCURATE QUANTITATIVE | | | | | | PREDICTIONS OF FIBROSIS | | | | | | ANDNECROINFLAMMATORY | | | | | | ACTIVITY IN THE | | | | | | LIVER.Testing performed | | | | | | at [facility], [address] | | | | | | [place], | | | | | | [place] [address] | | | | + + + + + + | Comment | SEE BELOWComment: THIS | | EXTERNAL | | | | TEST WAS DEVELOPED AND | | LAB | | | | ITS PERFORMANCE | | | | | | CHARACTERISTICS | | | | | | DETERMINEDBY [facility]. IT | | | | | | HAS NOT BEEN CLEARED OR | | | | | | APPROVED BY THE FOOD | | | | | | AND DRUGADMINISTRATION. | | | | | | THE FDA HAS DETERMINED | | | | | | THAT SUCH CLEARANCE | | | | | | ORAPPROVAL IS NOT | | | | | | NECESSARY.FOR QUESTIONS | | | | | | REGARDING THIS REPORT | | | | | | PLEASE CONTACT THE | | | | | | [facility] | | | | | | [facility] PATHOLOG[facility] | | | | | | CUSTOMER SERVICE | | | | | | DEPARTMENT | | | | | | [phone].Testing | | | | | | performed at [facility] | | | | | | [place], [address] | | | | | | [place] [address] | | | | + + + + + + + + | Specimen | + + | | + + + +---------+ + + | Performing | Address | City/State/Zipcode | Phone Number | | Organization | | | | + +---------+ + + | EXTERNAL LAB | | | | + +---------+ + + Cryoglobulin (08/02/2013 5:00 AM PDT) + + + + + + | Component | Value | Ref Range | Performed | Pathologist | | | | | At | Signature | + + + + + + | CRYOGLOBULI | NEGATIVEComment: Testing | | EXTERNAL | | | N | performed at [facility], [address] | | LAB | | | | [facility] | | | | | | [place] [address] | | | | + + + + + + | CRYOGLOBULI | NEGATIVEComment: Testing | | EXTERNAL | | | [address] | performed at [facility], [address] | | LAB | | | | [address] | | | | | | [place] [address] | | | | + + + + + + | CRYOGLOBULI | NEGATIVEComment: Testing | | EXTERNAL | | | [address] | performed at [facility], [address] | | LAB | | | | [address] | | | | | | [place] [address] | | | | + + + + + + | CRYOGLOBULI | NEGATIVEComment: Testing | | EXTERNAL | | | N 7D | performed at [facility], [address] | | LAB | | | | [address] | | | | | | [place] [address] | | | | + + + + + + + + | Specimen | + + | Blood specimen | | (specimen) | + + + +---------+ + + | Performing | Address | City/State/Zipcode | Phone Number | | Organization | | | | + +---------+ + + | EXTERNAL LAB | | | | + +---------+ + + Hepatitis B Surface Ab (08/02/2013 5:00 AM PDT) + + + + + + | Component | Value | Ref Range | Performed | Pathologist | | | | | At | Signature | + + + + + + | HEP B | 0.36Comment: <1.00 | IV | EXTERNAL | | | SURFACE | Non Immune1.00 OR | | LAB | | | ANTIBODY | MORE Indicates | | | | | | vaccine response or | | | | | | response to HBV | | | | | | infection. An Index | | | | | | Value (IV) of 1.00 is | | | | | | equivalent to 10 mIU/mL. | | | | | | Samples with an IV of | | | | | | 1.00 or greater are | | | | | | considered reactive | | | | | | (protected) in | | | | | | accordance with CDC | | | | | | Guidelines.Testing | | | | | | performed at [facility], [address] | | | | | | [facility], | | | | | | [place] [address] | | | | + + + + + + + + | Specimen | + + | Blood specimen | | (specimen) | + + + +---------+ + + | Performing | Address | City/State/Zipcode | Phone Number | | Organization | | | | + +---------+ + + | EXTERNAL LAB | | | | + +---------+ + + External Lab: CBC (08/02/2013 5:00 AM PDT) + + + + + + | Component | Value | Ref Range | Performed | Pathologist | | | | | At | Signature | + + + + + + | WBC | 7.4Comment: Testing | 3.8 - 11.0 K/uL | EXTERNAL | | | | performed at [facility], [address] | | LAB | | | | [address], | | | | | | [place] [address] | | | | + + + + + + | Red Blood | 3.98 (L)Comment: Testing | 4.20 - 5.70 | EXTERNAL | | | Cells | performed at [facility], [address] | M/uL | LAB | | | Counted | [address], | | | | | | [place] [address] | | | | + + + + + + | Hemoglobin | 12.8 (L)Comment: Testing | 13.2 - 17.0 | EXTERNAL | | | | performed at [facility], [address] | g/dL | LAB | | | | [address], | | | | | | [place] [address] | | | | + + + + + + | Hematocrit, | 38.0 (L)Comment: Testing | 39.0 - 50.0 % | EXTERNAL | | | POC | performed at [facility], [address] | | LAB | | | | [address], | | | | | | [place] [address] | | | | + + + + + + | MCV | 95.4Comment: Testing | 80.0 - 100.0 fl | EXTERNAL | | | | performed at [facility], [address] | | LAB | | | | [address], | | | | | | [place] [address] | | | | + + + + + + | MCH | 32.0Comment: Testing | 27.0 - 34.0 pg | EXTERNAL | | | | performed at [facility], [address] | | LAB | | | | [address], | | | | | | [place] [address] | | | | + + + + + + | MCHC | 33.6Comment: Testing | 32.0 - 35.5 | EXTERNAL | | | | performed at [facility], [address] | g/dL | LAB | | | | [address], | | | | | | [place] [address] | | | | + + + + + + | RDW-CV | 40.7Comment: Testing | 37 - 53 fl | EXTERNAL | | | | performed at [facility], [address] | | LAB | | | [address], | | | | | | [place] [address] | | | | + + + + + + | Platelet | 199Comment: Testing | 150 - 400 K/uL | EXTERNAL | | | Count | performed at [facility], [address] | | LAB | | | Plasma | [address], | | | | | | [place] [address] | | | | + + + + + + | MPV | 9.1Comment: Testing | fl | EXTERNAL | | | | performed at [facility], [address] | | LAB | | | | [address], | | | | | | [place] [address] | | | | + + + + + + | Differentia | AUTOMATEDComment: | | EXTERNAL | | | l Type | Testing performed at | | LAB | | | | [facility], [address] | | | | | | [place] | | | | | | [address] | | | | + + + + + + | % Segmented | 69.5Comment: Testing | % | EXTERNAL | | | | performed at [facility], [address] | | LAB | | | Neutrophils | [address], | | | | | | [place] [address] | | | | + + + + + + | % | 14.3Comment: Testing | % | EXTERNAL | | | Lymphocytes | performed at [facility], [address] | | LAB | | | | [address], | | | | | | [place] [address] | | | | + + + + + + | % Monocytes | 12.1Comment: Testing | % | EXTERNAL | | | | performed at [facility], [address] | | LAB | | | | [address], | | | | | | [place] [address] | | | | + + + + + + | % | 3.7Comment: Testing | % | EXTERNAL | | | Eosinophils | performed at [facility], [address] | | LAB | | | | [address], | | | | | | [place] [address] | | | | + + + + + + | % Basophils | 0.4Comment: Testing | % | EXTERNAL | | | | performed at [facility], [address] | | LAB | | | | [address], | | | | | | [place] [address] | | | | + + + + + + | Absolute | 5.2Comment: Testing | 1.9 - 7.4 K/uL | EXTERNAL | | | Segmented | performed at [facility], [address] | | LAB | | | Neutrophils | [address], | | | | | | [place] [address] | | | | + + + + + + | Absolute | 1.1Comment: Testing | 1.0 - 3.9 K/uL | EXTERNAL | | | Lymphocytes | performed at [facility], [address] | | LAB | | | | [address], | | | | | | [place] [address] | | | | + + + + + + | Absolute | 0.9 (H)Comment: Testing | 0 - 0.8 K/uL | EXTERNAL | | | Monocytes | performed at [facility], [address] | | LAB | | | | [address], | | | | | | [place] [address] | | | | + + + + + + | Absolute | 0.3Comment: Testing | 0 - 0.5 K/uL | EXTERNAL | | | Eosinophils | performed at [facility], [address] | | LAB | | | | [address], | | | | | | [place] [address] | | | | + + + + + + | Absolute | 0.0Comment: Testing | 0 - 0.1 K/uL | EXTERNAL | | | Basophils | performed at [facility], [address] | | LAB | | | | [address], | | | | | | [place] [address] | | | | + + + + + + + + | Specimen | + + | Blood specimen | | (specimen) | + + + +---------+ + + | Performing | Address | City/State/Zipcode | Phone Number | | Organization | | | | + +---------+ + + | EXTERNAL LAB | | | | + +---------+ + + Phosphorus (08/02/2013 5:00 AM PDT) + + + + + + | Component | Value | Ref Range | Performed | Pathologist | | | | | At | Signature | + + + + + + | PHOSPHORUS | 6.0 (H)Comment: Testing | 2.3 - 4.8 mg/dL | EXTERNAL | | | | performed at [facility], [address] | | LAB | | | | [address], | | | | | | [place] [address] | | | | + + + + + + + + | Specimen | + + | Blood specimen | | (specimen) | + + + +---------+ + + | Performing | Address | City/State/Zipcode | Phone Number | | Organization | | | | + +---------+ + + | EXTERNAL LAB | | | | + +---------+ + + Magnesium (08/02/2013 5:00 AM PDT) + + + + + + | Component | Value | Ref Range | Performed | Pathologist | | | | | At | Signature | + + + + + + | Magnesium | 1.8Comment: Testing | 1.7 - 2.4 mg/dL | EXTERNAL | | | | performed at [facility], [address] | | LAB | | | | [address], | | | | | | [place] [address] | | | | + + + + + + + + | Specimen | + + | Blood specimen | | (specimen) | + + + +---------+ + + | Performing | Address | City/State/Zipcode | Phone Number | | Organization | | | | + +---------+ + + | EXTERNAL LAB | | | | + +---------+ + + CK Total (08/02/2013 5:00 AM PDT) + + + + + + | Component | Value | Ref Range | Performed | Pathologist | | | | | At | Signature | + + + + + + | CK, Total | 265Comment: Testing | 55 - 400 U/L | EXTERNAL | | | | performed at [facility];[address] | | LAB | | | | [place] | | | | | | [address] | | | | + + + + + + + + | Specimen | + + | Blood specimen | | (specimen) | + + + +---------+ + + | Performing | Address | City/State/Zipcode | Phone Number | | Organization | | | | + +---------+ + + | EXTERNAL LAB | | | | + +---------+ + + Albumin (08/02/2013 5:00 AM PDT) + + + + + + | Component | Value | Ref Range | Performed | Pathologist | | | | | At | Signature | + + + + + + | Albumin | 3.2 (L)Comment: Testing | 3.6 - 5.0 g/dL | EXTERNAL | | | | performed at [facility], [address] | | LAB | | | | [place] [address], | | | | | | [place] [address] | | | | + + + + + + + + | Specimen | + + | | + + + +---------+ + + | Performing | Address | City/State/Zipcode | Phone Number | | Organization | | | | + +---------+ + + | EXTERNAL LAB | | | | + +---------+ + + Basic Metabolic Panel (08/02/2013 5:00 AM PDT) + + + + + + | Component | Value | Ref Range | Performed | Pathologist | | | | | At | Signature | + + + + + + | Na | 136Comment: Testing | 135 - 143 | EXTERNAL | | | | performed at [facility], [address] | mmol/L | LAB | | | | [address], | | | | | | [place] [address] | | | | + + + + + + | K | 4.6Comment: Testing | 3.5 - 4.9 | EXTERNAL | | | | performed at [facility], [address] | mmol/L | LAB | | | | [address], | | | | | | [place] [address] | | | | + + + + + + | Cl | 100Comment: Testing | 99 - 109 mmol/L | EXTERNAL | | | | performed at [facility], [address] | | LAB | | | | [address], | | | | | | [place] [address] | | | | + + + + + + | CO2 | 28Comment: Testing | 23 - 32 mmol/L | EXTERNAL | | | | performed at [facility], [address] | | LAB | | | | [address], | | | | | | [place] [address] | | | | + + + + + + | Anion Gap | 13Comment: Testing | 5 - 20 mmol/L | EXTERNAL | | | | performed at [facility], [address] | | LAB | | | | [address], | | | | | | [place] [address] | | | | + + + + + + | Glucose, | 92Comment: Testing | 65 - 99 mg/dL | EXTERNAL | | | Fasting | performed at [facility], [address] | | LAB | | | | [address], | | | | | | [place] [address] | | | | + + + + + + | BUN | 40 (H)Comment: Testing | 8 - 25 mg/dL | EXTERNAL | | | | performed at [facility], [address] | | LAB | | | | [address], | | | | | | [place] [address] | | | | + + + + + + | Creatinine | 10.15 (H)Comment: | 0.70 - 1.30 | EXTERNAL | | | | Testing performed at | mg/dL | LAB | | | | [facility], [address] | | | | | | [place] | | | | | | [address] | | | | + + + + + + | BUN/Creatin | 4Comment: Testing | | EXTERNAL | | | ine Ratio | performed at [facility], [address] | | LAB | | | | [place] [address], | | | | | | [place] [address] | | | | + + + + + + | Calcium | 8.2 (L)Comment: Testing | 8.5 - 10.2 | EXTERNAL | | | | performed at [facility], [address] | mg/dL | LAB | | | | [address], | | | | | | [place] [address] | | | | + + + + + + | Estimated | 6 (L)Comment: GFR <60: | mL/min/1.73m2 | EXTERNAL | | | GFR | CHRONIC KIDNEY DISEASE, | | LAB | | | | IF FOUND OVER A 3 MONTH | | | | | | PERIOD.GFR <15: KIDNEY | | | | | | FAILURE.FOR | | | | | | AMERICANS, MULTIPLY THE | | | | | | CALCULATED GFR BY | | | | | | 1.210.Testing performed | | | | | | at [facility], [address] | | | | | | [address], | | | | | | [place] [address] | | | | + + + + + + + + | Specimen | + + | Blood specimen | | (specimen) | + + + +---------+ + + | Performing | Address | City/State/Zipcode | Phone Number | | Organization | | | | + +---------+ + + | EXTERNAL LAB | | | | + +---------+ + + XR Tibia Fibula Left 2 Vw (08/01/2013 10:53 AM PDT) + + | Specimen | + + | | + + + + + | Impressions | Performed At | + + + | 1. No evidence of fracture of the left femur. 2. Residual old | | | fracture lateral malleolus. No evidence of a acute fracture of the | | | tibia or fibula. 3. No evidence of fracture or dislocation of the | | | left foot. 4. Correlate clinically, followup study if the patient | | | continues to be symptomatic. | | + + + + + + | Narrative | Performed At | + + + | LUCY CHEEK XR FEMUR LEFT, XR TIBIA FIBULA LEFT, XR FOOT LEFT | | | 08/01/2013 10:53 AM HISTORY: 38 years. Male. Trauma with left | | | leg and foot pain TECHNIQUE: XR FEMUR LEFT, XR TIBIA FIBULA LEFT, | | | XR FOOT LEFT. Frontal and lateral view of the femur taken in sections | | | (4 views), frontal and lateral view of the tibia and fibula taken in | | | sections (4 views) and left foot series. (3 views). Total of 11 | | | images obtained. COMPARISON: None. FINDINGS: Left femur: | | | The left hip show some degenerative changes but no flattening or | | | fragmentation of the femoral head. Femoral neck and shaft are normal | | | in appearance no evidence of fractures or periosteal reaction. The | | | view of the knee is normal in appearance. Left tib-fib: Tibial | | | plateau smooth no evidence of fractures. No intra-articular free | | | fragments. No evidence of significant joint effusion or erosive | | | arthritis. The tibia and fibula show no fractures or erosive lesions | | | no periosteal reaction or soft tissue calcification limited view of | | | the ankle suggest some degenerative changes. There is a transverse | | | well-corticated lucency through the tip of the lateral malleolus | | | suggesting residual of a old fracture. Left foot the phalanges and | | | metatarsals are normal in appearance. The tarsal ossicles show no | | | evidence of fractures. Os trigonum is noted. | | + + + + + | Procedure Note | + + | Pierre, Celso Conversion - 09/26/2018 3:53 PM PDT LUCY CHEEKXR FEMUR LEFT, XR TIBIA | | FIBULA LEFT, XR FOOT LEFT08/01/2013 10:53 AM HISTORY:38 years. Male. Trauma with left | | leg and foot pain TECHNIQUE:XR FEMUR LEFT, XR TIBIA FIBULA LEFT, XR FOOT LEFT. Frontal | | and lateral view of the femur taken in sections (4 views), frontal and lateral view of | | the tibia and fibula taken in sections (4 views) and left foot series. (3 views). Total | | of 11 images obtained. COMPARISON:None. FINDINGS:Left femur: The left hip show some | | degenerative changes but no flattening or fragmentation of the femoral head. Femoral | | neck and shaft are normal in appearance no evidence of fractures or periosteal reaction. | | The view of the knee is normal in appearance.Left tib-fib: Tibial plateau smooth no | | evidence of fractures. No intra-articular free fragments. No evidence of significant | | joint effusion or erosive arthritis. The tibia and fibula show no fractures or erosive | | lesions no periosteal reaction or soft tissue calcification limited view of the ankle | | suggest some degenerative changes. There is a transverse well-corticated lucency through | | the tip of the lateral malleolus suggesting residual of a old fracture.Left foot the | | phalanges and metatarsals are normal in appearance. The tarsal ossicles show no evidence | | of fractures. Os trigonum is noted. IMPRESSION: 1. No evidence of fracture of the left | | femur.2. Residual old fracture lateral malleolus. No evidence of a acute fracture of | | the tibia or fibula.3. No evidence of fracture or dislocation of the left foot.4. | | Correlate clinically, followup study if the patient continues to be symptomatic. | | | | | |IMPRESSION: | |1. No evidence of fracture of the left femur. | |2. Residual old fracture lateral malleolus. No evidence of a acute fracture of the tibia o r fibula. | |3. No evidence of fracture or dislocation of the left foot. | |4. Correlate clinically, followup study if the patient continues to be symptomatic. | | | | | | | | | + + XR Foot Left 3 + Vw (08/01/2013 10:53 AM PDT) + + | Specimen | + + | | + + + + + | Impressions | Performed At | + + + | 1. No evidence of fracture of the left femur. 2. Residual old | | | fracture lateral malleolus. No evidence of a acute fracture of the | | | tibia or fibula. 3. No evidence of fracture or dislocation of the | | | left foot. 4. Correlate clinically, followup study if the patient | | | continues to be symptomatic. | | + + + + + + | Narrative | Performed At | + + + | LUCY CHEEK XR FEMUR LEFT, XR TIBIA FIBULA LEFT, XR FOOT LEFT | | | 08/01/2013 10:53 AM HISTORY: 38 years. Male. Trauma with left | | | leg and foot pain TECHNIQUE: XR FEMUR LEFT, XR TIBIA FIBULA LEFT, | | | XR FOOT LEFT. Frontal and lateral view of the femur taken in sections | | | (4 views), frontal and lateral view of the tibia and fibula taken in | | | sections (4 views) and left foot series. (3 views). Total of 11 | | | images obtained. COMPARISON: None. FINDINGS: Left femur: | | | The left hip show some degenerative changes but no flattening or | | | fragmentation of the femoral head. Femoral neck and shaft are normal | | | in appearance no evidence of fractures or periosteal reaction. The | | | view of the knee is normal in appearance. Left tib-fib: Tibial | | | plateau smooth no evidence of fractures. No intra-articular free | | | fragments. No evidence of significant joint effusion or erosive | | | arthritis. The tibia and fibula show no fractures or erosive lesions | | | no periosteal reaction or soft tissue calcification limited view of | | | the ankle suggest some degenerative changes. There is a transverse | | | well-corticated lucency through the tip of the lateral malleolus | | | suggesting residual of a old fracture. Left foot the phalanges and | | | metatarsals are normal in appearance. The tarsal ossicles show no | | | evidence of fractures. Os trigonum is noted. | | + + + + + | Procedure Note | + + | Pierre, Rad Conversion - 09/26/2018 3:53 PM PDT LUCY NOLANDESXR FEMUR LEFT, XR TIBIA | | FIBULA LEFT, XR FOOT LEFT08/01/2013 10:53 AM HISTORY:38 years. Male. Trauma with left | | leg and foot pain TECHNIQUE:XR FEMUR LEFT, XR TIBIA FIBULA LEFT, XR FOOT LEFT. Frontal | | and lateral view of the femur taken in sections (4 views), frontal and lateral view of | | the tibia and fibula taken in sections (4 views) and left foot series. (3 views). Total | | of 11 images obtained. COMPARISON:None. FINDINGS:Left femur: The left hip show some | | degenerative changes but no flattening or fragmentation of the femoral head. Femoral | | neck and shaft are normal in appearance no evidence of fractures or periosteal reaction. | | The view of the knee is normal in appearance.Left tib-fib: Tibial plateau smooth no | | evidence of fractures. No intra-articular free fragments. No evidence of significant | | joint effusion or erosive arthritis. The tibia and fibula show no fractures or erosive | | lesions no periosteal reaction or soft tissue calcification limited view of the ankle | | suggest some degenerative changes. There is a transverse well-corticated lucency through | | the tip of the lateral malleolus suggesting residual of a old fracture.Left foot the | | phalanges and metatarsals are normal in appearance. The tarsal ossicles show no evidence | | of fractures. Os trigonum is noted. IMPRESSION: 1. No evidence of fracture of the left | | femur.2. Residual old fracture lateral malleolus. No evidence of a acute fracture of | | the tibia or fibula.3. No evidence of fracture or dislocation of the left foot.4. | | Correlate clinically, followup study if the patient continues to be symptomatic. | | | | | |IMPRESSION: | |1. No evidence of fracture of the left femur. | |2. Residual old fracture lateral malleolus. No evidence of a acute fracture of the tibia o r fibula. | |3. No evidence of fracture or dislocation of the left foot. | |4. Correlate clinically, followup study if the patient continues to be symptomatic. | | | | | | | | | + + XR Femur Left 2+Vw (08/01/2013 10:53 AM PDT) + + | Specimen | + + | | + + + + + | Impressions | Performed At | + + + | 1. No evidence of fracture of the left femur. 2. Residual old | | | fracture lateral malleolus. No evidence of a acute fracture of the | | | tibia or fibula. 3. No evidence of fracture or dislocation of the | | | left foot. 4. Correlate clinically, followup study if the patient | | | continues to be symptomatic. | | + + + + + + | Narrative | Performed At | + + + | LUCY CHEEK XR FEMUR LEFT, XR TIBIA FIBULA LEFT, XR FOOT LEFT | | | 08/01/2013 10:53 AM HISTORY: 38 years. Male. Trauma with left | | | leg and foot pain TECHNIQUE: XR FEMUR LEFT, XR TIBIA FIBULA LEFT, | | | XR FOOT LEFT. Frontal and lateral view of the femur taken in sections | | | (4 views), frontal and lateral view of the tibia and fibula taken in | | | sections (4 views) and left foot series. (3 views). Total of 11 | | | images obtained. COMPARISON: None. FINDINGS: Left femur: | | | The left hip show some degenerative changes but no flattening or | | | fragmentation of the femoral head. Femoral neck and shaft are normal | | | in appearance no evidence of fractures or periosteal reaction. The | | | view of the knee is normal in appearance. Left tib-fib: Tibial | | | plateau smooth no evidence of fractures. No intra-articular free | | | fragments. No evidence of significant joint effusion or erosive | | | arthritis. The tibia and fibula show no fractures or erosive lesions | | | no periosteal reaction or soft tissue calcification limited view of | | | the ankle suggest some degenerative changes. There is a transverse | | | well-corticated lucency through the tip of the lateral malleolus | | | suggesting residual of a old fracture. Left foot the phalanges and | | | metatarsals are normal in appearance. The tarsal ossicles show no | | | evidence of fractures. Os trigonum is noted. | | + + + + + | Procedure Note | + + | Pierre, Rad Conversion - 09/26/2018 3:53 PM PDT LUCY CHEEKXR FEMUR LEFT, XR TIBIA | | FIBULA LEFT, XR FOOT LEFT08/01/2013 10:53 AM HISTORY:38 years. Male. Trauma with left | | leg and foot pain TECHNIQUE:XR FEMUR LEFT, XR TIBIA FIBULA LEFT, XR FOOT LEFT. Frontal | | and lateral view of the femur taken in sections (4 views), frontal and lateral view of | | the tibia and fibula taken in sections (4 views) and left foot series. (3 views). Total | | of 11 images obtained. COMPARISON:None. FINDINGS:Left femur: The left hip show some | | degenerative changes but no flattening or fragmentation of the femoral head. Femoral | | neck and shaft are normal in appearance no evidence of fractures or periosteal reaction. | | The view of the knee is normal in appearance.Left tib-fib: Tibial plateau smooth no | | evidence of fractures. No intra-articular free fragments. No evidence of significant | | joint effusion or erosive arthritis. The tibia and fibula show no fractures or erosive | | lesions no periosteal reaction or soft tissue calcification limited view of the ankle | | suggest some degenerative changes. There is a transverse well-corticated lucency through | | the tip of the lateral malleolus suggesting residual of a old fracture.Left foot the | | phalanges and metatarsals are normal in appearance. The tarsal ossicles show no evidence | | of fractures. Os trigonum is noted. IMPRESSION: 1. No evidence of fracture of the left | | femur.2. Residual old fracture lateral malleolus. No evidence of a acute fracture of | | the tibia or fibula.3. No evidence of fracture or dislocation of the left foot.4. | | Correlate clinically, followup study if the patient continues to be symptomatic. | | | | | |IMPRESSION: | |1. No evidence of fracture of the left femur. | |2. Residual old fracture lateral malleolus. No evidence of a acute fracture of the tibia o r fibula. | |3. No evidence of fracture or dislocation of the left foot. | |4. Correlate clinically, followup study if the patient continues to be symptomatic. | | | | | | | | | + + MRI Pelvis wo Contrast (08/01/2013 10:35 AM PDT) + + | Specimen | + + | | + + + + + | Impressions | Performed At | + + + | 1. Severe muscle edema most pronounced within the left gluteus | | | medius, also involving the left gluteus minimus as well as portions of | | | the left gluteus albina and left obturator internus. The gluteus | | | medius muscle appears edematous and expanded with abnormal signal | | | and morphology. 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 Trauma with multifocal muscle strains could also cause | | | this appearance. Cannot exclude ill-defined intramuscular hematoma or | | | phlegmon within the gluteus medius. However, no simple drainable | | | fluid is identified. 2. No hip joint effusion. No evidence of septic | | | arthritis. No evidence of osteomyelitis. No abscess identified on this | | | noncontrast exam. 3. Subcutaneous soft tissue edema most pronounced | | | in the region of the anterior left hip and thigh. Cellulitis versus | | | simple edema. RADIA Electronically signed by Samy Woodward MD | | | on Aug 01 2013 4:59PM Referring Provider Line: [phone] ID: | | | [id number] | | + + + + + + | Narrative | Performed At | + + + | EXAM: MR PELVIS WITHOUT CONTRAST EXAM DATE: 08/01/2013 10:25 AM. | | | CLINICAL HISTORY: Chronic pain. Acute renal failure. History of | | | heroin abuse. Left hip pain. COMPARISON: Left hip radiographs | | | 07/30/2013. TECHNIQUE: Coronal T1 and STIR. Axial T1 and STIR. | | | FINDINGS: Bones and articular surfaces: No hip joint effusion. Mild | | | cartilage thinning and irregularity and marginal osteophyte formation | | | in both hips. Marrow signal appears normal. No evidence of fracture or | | | destructive bone lesion. Sacroiliac joints appear symmetric and | | | within normal limits. Soft tissues: Nonspecific diffuse | | | subcutaneous soft tissue edema. This is most pronounced on the left | | | anteriorly at the level of the hip and proximal thigh. Severe edema | | | throughout the left gluteus medius and minimus muscles. Small amount | | | of edema within the lateral fibers of the left gluteus albina. The | | | left gluteus medius muscle appears expanded with some heterogenous | | | signal and morphology. Difficult to differentiate between edematous | | | expanded muscle tissue versus edematous muscle with possibility of | | | some degree of intramuscular hematoma or phlegmon. However, no | | | appreciable simple-appearing drainable fluid. Edema also extends into | | | the right obturator internus muscle. | | + + + + + | Procedure Note | + + | Pierre, Rad Conversion - 09/26/2018 3:53 PM PDT EXAM:MR PELVIS WITHOUT CONTRAST EXAM | | DATE: 08/01/2013 10:25 AM. CLINICAL HISTORY: Chronic pain. Acute renal failure. History | | of heroin abuse. Left hip pain. COMPARISON: Left hip radiographs 07/30/2013. TECHNIQUE: | | Coronal T1 and STIR. Axial T1 and STIR. FINDINGS:Bones and articular surfaces: No hip | | joint effusion. Mild cartilage thinning and irregularity and marginal osteophyte | | formation in both hips. Marrow signal appears normal. No evidence of fracture or | | destructive bone lesion. Sacroiliac joints appear symmetric and within normal limits. | | Soft tissues: Nonspecific diffuse subcutaneous soft tissue edema. This is most | | pronounced on the left anteriorly at the level of the hip and proximal thigh. Severe | | edema throughout the left gluteus medius and minimus muscles. Small amount of edema | | within the lateral fibers of the left gluteus albina. The left gluteus medius muscle | | appears expanded with some heterogenous signal and morphology. Difficult to | | differentiate between edematous expanded muscle tissue versus edematous muscle with | | possibility of some degree of intramuscular hematoma or phlegmon. However, no | | appreciable simple-appearing drainable fluid. Edema also extends into the right | | obturator internus muscle. IMPRESSION: 1. Severe muscle edema most pronounced within | | the left gluteus medius, also involving the left gluteus minimus as well as portions of | | the left gluteus albina and left obturator internus. The gluteus medius muscle appears | | edematous and expanded with abnormal signal and morphology. Findings are concerning for | | multifocal myositis given the history. Trauma with multifocal muscle strains could also | | cause this appearance. Cannot exclude ill-defined intramuscular hematoma or phlegmon | | within the gluteus medius. However, no simple drainable fluid is identified.2. No hip | | joint effusion. No evidence of septic arthritis. No evidence of osteomyelitis. No | | abscess identified on this noncontrast exam.3. Subcutaneous soft tissue edema most | | pronounced in the region of the anterior left hip and thigh. Cellulitis versus simple | | edema. RADIA Electronically signed by Samy Woodward MD on Aug 01 2013 4:59PM Referring | | Provider Line: [phone] ID: [id number] | |3. Subcutaneous soft tissue edema most pronounced in the region of the anterior left hip an d thigh. Cellulitis versus simple edema. | | | |RADIA | | | | Electronically signed by Samy Woodward MD on Aug 01 2013 4:59PM Referring Provider Line: [phone] ID: [id number] | + + Hepatitis C RNA, quantitative, PCR (08/01/2013 5:06 AM PDT) + + + + + + | Component | Value | Ref Range | Performed | Pathologist | | | | | At | Signature | + + + + + + | HCV-LOG 10 | 6.1 (A)Comment: Testing | Log IU/mL | EXTERNAL | | | | performed at [facility], [address] | | LAB | | | | [address] | | | | | | [place] [address] | | | | + + + + + + | HCV | [id number] (A)Comment: | IU/mL | EXTERNAL | | | Quantitativ | REPORTABLE RANGE HCV RNA | | LAB | | | e | 1.2 TO 8.0 LOG IU/ML | | | | | | (15 TO | | | | | | 100,000,000IU/ML). | | | | | | THIS ASSAY WAS PERFORMED | | | | | | USING THE FDA APPROVED | | | | | | DEJAN | | | | | | COBASAMPLIPREP/ALMA | | | | | | TAQMAN HCV TEST, V2.0. | | | | | | THE ALMA | | | | | | AMPLIPREP/COBASTAQMAN | | | | | | HCV TEST, V2.0 IS NOT | | | | | | INTENDED FOR USE A | | | | | | SCREENING TEST FORTHE | | | | | | PRESENCE OF HCV IN BLOOD | | | | | | OR BLOOD | | | | | | PRODUCTS.Testing | | | | | | performed at [facility], [address] | | | | | | [place] [place] | | | | | | [place] [address] | | | | + + + + + + + + | Specimen | + + | Blood specimen | | (specimen) | + + + +---------+ + + | Performing | Address | City/State/Zipcode | Phone Number | | Organization | | | | + +---------+ + + | EXTERNAL LAB | | | | + +---------+ + + External Lab: CBC (08/01/2013 5:06 AM PDT) + + + + + + | Component | Value | Ref Range | Performed | Pathologist | | | | | At | Signature | + + + + + + | WBC | 8.8Comment: Testing | 3.8 - 11.0 K/uL | EXTERNAL | | | | performed at [facility], [address] | | LAB | | | | [address] [address], | | | | | | [place] [address] | | | | + + + + + + | Red Blood | 4.05 (L)Comment: Testing | 4.20 - 5.70 | EXTERNAL | | | Cells | performed at [facility], [address] | M/uL | LAB | | | Counted | [address], | | | | | | [place] [address] | | | | + + + + + + | Hemoglobin | 13.3Comment: Testing | 13.2 - 17.0 | EXTERNAL | | | | performed at [facility], [address] | g/dL | LAB | | | | [address], | | | | | | [place] [address] | | | | + + + + + + | Hematocrit, | 38.4 (L)Comment: Testing | 39.0 - 50.0 % | EXTERNAL | | | POC | performed at [facility], [address] | | LAB | | | | [address], | | | | | | [place] [address] | | | | + + + + + + | MCV | 94.8Comment: Testing | 80.0 - 100.0 fl | EXTERNAL | | | | performed at [facility], [address] | | LAB | | | | [address], | | | | | | [place] [address] | | | | + + + + + + | MCH | 32.7Comment: Testing | 27.0 - 34.0 pg | EXTERNAL | | | | performed at [facility], [address] | | LAB | | | | [address], | | | | | | [place] [address] | | | | + + + + + + | MCHC | 34.5Comment: Testing | 32.0 - 35.5 | EXTERNAL | | | | performed at [facility], [address] | g/dL | LAB | | | | [address], | | | | | | [place] [address] | | | | + + + + + + | RDW-CV | 40.7Comment: Testing | 37 - 53 fl | EXTERNAL | | | | performed at [facility], [address] | | LAB | | | | [address], | | | | | | [place] [address] | | | | + + + + + + | Platelet | 194Comment: Testing | 150 - 400 K/uL | EXTERNAL | | | Count | performed at [facility], [address] | | LAB | | | Plasma | [address], | | | | | | [place] [address] | | | | + + + + + + | MPV | 9.3Comment: Testing | fl | EXTERNAL | | | | performed at [facility], [address] | | LAB | | | | [address], | | | | | | [place] [address] | | | | + + + + + + | Differentia | AUTOMATEDComment: | | EXTERNAL | | | l Type | Testing performed at | | LAB | | | | [facility], [address] | | | | | | [place] | | | | | | [address] | | | | + + + + + + | % Segmented | 67.9Comment: Testing | % | EXTERNAL | | | | performed at [facility], [address] | | LAB | | | Neutrophils | [address], | | | | | | [place] [address] | | | | + + + + + + | % | 17.1Comment: Testing | % | EXTERNAL | | | Lymphocytes | performed at [facility], [address] | | LAB | | | | [address], | | | | | | [place] [address] | | | | + + + + + + | % Monocytes | 11.1Comment: Testing | % | EXTERNAL | | | | performed at [facility], [address] | | LAB | | | | [address], | | | | | | [place] [address] | | | | + + + + + + | % | 3.0Comment: Testing | % | EXTERNAL | | | Eosinophils | performed at [facility], [address] | | LAB | | | | [address], | | | | | | [place] [address] | | | | + + + + + + | % Basophils | 0.9Comment: Testing | % | EXTERNAL | | | | performed at [facility], [address] | | LAB | | | | [address], | | | | | | [place] [address] | | | | + + + + + + | Absolute | 6.0Comment: Testing | 1.9 - 7.4 K/uL | EXTERNAL | | | Segmented | performed at [facility], [address] | | LAB | | | Neutrophils | [address], | | | | | | [place] [address] | | | | + + + + + + | Absolute | 1.5Comment: Testing | 1.0 - 3.9 K/uL | EXTERNAL | | | Lymphocytes | performed at [facility], [address] | | LAB | | | | [address], | | | | | | [place] [address] | | | | + + + + + + | Absolute | 1.0 (H)Comment: Testing | 0 - 0.8 K/uL | EXTERNAL | | | Monocytes | performed at [facility], [address] | | LAB | | | | [address], | | | | | | [place] [address] | | | | + + + + + + | Absolute | 0.3Comment: Testing | 0 - 0.5 K/uL | EXTERNAL | | | Eosinophils | performed at [facility], [address] | | LAB | | | | [address], | | | | | | [place] [address] | | | | + + + + + + | Absolute | 0.1Comment: Testing | 0 - 0.1 K/uL | EXTERNAL | | | Basophils | performed at [facility], [address] | | LAB | | | | [address], | | | | | | [place] [address] | | | | + + + + + + + + | Specimen | + + | Blood specimen | | (specimen) | + + + +---------+ + + | Performing | Address | City/State/Zipcode | Phone Number | | Organization | | | | + +---------+ + + | EXTERNAL LAB | | | | + +---------+ + + Phosphorus (08/01/2013 5:06 AM PDT) + + + + + + | Component | Value | Ref Range | Performed | Pathologist | | | | | At | Signature | + + + + + + | PHOSPHORUS | 7.8 (H)Comment: Testing | 2.3 - 4.8 mg/dL | EXTERNAL | | | | performed at [facility], [address] | | LAB | | | | [address], | | | | | | [place] [address] | | | | + + + + + + + + | Specimen | + + | Blood specimen | | (specimen) | + + + +---------+ + + | Performing | Address | City/State/Zipcode | Phone Number | | Organization | | | | + +---------+ + + | EXTERNAL LAB | | | | + +---------+ + + Magnesium (08/01/2013 5:06 AM PDT) + + + + + + | Component | Value | Ref Range | Performed | Pathologist | | | | | At | Signature | + + + + + + | Magnesium | 2.0Comment: Testing | 1.7 - 2.4 mg/dL | EXTERNAL | | | | performed at [facility], [address] | | LAB | | | | [address], | | | | | | [place] [address] | | | | + + + + + + + + | Specimen | + + | Blood specimen | | (specimen) | + + + +---------+ + + | Performing | Address | City/State/Zipcode | Phone Number | | Organization | | | | + +---------+ + + | EXTERNAL LAB | | | | + +---------+ + + CK Total (08/01/2013 5:06 AM PDT) + + + + + + | Component | Value | Ref Range | Performed | Pathologist | | | | | At | Signature | + + + + + + | CK, Total | 320Comment: Testing | 55 - 400 U/L | EXTERNAL | | | | performed at [facility];[address] | | LAB | | | | [address];[place], [place] | | | | | | [address] | | | | + + + + + + + + | Specimen | + + | Blood specimen | | (specimen) | + + + +---------+ + + | Performing | Address | City/State/Zipcode | Phone Number | | Organization | | | | + +---------+ + + | EXTERNAL LAB | | | | + +---------+ + + Albumin (08/01/2013 5:06 AM PDT) + + + + + + | Component | Value | Ref Range | Performed | Pathologist | | | | | At | Signature | + + + + + + | Albumin | 3.1 (L)Comment: Testing | 3.6 - 5.0 g/dL | EXTERNAL | | | | performed at [facility], [address] | | LAB | | | | [address], | | | | | | [place] [address] | | | | + + + + + + + + | Specimen | + + | | + + + +---------+ + + | Performing | Address | City/State/Zipcode | Phone Number | | Organization | | | | + +---------+ + + | EXTERNAL LAB | | | | + +---------+ + + Basic Metabolic Panel (08/01/2013 5:06 AM PDT) + + + + + + | Component | Value | Ref Range | Performed | Pathologist | | | | | At | Signature | + + + + + + | Na | 134 (L)Comment: Testing | 135 - 143 | EXTERNAL | | | | performed at [facility], [address] | mmol/L | LAB | | | | [address], | | | | | | [place] [address] | | | | + + + + + + | K | 4.7Comment: Testing | 3.5 - 4.9 | EXTERNAL | | | | performed at [facility], [address] | mmol/L | LAB | | | | [address], | | | | | | [place] [address] | | | | + + + + + + | Cl | 98 (L)Comment: Testing | 99 - 109 mmol/L | EXTERNAL | | | | performed at [facility], [address] | | LAB | | | | [address], | | | | | | [place] [address] | | | | + + + + + + | CO2 | 23Comment: Testing | 23 - 32 mmol/L | EXTERNAL | | | | performed at [facility], [address] | | LAB | | | | [address], | | | | | | [place] [address] | | | | + + + + + + | Anion Gap | 18Comment: Testing | 5 - 20 mmol/L | EXTERNAL | | | | performed at [facility], [address] | | LAB | | | | [address], | | | | | | [place] [address] | | | | + + + + + + | Glucose, | 90Comment: Testing | 65 - 99 mg/dL | EXTERNAL | | | Fasting | performed at [facility], [address] | | LAB | | | | [address], | | | | | | [place] [address] | | | | + + + + + + | BUN | 67 (H)Comment: Testing | 8 - 25 mg/dL | EXTERNAL | | | | performed at [facility], [address] | | LAB | | | | [address], | | | | | | [place] [address] | | | | + + + + + + | Creatinine | 14.43 (H)Comment: | 0.70 - 1.30 | EXTERNAL | | | | Testing performed at | mg/dL | LAB | | | | [facility], [address] | | | | | | [place] | | | | | | [address] | | | | + + + + + + | BUN/Creatin | 5Comment: Testing | | EXTERNAL | | | ine Ratio | performed at [facility], [address] | | LAB | | | | [address], | | | | | | [place] [address] | | | | + + + + + + | Calcium | 8.2 (L)Comment: Testing | 8.5 - 10.2 | EXTERNAL | | | | performed at [facility], [address] | mg/dL | LAB | | | | [address], | | | | | | [place] [address] | | | | + + + + + + | Estimated | 4 (L)Comment: GFR <60: | mL/min/1.73m2 | EXTERNAL | | | GFR | CHRONIC KIDNEY DISEASE, | | LAB | | | | IF FOUND OVER A 3 MONTH | | | | | | PERIOD.GFR <15: KIDNEY | | | | | | FAILURE.FOR | | | | | | AMERICANS, MULTIPLY THE | | | | | | CALCULATED GFR BY | | | | | | 1.210.Testing performed | | | | | | at [facility], [address] | | | | | | [address], | | | | | | [place] [address] | | | | + + + + + + + + | Specimen | + + | Blood specimen | | (specimen) | + + + +---------+ + + | Performing | Address | City/State/Zipcode | Phone Number | | Organization | | | | + +---------+ + + | EXTERNAL LAB | | | | + +---------+ + + Urinalysis, Reflex Microscopic and/or Culture (07/31/2013 4:45 PM PDT) + + + + + + | Component | Value | Ref Range | Performed | Pathologist | | | | | At | Signature | + + + + + + | Color | YELLOWComment: Testing | | EXTERNAL | | | | performed at [facility], [address] | | LAB | | | | [address], | | | | | | [place] [address] | | | | + + + + + + | Clarity | CLEARComment: Testing | | EXTERNAL | | | | performed at [facility], [address] | | LAB | | | | [address], | | | | | | [place] [address] | | | | + + + + + + | Specific | 1.007Comment: Testing | 1.002 - 1.030 | EXTERNAL | | | [place], | performed at [facility], [address] | | LAB | | | Urine | [address], | | | | | | [place] [address] | | | | + + + + + + | Leukocyte | NEGATIVEComment: Testing | | EXTERNAL | | | Esterase, | performed at [facility], [address] | | LAB | | | Urine | [address], | | | | | | [place] [address] | | | | + + + + + + | Nitrite, | NEGATIVEComment: Testing | | EXTERNAL | | | Urine | performed at [facility], [address] | | LAB | | | | [address], | | | | | | [place] [address] | | | | + + + + + + | Urobilinoge | 0.2Comment: Testing | mg/dL | EXTERNAL | | | n, Urine | performed at [facility], [address] | | LAB | | | | [address], | | | | | | [place] [address] | | | | + + + + + + | Protein, | 30 (A)Comment: Testing | mg/dL | EXTERNAL | | | Urine | performed at [facility], [address] | | LAB | | | | [address], | | | | | | [place] [address] | | | | + + + + + + | pH, Urine | 7.0Comment: Testing | 5.0 - 8.0 | EXTERNAL | | | | performed at [facility], [address] | | LAB | | | | [address], | | | | | | [place] [address] | | | | + + + + + + | Blood, | LARGE (A)Comment: | | EXTERNAL | | | Urine | Testing performed at | | LAB | | | | [facility], [address] | | | | | | [place] | | | | | | [address] | | | | + + + + + + | Ketones | NEGATIVEComment: Testing | mg/dL | EXTERNAL | | | | performed at [facility], [address] | | LAB | | | | [address], | | | | | | [place] [address] | | | | + + + + + + | Bilirubin, | NEGATIVEComment: Testing | | EXTERNAL | | | Urine | performed at [facility], [address] | | LAB | | | | [address], | | | | | | [place] [address] | | | | + + + + + + | Glucose, | NEGATIVEComment: Testing | mg/dL | EXTERNAL | | | Urine | performed at [facility], [address] | | LAB | | | | [address], | | | | | | [place] [address] | | | | + + + + + + + + | Specimen | + + | | + + + +---------+ + + | Performing | Address | City/State/Zipcode | Phone Number | | Organization | | | | + +---------+ + + | EXTERNAL LAB | | | | + +---------+ + + Urinalysis, Microscopic Only (07/31/2013 4:45 PM PDT) + + + + + + | Component | Value | Ref Range | Performed | Pathologist | | | | | At | Signature | + + + + + + | WBC, UA | 1-5Comment: Testing | 0 - 5 /hpf | EXTERNAL | | | | performed at [facility], [address] | | LAB | | | | [address], | | | | | | [place] [address] | | | | + + + + + + | RBC, UA | 6-10Comment: Testing | 0 - 2 /hpf | EXTERNAL | | | | performed at [facility], [address] | | LAB | | | | [address], | | | | | | [place] [address] | | | | + + + + + + | Epithelial | 11-15Comment: Testing | /lpf | EXTERNAL | | | Cells | performed at [facility], [address] | | LAB | | | | [address], | | | | | | [place] [address] | | | | + + + + + + | Bacteria, | NONE SEENComment: | | EXTERNAL | | | UA | Testing performed at | | LAB | | | | [facility], [address] | | | | | | [place] | | | | | | [address] | | | | + + + + + + | HYALINE | 0-2Comment: Testing | | EXTERNAL | | | CASTS UA | performed at [facility], [address] | | LAB | | | | [address], | | | | | | [place] [address] | | | | + + + + + + + + | Specimen | + + | | + + + +---------+ + + | Performing | Address | City/State/Zipcode | Phone Number | | Organization | | | | + +---------+ + + | EXTERNAL LAB | | | | + +---------+ + + External Lab: CBC (07/31/2013 5:28 AM PDT) + + + + + + | Component | Value | Ref Range | Performed | Pathologist | | | | | At | Signature | + + + + + + | WBC | 7.6Comment: Testing | 3.8 - 11.0 K/uL | EXTERNAL | | | | performed at [facility], [address] | | LAB | | | | [address], | | | | | | [place] [address] | | | | + + + + + + | Red Blood | 3.97 (L)Comment: Testing | 4.20 - 5.70 | EXTERNAL | | | Cells | performed at [facility], [address] | M/uL | LAB | | | Counted | [address], | | | | | | [place] [address] | | | | + + + + + + | Hemoglobin | 13.1 (L)Comment: Testing | 13.2 - 17.0 | EXTERNAL | | | | performed at [facility], [address] | g/dL | LAB | | | | [address], | | | | | | [place] [address] | | | | + + + + + + | Hematocrit, | 37.5 (L)Comment: Testing | 39.0 - 50.0 % | EXTERNAL | | | POC | performed at [facility], [address] | | LAB | | | | [address], | | | | | | [place] [address] | | | | + + + + + + | MCV | 94.6Comment: Testing | 80.0 - 100.0 fl | EXTERNAL | | | | performed at [facility], [address] | | LAB | | | | [address], | | | | | | [place] [address] | | | | + + + + + + | MCH | 32.9Comment: Testing | 27.0 - 34.0 pg | EXTERNAL | | | | performed at [facility], [address] | | LAB | | | | [address], | | | | | | [place] [address] | | | | + + + + + + | MCHC | 34.8Comment: Testing | 32.0 - 35.5 | EXTERNAL | | | | performed at [facility], [address] | g/dL | LAB | | | | [address], | | | | | | [place] [address] | | | | + + + + + + | RDW-CV | 41.1Comment: Testing | 37 - 53 fl | EXTERNAL | | | | performed at [facility], [address] | | LAB | | | | [address], | | | | | | [place] [address] | | | | + + + + + + | Platelet | 164Comment: Testing | 150 - 400 K/uL | EXTERNAL | | | Count | performed at [facility], [address] | | LAB | | | Plasma | [address], | | | | | | [place] [address] | | | | + + + + + + | MPV | 9.2Comment: Testing | fl | EXTERNAL | | | | performed at [facility], [address] | | LAB | | | | [address], | | | | | | [place] [address] | | | | + + + + + + | Differentia | AUTOMATEDComment: | | EXTERNAL | | | l Type | Testing performed at | | LAB | | | | [facility], [address] | | | | | | [place] | | | | | | [address] | | | | + + + + + + | % Segmented | 69.2Comment: Testing | % | EXTERNAL | | | | performed at [facility], [address] | | LAB | | | Neutrophils | [address], | | | | | | [place] [address] | | | | + + + + + + | % | 14.3Comment: Testing | % | EXTERNAL | | | Lymphocytes | performed at [facility], [address] | | LAB | | | | [address], | | | | | | [place] [address] | | | | + + + + + + | % Monocytes | 13.4Comment: Testing | % | EXTERNAL | | | | performed at [facility], [address] | | LAB | | | | [address], | | | | | | [place], [place] [address] | | | | + + + + + + | % | 2.4Comment: Testing | % | EXTERNAL | | | Eosinophils | performed at [facility], [address] | | LAB | | | | [address], | | | | | | [place] [address] | | | | + + + + + + | % Basophils | 0.7Comment: Testing | % | EXTERNAL | | | | performed at [facility], [address] | | LAB | | | | [address], | | | | | | [place] [address] | | | | + + + + + + | Absolute | 5.3Comment: Testing | 1.9 - 7.4 K/uL | EXTERNAL | | | Segmented | performed at [facility], [address] | | LAB | | | Neutrophils | [address], | | | | | | [place] [address] | | | | + + + + + + | Absolute | 1.1Comment: Testing | 1.0 - 3.9 K/uL | EXTERNAL | | | Lymphocytes | performed at [facility], [address] | | LAB | | | | [address], | | | | | | [place] [address] | | | | + + + + + + | Absolute | 1.0 (H)Comment: Testing | 0 - 0.8 K/uL | EXTERNAL | | | Monocytes | performed at [facility], [address] | | LAB | | | | [address], | | | | | | [place] [address] | | | | + + + + + + | Absolute | 0.2Comment: Testing | 0 - 0.5 K/uL | EXTERNAL | | | Eosinophils | performed at [facility], [address] | | LAB | | | | [address], | | | | | | [place] [address] | | | | + + + + + + | Absolute | 0.1Comment: Testing | 0 - 0.1 K/uL | EXTERNAL | | | Basophils | performed at [facility], [address] | | LAB | | | | [address], | | | | | | [place] [address] | | | | + + + + + + + + | Specimen | + + | Blood specimen | | (specimen) | + + + +---------+ + + | Performing | Address | City/State/Zipcode | Phone Number | | Organization | | | | + +---------+ + + | EXTERNAL LAB | | | | + +---------+ + + Phosphorus (07/31/2013 5:28 AM PDT) + + + + + + | Component | Value | Ref Range | Performed | Pathologist | | | | | At | Signature | + + + + + + | PHOSPHORUS | 6.9 (H)Comment: Testing | 2.3 - 4.8 mg/dL | EXTERNAL | | | | performed at [facility], [address] | | LAB | | | | [address], | | | | | | [place] [address] | | | | + + + + + + + + | Specimen | + + | Blood specimen | | (specimen) | + + + +---------+ + + | Performing | Address | City/State/Zipcode | Phone Number | | Organization | | | | + +---------+ + + | EXTERNAL LAB | | | | + +---------+ + + Magnesium (07/31/2013 5:28 AM PDT) + + + + + + | Component | Value | Ref Range | Performed | Pathologist | | | | | At | Signature | + + + + + + | Magnesium | 2.0Comment: Testing | 1.7 - 2.4 mg/dL | EXTERNAL | | | | performed at [facility], [address] | | LAB | | | | [address], | | | | | | [place] [address] | | | | + + + + + + + + | Specimen | + + | Blood specimen | | (specimen) | + + + +---------+ + + | Performing | Address | City/State/Zipcode | Phone Number | | Organization | | | | + +---------+ + + | EXTERNAL LAB | | | | + +---------+ + + CK Total (07/31/2013 5:28 AM PDT) + + + + + + | Component | Value | Ref Range | Performed | Pathologist | | | | | At | Signature | + + + + + + | CK, Total | 394Comment: Testing | 55 - 400 U/L | EXTERNAL | | | | performed at [facility];[address] | | LAB | | | | [address];[place], [place] | | | | | | [address] | | | | + + + + + + + + | Specimen | + + | Blood specimen | | (specimen) | + + + +---------+ + + | Performing | Address | City/State/Zipcode | Phone Number | | Organization | | | | + +---------+ + + | EXTERNAL LAB | | | | + +---------+ + + Comprehensive Metabolic Panel (07/31/2013 5:28 AM PDT) + + + + + + | Component | Value | Ref Range | Performed | Pathologist | | | | | At | Signature | + + + + + + | Na | 134 (L)Comment: Testing | 135 - 143 | EXTERNAL | | | | performed at [facility], [address] | mmol/L | LAB | | | | [address], | | | | | | [place] [address] | | | | + + + + + + | K | 4.9Comment: Testing | 3.5 - 4.9 | EXTERNAL | | | | performed at [facility], [address] | mmol/L | LAB | | | | [address], | | | | | | [place] [address] | | | | + + + + + + | Cl | 101Comment: Testing | 99 - 109 mmol/L | EXTERNAL | | | | performed at [facility], [address] | | LAB | | | | [address], | | | | | | [place] [address] | | | | + + + + + + | CO2 | 24Comment: Testing | 23 - 32 mmol/L | EXTERNAL | | | | performed at [facility], [address] | | LAB | | | | [address], | | | | | | [place] [address] | | | | + + + + + + | Anion Gap | 14Comment: Testing | 5 - 20 mmol/L | EXTERNAL | | | | performed at [facility], [address] | | LAB | | | | [address], | | | | | | [place] [address] | | | | + + + + + + | Glucose, | 96Comment: Testing | 65 - 99 mg/dL | EXTERNAL | | | Fasting | performed at [facility], [address] | | LAB | | | | [address], | | | | | | [place] [address] | | | | + + + + + + | BUN | 63 (H)Comment: Testing | 8 - 25 mg/dL | EXTERNAL | | | | performed at [facility], [address] | | LAB | | | | [address], | | | | | | [place] [address] | | | | + + + + + + | Creatinine | 13.28 (H)Comment: | 0.70 - 1.30 | EXTERNAL | | | | Testing performed at | mg/dL | LAB | | | | [facility], [address] [facility] | | | | | | [place] | | | | | | [address] | | | | + + + + + + | BUN/Creatin | 5Comment: Testing | | EXTERNAL | | | ine Ratio | performed at [facility], [address] | | LAB | | | | [address], | | | | | | [place] [address] | | | | + + + + + + | Calcium | 7.9 (L)Comment: Testing | 8.5 - 10.2 | EXTERNAL | | | | performed at [facility], [address] | mg/dL | LAB | | | | [address], | | | | | | [place] [address] | | | | + + + + + + | Protein, | 5.3 (L)Comment: Testing | 6.3 - 8.2 g/dL | EXTERNAL | | | Total | performed at [facility], [address] | | LAB | | | | [address], | | | | | | [place] [address] | | | | + + + + + + | Albumin | 2.8 (L)Comment: Testing | 3.6 - 5.0 g/dL | EXTERNAL | | | | performed at [facility], [address] | | LAB | | | | [address], | | | | | | [place] [address] | | | | + + + + + + | Globulin | 2.5Comment: Testing | 1.3 - 4.9 g/dL | EXTERNAL | | | | performed at [facility], [address] | | LAB | | | | [address], | | | | | | [place] [address] | | | | + + + + + + | A/G Ratio | 1.1Comment: Testing | 1.0 - 2.4 | EXTERNAL | | | | performed at [facility], [address] | | LAB | | | | [address], | | | | | | [place] [address] | | | | + + + + + + | Bilirubin | 0.4Comment: Testing | 0.1 - 1.5 mg/dL | EXTERNAL | | | Total | performed at [facility], [address] | | LAB | | | | [address], | | | | | | [place] [address] | | | | + + + + + + | ALP, | 24 (L)Comment: Testing | 35 - 115 U/L | EXTERNAL | | | External | performed at [facility], [address] | | LAB | | | | [address], | | | | | | [place] [address] | | | | + + + + + + | AST | 37Comment: Testing | 10 - 45 U/L | EXTERNAL | | | | performed at [facility], [address] | | LAB | | | | [address], | | | | | | [place] [address] | | | | + + + + + + | ALT | 87 (H)Comment: Testing | 10 - 65 U/L | EXTERNAL | | | | performed at [facility], [address] | | LAB | | | | [address], | | | | | | [place] [address] | | | | + + + + + + | Estimated | 4 (L)Comment: GFR <60: | mL/min/1.73m2 | EXTERNAL | | | GFR | CHRONIC KIDNEY DISEASE, | | LAB | | | | IF FOUND OVER A 3 MONTH | | | | | | PERIOD.GFR <15: KIDNEY | | | | | | FAILURE.FOR | | | | | | AMERICANS, MULTIPLY THE | | | | | | CALCULATED GFR BY | | | | | | 1.210.Testing performed | | | | | | at [facility], [address] | | | | | | [address], | | | | | | [place] [address] | | | | + + + + + + + + | Specimen | + + | Blood specimen | | (specimen) | + + + +---------+ + + | Performing | Address | City/State/Zipcode | Phone Number | | Organization | | | | + +---------+ + + | EXTERNAL LAB | | | | + +---------+ + + XR Hip Left 2-3 Views (07/30/2013 7:19 PM PDT) + + | Specimen | + + | | + + + + + | Impressions | Performed At | + + + | 1. 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 | | | | | + + + + + + | Narrative | Performed At | + + + | LUCY CHEEK 1975 XR HIP 2 VIEW LEFT 07/30/2013 7:19 PM | | | INDICATION: Hip pain COMPARISON: None TECHNIQUE: Two views of | | | the left hip FINDINGS: The sacroiliac joints and symphysis pubis | | | are normal. There are no bony pelvic fractures. There is moderate left | | | and severe right osteoarthritis of the hip joints with moderate | | | spurring. Some osteophyte formation is also noted along the femoral | | | head neck junction bilaterally, right greater than left. There is no | | | acute fracture or dislocation. There appears to be some cellulitis or | | | subcutaneous edema. | | + + + + + | Procedure Note | + + | Pierre, Rad Conversion - 09/26/2018 3:53 PM PDT [facility] 1975XR HIP 2 VIEW | | LEFT07/30/2013 7:19 PM INDICATION: Hip pain COMPARISON: None TECHNIQUE: Two views of the | | left hip FINDINGS: The sacroiliac joints and symphysis pubis are normal. There are no | | bony pelvic fractures. There is moderate left and severe right osteoarthritis of the hip | | joints with moderate spurring. Some osteophyte formation is also noted along the | | femoral head neck junction bilaterally, right greater than left. There is no acute | | fracture or dislocation. There appears to be some cellulitis or subcutaneous edema. | | IMPRESSION: 1. 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 | | | |TECHNIQUE: Two views of the left hip | | | |FINDINGS: The sacroiliac joints and symphysis pubis are normal. There are no bony pelvic fr actures. There is moderate left and severe right osteoarthritis of the hip joints with moder ate spurring. Some osteophyte | |formation is also noted along the femoral | | head neck junction bilaterally, right greater than left. There is no acute fracture or dis location. There appears to be some cellulitis or subcutaneous edema. | | | |IMPRESSION: | |1. 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 | | | | | + + VAS Lower Extremity Venous Left (07/30/2013 5:59 PM PDT) + + | Specimen | + + | | + + + + + | Impressions | Performed At | + + + | 1. No evidence of lower extremity deep vein thrombosis. | | | | | + + + + + + | Narrative | Performed At | + + + | [facility] 1975 US DOPPLER VENOUS LEG LEFT 07/30/2013 | | | 5:59 PM HISTORY: Lower extremity swelling COMPARISON: None. | | | TECHNIQUE: Left lower extremity venous duplex, quinonez scale, color | | | flow and spectral analysis performed FINDINGS: The deep venous | | | system is normal on grayscale imaging. Normal compressibility and | | | augmentation is demonstrated. The calf veins are patent on color flow | | | assessment. There is no Hills's cyst. Moderate subcutaneous edema is | | | noted along the calf. | | + + + + + | Procedure Note | + + | Celso Jay Conversion - 09/26/2018 3:53 PM DAINA [facility] 1975US DOPPLER | | VENOUS LEG LEFT07/30/2013 5:59 PM HISTORY: Lower extremity swelling COMPARISON: None. | | TECHNIQUE: Left lower extremity venous duplex, quinonez scale, color flow and spectral | | analysis performed FINDINGS: The deep venous system is normal on grayscale imaging. | | Normal compressibility and augmentation is demonstrated. The calf veins are patent on | | color flow assessment. There is no Hills's cyst. Moderate subcutaneous edema is noted | | along the calf. IMPRESSION: 1. No evidence of lower extremity deep vein thrombosis. | | | | | |TECHNIQUE: Left lower extremity venous duplex, quinonez scale, color flow and spectral analysis performed | | | |FINDINGS: The deep venous system is normal on grayscale imaging. Normal compressibility and augmentation is demonstrated. The calf veins are patent on color flow assessment. There is no Hills's cyst. Moderate subcutaneous edema is noted along the calf. | | | |IMPRESSION: | |1. No evidence of lower extremity deep vein thrombosis. | | | | | + + Potassium (07/30/2013 1:20 PM PDT) + + + + + + | Component | Value | Ref Range | Performed | Pathologist | | | | | At | Signature | + + + + + + | K | 4.2Comment: Testing | 3.5 - 4.9 | EXTERNAL | | | | performed at [facility];888 | mmol/L | LAB | | | | [address];[place], [place] | | | | | | [address] | | | | + + + + + + + + | Specimen | + + | Blood specimen | | (specimen) | + + + +---------+ + + | Performing | Address | City/State/Zipcode | Phone Number | | Organization | | | | + +---------+ + + | EXTERNAL LAB | | | | + +---------+ + + External Lab: CBC (07/30/2013 4:22 AM PDT) + + + + + + | Component | Value | Ref Range | Performed | Pathologist | | | | | At | Signature | + + + + + + | WBC | 8.3Comment: Testing | 3.8 - 11.0 K/uL | EXTERNAL | | | | performed at [facility], [address] | | LAB | | | | [address], | | | | | | [place] [address] | | | | + + + + + + | Red Blood | 4.18 (L)Comment: Testing | 4.20 - 5.70 | EXTERNAL | | | Cells | performed at [facility], [address] | M/uL | LAB | | | Counted | [address], | | | | | | [place] [address] | | | | + + + + + + | Hemoglobin | 13.5Comment: Testing | 13.2 - 17.0 | EXTERNAL | | | | performed at [facility], [address] | g/dL | LAB | | | | [address], | | | | | | [place] [address] | | | | + + + + + + | Hematocrit, | 39.0Comment: Testing | 39.0 - 50.0 % | EXTERNAL | | | POC | performed at [facility], [address] | | LAB | | | | [address], | | | | | | [place] [address] | | | | + + + + + + | MCV | 93.4Comment: Testing | 80.0 - 100.0 fl | EXTERNAL | | | | performed at [facility], [address] | | LAB | | | | [address], | | | | | | [place] [address] | | | | + + + + + + | MCH | 32.3Comment: Testing | 27.0 - 34.0 pg | EXTERNAL | | | | performed at [facility], [address] | | LAB | | | | [address], | | | | | | [place] [address] | | | | + + + + + + | MCHC | 34.6Comment: Testing | 32.0 - 35.5 | EXTERNAL | | | | performed at [facility], [address] | g/dL | LAB | | | | [address], | | | | | | [place] [address] | | | | + + + + + + | RDW-CV | 40.7Comment: Testing | 37 - 53 fl | EXTERNAL | | | | performed at [facility], [address] | | LAB | | | | [address], | | | | | | [place] [address] | | | | + + + + + + | Platelet | 160Comment: Testing | 150 - 400 K/uL | EXTERNAL | | | Count | performed at [facility], [address] | | LAB | | | Plasma | [address], | | | | | | [place] [address] | | | | + + + + + + | MPV | 9.6Comment: Testing | fl | EXTERNAL | | | | performed at [facility], [address] | | LAB | | | | [address], | | | | | | [place] [address] | | | | + + + + + + | Differentia | AUTOMATEDComment: | | EXTERNAL | | | l Type | Testing performed at | | LAB | | | | [facility], [address] | | | | | | [place] | | | | | | [address] | | | | + + + + + + | % Segmented | 70.7Comment: Testing | % | EXTERNAL | | | | performed at [facility], [address] | | LAB | | | Neutrophils | [address], | | | | | | [place] [address] | | | | + + + + + + | % | 13.8Comment: Testing | % | EXTERNAL | | | Lymphocytes | performed at [facility], [address] | | LAB | | | | [address], | | | | | | [place] [address] | | | | + + + + + + | % Monocytes | 13.4Comment: Testing | % | EXTERNAL | | | | performed at [facility], [address] | | LAB | | | | [address], | | | | | | [place] [address] | | | | + + + + + + | % | 1.6Comment: Testing | % | EXTERNAL | | | Eosinophils | performed at [facility], [address] | | LAB | | | | [address], | | | | | | [place] [address] | | | | + + + + + + | % Basophils | 0.5Comment: Testing | % | EXTERNAL | | | | performed at [facility], [address] | | LAB | | | | [address], | | | | | | [place] [address] | | | | + + + + + + | Absolute | 5.9Comment: Testing | 1.9 - 7.4 K/uL | EXTERNAL | | | Segmented | performed at [facility], [address] | | LAB | | | Neutrophils | [address], | | | | | | [place] [address] | | | | + + + + + + | Absolute | 1.2Comment: Testing | 1.0 - 3.9 K/uL | EXTERNAL | | | Lymphocytes | performed at [facility], [address] | | LAB | | | | [address], | | | | | | [place] [address] | | | | + + + + + + | Absolute | 1.1 (H)Comment: Testing | 0 - 0.8 K/uL | EXTERNAL | | | Monocytes | performed at [facility], [address] | | LAB | | | | [address], | | | | | | [place] [address] | | | | + + + + + + | Absolute | 0.1Comment: Testing | 0 - 0.5 K/uL | EXTERNAL | | | Eosinophils | performed at [facility], [address] | | LAB | | | | [address], | | | | | | [place] [address] | | | | + + + + + + | Absolute | 0.0Comment: Testing | 0 - 0.1 K/uL | EXTERNAL | | | Basophils | performed at [facility], [address] | | LAB | | | | [address], | | | | | | [place] [address] | | | | + + + + + + + + | Specimen | + + | Blood specimen | | (specimen) | + + + +---------+ + + | Performing | Address | City/State/Zipcode | Phone Number | | Organization | | | | + +---------+ + + | EXTERNAL LAB | | | | + +---------+ + + CK Total (07/30/2013 4:22 AM PDT) + + + + + + | Component | Value | Ref Range | Performed | Pathologist | | | | | At | Signature | + + + + + + | CK, Total | 649 (H)Comment: Testing | 55 - 400 U/L | EXTERNAL | | | | performed at [facility];[address] | | LAB | | | | [address];[place], [place] | | | | | | [address] | | | | + + + + + + + + | Specimen | + + | Blood specimen | | (specimen) | + + + +---------+ + + | Performing | Address | City/State/Zipcode | Phone Number | | Organization | | | | + +---------+ + + | EXTERNAL LAB | | | | + +---------+ + + Renal Function Panel (07/30/2013 4:22 AM PDT) + + + + + + | Component | Value | Ref Range | Performed | Pathologist | | | | | At | Signature | + + + + + + | Na | 133 (L)Comment: Testing | 135 - 143 | EXTERNAL | | | | performed at [facility];[address] | mmol/L | LAB | | | | [address];[place] | | | | | | [address] | | | | + + + + + + | K | 5.9 (H)Comment: Testing | 3.5 - 4.9 | EXTERNAL | | | | performed at [facility];[address] | mmol/L | LAB | | | | [address];[place] | | | | | | [address] | | | | + + + + + + | Cl | 99Comment: Testing | 99 - 109 mmol/L | EXTERNAL | | | | performed at [facility];[address] | | LAB | | | | [address];[place] | | | | | | [address] | | | | + + + + + + | CO2 | 20 (L)Comment: Testing | 23 - 32 mmol/L | EXTERNAL | | | | performed at [facility];[address] | | LAB | | | | [address];[place] | | | | | | [address] | | | | + + + + + + | Anion Gap | 19Comment: Testing | 5 - 20 mmol/L | EXTERNAL | | | | performed at [facility];[address] | | LAB | | | | [address];[place] | | | | | | [address] | | | | + + + + + + | Glucose, | 96Comment: Testing | 65 - 99 mg/dL | EXTERNAL | | | Fasting | performed at [facility];[address] | | LAB | | | | [address];[place] | | | | | | [address] | | | | + + + + + + | BUN | 102 (H)Comment: Testing | 8 - 25 mg/dL | EXTERNAL | | | | performed at [facility];[address] | | LAB | | | | [address];[place] | | | | | | [address] | | | | + + + + + + | Creatinine | 16.30 (H)Comment: | 0.70 - 1.30 | EXTERNAL | | | | Testing performed at | mg/dL | LAB | | | | [facility];[address] | | [address];[place] [address] | | | | + + + + + + | Calcium | 7.0 (L)Comment: Testing | 8.5 - 10.2 | EXTERNAL | | | | performed at [facility];[address] | mg/dL | LAB | | | | [address];[place] | | | | | | [address] | | | | + + + + + + | Albumin | 2.4 (L)Comment: Testing | 3.6 - 5.0 g/dL | EXTERNAL | | | | performed at [facility];[address] | | LAB | | | | [address];[place] | | | | | | [address] | | | | + + + + + + | PHOSPHORUS | 7.6 (H)Comment: Testing | 2.3 - 4.8 mg/dL | EXTERNAL | | | | performed at [facility];[address] | | LAB | | | | [address];[place] | | | | | | [address] | | | | + + + + + + | Estimated | 4 (L)Comment: GFR <60: | mL/min/1.73m2 | EXTERNAL | | | GFR | CHRONIC KIDNEY DISEASE, | | LAB | | | | IF FOUND OVER A 3 MONTH | | | | | | PERIOD.GFR <15: KIDNEY | | | | | | FAILURE.FOR | | | | | | AMERICANS, MULTIPLY THE | | | | | | CALCULATED GFR BY | | | | | | 1.210.Testing performed | | | | | | at [facility];[address];[place] [address] | | | | + + + + + + + + | Specimen | + + | Blood specimen | | (specimen) | + + + +---------+ + + | Performing | Address | City/State/Zipcode | Phone Number | | Organization | | | | + +---------+ + + | EXTERNAL LAB | | | | + +---------+ + + CK Total (07/29/2013 10:00 AM PDT) + + + + + + | Component | Value | Ref Range | Performed | Pathologist | | | | | At | Signature | + + + + + + | CK, Total | 1011 (H)Comment: Testing | 55 - 400 U/L | EXTERNAL | | | | performed at [facility];[address] | | LAB | | | | [address];[place], [place] | | | | | | [address] | | | | + + + + + + + + | Specimen | + + | Blood specimen | | (specimen) | + + + +---------+ + + | Performing | Address | City/State/Zipcode | Phone Number | | Organization | | | | + +---------+ + + | EXTERNAL LAB | | | | + +---------+ + + Basic Metabolic Panel (07/29/2013 10:00 AM PDT) + + + + + + | Component | Value | Ref Range | Performed | Pathologist | | | | | At | Signature | + + + + + + | Na | 133 (L)Comment: Testing | 135 - 143 | EXTERNAL | | | | performed at [facility];[address] | mmol/L | LAB | | | | [address];[place] | | | | | | [address] | | | | + + + + + + | K | 4.3Comment: Testing | 3.5 - 4.9 | EXTERNAL | | | | performed at [facility];[address] | mmol/L | LAB | | | | [address];[place] | | | | | | [address] | | | | + + + + + + | Cl | 97 (L)Comment: Testing | 99 - 109 mmol/L | EXTERNAL | | | | performed at [facility];[address] | | LAB | | | | [address];[place] | | | | | | [address] | | | | + + + + + + | CO2 | 25Comment: Testing | 23 - 32 mmol/L | EXTERNAL | | | | performed at [facility];[address] | | LAB | | | | [address];[place] | | | | | | [address] | | | | + + + + + + | Anion Gap | 16Comment: Testing | 5 - 20 mmol/L | EXTERNAL | | | | performed at [facility];[address] | | LAB | | | | [address];[place] | | | | | | [address] | | | | + + + + + + | Glucose, | 93Comment: Testing | 65 - 99 mg/dL | EXTERNAL | | | Fasting | performed at [facility];[address] | | LAB | | | | [address];[place] | | | | | | [address] | | | | + + + + + + | BUN | 90 (H)Comment: Testing | 8 - 25 mg/dL | EXTERNAL | | | | performed at [facility];[address] | | LAB | | | | [address];[place] | | | | | | [address] | | | | + + + + + + | Creatinine | 13.05 (H)Comment: | 0.70 - 1.30 | EXTERNAL | | | | Testing performed at | mg/dL | LAB | | | | [facility];[address] | [address];[place] [address] | | | | + + + + + + | BUN/Creatin | 7Comment: Testing | | EXTERNAL | | | ine Ratio | performed at [facility];[address] | | LAB | | | | [address];[place] | | | | | | [address] | | | | + + + + + + | Calcium | 7.5 (L)Comment: Testing | 8.5 - 10.2 | EXTERNAL | | | | performed at [facility];[address] | mg/dL | LAB | | | | [address];[place], [place] | | | | | | [address] | | | | + + + + + + | Estimated | 5 (L)Comment: GFR <60: | mL/min/1.73m2 | EXTERNAL | | | GFR | CHRONIC KIDNEY DISEASE, | | LAB | | | | IF FOUND OVER A 3 MONTH | | | | | | PERIOD.GFR <15: KIDNEY | | | | | | FAILURE.FOR | | | | | | AMERICANS, MULTIPLY THE | | | | | | CALCULATED GFR BY | | | | | | 1.210.Testing performed | | | | | | at [facility];[address] [facility] | | | | | | [address]vd;[place] [address] | | | | + + + + + + + + | Specimen | + + | Blood specimen | | (specimen) | + + + +---------+ + + | Performing | Address | City/State/Zipcode | Phone Number | | Organization | | | | + +---------+ + + | EXTERNAL LAB | | | | + +---------+ + + ECG 12 lead (07/29/2013 5:42 AM PDT) + + + + + + | Component | Value | Ref Range | Performed | Pathologist | | | | | At | Signature | + + + + + + | DIAGNOSIS: | Normal sinus | | EXTERNAL | | | | rhythmNormal ECGWhen | | LAB | | | | compared with ECG of | | | | | | 28-JUL-2013 14:13,No | | | | | | significant change was | | | | | | foundConfirmed by | | | | | | DONNA HURST ([id number]) on | | | | | | 07/29/2013 12:04:20 PM | | | | + + + + + + + + | Specimen | + + | | + + + + + | Narrative | Performed At | + + + | Historically converted procedure from [facility] Epic environment | EXTERNAL LAB | + + + + +---------+ + + | Performing | Address | City/State/Zipcode | Phone Number | | Organization | | | | + +---------+ + + | EXTERNAL LAB | | | | + +---------+ + + XR Chest 1 Vw (07/29/2013 5:11 AM PDT) + + | Specimen | + + | | + + + + + | Impressions | Performed At | + + + | 1. Mild cardiomegaly and grade 1 pulmonary venous hypertension, | | | unchanged. 2. Incomplete inspiratory effort. 3. Persistent | | | central venous catheter, unchanged. | | + + + + + + | Narrative | Performed At | + + + | LUCY CHEEK XR CHEST 1 VIEW 07/29/2013 5:11 AM History: 38 | | | years. Male. Acute renal failure. Technique: AP portable | | | upright technique was performed at 1435 hours. Comparison: 07/28/13 | | | Findings: The inspiratory effort is moderate. No lung | | | consolidation or pleural effusion visualized. Mild cardiomegaly is | | | still present. The upper lobe pulmonary vasculature is distended, | | | indicating grade 1 pulmonary venous hypertension, a precursor to | | | interstitial edema. No visible pulmonary edema at present, however. | | | The pulmonary melissa and mediastinal contours are normal. The thoracic | | | aorta is normal, without dilatation or calcification. A large | | | caliber right internal jugular central venous catheter is noted with | | | its tip in the distal superior vena cava, unchanged. No acute osseous | | | findings. 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 | | + + + + + | Procedure Note | + + | Pierre, Rad Conversion - 09/26/2018 3:53 PM PDT LUCY CHEEK CHEST 1 VIEW07/29/2013 | | 5:11 AM History: 38 years. Male. Acute renal failure. Technique: AP portable upright | | technique was performed at 1435 hours.Comparison: 07/28/13 Findings: The inspiratory | | effort is moderate. No lung consolidation or pleural effusion visualized. Mild | | cardiomegaly is still present. The upper lobe pulmonary vasculature is distended, | | indicating grade 1 pulmonary venous hypertension, a precursor to interstitial edema. No | | visible pulmonary edema at present, however. The pulmonary melissa and mediastinal contours | | are normal. The thoracic aorta is normal, without dilatation or calcification. A large | | caliber right internal jugular central venous catheter is noted with its tip in the | | distal superior vena cava, unchanged. No acute osseous findings. Exostosis on the distal | | left clavicle, a chronic finding. IMPRESSION: 1. Mild cardiomegaly and grade 1 | | pulmonary venous hypertension, unchanged.2. Incomplete inspiratory effort.3. | | Persistent central venous catheter, unchanged. | | | |A large caliber right internal jugular central venous catheter is noted with its tip in the distal superior vena cava, unchanged. No acute osseous findings. Exostosis on the distal le ft clavicle, a chronic finding. | | | |IMPRESSION: | |1. Mild cardiomegaly and grade 1 pulmonary venous hypertension, unchanged. | |2. Incomplete inspiratory effort. | |3. Persistent central venous catheter, unchanged. | | | | | | | + + Protein Electrophoresis and ESPINOZA with FLC (07/29/2013 4:00 AM PDT) + + + + + + | Component | Value | Ref Range | Performed | Pathologist | | | | | At | Signature | + + + + + + | Ig [place] | 6.92 (H)Comment: Testing | 0.33 - 1.94 | EXTERNAL | | | Free Light | performed at [facility], [address] | mg/dL | LAB | | | Chain | [address] [place] | | | | | | [place] [address] | | | | + + + + + + | kaplamflc | 7.27 (H)Comment: Testing | 0.57 - 2.63 | EXTERNAL | | | | performed at [facility], [address] | mg/dL | LAB | | | | [address] [place] | | | | | | [place] [address] | | | | + + + + + + | [place] | 0.95Comment: NOTE: NEW | 0.26 - 1.65 | EXTERNAL | | | a Free | METHOD OF JUNE | | LAB | | | Light Chain | . RESULTS | | | | | Ratio | OBTAINED BY USING | | | | | | [employer]ING [employer] | | | | | | ON A [employer] | | | | | | ANALYZER. RESULTS JUNE | | | | | | VARYFROM PREVIOUS | | | | | | METHOD.Testing performed | | | | | | at [facility], [address] | | | | | | [place] | | | | | | [address] | | | | + + + + + + | Protein, | 5.5 (L)Comment: Testing | 6.2 - 8.2 g/dL | EXTERNAL | | | Total | performed at [facility], [address] | | LAB | | | | [address] | | | | | | [place] [address] | | | | + + + + + + | ELP Albumin | 3.1 (L)Comment: Testing | 3.5 - 5.0 g/dL | EXTERNAL | | | % | performed at [facility], [address] | | LAB | | | | [address] | | | | | | [place] [address] | | | | + + + + + + | ALPHA 1, BF | 0.3Comment: Testing | 0.1 - 0.4 g/dL | EXTERNAL | | | | performed at [facility], [address] | | LAB | | | | [place] | | | | | | [place] [address] | | | | + + + + + + | ALPHA 2 | 0.7Comment: Testing | 0.5 - 1.1 g/dL | EXTERNAL | | | GLOBULIN | performed at [facility], [address] | | LAB | | | | [place] | | | | | | [place] [address] | | | | + + + + + + | Beta-1 | 0.4Comment: Testing | 0.4 - 0.8 g/dL | EXTERNAL | | | | performed at [facility], [address] | | LAB | | | | [address] [place] | | | | | | [place] [address] | | | | + + + + + + | BETA 2, BF | 0.3Comment: Testing | 0.2 - 0.5 g/dL | EXTERNAL | | | | performed at [facility], [address] | | LAB | | | | [address], [place] | | | | | | [place] [address] | | | | + + + + + + | GAMMA, BF | 0.7Comment: Testing | 0.6 - 1.5 g/dL | EXTERNAL | | | | performed at [facility], [address] | | LAB | | | | [address], [place] | | | | | | [place] [address] | | | | + + + + + + | Albumin | 55.5Comment: Testing | 45.0 - 80.0 % | EXTERNAL | | | | performed at [facility], [address] | | LAB | | | | [address], [place] | | | | | | [place] [address] | | | | + + + + + + | ALPHA 1, BF | 5.8Comment: Testing | 1.0 - 6.0 % | EXTERNAL | | | | performed at [facility], [address] | | LAB | | | | [address], [place] | | | | | | [place] [address] | | | | + + + + + + | Alpha 2 % | 13.1Comment: Testing | 6.0 - 17.0 % | EXTERNAL | | | | performed at [facility], [address] | | LAB | | | | [address] | | | | | | [place] [address] | | | | + + + + + + | Beta-1 % | 7.0Comment: Testing | 5.0 - 13.0 % | EXTERNAL | | | | performed at [facility], [address] | | LAB | | | | [address] | | | | | | [place] [address] | | | | + + + + + + | Beta-2 % | 5.6Comment: Testing | 2.0 - 8.0 % | EXTERNAL | | | | performed at [facility], [address] | | LAB | | | | [address] | | | | | | [place] [address] | | | | + + + + + + | GAMMA, BF | 13.0Comment: Testing | 7.5 - 24.0 % | EXTERNAL | | | | performed at [facility], [address] | | LAB | | | | [address] [place] | | | | | | [place] [address] | | | | + + + + + + | ELP | HYPOALBUMINEMIA.Comment: | | EXTERNAL | | | INTERPRETAT | INTERPRETED BY | | LAB | | | ION | CLDTesting performed at | | | | | | [facility], [address] | | | | | | [place] | | | | | | [address] | | | | + + + + + + | Immunofixat | SEE BELOWComment: SERUM | | EXTERNAL | | | ion, Urine | ESPINOZA STUDIES SHOW NO | | LAB | | | Interp | EVIDENCE OF MONOCLONAL | | | | | | GAMMOPATHY.INTERPRETED | | | | | | BY CLDTesting performed | | | | | | at [facility], [address] | | | | | | [place] | | | | | | [address] | | | | + + + + + + + + | Specimen | + + | Blood specimen | | (specimen) | + + + +---------+ + + | Performing | Address | City/State/Zipcode | Phone Number | | Organization | | | | + +---------+ + + | EXTERNAL LAB | | | | + +---------+ + + Hepatitis A, B, C Panel, Reflex (07/29/2013 4:00 AM PDT) + + + + + + | Component | Value | Ref Range | Performed | Pathologist | | | | | At | Signature | + + + + + + | Hep A Total | REACTIVE (A)Comment: | | EXTERNAL | | | Ab Interp | Testing performed at | | LAB | | | | [facility], [address] | | | | | | [place] | | | | | | [address] | | | | + + + + + + | HEP A IGM | NON REACTIVEComment: | | EXTERNAL | | | | Testing performed at | | LAB | | | | [facility], [address] | | | | | | [place] | | | | | | [address] | | | | + + + + + + | Hepatitis B | NON REACTIVEComment: | | EXTERNAL | | | Surface Ag | Testing performed at | | LAB | | | | [facility], [address] | | | | | | [place] | | | | | | [address] | | | | + + + + + + | Hepatitis B | NON REACTIVEComment: | | EXTERNAL | | | Core Ab | Testing performed at | | LAB | | | Total | [facility], [address] | | | | | | [place] | | | | | | [address] | | | | + + + + + + | HCV Ab | REACTIVE (A)Comment: | | EXTERNAL | | | | THIS IS A REPORTABLE | | LAB | | | | DISEASE. PLEASE | | | | | | CONTACT YOUR | | | | | | [facility] | | | | | | DEPARTMENT.Testing | | | | | | performed at [facility], [facility] [address] | | | | | | [facility] [address], | | | | | | [place] [address] | | | | + + + + + + | Hepatitis | No serologic evidence of | | EXTERNAL | | | Interpretat | current or past | | LAB | | | ion | Hepatitis B virus | | | | | | infection.Comment: HAV | | | | | | infection in remote | | | | | | past.Possible Acute or | | | | | | Chronic HCV infection. | | | | | | False positive screen | | | | | | reactions are known to | | | | | | occur. Quantitative HCV | | | | | | RNA by PCR is | | | | | | recommended for | | | | | | confirmation. PCR will | | | | | | require a new EDTA | | | | | | plasma specimen.Testing | | | | | | performed at [facility], [address] | | | | | | [facility] [address], | | | | | | [place] [address] | | | | + + + + + + + + | Specimen | + + | Blood specimen | | (specimen) | + + + +---------+ + + | Performing | Address | City/State/Zipcode | Phone Number | | Organization | | | | + +---------+ + + | EXTERNAL LAB | | | | + +---------+ + + C3 and C4 (07/29/2013 4:00 AM PDT) + + + + + + | Component | Value | Ref Range | Performed | Pathologist | | | | | At | Signature | + + + + + + | C3 | 107Comment: Testing | 90 - 180 mg/dL | EXTERNAL | | | COMPLEMENT | performed at [facility], [address] | | LAB | | | | [address], | | | | | | [place] [address] | | | | + + + + + + | Complement | 38.5Comment: Testing | 10 - 40 mg/dL | EXTERNAL | | | Comp 4 | performed at [facility], [address] | | LAB | | | | [address], | | | | | | [place] [address] | | | | + + + + + + + + | Specimen | + + | Blood specimen | | (specimen) | + + + +---------+ + + | Performing | Address | City/State/Zipcode | Phone Number | | Organization | | | | + +---------+ + + | EXTERNAL LAB | | | | + +---------+ + + HIV 1 Screen, Rapid (07/29/2013 4:00 AM PDT) + + + + + + | Component | Value | Ref Range | Performed | Pathologist | | | | | At | Signature | + + + + + + | HIV 1 and 2 | NON REACTIVEComment: | | EXTERNAL | | | Ab, Rapid | Testing performed at | | LAB | | | | [facility];[address] | | | | | | [place] [address] | | | | + + + + + + + + | Specimen | + + | Blood specimen | | (specimen) | + + + +---------+ + + | Performing | Address | City/State/Zipcode | Phone Number | | Organization | | | | + +---------+ + + | EXTERNAL LAB | | | | + +---------+ + + Glomerular Basement Membrane Ab, IgG (07/29/2013 4:00 AM PDT) + + + + + + | Component | Value | Ref Range | Performed | Pathologist | | | | | At | Signature | + + + + + + | GBM AB | 2Comment: NOTE NEW | 0 - 20 U/mL | EXTERNAL | | | | REFERENCE RANGE AND | | LAB | | | | UNITSREFERENCE RANGE:0 | | | | | | - 20 [id number] - 30 | | | | | | WEAK POSITIVE>30 | | | | | | MODERATE TO STRONG | | | | | | [employer] TEST IS | | | | | | DESIGNED FOR THE IN | | | | | | VITRO MEASUREMENT OF | | | | | | SPECIFIC | | | | | | IGGAUTOANTIBODIES | | | | | | AGAINST THE GLOMERULAR | | | | | | BASEMENT MEMBRANE | | | | | | (GBM).IT IS INTENDED | | | | | | AN AID IN THE DIAGNOSIS | | | | | | OF GOODPASTURE'S | | | | | | SYNDROME.SOME PATIENTS | | | | | | WITH OTHER RENAL | | | | | | DISEASES MAY EXHIBIT | | | | | | POSITIVE | | | | | | RESULTS.GLOMERULAR | | | | | | BASEMENT MEMBRANE | | | | | | ANTIBODIES ARE NOT FOUND | | | | | | IN NORMALHEALTHY | | | | | | INDIVIDUALS.RESULTS WERE | | | | | | OBTAINED WITH THE | | | | | | Regroup Therapy QUANTA LITE GBM | | | | | | DAFNE ASSAY.VALUES | | | | | | OBTAINED FROM DIFFERENT | | | | | | [employer] | | | | | | CANNOT BE | | | | | | USEDINTERCHANGEABLY. | | | | | | THE MAGNITUDE OF THE | | | | | | REPORTED IGG LEVELS | | | | | | CANNOT BECORRELATED TO | | | | | | AN ENDPOINT | | | | | | TITER.Testing performed | | | | | | at [facility], [address] | | | | | | [place] | | | | | | [address] | | | | + + + + + + + + | Specimen | + + | Blood specimen | | (specimen) | + + + +---------+ + + | Performing | Address | City/State/Zipcode | Phone Number | | Organization | | | | + +---------+ + + | EXTERNAL LAB | | | | + +---------+ + + RPR Quant (07/29/2013 4:00 AM PDT) + + + + + + | Component | Value | Ref Range | Performed | Pathologist | | | | | At | Signature | + + + + + + | Treponema | NEGATIVEComment: | | EXTERNAL | | | Pallidum Ab | NEGATIVE FOR SYPHILIS | | LAB | | | Total | ANTIBODIES.Testing | | | | | | performed at [facility], [address] | | | | | [facility] | | | | | | [place] [address] | | | | + + + + + + + + | Specimen | + + | Blood specimen | | (specimen) | + + + +---------+ + + | Performing | Address | City/State/Zipcode | Phone Number | | Organization | | | | + +---------+ + + | EXTERNAL LAB | | | | + +---------+ + + Antistreptolysin O, Quant (07/29/2013 4:00 AM PDT) + + + + + + | Component | Value | Ref Range | Performed | Pathologist | | | | | At | Signature | + + + + + + | Anti | <100Comment: Testing | 0 - 250 IU/mL | EXTERNAL | | | Streptolysi | performed at [facility], [address] | | LAB | | | [address] | [address], | | | | | | [place] [address] | | | | + + + + + + + + | Specimen | + + | Blood specimen | | (specimen) | + + + +---------+ + + | Performing | Address | City/State/Zipcode | Phone Number | | Organization | | | | + +---------+ + + | EXTERNAL LAB | | | | + +---------+ + + SHANIA Profile, Reflex (07/29/2013 4:00 AM PDT) + + + + + + | Component | Value | Ref Range | Performed | Pathologist | | | | | At | Signature | + + + + + + | SHANIA | NEGATIVEComment: A | | EXTERNAL | | | | MULTIPLEX SCREEN FOR 11 | | LAB | | | | AUTOANTIBODIES (DSDNA, | | | | | | SM, RIBOSOMAL | | | | | | P,CHROMATIN, ENGINEERING ASSOCIATE, SM | | | | | | ENGINEERING ASSOCIATE, SCL-70, CENTROMERE | | | | | | B, SSA, SSB AND CARINA-1) | | | | | | WASPERFORMED AND NO | | | | | | AUTOANTIBODIES WERE | | | | | | DETECTED.Testing | | | | | | performed at [facility], [address] | | | | | | [facility] [place] [place] | | | | | | [place] [address] | | | | + + + + + + | ANCA Screen | <1:20Comment: REFERENCE | | EXTERNAL | | | | RANGE: <1:20Testing | | LAB | | | | performed at [facility], [address] | | | | | | [facility] | | | | | | [place] [address] | | | | + + + + + + | ANCA | 2Comment: NEGATIVE | U/mL | EXTERNAL | | | Proteinase | < 20WEAK | | LAB | | | 3 | TO MOD POS | | | | | | 20-30POSITIVE | | | | | | > 30PR3 | | | | | | ANTIBODY IS A MARKER FOR | | | | | | DARA'S | | | | | | GRANULOMATOSIS AND IS | | | | | | RARELYDETECTED IN | | | | | | MICROSCOPIC | | | | | | POLYARTERITIS.THE | | | | | | QUANTITY OF PR3 ANTIBODY | | | | | | GENERALLY PARALLELS | | | | | | DISEASE ACTIVITY,WHERE | | | | | | AN INCREASE IN DISEASE | | | | | | IS ACCOMPANIED BY | | | | | | INCREASING VALUES OFPR3 | | | | | | ANTIBODY.ANTIBODY TO PR3 | | | | | | AN ELASTINOLYTIC NEURAL | | | | | | SERINE PROTEASE, | | | | | | ISRESPONSIBLE FOR THE | | | | | | CYTOPLASMIC PATTERN OF | | | | | | ANTI NEUTROPHIL | | | | | | CYTOPLASMICANTIBODIES.Te | | | | | | sting performed at [facility], | | | | | | [address] [facility], | | | | | | [facility] [address] | | | | + + + + + + | Myeloperoxi | 2Comment: NEGATIVE | U/mL | EXTERNAL | | | dase | < 20WEAK | | LAB | | | Antibody | TO MOD POS | | | | | | 20-30POSITIVE | | | | | | > 30ANTIBODY | | | | | | TO MPO IS ASSOCIATED | | | | | | WITH ORGAN LIMITED | | | | | | VASCULITIS | | | | | | INCLUDINGNECROTIZING AND | | | | | | CRESCENTIC | | | | | | GLOMERULONEPHRITIS.THIS | | | | | | ASSAY IS USEFUL IN | | | | | | CONFIRMING MPO SPECIFIC | | | | | | ANTIBODIES IN SERATHAT | | | | | | ARE POSITIVE FOR ANTI | | | | | | NEUTROPHIL CYTOPLASMIC | | | | | | ANTIBODIES OF | | | | | | THEPERINUCLEAR | | | | | | TYPE.TYPICALLY THE LEVEL | | | | | | OF MPO ANTIBODY | | | | | | PARALLELS DISEASE | | | | | | ACTIVITIES,WHERE | | | | | | INCREASING DISEASE | | | | | | ACTIVITY IS ASSOCIATED | | | | | | WITH INCREASING | | | | | | MPOANTIBODY | | | | | | LEVELS.Testing performed | | | | | | at [facility], [address] | | | | | | [place] | | | | | | [address] | | | | + + + + + + + + | Specimen | + + | Blood specimen | | (specimen) | + + + +---------+ + + | Performing | Address | City/State/Zipcode | Phone Number | | Organization | | | | + +---------+ + + | EXTERNAL LAB | | | | + +---------+ + + External Lab: CBC (07/29/2013 4:00 AM PDT) + + + + + + | Component | Value | Ref Range | Performed | Pathologist | | | | | At | Signature | + + + + + + | WBC | 8.4Comment: Testing | 3.8 - 11.0 K/uL | EXTERNAL | | | | performed at [facility], [address] | | LAB | | | | [address], | | | | | | [place] [address] | | | | + + + + + + | Red Blood | 4.35Comment: Testing | 4.20 - 5.70 | EXTERNAL | | | Cells | performed at [facility], [address] | M/uL | LAB | | | Counted | [address], | | | | | | [place] [address] | | | | + + + + + + | Hemoglobin | 13.9Comment: Testing | 13.2 - 17.0 | EXTERNAL | | | | performed at [facility], [address] | g/dL | LAB | | | | [address], | | | | | | [place] [address] | | | | + + + + + + | Hematocrit, | 40.5Comment: Testing | 39.0 - 50.0 % | EXTERNAL | | | POC | performed at [facility], [address] | | LAB | | | | [address], | | | | | | [place] [address] | | | | + + + + + + | MCV | 93.1Comment: Testing | 80.0 - 100.0 fl | EXTERNAL | | | | performed at [facility], [address] | | LAB | | | | [address], | | | | | | [place] [address] | | | | + + + + + + | MCH | 32.0Comment: Testing | 27.0 - 34.0 pg | EXTERNAL | | | | performed at [facility], [address] | | LAB | | | | [address], | | | | | | [place] [address] | | | | + + + + + + | MCHC | 34.4Comment: Testing | 32.0 - 35.5 | EXTERNAL | | | | performed at [facility], [address] | g/dL | LAB | | | | [address], | | | | | | [place] [address] | | | | + + + + + + | RDW-CV | 41.6Comment: Testing | 37 - 53 fl | EXTERNAL | | | | performed at [facility], [address] | | LAB | | | | [address], | | | | | | [place] [address] | | | | + + + + + + | Platelet | 151Comment: Testing | 150 - 400 K/uL | EXTERNAL | | | Count | performed at [facility], [address] | | LAB | | | Plasma | [address], | | | | | | [place] [address] | | | | + + + + + + | MPV | 9.5Comment: Testing | fl | EXTERNAL | | | | performed at [facility], [address] | | LAB | | | | [address], | | | | | | [place] [address] | | | | + + + + + + | Differentia | AUTOMATEDComment: | | EXTERNAL | | | l Type | Testing performed at | | LAB | | | | [facility], [address] | | | | | | [place] | | | | | | [address] | | | | + + + + + + | % Segmented | 75.2Comment: Testing | % | EXTERNAL | | | | performed at [facility], [address] | | LAB | | | Neutrophils | [address], | | | | | | [place] [address] | | | | + + + + + + | % | 11.4Comment: Testing | % | EXTERNAL | | | Lymphocytes | performed at [facility], [address] | | LAB | | | [address], | | | | | | [place] [address] | | | | + + + + + + | % Monocytes | 12.6Comment: Testing | % | EXTERNAL | | | | performed at [facility], [address] | | LAB | | | | [address], | | | | | | [place] [address] | | | | + + + + + + | % | 0.4Comment: Testing | % | EXTERNAL | | | Eosinophils | performed at [facility], [address] | | LAB | | | | [address], | | | | | | [place] [address] | | | | + + + + + + | % Basophils | 0.4Comment: Testing | % | EXTERNAL | | | | performed at [facility], [address] | | LAB | | | | [address], | | | | | | [place] [address] | | | | + + + + + + | Absolute | 6.4Comment: Testing | 1.9 - 7.4 K/uL | EXTERNAL | | | Segmented | performed at [facility], [address] | | LAB | | | Neutrophils | [address], | | | | | | [place] [address] | | | | + + + + + + | Absolute | 1.0Comment: Testing | 1.0 - 3.9 K/uL | EXTERNAL | | | Lymphocytes | performed at [facility], [address] | | LAB | | | | [address], | | | | | | [place] [address] | | | | + + + + + + | Absolute | 1.1 (H)Comment: Testing | 0 - 0.8 K/uL | EXTERNAL | | | Monocytes | performed at [facility], [address] | | LAB | | | | [address], | | | | | | [place] [address] | | | | + + + + + + | Absolute | 0.0Comment: Testing | 0 - 0.5 K/uL | EXTERNAL | | | Eosinophils | performed at [facility], [address] | | LAB | | | | [address], | | | | | | [place] [address] | | | | + + + + + + | Absolute | 0.0Comment: Testing | 0 - 0.1 K/uL | EXTERNAL | | | Basophils | performed at [facility], [address] | | LAB | | | | [address], | | | | | | [place] [address] | | | | + + + + + + + + | Specimen | + + | Blood specimen | | (specimen) | + + + +---------+ + + | Performing | Address | City/State/Zipcode | Phone Number | | Organization | | | | + +---------+ + + | EXTERNAL LAB | | | | + +---------+ + + Magnesium (07/29/2013 4:00 AM PDT) + + + + + + | Component | Value | Ref Range | Performed | Pathologist | | | | | At | Signature | + + + + + + | Magnesium | 2.3Comment: Testing | 1.7 - 2.4 mg/dL | EXTERNAL | | | | performed at [facility], [address] | | LAB | | | | [address], | | | | | | [place] [address] | | | | + + + + + + + + | Specimen | + + | Blood specimen | | (specimen) | + + + +---------+ + + | Performing | Address | City/State/Zipcode | Phone Number | | Organization | | | | + +---------+ + + | EXTERNAL LAB | | | | + +---------+ + + Hemoglobin A1C (07/29/2013 4:00 AM PDT) + + + + + + | Component | Value | Ref Range | Performed | Pathologist | | | | | At | Signature | + + + + + + | Hemoglobin | 5.4Comment: The [employer] | 4.0 - 6.0 % | EXTERNAL | | | A1c | Diabetes Association | | LAB | | | | considers a hemoglobin | | | | | | A1c result of <7.0% to | | | | | | be the goal of diabetic | | | | | | therapy. When results | | | | | | are consistently >8.0%, | | | | | | the ADA suggests | | | | | | reevaluation of the | | | | | | treatment regimen. The | | | | | | testing method used is | | | | | | certified traceable to | | | | | | the Diabetes Control and | | | | | | Complications Trial | | | | | | reference method.Testing | | | | | | performed at [facility], [address] | | | | [address], | | | | | | [place] [address] | | | | + + + + + + | Glycohemogl | 108Comment: The ADA | mg/dL | EXTERNAL | | | obin | considers an eAG result | | LAB | | | (GHb),Total | of LT 154 mg/dL to be | | | | | | the goal of diabetic | | | | | | therapy. Estimated | | | | | | Average Glucose | | | | | | calculated from | | | | | | hemoglobin A1c by use of | | | | | | the ADA recommended | | | | | | formula.Testing | | | | | | performed at [facility], [address] | | | | | | [facility], | | | | | | [place] [address] | | | | + + + + + + + + | Specimen | + + | Blood specimen | | (specimen) | + + + +---------+ + + | Performing | Address | City/State/Zipcode | Phone Number | | Organization | | | | + +---------+ + + | EXTERNAL LAB | | | | + +---------+ + + CK Total (07/29/2013 4:00 AM PDT) + + + + + + | Component | Value | Ref Range | Performed | Pathologist | | | | | At | Signature | + + + + + + | CK, Total | 1281 (H)Comment: Testing | 55 - 400 U/L | EXTERNAL | | | | performed at [facility];[address] | | LAB | | | | [address];[place], [place] | | | | | | [address] | | | | + + + + + + + + | Specimen | + + | Blood specimen | | (specimen) | + + + +---------+ + + | Performing | Address | City/State/Zipcode | Phone Number | | Organization | | | | + +---------+ + + | EXTERNAL LAB | | | | + +---------+ + + Renal Function Panel (07/29/2013 4:00 AM PDT) + + + + + + | Component | Value | Ref Range | Performed | Pathologist | | | | | At | Signature | + + + + + + | Na | 129 (L)Comment: Testing | 135 - 143 | EXTERNAL | | | | performed at [facility], [address] | mmol/L | LAB | | | | [address], | | | | | | [place] [address] | | | | + + + + + + | K | 6.3 (HH)Comment: | 3.5 - 4.9 | EXTERNAL | | | | SPECIMEN NOT | mmol/L | LAB | | | | HEMOLYZEDRESULT READ | | | | | | BACK BY: CALLED TO | | | | | | TOSHIA MENDIOLA,07/29/2013,0539 | | | | | | ,ATTesting performed at | | | | | | [facility], [address] | | | | | | [place] | | | | | | [address] | | | | + + + + + + | Cl | 91 (L)Comment: Testing | 99 - 109 mmol/L | EXTERNAL | | | | performed at [facility], [address] | | LAB | | | | [address], | | | | | | [place] [address] | | | | + + + + + + | CO2 | 24Comment: Testing | 23 - 32 mmol/L | EXTERNAL | | | | performed at [facility], [address] | | LAB | | | | [address], | | | | | | [place] [address] | | | | + + + + + + | Anion Gap | 20Comment: Testing | 5 - 20 mmol/L | EXTERNAL | | | | performed at [facility], [address] | | LAB | | | | [address], | | | | | | [place] [address] | | | | + + + + + + | Glucose, | 103 (H)Comment: Testing | 65 - 99 mg/dL | EXTERNAL | | | Fasting | performed at [facility], [address] | | LAB | | | | [address], | | | | | | [place] [address] | | | | + + + + + + | BUN | 137 (H)Comment: Testing | 8 - 25 mg/dL | EXTERNAL | | | | performed at [facility], [address] | | LAB | | | | [address], | | | | | | [place] [address] | | | | + + + + + + | Creatinine | 20.32 (H)Comment: | 0.70 - 1.30 | EXTERNAL | | | | Testing performed at | mg/dL | LAB | | | | [facility], [address] | | | | | | [place] | | | | | | [address] | | | | + + + + + + | Calcium | 7.7 (L)Comment: Testing | 8.5 - 10.2 | EXTERNAL | | | | performed at [facility], [address] | mg/dL | LAB | | | | [address], | | | | | | [place] [address] | | | | + + + + + + | Albumin | 3.2 (L)Comment: Testing | 3.6 - 5.0 g/dL | EXTERNAL | | | | performed at [facility], [address] | | LAB | | | | [address], | | | | | | [place] [address] | | | | + + + + + + | PHOSPHORUS | 8.6 (H)Comment: Testing | 2.3 - 4.8 mg/dL | EXTERNAL | | | | performed at [facility], [address] | | LAB | | | | [address] [facility], | | | | | | [place] [address] | | | | + + + + + + | Estimated | 3 (L)Comment: GFR <60: | mL/min/1.73m2 | EXTERNAL | | | GFR | CHRONIC KIDNEY DISEASE, | | LAB | | | | IF FOUND OVER A 3 MONTH | | | | | | PERIOD.GFR <15: KIDNEY | | | | | | FAILURE.FOR | | | | | | AMERICANS, MULTIPLY THE | | | | | | CALCULATED GFR BY | | | | | | 1.210.Testing performed | | | | | | at [facility], [address] | | | | | | [facility], | | | | | | [place] [address] | | | | + + + + + + + + | Specimen | + + | | + + + +---------+ + + | Performing | Address | City/State/Zipcode | Phone Number | | Organization | | | | + +---------+ + + | EXTERNAL LAB | | | | + +---------+ + + CBC with Manual Differential (07/28/2013 9:59 PM PDT) + + + + + + | Component | Value | Ref Range | Performed | Pathologist | | | | | At | Signature | + + + + + + | WBC | 8.1Comment: Testing | 3.8 - 11.0 K/uL | EXTERNAL | | | | performed at [facility];[address] | | LAB | | | | [address];[place] | | | | | | [address] | | | | + + + + + + | Red Blood | 3.95 (L)Comment: Testing | 4.20 - 5.70 | EXTERNAL | | | Cells | performed at [facility];[address] | M/uL | LAB | | | Counted | [address];[place] | | | | | | [address] | | | | + + + + + + | Hemoglobin | 12.8 (L)Comment: Testing | 13.2 - 17.0 | EXTERNAL | | | | performed at [facility];[address] | g/dL | LAB | | | | [address];[place] | | | | | | [address] | | | | + + + + + + | Hematocrit, | 36.3 (L)Comment: Testing | 39.0 - 50.0 % | EXTERNAL | | | POC | performed at [facility];[address] | | LAB | | | | [address];[place] | | | | | | [address] | | | | + + + + + + | MCV | 91.9Comment: Testing | 80.0 - 100.0 fl | EXTERNAL | | | | performed at [facility];[address] | | LAB | | | | [address];[place] | | | | | | [address] | | | | + + + + + + | MCH | 32.4Comment: Testing | 27.0 - 34.0 pg | EXTERNAL | | | | performed at [facility];[address] | | LAB | | | | [address];[place] | | | | | | [address] | | | | + + + + + + | MCHC | 35.3Comment: Testing | 32.0 - 35.5 | EXTERNAL | | | | performed at [facility];[address] | g/dL | LAB | | | | [address];[place] | | | | | | [address] | | | | + + + + + + | RDW-CV | 39.4Comment: Testing | 37 - 53 fl | EXTERNAL | | | | performed at [facility];[address] | | LAB | | | | [address];[place] | | | | | | [address] | | | | + + + + + + | Platelet | 155Comment: Testing | 150 - 400 K/uL | EXTERNAL | | | Count | performed at [facility];[address] | | LAB | | | Plasma | [address];[place] | | | | | | [address] | | | | + + + + + + | MPV | 8.6Comment: Testing | fl | EXTERNAL | | | | performed at [facility];[address] | | LAB | | | | [address];[place] | | | | | | [address] | | | | + + + + + + | Differentia | MANUALComment: Testing | | EXTERNAL | | | l Type | performed at [facility];[address] | | LAB | | | | [address];[place] | | | | | | [address] | | | | + + + + + + | Segmented | 75Comment: Testing | % | EXTERNAL | | | Neutrophils | performed at [facility];[address] | | LAB | | | Manual | [address];[place] | | | | | | [address] | | | | + + + + + + | Lymphocytes | 15Comment: Testing | % | EXTERNAL | | | Manual | performed at [facility];[address] | | LAB | | | | [address];[place] | | | | | | [address] | | | | + + + + + + | Monocytes | 10Comment: Testing | % | EXTERNAL | | | Manual | performed at [facility];[address] | | LAB | | | | [address];[place] | | | | | | [address] | | | | + + + + + + | Absolute | 6.1Comment: Testing | 1.9 - 7.4 K/uL | EXTERNAL | | | Neutrophils | performed at [facility];[address] | | LAB | | | | [address];[place] | | | | | | [address] | | | | + + + + + + | Absolute | 1.2Comment: Testing | 1.0 - 3.9 K/uL | EXTERNAL | | | Lymphocytes | performed at [facility];[address] | | LAB | | | | [address];[place] | | | | | | [address] | | | | + + + + + + | Absolute | 0.8Comment: Testing | 0 - 0.8 K/uL | EXTERNAL | | | Monocytes | performed at [facility];[address] | | LAB | | | | [address];[place] | | | | | | [address] | | | | + + + + + + | RBC | RBC AND PLT MORPHOLOGY | | EXTERNAL | | | Morphology | APPEAR NORMALComment: | | LAB | | | | Testing performed at | | | | | | [facility];[address];[place] [address] | | | | + + + + + + + + | Specimen | + + | Blood specimen | | (specimen) | + + + +---------+ + + | Performing | Address | City/State/Zipcode | Phone Number | | Organization | | | | + +---------+ + + | EXTERNAL LAB | | | | + +---------+ + + Phosphorus (07/28/2013 9:59 PM PDT) + + + + + + | Component | Value | Ref Range | Performed | Pathologist | | | | | At | Signature | + + + + + + | PHOSPHORUS | 7.2 (H)Comment: Testing | 2.3 - 4.8 mg/dL | EXTERNAL | | | | performed at [facility];[address] | | LAB | | | | [address];[place], [place] | | | | | | [address] | | | | + + + + + + + + | Specimen | + + | Blood specimen | | (specimen) | + + + +---------+ + + | Performing | Address | City/State/Zipcode | Phone Number | | Organization | | | | + +---------+ + + | EXTERNAL LAB | | | | + +---------+ + + Magnesium (07/28/2013 9:59 PM PDT) + + + + + + | Component | Value | Ref Range | Performed | Pathologist | | | | | At | Signature | + + + + + + | Magnesium | 2.1Comment: Testing | 1.7 - 2.4 mg/dL | EXTERNAL | | | | performed at [facility] | | LAB | | | | [facility], [place] | | | | | | [address] | | | | + + + + + + + + | Specimen | + + | Blood specimen | | (specimen) | + + + +---------+ + + | Performing | Address | City/State/Zipcode | Phone Number | | Organization | | | | + +---------+ + + | EXTERNAL LAB | | | | + +---------+ + + Basic Metabolic Panel (07/28/2013 9:59 PM PDT) + + + + + + | Component | Value | Ref Range | Performed | Pathologist | | | | | At | Signature | + + + + + + | Na | 132 (L)Comment: Testing | 135 - 143 | EXTERNAL | | | | performed at [facility];[address] | mmol/L | LAB | | | | [address];[place] | | | | | | [address] | | | | + + + + + + | K | 5.1 (H)Comment: Testing | 3.5 - 4.9 | EXTERNAL | | | | performed at [facility];[address] | mmol/L | LAB | | | | [address];[place] | | | | | | [address] | | | | + + + + + + | Cl | 92 (L)Comment: Testing | 99 - 109 mmol/L | EXTERNAL | | | | performed at [facility];[address] | | LAB | | | | [address];[place] | | | | | | [address] | | | | + + + + + + | CO2 | 21 (L)Comment: Testing | 23 - 32 mmol/L | EXTERNAL | | | | performed at [facility];[address] | | LAB | | | | [address];[place] | | | | | | [address] | | | | + + + + + + | Anion Gap | 24 (H)Comment: Testing | 5 - 20 mmol/L | EXTERNAL | | | | performed at [facility];[address] | | LAB | | | | [address];[place] | | | | | | [address] | | | | + + + + + + | Glucose, | 94Comment: Testing | 65 - 99 mg/dL | EXTERNAL | | | Fasting | performed at [facility];[address] | | LAB | | | | [address];[place] | | | | | | [address] | | | | + + + + + + | BUN | 143 (H)Comment: Testing | 8 - 25 mg/dL | EXTERNAL | | | | performed at [facility];[address] | | LAB | | | | [address];[place] | | | | | | [address] | | | | + + + + + + | Creatinine | 19.48 (H)Comment: | 0.70 - 1.30 | EXTERNAL | | | | Testing performed at | mg/dL | LAB | | | | C;[address];[place] [address] | | | | + + + + + + | BUN/Creatin | 7Comment: Testing | | EXTERNAL | | | ine Ratio | performed at [facility];[address] | | LAB | | | | [address];[place] | | | | | | [address] | | | | + + + + + + | Calcium | 7.4 (L)Comment: Testing | 8.5 - 10.2 | EXTERNAL | | | | performed at [facility];888 | mg/dL | LAB | | | | [address];[place] | | | | | | [address] | | | | + + + + + + | Estimated | 3 (L)Comment: GFR <60: | mL/min/1.73m2 | EXTERNAL | | | GFR | CHRONIC KIDNEY DISEASE, | | LAB | | | | IF FOUND OVER A 3 MONTH | | | | | | PERIOD.GFR <15: KIDNEY | | | | | | FAILURE.FOR | | | | | | AMERICANS, MULTIPLY THE | | | | | | CALCULATED GFR BY | | | | | | 1.210.Testing performed | | | | | | at [facility];[address];[place] [address] | | | | + + + + + + + + | Specimen | + + | Blood specimen | | (specimen) | + + + +---------+ + + | Performing | Address | City/State/Zipcode | Phone Number | | Organization | | | | + +---------+ + + | EXTERNAL LAB | | | | + +---------+ + + Eosinophil Smear, Urine (07/28/2013 6:06 PM PDT) + + + + + + | Component | Value | Ref Range | Performed | Pathologist | | | | | At | Signature | + + + + + + | Eosinophils | NO EOSINOPHILS | % | EXTERNAL | | | , Urine | SEENComment: Testing | | LAB | | | | performed at [facility], [address] | [address] | [address], | | | | | | [place] [address] | | | | + + + + + + + + | Specimen | + + | | + + + +---------+ + + | Performing | Address | City/State/Zipcode | Phone Number | | Organization | | | | + +---------+ + + | EXTERNAL LAB | | | | + +---------+ + + Protein/Creatinine Ratio, Urine (07/28/2013 6:06 PM PDT) + + + + + + | Component | Value | Ref Range | Performed | Pathologist | | | | | At | Signature | + + + + + + | Protein/Cre | 0.772Comment: Testing | | EXTERNAL | | | at Ratio | performed at [facility], [address] | | LAB | | | | [address], | | | | | | [place] [address] | | | | + + + + + + + + | Specimen | + + | Urine specimen | | (specimen) | + + + +---------+ + + | Performing | Address | City/State/Zipcode | Phone Number | | Organization | | | | + +---------+ + + | EXTERNAL LAB | | | | + +---------+ + + Sodium, Urine, Random (07/28/2013 6:06 PM PDT) + + + + + + | Component | Value | Ref Range | Performed | Pathologist | | | | | At | Signature | + + + + + + | Sodium, | 36 (L)Comment: Testing | 90 - 104 mmol/L | EXTERNAL | | | Urine | performed at [facility], [address] | | LAB | | | Random | [address], | | | | | | [place] [address] | | | | + + + + + + + + | Specimen | + + | Urine specimen | | (specimen) | + + + +---------+ + + | Performing | Address | City/State/Zipcode | Phone Number | | Organization | | | | + +---------+ + + | EXTERNAL LAB | | | | + +---------+ + + Protein, Urine, Random (07/28/2013 6:06 PM PDT) + + + + + + | Component | Value | Ref Range | Performed | Pathologist | | | | | At | Signature | + + + + + + | Protein, | 107Comment: Testing | mg/dL | EXTERNAL | | | Urine | performed at [facility], [address] | | LAB | | | | [address], | | | | | | [place] [address] | | | | + + + + + + + + | Specimen | + + | | + + + +---------+ + + | Performing | Address | City/State/Zipcode | Phone Number | | Organization | | | | + +---------+ + + | EXTERNAL LAB | | | | + +---------+ + + Creatinine, Urine, Random (07/28/2013 6:06 PM PDT) + + + + + + | Component | Value | Ref Range | Performed | Pathologist | | | | | At | Signature | + + + + + + | Creatinine, | 138.6Comment: Testing | mg/dL | EXTERNAL | | | Urine | performed at [facility], [address] | | LAB | | | | [address], | | | | | | [place] [address] | | | | + + + + + + + + | Specimen | + + | Urine specimen | | (specimen) | + + + +---------+ + + | Performing | Address | City/State/Zipcode | Phone Number | | Organization | | | | + +---------+ + + | EXTERNAL LAB | | | | + +---------+ + + US Renal Limited (07/28/2013 5:29 PM PDT) + + | Specimen | + + | | + + + + + | Impressions | Performed At | + + + | 1. Slightly enlarged appearance of the kidneys bilaterally with a | | | increased echogenic appearance. This is nonspecific but may reflect | | | underlying medical renal disease or related to diabetes. | | | | | + + + + + + | Narrative | Performed At | + + + | LUCY CHEEK 1975 US KIDNEYS AND BLADDER 07/28/2013 4:39 PM | | | HISTORY: Hyperkalemia with acute renal failure COMPARISON: | | | None. TECHNIQUE: Transabdominal ultrasound of the kidneys and | | | bladder, grayscale and color flow evaluation. FINDINGS: The right | | | kidney measures 14.5 x 8.3 x 7.5 cm. There is limited visualization of | | | the liver which appears hypoechoic relative to the right kidney. | | | Normal vascularity is noted throughout the renal hilum. There is no | | | hydronephrosis or renal mass. The left kidney measures 13.4 x 7.9 x | | | 7.2 cm. There is normal cortical thickness. Normal vascularity is seen | | | throughout the hilum. There is no hydronephrosis. The bladder | | | measures 5.4 x 6.3 x 7.0 cm. There is a prevoid volume of 124 mL. No | | | ureteral jets are documented. | | + + + + + | Procedure Note | + + | Pierre, Celso Conversion - 09/26/2018 3:53 PM PDT LUCY Stevens 1975US KIDNEYS AND | | BLADDER07/28/2013 4:39 PM HISTORY: Hyperkalemia with acute renal failure COMPARISON: | | None. TECHNIQUE: Transabdominal ultrasound of the kidneys and bladder, grayscale and | | color flow evaluation. FINDINGS: The right kidney measures 14.5 x 8.3 x 7.5 cm. There is | | limited visualization of the liver which appears hypoechoic relative to the right | | kidney. Normal vascularity is noted throughout the renal hilum. There is no | | hydronephrosis or renal mass. The left kidney measures 13.4 x 7.9 x 7.2 cm. There is | | normal cortical thickness. Normal vascularity is seen throughout the hilum. There is no | | hydronephrosis. The bladder measures 5.4 x 6.3 x 7.0 cm. There is a prevoid volume of | | 124 mL. No ureteral jets are documented. IMPRESSION: 1. Slightly enlarged appearance of | | the kidneys bilaterally with a increased echogenic appearance. This is nonspecific but | | may reflect underlying medical renal disease or related to diabetes. Electronically | | signed by Fredrick Willson MD on 07/28/2013 5:28 PM | |The left kidney measures 13.4 x 7.9 x 7.2 cm. There is normal cortical thickness. Normal va scularity is seen throughout the hilum. There is no hydronephrosis. The bladder measures 5.4 x 6.3 x 7.0 cm. There is a | |prevoid volume of 124 mL. No ureteral jets | |are documented. | | | |IMPRESSION: | |1. Slightly enlarged appearance of the kidneys bilaterally with a increased echogenic appe arance. This is nonspecific but may reflect underlying medical renal disease or related to d iabetes. | | | | | + + POC Glucose (07/28/2013 4:20 PM PDT) + + + + + + | Component | Value | Ref Range | Performed | Pathologist | | | | | At | Signature | + + + + + + | Glucose, | 91Comment: Testing | 65 - 99 mg/dL | EXTERNAL | | | Fingerstick | performed at [facility];[address] | | LAB | | | | [address];[place] | | | | | | [address] | | | | + + + + + + + + | Specimen | + + | | + + + +---------+ + + | Performing | Address | City/State/Zipcode | Phone Number | | Organization | | | | + +---------+ + + | EXTERNAL LAB | | | | + +---------+ + + MRSA NAAT (07/28/2013 3:32 PM PDT) + + | Specimen | + + | | + + + + + | Narrative | Performed At | + + + | SOURCE NARES(NOSE) MRSA | EXTERNAL LAB | | PCR NEGATIVE Testing | | | performed at [facility];[address] [place] [address];[place] [address] | | + + + + +---------+ + + | Performing | Address | City/State/Zipcode | Phone Number | | Organization | | | | + +---------+ + + | EXTERNAL LAB | | | | + +---------+ + + XR Chest 1 Vw (07/28/2013 3:05 PM PDT) + + | Specimen | + + | | + + + + + | Impressions | Performed At | + + + | 1. Central line right internal jugular vein. No evidence of | | | pneumothorax. Pulmonary venous engorgement indicating fluid overload. | | | Heart size top normal. 2. Large osteophyte formation above the | | | distal clavicle Electronically signed by Pedro Benoit MD on | | | 07/28/2013 3:46 PM | | + + + + + + | Narrative | Performed At | + + + | LUCY CHEEK XR CHEST 1 VIEW 07/28/2013 3:05 PM HISTORY: 38 | | | years. Male. Renal failure TECHNIQUE: One view portable | | | obtained 1435 COMPARISON: None FINDINGS: Central line via | | | right internal jugular vein, tip cavoatrial junction. Borderline | | | cardiac enlargement. Pulmonary veins are somewhat engorged, however. | | | Large osteophyte formation extending superiorly from the distal | | | clavicle | | + + + + + | Procedure Note | + + | Pierre, Rad Conversion - 09/26/2018 3:53 PM PDT LUCY CHEEK CHEST 1 VIEW07/28/2013 | | 3:05 PM HISTORY:38 years. Male. Renal failure TECHNIQUE:One view portable obtained | | 1435 COMPARISON:None FINDINGS:Central line via right internal jugular vein, tip | | cavoatrial junction. Borderline cardiac enlargement. Pulmonary veins are somewhat | | engorged, however. Large osteophyte formation extending superiorly from the distal | | clavicle IMPRESSION: 1. Central line right internal jugular vein. No evidence of | | pneumothorax. Pulmonary venous engorgement indicating fluid overload. Heart size top | | normal. 2. Large osteophyte formation above the distal clavicle | | | |COMPARISON: | |None | | | |FINDINGS: | |Central line via right internal jugular vein, tip cavoatrial junction. Borderline cardiac e nlargement. Pulmonary veins are somewhat engorged, however. | | | |Large osteophyte formation extending superiorly from the distal clavicle | | | |IMPRESSION: | |1. Central line right internal jugular vein. No evidence of pneumothorax. Pulmonary venous engorgement indicating fluid overload. Heart size top normal. | | | |2. Large osteophyte formation above the distal clavicle | | | | | + + Basic Metabolic Panel (07/28/2013 2:18 PM PDT) + + + + + + | Component | Value | Ref Range | Performed | Pathologist | | | | | At | Signature | + + + + + + | Na | 129 (L)Comment: Testing | 135 - 143 | EXTERNAL | | | | performed at [facility];[address] | mmol/L | LAB | | | | [address];[place], [place] | | | | | | [address] | | | | + + + + + + | K | 4.7Comment: Testing | 3.5 - 4.9 | EXTERNAL | | | | performed at [facility];[address] | mmol/L | LAB | | | | [address];[place] | | | | | | [address] | | | | + + + + + + | Cl | 84 (L)Comment: Testing | 99 - 109 mmol/L | EXTERNAL | | | | performed at [facility];[address] | | LAB | | | | [address];[place] | | | | | | [address] | | | | + + + + + + | CO2 | 23Comment: Testing | 23 - 32 mmol/L | EXTERNAL | | | | performed at [facility];[address] | | LAB | | | | [address];[place] | | | | | | [address] | | | | + + + + + + | Anion Gap | 27 (H)Comment: Testing | 5 - 20 mmol/L | EXTERNAL | | | | performed at [facility];[address] | | LAB | | | | [address];[place] | | | | | | [address] | | | | + + + + + + | Glucose, | 117 (H)Comment: Testing | 65 - 99 mg/dL | EXTERNAL | | | Fasting | performed at [facility];[address] | | LAB | | | | [address];[place] | | | | | | [address] | | | | + + + + + + | BUN | 188 (H)Comment: Testing | 8 - 25 mg/dL | EXTERNAL | | | | performed at [facility];[address] | | LAB | | | | [address];[place] | | | | | | [address] | | | | + + + + + + | Creatinine | 24.82 (H)Comment: | 0.70 - 1.30 | EXTERNAL | | | | Testing performed at | mg/dL | LAB | | | | [facility];[address];[place] [address] | | | | + + + + + + | BUN/Creatin | 8Comment: Testing | | EXTERNAL | | | ine Ratio | performed at [facility];[address] | | LAB | | | | [address];[place] | | | | | | [address] | | | | + + + + + + | Calcium | 7.9 (L)Comment: Testing | 8.5 - 10.2 | EXTERNAL | | | | performed at [facility];[address] | mg/dL | LAB | | | | [address];[place] | | | | | | [address] | | | | + + + + + + | Estimated | 2 (L)Comment: GFR <60: | mL/min/1.73m2 | EXTERNAL | | | GFR | CHRONIC KIDNEY DISEASE, | | LAB | | | | IF FOUND OVER A 3 MONTH | | | | | | PERIOD.GFR <15: KIDNEY | | | | | | FAILURE.FOR | | | | | | AMERICANS, MULTIPLY THE | | | | | | CALCULATED GFR BY | | | | | | 1.210.Testing performed | | | | | | at [facility];[address] | | | | | | [address];[place] [address] | | | | + + + + + + + + | Specimen | + + | Blood specimen | | (specimen) | + + + +---------+ + + | Performing | Address | City/State/Zipcode | Phone Number | | Organization | | | | + +---------+ + + | EXTERNAL LAB | | | | + +---------+ + + ECG 12 lead (07/28/2013 2:13 PM PDT) + + + + + + | Component | Value | Ref Range | Performed | Pathologist | | | | | At | Signature | + + + + + + | DIAGNOSIS: | Normal sinus | | EXTERNAL | | | | rhythmNormal ECGNo | | LAB | | | | previous ECGs | | | | | | availableThis ECG | | | | | | contains Unconfirmed | | | | | | Interpretation | | | | | | Statements. See ED | | | | | | Record for Physician | | | | | | Interpretation. | | | | | | Confirmed by MUSE READ | | | | | | ONLY, -COMPUTER ([id number]), | | | | | | editor & co founder DMITRY JEROME ([id number]) | | | | | | on 07/28/2013 5:15:27 PM | | | | | | | | | | + + + + + + + + | Specimen | + + | | + + + + + | Narrative | Performed At | + + + | Done per jossy RN and shown to Monet Historically converted | EXTERNAL LAB | | procedure from [facility] environment | | + + + + +---------+ + + | Performing | Address | City/State/Zipcode | Phone Number | | Organization | | | | + +---------+ + + | EXTERNAL LAB | | | | + +---------+ + + XR Chest 1 Manuel (07/28/2013 12:58 AM PDT) + + | Specimen | + + | | + + + + + | Narrative | Performed At | + + + | This is a non-reportable procedure without a radiologist report and | | | is used for image storage only | | + + + + + | Procedure Note | + + | Cleso Jay - 09/26/2018 3:53 PM PDT This is a non-reportable procedure | | without a radiologist report and isused for image storage only | + + documented in this encounter Visit Diagnoses + + | Diagnosis | + + | Acute renal failure (HCC) Acute kidney failure, unspecified | + + | Metabolic acidosis Acidosis | + + | Hyperkalemia Hyperpotassemia | + + | Allodynia Disturbance of skin sensation | + + | Chronic pain syndrome | + + | History of heroin abuse (HCC) | + + | Chronic hepatitis C without mention of hepatic coma | + + | Dehydration | + + | Hyperkalemia, diminished renal excretion Hyperpotassemia | + + | Prerenal acute renal failure (HCC) Other symptoms involving urinary system | + + documented in this encounter
--- OUTSIDE RECORDS SUMMARY | ~2019-07-17 | XMS | Encounter Summary ---
Demographics + + + | Address | [address] | | | [place] [address] | + + + | Home Phone | | + + + | Preferred Language | Unknown | + + + | Marital Status | Single | + + + | Mormonism Affiliation | 1013 | + + + | Race | Unknown | + + + | Ethnic Group | Unknown | + + + Author + + + | Author | [facility] | | | and [place] | + + + | Organization | [facility] | | [...] Team Providers + +------+ + | Care Tube Skiver Name | Role | Phone | + +------+ + PCP | Unavailable | + +------+ + Encounter Details +--------+ + + + + | Date | Type | Department | Care Team | Description | +--------+ + + + + | 07/28/ | Hospital | [facility] | Brandon Kimball, | Acute renal failure | | 2013 - | Encounter | [facility] | [address] | ([facility]); Metabolic | | | | CARE FLOOR [address] | [place] [address] | acidosis; | | 08/05/ | | [address] | [phone] | Hyperkalemia; | | 2013 | | [place], [place] | | Allodynia; Chronic | | | | [address] | | pain syndrome; | | | | [phone] | | History of heroin | | [...] Summaries by Everardo Mcdowell MD at 08/05/13 7121 Author: Everardo cMdowell MD Service: (none) Author Type: Physician Filed: 08/05/13 5637 Date of Service: 08/05/13 1351 Status: Addendum Locomotive Crane Engineer: Everardo Mcdowell MD (Physician) Related Notes: Original Note by Everardo Mcdowell MD (Physician) filed at 08/05/13 1402 [facility] Service: Hospitalist Discharge Summary Date of Admission: [...] of bicarbonate Patient was transferred here to [facility] for placement of hemodialysi s catheter and [...] hours No results found for this basename: PHART:3,PO2ART:3,MTT6ITG:3,I9KOVZXV:3,BEART:[address] 168 hours No [...] up: MD Jason Murguia MD [address] [place] [facility] [place] [address] In 1 week Shirley Dutton MD [facility] [address] [facility] [address] 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 You may get these medications from any [...] Notes by Rashel Wheeler MD at 08/05/13 5818 Author: Rashel Wheeler MD Service: Nephrology Author Type: Physician Filed: 08/05/13 1150 Date of Service: 08/05/13 1150 Status: Signed Locomotive Crane Engineer: Rashel Wheeler MD (Physician) [facility] Service: Nephrology Renal Consult Progress Note Lucy Cheek [id number] Hospital Day: LOS: 8 days SUBJECTIVE Patient [...] no meds, who was transfe rred from [facility] after he was found to be [...] few physicians in urgent care in [facility] area and they told him to take Advil for pain management as his fatigue and muscles aches ( especially in lower extremities an back) worsened. He was seen in urgent care yesterday a nd was directed [facility] ED today where his labs showed Cr of 27, bun 186, CO2 16 and [ otassiumof 130. His cpk was 2237, uric acid 17.1, and phos 13.4. He was transferred to [facility] for management. Pt denies any history [...] S/p pc placement, has been accepted at [facility] dialysis unit to start Acute hd on [...] 08/05/13911 Date of Service: 08/05/13826 Status: Signed Locomotive Crane Engineer: Jameson Bedolla MD (Physician) CONSULT NOTE 08/05/2013 [...] 2012 stage 2. This was done in [facility]. The patient was advised to be treated for later stages. ( the patient was incarcerated for 3 years. 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 The patient last incarceration from 2010 to 2013. Was released May 12, 2013 and doing well. The patient normal kidney function . The patient has a job in [employer] and enrolled at college. The patient was dehydrated 07/19/13 for sprain his ankle treated with ibuprofen and has on a nd off vomiting.for 10 days lower abdominal and flank pain. The patient went to [facility]. Was later transferred to [facility] 07/28/13 . HD catheter placed in [...] (A) Log IU/mL HCV RNA VIRAL LOAD [id number] (A) He has hiv and syphilis screen [...] tablet 20 mg 20 mg Oral Daily Pepin H Tolentino, RPH 20 mg at 0900 Or famotidine (PEPCID) IVPB 20 mg 20 mg Intravenous Daily Pepin H Tolentino, RPH fentaNYL (SUBLIMAZE) injection 50 [...] 10 mg Intravenous Q1H PRN Jessica Paiz AGENCY DEVELOPMENT MANAGER 10 mg at 08/04/13 1942 HYDROmorphone (DILAUDID) [...] Nasal Once Gisselle Llanes MD nystatin (MYCOSTATIN) [id number] UNIT/ML suspension 500,000 Units 5 mL Mouth/Throat [...] Encounters: 08/05/13 50 Head: Normocephalic atraumatic HEENT: Challis palpebral conjunctivae. Anicteric sclerae. No tonsillopharyngeal congestion. [...] GLUCOSEU DIAGNOSTIC IMAGING MRI pelvis without contrast [[id number]] Resulted:08/01/13 1659 Order Status:Completed Update d:08/01/13 1702 [...] thigh. Cellulitis versus simple edema. Lucy Reinoso #[id number] (CSN: [id number]) (38 y.o. M) (Adm: 07/28/13) [id number] Radiology Results (last 7 days) X-ray femur left [[id number]] Resulted:08/01/131740 Order Status:Completed Updated:08/01/131746 Narrative: LUCY CHEEK [...] to be symptomatic. X-ray tibia fibula left [[id number]] Resulted:08/01/131740 Order Status:Completed Updated:08/01/131746 Narrative: LUCY CHEEK [...] continues to be symptomatic. X-ray foot left [[id number]] Resulted:08/01/13 1741 Order Status:Completed Updated:08/01/131746 Narrative: LUCY CHEEK XR [...] continues to be symptomatic. pelvis without contrast [[id number]] Resulted:08/01/13 1659 Order Status:Completed Updated:08/01/131701 Narrative: EXAM: [...] 01 2013 4:59PM Referring Provider Line: [id number] ID: [id number] X-ray hip 2 view left [[id number]] Resulted:07/30/131920 Order Status:Completed Updated:07/30/131925 Narrative: LUCY CHEEK [...] the hips. Ultrasound doppler venous leg left [[id number]] Resulted:07/30/131804 Order Status:Completed Updated:07/30/131809 Narrative: LUCY NOLANDES [...] extremity deep vein thrombosis. Ultrasound retroperitoneal limited [[id number]] Resulted:07/30/131803 Order Status:Completed Updated:07/30/131808 Narrative: LUCY CHEEK [...] the renal arterial system. Chest AP portable [[id number]] Resulted:07/28/13 1546 Order Status:Completed Updated:07/29/13 0820 Narrative: [...] the distal clavicle X-ray chest 1 view [[id number]] Resulted:07/29/13 0705 Order Status:Completed Updated:07/29/13 0710 Narrative: [...] venous catheter, unchanged. X-ray chest 1 view [[id number]] Resulted:07/29/1357 Order Status:Completed Updated:07/29/1357 Narrative: This is a non-reportable procedure without a radiologist report and is used for image storage only Ultrasound kidneys and bladder [[id number]] Resulted:07/28/131727 Order Status:Completed Updated:07/28/131732 Narrative: LUCY CHEEK [...] Date of Service: 08/04/13 141 Status: Signed Locomotive Crane Engineer: Toshia Sparks (Coordinator) Patients dialysis schedule is as follows: [facility] [address] [place] [address] Saturday, & Saturday @ 10:15am Patient needs to arrive on his 08-06-13 @ 9:30am for new patient paperwork. Rashel Carcamo MD - 08/04/2013 1:25 PM PDT Progress Notes by Rashel Wheeler MD at 08/04/13 1325 Author: Rashel Wheeler MD Service: Nephrology Author Type: Physician Filed: 08/04/13 1331 Date of Service: 08/04/13 1325 Status: Signed Locomotive Crane Engineer: Rashel Wheeler MD (Physician) [facility] Service: Nephrology Renal Consult Progress Note Lucy Cheek [id number] Hospital Day: LOS: 7 days SUBJECTIVE Patient [...] no meds, who was transfe rred from [facility] after he was found to be [...] saw few physicians in urgent care in [facility] on area and they told him to take Advil for pain management as his fatigue and muscles aches ( especially in lower extremities an back) worsened. He was seen in urgent care yesterday a nd was directed [facility] ED today where his labs showed Cr of 27, bun 186, CO2 16 and [ otassiumof 130. His cpk was 2237, uric acid 17.1, and phos 13.4. He was transferred to [facility] for management. Pt denies any history [...] Date of Service: 08/04/13 1106 Status: Signed Locomotive Crane Engineer: Everardo Mcdowell MD (Physician) [facility] Service: Hospitalist Progress Note Pt: Lucy Cheek [...] hours No results found for this basename: PHART:3,PO2ART:3,SKN8VLG:3,I5DRZSIO:3,BEART:[address] 168 hours No [...] secondary to dehydration, has Hep C, Dr uDtton and Dr Tyler nathan is covering permcath [...] 08/04/1328 Date of Service: 08/04/13926 Status: Signed Locomotive Crane Engineer: Toshia Sparks (Coordinator) Patient chose [facility] [...] 1504 Date of Service: 08/04/13806 Status: Signed Locomotive Crane Engineer: WENDY Benítez (Advanced Registered Nurse Practitioner) [facility] Service: Orthopedic Surgery Progress Note 08/04/2013 Hospital [...] Component Value Units Date/Time MRSA by PCR [[id number]] Collected:08/03/13 1202 Specimen Information:Nasopharyngeal / Nares Updated:08/03/13 [...] 0819 Date of Service: 08/04/13723 Status: Signed Locomotive Crane Engineer: Jameson Bedolla MD (Physician) CONSULT NOTE 08/04/2013 [...] 2012 stage 2. This was done in [facility]. The patient was advised to be treated for later stages. ( the patient was incarcerated for 3 years. 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 The patient last incarceration from 2010 to 2013. Was released May 12, 2013 and doing well. The patient normal kidney function . The patient has a job in [employer] and enrolled at college. The patient was dehydrated 07/19/13 for sprain his ankle treated with ibuprofen and has on a nd off vomiting.for 10 days lower abdominal and flank pain. The patient went to [facility]. Was later transferred to [facility] 07/28/13 . HD catheter placed in [...] (A) Log IU/mL HCV RNA VIRAL LOAD [id number] (A) He has hiv and syphilis screen [...] 10 mg Intravenous Q1H PRN Jessica Paiz AGENCY DEVELOPMENT MANAGER HYDROmorphone (DILAUDID) injection 0.5 mg 0.5 mg [...] Q1H PRN Tung Dietz MD nystatin (MYCOSTATIN) [id number] UNIT/ML suspension 500,000 Units 5 mL Mouth/Throat [...] Encounters: 08/04/13 62 Head: Normocephalic atraumatic HEENT: Challis palpebral conjunctivae. Anicteric sclerae. No tonsillopharyngeal congestion. [...] GLUCOSEU DIAGNOSTIC IMAGING MRI pelvis without contrast [[id number]] Resulted:08/01/13 1659 Order Status:Completed Update d:08/01/13 1702 [...] d thigh. Cellulitis versus simple edema. YESY Anne ArundelLucy #[id number] (CSN: [id number]) (38 y.o. M) (Adm: 07/28/13) [id number] Radiology Results (last 7 days) X-ray femur left [[id number]] Resulted:08/01/131740 Order Status:Completed Updated:08/01/131746 Narrative: LUCY CHEEK [...] to be symptomatic. X-ray tibia fibula left [[id number]] Resulted:08/01/131740 Order Status:Completed Updated:08/01/131746 Narrative: LUCY CHEEK [...] continues to be symptomatic. X-ray foot left [[id number]] Resulted:08/01/131740 Order Status:Completed Updated:08/01/131746 Narrative: LUCY CHEEK [...] continues to be symptomatic. pelvis without contrast [[id number]] Resulted:08/01/13 1659 Order Status:Completed Updated:08/01/131701 Narrative: EXAM: [...] 01 2013 4:59PM Referring Provider Line: [id number] ID: [id number] X-ray hip 2 view left [[id number]] Resulted:07/30/131920 Order Status:Completed Updated:07/30/131925 Narrative: LUCY Stevens [...] the hips. Ultrasound doppler venous leg left [[id number]] Resulted:07/30/131804 Order Status:Completed Updated:07/30/131809 Narrative: LUCY Stevens [...] extremity deep vein thrombosis. Ultrasound retroperitoneal limited [[id number]] Resulted:07/30/131803 Order Status:Completed Updated:07/30/131808 Narrative: LUCY NOLANDES [...] the renal arterial system. Chest AP portable [[id number]] Resulted:07/28/13 1546 Order Status:Completed Updated:07/29/13 0820 Narrative: [...] the distal clavicle X-ray chest 1 view [[id number]] Resulted:07/29/13 0705 Order Status:Completed Updated:07/29/13 0710 Narrative: [...] venous catheter, unchanged. X-ray chest 1 view [[id number]] Resulted:07/29/13 0058 Order Status:Completed Updated:07/29/13 0058 Narrative: This is a non-reportable procedure without a radiologist report and is used for image storage only Ultrasound kidneys and bladder [[id number]] Resulted:07/28/13 1728 Order Status:Completed Updated:07/28/13 1733 Narrative: [...] 1504 Date of Service: 08/03/132125 Status: Signed Locomotive Crane Engineer: WENDY Benítez (Advanced Registered Nurse Practitioner) [facility] Service: Orthopedic Surgery Progress Note 08/03/2013 Hospital [...] Component Value Units Date/Time MRSA by PCR [[id number]] Collected:08/03/13 1202 Specimen Information:Nasopharyngeal / Nares Updated:08/03/13 [...] PDT Case Management by Omid Trejo MS, SUPERVISOR COIN MACHINE at 08/03/13 1318 Author: Omid Trejo MS, SUPERVISOR COIN MACHINE Service: (none) Author Type: Board Of Education Secretary Filed: 08/03/13 1319 Date of Service: 08/03/13 1318 Status: Signed Locomotive Crane Engineer: Omid Trejo MS, SUPERVISOR COIN MACHINE (Board [employer] Secretary) Discharge planning: CM provided referral to [facility] dialysis coordinator re: pt's anticipat ed HD needs. Tung Martines MD - 08/03/2013 12:00 PM PDT Progress Notes by Tung Dietz MD at 08/03/13 1200 Author: Tung Dietz MD Service: (none) Author Type: Physician Filed: 08/03/13 1617 Date of Service: 08/03/13 1200 Status: Addendum Locomotive Crane Engineer: Tung Dietz MD (Physician) Related Notes: Original Note by Tung Dietz MD (Physician) filed at 08/03/13 8524 [facility] Service: Hospitalist Progress Note Pt: Lucy Cheek AGE/SEX: 38 y.o. male ROOM: [facility] : 1975 PCP: JASON PRIDE ADMIT DATE: 07/28/2013 TODAY'S DATE: 08/03/2013 Hospital Day/Hospital Course: LOS: 6 days 38 y/o with hx of HTN, h/o IV drug abuse last use 3 years ago, hep C, compartment syndrome s/p fasciotomies on R leg for heroine use, smoker, transferred from [facility] for kidney failure , acidosis and hyperkalemia [...] hours No results found for this basename: PHART:3,PO2ART:3,FDA9IGA:3,S4BQYBMQ:3,BEART:[address] 168 hours No [...] Date of Service: 08/03/13 1001 Status: Signed Locomotive Crane Engineer: Rashel Wheeler MD (Physician) [facility] Service: Nephrology Renal Consult Progress Note Lucy Cheek [id number] Hospital Day: LOS: 6 days SUBJECTIVE Patient [...] edema in left leg Access: rt ij [place] DATA Lab 08/03/13 0455 08/02/13 0500 08/01/13 [...] saw few physicians in urgent care in [facility] on area and they told him to take Advil for pain management as his fatigue and muscles aches ( especially in lower extremities an back) worsened. He was seen in urgent care yesterday a nd was directed [facility] ED today where his labs showed Cr of 27, bun 186, CO2 16 and [ otassiumof 130. His cpk was 2237, uric acid 17.1, and phos 13.4. He was transferred to [facility] for management. Pt denies any history [...] 08/03/1318 Date of Service: 08/03/13827 Status: Signed Locomotive Crane Engineer: Jameson Bedolla MD (Physician) CONSULT NOTE 08/03/2013 [...] 2012 stage 2. This was done in [facility]. The patient was advised to be treated for later stages. ( the patient was incarcerated for 3 years. 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 The patient last incarceration from 2010 to 2013. Was released May 12, 2013 and doing well. The patient normal kidney function . The patient has a job in [employer] and enrolled at [employer] The patient was dehydrated 07/19/13 for sprain his ankle treated with ibuprofen and has on a nd off vomiting.for 10 days lower abdominal and flank pain. The patient went to [facility]. Was later transferred to [facility] 07/28/13 . HD catheter placed in R IJ in our ED. Admitte to [facility] . Urgent HD was done, he had [...] (A) Log IU/mL HCV RNA VIRAL LOAD [id number] (A) He has hiv and syphilis screen [...] Q1H PRN Tung Dietz MD nystatin (MYCOSTATIN) [id number] UNIT/ML suspension 500,000 Units 5 mL Mouth/Throat [...] Encounters: 08/03/13 54 Head: Normocephalic atraumatic HEENT: Challis palpebral conjunctivae. Anicteric sclerae. No tonsillopharyngeal congestion. [...] GLUCOSEU DIAGNOSTIC IMAGING MRI pelvis without contrast [[id number]] Resulted:08/01/13 1654 Order Status:Completed Update d:08/01/13 7242 Narrative: EXAM: MR PELVIS WITHOUT CONTRAST EXAM [...] thigh. Cellulitis versus simple edema. Lucy Reinoso #[id number] (CSN: [id number]) (38 y.o. M) (Adm: 07/28/13) [id number] Radiology Results (last 7 days) X-ray femur left [[id number]] Resulted:08/01/131740 Order Status:Completed Updated:08/01/131746 Narrative: LUCY CHEEK [...] to be symptomatic. X-ray tibia fibula left [[id number]] Resulted:08/01/13 174 Order Status:Completed Updated:08/01/131746 Narrative: LUCY [...] continues to be symptomatic. X-ray foot left [[id number]] Resulted:08/01/131740 Order Status:Completed Updated:08/01/131746 Narrative: LUCY CHEEK [...] continues to be symptomatic. pelvis without contrast [[id number]] Resulted:08/01/13 1659 Order Status:Completed Updated:08/01/133 Narrative: EXAM: MR PELVIS WITHOUT CONTRAST EXAM [...] 01 2013 4:59PM Referring Provider Line: [id number] ID: [id number] X-ray hip 2 view left [[id number]] Resulted:07/30/131920 Order Status:Completed Updated:07/30/131925 Narrative: LUCY CHEEK [...] the hips. Ultrasound doppler venous leg left [[id number]] Resulted:07/30/131804 Order Status:Completed Updated:07/30/131809 Narrative: LUCY CHEEK [...] extremity deep vein thrombosis. Ultrasound retroperitoneal limited [[id number]] Resulted:07/30/13 1804 Order Status:Completed Updated:07/30/13 180 Narrative: [...] the renal arterial system. Chest AP portable [[id number]] Resulted:07/28/13 1546 Order Status:Completed Updated:07/29/13 0820 Narrative: [...] the distal clavicle X-ray chest 1 view [[id number]] Resulted:07/29/13 0705 Order Status:Completed Updated:07/29/13 0710 Narrative: [...] venous catheter, unchanged. X-ray chest 1 view [[id number]] Resulted:07/29/13 0058 Order Status:Completed Updated:07/29/13 0058 Narrative: This is a non-reportable procedure without a radiologist report and is used for image storage only Ultrasound kidneys and bladder [[id number]] Resulted:07/28/13 1728 Order Status:Completed Updated:07/28/13 1733 Narrative: [...] Notes by Tung Dietz MD at 08/02/13 3139 Author: Tung Dietz MD Service: (none) Author Type: Physician Filed: 08/02/131809 Date of Service: 08/02/131533 Status: Addendum Locomotive Crane Engineer: Tung Dietz MD (Physician) Related Notes: Original Note by Tung Dietz MD (Physician) filed at 08/02/13 989 [facility] Service: Hospitalist Progress Note Pt: Lucy Cheek AGE/SEX: 38 y.o. male ROOM: 6627/6627-1 : 1975 PCP: JASON PRIDE ADMIT DATE: 07/28/2013 TODAY'S DATE: 08/02/2013 Hospital Day/Hospital Course: LOS: 5 days 38 y/o with hx of HTN, h/o IV drug abuse last use 3 years ago, hep C, compartment syndrome s/p fasciotomies on R leg for heroine use, smoker, transferred from [facility] for kidney failure , acidosis and hyperkalemia [...] hours No results found for this basename: PHART:3,PO2ART:3,UMP8IBO:3,P6PIWEGS:3,BEART:[address] 168 hours No [...] Notes by Rashel Wheeler MD at 08/02/13 4076 Author: Rashel Wheeler MD Service: Nephrology Author Type: Physician Filed: 08/02/13 1138 Date of Service: 08/02/131135 Status: Signed Locomotive Crane Engineer: Rashel Wheeler MD (Physician) [facility] Service: Nephrology Renal Consult Progress Note Lucy Cheek [id number] Hospital Day: LOS: 5 days SUBJECTIVE Patient [...] few physicians in urgent care in [facility] area and they told him to take Advil for pain management as his fatigue and muscles aches ( especially in lower extremities an back) worsened. He was seen in urgent care yesterday a nd was directed [facility] ED today where his labs showed Cr of 27, bun 186, CO2 16 and [ otassiumof 130. His cpk was 2237, uric acid 17.1, and phos 13.4. He was transferred to [facility] for management. Pt denies any history [...] Date of Service: 08/02/13 1033 Status: Signed Locomotive Crane Engineer: WENDY Benítez (Advanced Registered Nurse Practitioner) [facility] Service: Orthopedic Surgery Progress Note 08/02/2013 Hospital [...] 01 2013 4:59PM Refe rring Provider Line: [id number] ID: [id number] PROBLEM LIST Principal Problem: *Acute [...] 0933 Date of Service: 08/02/13712 Status: Addendum Locomotive Crane Engineer: Jameson Bedolla MD (Physician) Related Notes: Original Note by [...] 2013 stage 2. This was done in [facility]. The patient was advised to be treated for later stages. ( the patient was incarcerated for 3 years. 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 The patient last incarceration from 2010 to 2013. Was released May 12, 2013 and doing well. The patient normal kidney function . The patient has a job in [employer] and enrolled at [employer] The patient was dehydrated 07/19/13 for sprain his ankle treated with ibuprofen and has on a nd off vomiting.for 10 days lower abdominal and flank pain. The patient went to [facility]. Was later transferred to [facility] 07/28/13 . HD catheter placed in [...] Q1H PRN Tung Dietz MD nystatin (MYCOSTATIN) [id number] UNIT/ML suspension 500,000 Units 5 mL Mouth/Throat [...] Encounters: 08/02/13 61 Head: Normocephalic atraumatic HEENT: Challis palpebral conjunctivae. Anicteric sclerae. No tonsillopharyngeal congestion. [...] foot to have no edema. 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 Discomfort NEUROLOGIC: No localizing signs. Skin : [...] KETONES, BILIRUBINUR, GLUCOSEU DIAGNOSTIC IMAGING Lucy Cheek #[id number] (CSN: [id number]) (38 y.o. M) (Adm: 07/28/13) [id number] Radiology Results (last 7 days) X-ray femur left [[id number]] Resulted:08/01/131740 Order Status:Completed Updated:08/01/131746 Narrative: LUCY CHEEK [...] to be symptomatic. X-ray tibia fibula left [[id number]] Resulted:08/01/131740 Order Status:Completed Updated:08/01/131746 Narrative: LUCY CHEEK [...] continues to be symptomatic. X-ray foot left [[id number]] Resulted:08/01/131740 Order Status:Completed Updated:08/01/131746 Narrative: LUCY Rodney [...] continues to be symptomatic. pelvis without contrast [[id number]] Resulted:08/01/13 1659 Order Status:Completed Updated:08/01/13 1702 Narrative: [...] 01 2013 4:59PM Referring Provider Line: [id number] ID: [id number] X-ray hip 2 view left [[id number]] Resulted:07/30/131920 Order Status:Completed Updated:07/30/131925 Narrative: LUCY CHEEK [...] the hips. Ultrasound doppler venous leg left [[id number]] Resulted:07/30/131804 Order Status:Completed Updated:07/30/131809 Narrative: LUCY CHEEK [...] extremity deep vein thrombosis. Ultrasound retroperitoneal limited [[id number]] Resulted:07/30/13 180 Order Status:Completed Updated:07/30/13 180 Narrative: [...] the renal arterial system. Chest AP portable [[id number]] Resulted:07/28/13 1546 Order Status:Completed Updated:07/29/13 0820 Narrative: [...] the distal clavicle X-ray chest 1 view [[id number]] Resulted:07/29/13 0705 Order Status:Completed Updated:07/29/13 0710 Narrative: [...] venous catheter, unchanged. X-ray chest 1 view [[id number]] Resulted:07/29/13 0058 Order Status:Completed Updated:07/29/13 0058 Narrative: This is a non-reportable procedure without a radiologist report and is used for image storage only Ultrasound kidneys and bladder [[id number]] Resulted:07/28/13 1728 Order Status:Completed Updated:07/28/13 173 Narrative: [...] Date of Service: 08/01/13 1222 Status: Addendum Locomotive Crane Engineer: Rashel Wheeler MD (Physician) Related Notes: Original Note by Rashel Wheeler MD (Physician) filed at 08/01/13 1229 [facility] Service: Nephrology Renal Consult Progress Note Lucy Cheek [id number] Hospital Day: LOS: 4 days SUBJECTIVE Patient [...] Ext: left leg 1+ edema Access: rt [facility] DATA Lab 08/01/13 0506 07/31/13 0528 07/30/13 [...] few physicians in urgent care in [facility] area and they told him to take Advil for pain management as his fatigue and muscles aches ( especially in lower extremities an back) worsened. He was seen in urgent care yesterday a nd was directed [facility] ED today where his labs showed Cr of 27, bun 186, CO2 16 and [ otassiumof 130. His cpk was 2237, uric acid 17.1, and phos 13.4. He was transferred to [facility] for management. Pt denies any history [...] Date of Service: 08/01/13 0737 Status: Signed Locomotive Crane Engineer: Tung Dietz MD (Physician) [facility] Service: Hospitalist Progress Note Pt: Lucy Cheek AGE/SEX: 38 y.o. 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, smoker, transferred from [facility] for kidney failure , acidosis and hyperkalemia [...] hours No results found for this basename: PHART:3,PO2ART:3,JSA6UOT:3,L9OTALHO:3,BEART:[address] 168 hours No [...] Date of Service: 07/31/13 144 Status: Signed Locomotive Crane Engineer: Coty Tolentino RPH (Pharmacist) Renal Dosing Monitoring: [...] Date of Service: 07/31/13 1304 Status: Signed Locomotive Crane Engineer: Rashel Wheeler MD (Physician) [facility] Service: Nephrology Renal Consult Progress Note Lucy Cheek [id number] Hospital Day: LOS: 3 days SUBJECTIVE Patient [...] few physicians in urgent care in [facility] area and they told him to take Advil for pain management as his fatigue and muscles aches ( especially in lower extremities an back) worsened. He was seen in urgent care yesterday a nd was directed [facility] ED today where his labs showed Cr of 27, bun 186, CO2 16 and [ otassiumof 130. His cpk was 2237, uric acid 17.1, and phos 13.4. He was transferred to [facility] for management. Pt denies any history [...] Date of Service: 07/31/13 1032 Status: Signed Locomotive Crane Engineer: Tung Dietz MD (Physician) [facility] Service: Hospitalist Progress Note Pt: Lucy Cheek AGE/SEX: 38 y.o. 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 Case Management by Omid Trejo MS, SUPERVISOR COIN MACHINE at 07/30/13 1322 Author: Omid Trejo MS, SUPERVISOR COIN MACHINE Service: (none) Author Type: Board Of Education Secretary Filed: 07/30/13 1331 Date of Service: 07/30/13 1322 Status: Addendum Locomotive Crane Engineer: Omid Trejo MS, SUPERVISOR COIN MACHINE (Board Of Education Secretary) Related Notes: Original Note by Omid Trejo MS, SUPERVISOR COIN MACHINE (Board Of Education Secretary) filed at 07/30/13 1324 07/30/13 1318 Discharge [...] of care post discharge. Pt resides i 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 Pt does not drive, family transports him when needed. Pt was a transfer from [facility] . Pt was not on HD prior , CM to remain avail re: HD status. Educated re: FMLA if pt is eligible with employer. Power of [employer] Supervisor No Anticipated Discharge Plan Post Acute Care Needs None at this time Plan communicated to patient/family Yes Resources Financial concerns No Transportation issues No (His mother Jovana will picking table worker pt @ d/c.) Patient/Family concerns No Anticipated Disposition Facility Type (Home) CM met with pt to discuss plan of care post discharge. Pt is a 38 y.o.male living in [facility] independent Patient's PCP is: JASON PRIDE Patient's insurance: [place] Medicaid Coverage concerns:none reported Medication coverage/concerns: none Community resources utilized / needed: pt is a student, [place] Medicaid, CM to follow re: H D needs. CM called Leonarda, dialysis coordinator [phone], re: pt in house on HD. Assistance in transportation: Mom to transport Identification of any specific education / training: Educated re: FMLA if eligible. Barriers to Discharge / Alternative housing needed: none reported Anticipated DCP: [facility] [place] [facility] Sahni MD - 07/30/2013 10:17 AM PDTFormatting of this note might be different from dimitry torrez original. Progress Notes by Shirley Dutton MD at 07/30/13 1017 Author: Shirley Dutton MD Service: Nephrology Author Type: Physician Filed: 07/30/13 1042 Date of Service: 07/30/13 1017 Status: Addendum Locomotive Crane Engineer: Shirley Dutton MD (Physician) Related Notes: Original Note by Shirley Dutton MD (Physician) filed at 07/30/13 1037 [facility] Followup -Nephrology I saw Mr. Lucy Cheek today for follow-up. he is interviewed, examined and meds/ labs/ i maging have been reviewed. Mr. Cheek is a pleasant 38 yo gentleman with no known past medical history except for histo ry of IV drug abuse (none in last 3 years) , ? Mild hypertension on no meds, who was transfe rred from [facility] after he was found to be [...] care yesterday a nd was directed [facility] ED today where his labs showed Cr of 27, bun 186, CO2 16 and [ otassiumof 130. His cpk was 2237, uric acid 17.1, and phos 13.4. He was transferred to [facility] for management. Pt denies any history [...] le ft clavicle, a chronic finding. Assessment/Plan: [facility]/ ARF : likely hemodynamic and i am [...] 07/30/1316 Date of Service: 07/30/13813 Status: Signed Locomotive Crane Engineer: Tera Leigh RN (Registered Nurse) Pt c/o pain 09/20 2 hrs s/p dilaudid 3mg iv. Tung Martines MD - 07/30/2013 7:29 AM PDT Progress Notes by Tung Dietz MD at 07/30/1329 Author: Tung Dietz MD Service: (none) Author Type: Physician Filed: 07/30/13 0957 Date of Service: 07/30/13728 Status: Signed Locomotive Crane Engineer: Tung Dietz MD (Physician) [facility] Service: Hospitalist Progress Note Pt: Lucy Cheek AGE/SEX: 38 y.o. 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 Lucy Cheek today for follow-up. he is interviewed, examined and meds/ labs/ i maging have been reviewed. Mr. Cheek is a pleasant 38 yo gentleman with no known past medical history except for histo ry of IV drug abuse (none in last 3 years) , ? Mild hypertension on no meds, who was transfe rred from [facility] after he was found to be [...] saw few physicians in urgent care in [facility] on area and they told him to take Advil for pain management as his fatigue and muscles aches ( especially in lower extremities an back) worsened. He was seen in urgent care yesterday a nd was directed [facility] ED today where his labs showed Cr of 27, bun 186, CO2 16 and [ otassiumof 130. His cpk was 2237, uric acid 17.1, and phos 13.4. He was transferred to [facility] for management. Pt denies any history [...] Notes by Anselmo Rodriguez MD at 07/29/13 1058 Author: Anselmo Rodriguez MD Service: Digital Campaign Specialist Author Type: Digital Campaign Specialist Filed: 07/29/13 3883 Date of Service: 07/29/13 1052 Status: Signed Locomotive Crane Engineer: Anselmo Rodriguez MD (Physician) [facility] Service: Digital Campaign Specialist Progress Note Lucy Cheek 38 y.o. Date [...] bicarbonate Patient was transferr ed here to [facility] for placement of hemodialysis catheter and plan fo r urgent dialysis under the care of Dr. Dutton. Hemodialysis catheter was placed in the [facility] by Dr. Healy in the emergency [...] 07/28/131604 Date of Service: 07/28/131604 Status: Signed Locomotive Crane Engineer: Chiquita Solis RPH (Pharmacist) Clinical Pharmacy Note: Renal Monitoring Lucy Cheek 38 y.o. male Ht Readings from Last 1 Encounters: 07/28/13 1.854 m (6' 1") Wt Readings from Last 1 Encounters: 07/28/13 111.131 kg (245 lb) Patient is on hemodialysis. Pharmacy dosing for renal function per WNEDY Salazar. Currently, there are no medications needing [...] | | | | | | DETERMINEDBY [facility] | | | | | | [...] | | | | | performed at [facility], [address] | | | | | | [facility] | | | | | | [place] [address] | | | | + + + + + + + + | Specimen | + + | Blood specimen | | (specimen) | + + + +---------+ + + | Performing | Address | City/State/[place] | Phone Number | | Organization | [...] EXTERNAL | | | | performed at [facility], [address] | | LAB | | | | [address], | | | | | | [place] [address] | | | | + + + + + + | Red Blood | 3.55 (L)Comment: Testing | 4.20 - 5.70 | EXTERNAL | | | Cells | performed at [facility], [address] | M/uL | LAB | | | Counted | [address], | | | | | | [place] [address] | | | | + + + + + + | Hemoglobin | 11.5 (L)Comment: Testing | 13.2 - 17.0 | EXTERNAL | | | | performed at [facility], [address] | g/dL | LAB | | | | [address], | | | | | | [place] [address] | | | | + + + + + + | Hematocrit, | 33.7 (L)Comment: Testing | 39.0 - 50.0 % | EXTERNAL | | | POC | performed at [facility], [address] | | LAB | | | | [address], | | | | | | [place] [address] | | | | + + + + + + | MCV | 95.1Comment: Testing | 80.0 - 100.0 fl | EXTERNAL | | | | performed at [facility], [address] | | LAB | | | | [address], | | | | | | [place] [address] | | | | + + + + + + | MCH | 32.5Comment: Testing | 27.0 - 34.0 pg | EXTERNAL | | | | performed at [facility], [address] | | LAB | | | | [address], | | | | | | [place] [address] | | | | + + + + + + | MCHC | 34.2Comment: Testing | 32.0 - 35.5 | EXTERNAL | | | | performed at [facility], [address] | g/dL | LAB | | | | [address], | | | | | | [place] [address] | | | | + + + + + + | RDW-CV | 41.1Comment: Testing | 37 - 53 fl | EXTERNAL | | | | performed at [facility], [address] | | LAB | | | | [address], | | | | | | [place] [address] | | | | + + + + + + | Platelet | 220Comment: Testing | 150 - 400 K/uL | EXTERNAL | | | Count | performed at [facility], [address] | | LAB | | | Plasma | [address], | | | | | | [place] [address] | | | | + + + + + + | MPV | 9.0Comment: Testing | fl | EXTERNAL | | | | performed at [facility], [address] | | LAB | | | | [address], | | | | | | [place] [address] | | | | + + + + + + | Differentia | AUTOMATEDComment: | | EXTERNAL | | | l Type | Testing performed at | | LAB | | | | [facility], [address] | | | | | | [place] | | | | | | [address] | | | | + + + + + + | % Segmented | 65.4Comment: Testing | % | EXTERNAL | | | | performed at [facility], [address] | | LAB | | | Neutrophils | [address], | | | | | | [place] [address] | | | | + + + + + + | % | 15.9Comment: Testing | % | EXTERNAL | | | Lymphocytes | performed at [facility], [address] | | LAB | | | | [address], | | | | | | [place] [address] | | | | + + + + + + | % Monocytes | 12.5Comment: Testing | % | EXTERNAL | | | | performed at [facility], [address] | | LAB | | | | [address], | | | | | | [place] [address] | | | | + + + + + + | % | 5.5Comment: Testing | % | EXTERNAL | | | Eosinophils | performed at [facility], [address] | | LAB | | | | [address], | | | | | | [place] [address] | | | | + + + + + + | % Basophils | 0.7Comment: Testing | % | EXTERNAL | | | | performed at [facility], [address] | | LAB | | | | [address], | | | | | | [place] [address] | | | | + + + + + + | Absolute | 5.0Comment: Testing | 1.9 - 7.4 K/uL | EXTERNAL | | | Segmented | performed at [facility], [address] | | LAB | | | Neutrophils | [address], | | | | | | [place] [address] | | | | + + + + + + | Absolute | 1.2Comment: Testing | 1.0 - 3.9 K/uL | EXTERNAL | | | Lymphocytes | performed at [facility], [address] | | LAB | | | | [address], | | | | | | [place] [address] | | | | + + + + + + | Absolute | 0.9 (H)Comment: Testing | 0 - 0.8 K/uL | EXTERNAL | | | Monocytes | performed at [facility], [address] | | LAB | | | | [address], | | | | | | [place] [address] | | | | + + + + + + | Absolute | 0.4Comment: Testing | 0 - 0.5 K/uL | EXTERNAL | | | Eosinophils | performed at [facility], [address] | | LAB | | | | [address], | | | | | | [place] [address] | | | | + + + + + + | Absolute | 0.1Comment: Testing | 0 - 0.1 K/uL | EXTERNAL | | | Basophils | performed at [facility], [address] | | LAB | | | | [address], | | | | | | [place] [address] | | | | + + + [...] EXTERNAL | | | | performed at [facility], [address] | | LAB | | | | [address], | | | | | | [place] [address] | | | | + + + [...] EXTERNAL | | | | performed at [facility];[address] | | LAB | | | | [address];[place], [place] | | | | | | [address] | | | | + + + [...] | | | | | [place] [address] | | | | + + + + + + | K | 4.3Comment: Testing | 3.5 - 4.9 | EXTERNAL | | | | performed at [facility], [address] | mmol/L | LAB | | | | [address], | | | | | | [place] [address] | | | | + + + + + + | Cl | 102Comment: Testing | 99 - 109 mmol/L | EXTERNAL | | | | performed at [facility], [address] | | LAB | | | | [address], | | | | | | [place] [address] | | | | + + + + + + | CO2 | 26Comment: Testing | 23 - 32 mmol/L | EXTERNAL | | | | performed at [facility], [address] | | LAB | | | | [address], | | | | | | [place] [address] | | | | + + + + + + | Anion Gap | 13Comment: Testing | 5 - 20 mmol/L | EXTERNAL | | | | performed at [facility], [address] | | LAB | | | | [address], | | | | | | [place] [address] | | | | + + + + + + | Glucose, | 94Comment: Testing | 65 - 99 mg/dL | EXTERNAL | | | Fasting | performed at [facility], [address] | | LAB | | | | [address], | | | | | | [place] [address] | | | | + + + + + + | BUN | 62 (H)Comment: Testing | 8 - 25 mg/dL | EXTERNAL | | | | performed at [facility], [address] | | LAB | | | | [address], | | | | | | [place] [address] | | | | + + + + + + | Creatinine | 11.94 (H)Comment: | 0.70 - 1.30 | EXTERNAL | | | | Testing performed at | mg/dL | LAB | | | | [facility], [address] | | | | | | [place] | | | | | | [address] | | | | + + + + + + | Calcium | 8.3 (L)Comment: Testing | 8.5 - 10.2 | EXTERNAL | | | | performed at [facility], [address] | mg/dL | LAB | | | | [address], | | | | | | [place] [address] | | | | + + + + + + | Albumin | 3.4 (L)Comment: Testing | 3.6 - 5.0 g/dL | EXTERNAL | | | | performed at [facility], [address] | | LAB | | | | [address], | | | | | | [place] [address] | | | | + + + + + + | PHOSPHORUS | 6.2 (H)Comment: Testing | 2.3 - 4.8 mg/dL | EXTERNAL | | | | performed at [facility], [address] | | LAB | | | | [address], | | | | | | [place] [address] | | | | + + + [...] [address], | | | | | | [place] [address] | | | | + + + + + + + + | Specimen | + + | | + + + +---------+ + + | Performing | Address | City/State/[facility] [facility]code | Phone Number | | Organization | [...] Successful | | | placement of a 14.5-[place] Islander dual-lumen 23-cm tunneled hemodialysis | | | catheter with its tip in the upper portion of the right atrium without | | | incidence. 78583, 332[address], [address] | | + + + + + [...] Placement of 23 cm, | | | 14.5-[place] dual-lumen tunneled palindrome hemodialysis catheter in | [...] conscious sedation and | | | independent long term supervision of the conscious sedation was | [...] records. 3. Upper chest radiograph shows dual-lumen, 14.5-[place] Islander, | | | 23-cm, tunneled dialysis catheter [...] | micropuncture needle and exchanged for a 4-[place] Islander micropuncture sheath | | | over a 0.018 wire. Skin in the infraclavicular region was | | | infiltrated with 1% lidocaine and a 5-mm skin incision was made. A | | | 14.5-[place] Islander, dual-lumen, 23-cm tunneled hemodialysis catheter was | | | placed a subcutaneous tunnel using a metallic tunneler. The 4-[place] Islander | | | sheath was exchanged for a 0.035, 3-mm J-wire with its tip in the | | | right atrium under fluoroscopy guidance. The skin and subcutaneous | | | tract was dilated using at 12 and 14-[place] Islander facial dilators. A | | | 15-[place] Islander peel-away sheath was placed over the wire [...] vein.3. | | Placement of 23 cm, 14.5-[place] Islander dual-lumen tunneled palindrome hemodialysis catheter in | [...] maintenance of adequate conscious sedation and independent long term | | supervision of the conscious sedation [...] Upper chest radiograph shows dual-lumen, | | 14.5-[place]er, 23-cm, tunneled dialysis catheter with its tip [...] needle and exchanged for a | | 4-[place] micropuncture sheath over a 0.018 wire. Skin in the infraclavicular region was | | infiltrated with 1% lidocaine and a 5-mm skin incision was made. A 14.5-[place] Islander, | | dual-lumen, 23-cm tunneled hemodialysis catheter was placed a subcutaneous tunnel using | | a metallic tunneler. The 4-[place] sheath was exchanged for a 0.035, 3-mm J-wire with | | its tip in the right atrium under fluoroscopy guidance. The skin and subcutaneous tract | | was dilated using at 12 and 14-[place] facial dilators. A 15-[place] peel-away sheath | | was placed over [...] veins.2. Successful placement of a | | 14.5-[place] dual-lumen 23-cm tunneled hemodialysis catheter with its tip in the upper | | portion of the right atrium without incidence. 75362, 24460, 95647 | |IMPRESSION: | | | |1. Sonography of the lower neck veins. | |2. Successful placement of a 14.5-[place] dual-lumen 23-cm tunneled hemodialysis catheter w ith its tip in the upper portion of the right atrium without incidence. | | | |84661, 68516, 86568 | | | | | + + US Guided Vascular Access (08/04/2013 5:05 PM PDT) + + | Specimen | + + | | + + + + + | Impressions | Performed At | + + + | 1. Sonography of the lower neck veins. 2. Successful | | | placement of a 14.5-[place] Islander dual-lumen 23-cm tunneled hemodialysis | | | catheter with its tip in the upper portion of the right atrium without | | | incidence. 14303, 05186, 52943 | | + + + + + [...] Placement of 23 cm, | | | 14.5-[place] dual-lumen tunneled palindrome hemodialysis catheter in | [...] conscious sedation and | | | independent long term supervision of the conscious sedation was | [...] records. 3. Upper chest radiograph shows dual-lumen, 14.5-[place]er, | | | 23-cm, tunneled dialysis catheter [...] | micropuncture needle and exchanged for a 4-[place] micropuncture sheath | | | over a 0.018 wire. Skin in the infraclavicular region was | | | infiltrated with 1% lidocaine and a 5-mm skin incision was made. A | | | 14.5-[place]er, dual-lumen, 23-cm tunneled hemodialysis catheter was | | | placed a subcutaneous tunnel using a metallic tunneler. The 4-[place]er | | | sheath was exchanged for a 0.035, 3-mm J-wire with its tip in the | | | right atrium under fluoroscopy guidance. The skin and subcutaneous | | | tract was dilated using at 12 and 14-[place] facial dilators. A | | | 15-[place] peel-away sheath was placed over the wire [...] vein.3. | | Placement of 23 cm, 14.5-[place] dual-lumen tunneled palindrome hemodialysis catheter in | [...] maintenance of adequate conscious sedation and independent long term | | supervision of the conscious sedation [...] Upper chest radiograph shows dual-lumen, | | 14.5-[place]er, 23-cm, tunneled dialysis catheter with its tip [...] needle and exchanged for a | | 4-[place] micropuncture sheath over a 0.018 wire. Skin in the infraclavicular region was | | infiltrated with 1% lidocaine and a 5-mm skin incision was made. A 14.5-[place]er, | | dual-lumen, 23-cm tunneled hemodialysis catheter was placed a subcutaneous tunnel using | | a metallic tunneler. The 4-[place] sheath was exchanged for a 0.035, 3-mm J-wire with | | its tip in the right atrium under fluoroscopy guidance. The skin and subcutaneous tract | | was dilated using at 12 and 14-[place] facial dilators. A 15-[place] peel-away sheath | | was placed over [...] veins.2. Successful placement of a | | 14.5-[place] dual-lumen 23-cm tunneled hemodialysis catheter with its tip in the upper | | portion of the right atrium without incidence. 35202, 32995, 60833 | |IMPRESSION: | | | |1. Sonography of the lower neck veins. | |2. Successful placement of a 14.5-[place] dual-lumen 23-cm tunneled hemodialysis catheter w ith its tip in the upper portion of the right atrium without incidence. | | | |63461, 03887, 56315 | | | | | + + [...] EXTERNAL | | | | performed at [facility], [address] | | LAB | | | | [address], | | | | | | [place] [address] | | | | + + + + + + | Red Blood | 3.54 (L)Comment: Testing | 4.20 - 5.70 | EXTERNAL | | | Cells | performed at [facility], [address] | M/uL | LAB | | | Counted | [address], | | | | | | [place] [address] | | | | + + + + + + | Hemoglobin | 11.5 (L)Comment: Testing | 13.2 - 17.0 | EXTERNAL | | | | performed at [facility], [address] | g/dL | LAB | | | | [address], | | | | | | [place] [address] | | | | + + + + + + | Hematocrit, | 33.6 (L)Comment: Testing | 39.0 - 50.0 % | EXTERNAL | | | POC | performed at [facility], [address] | | LAB | | | | [address], | | | | | | [place] [address] | | | | + + + + + + | MCV | 95.0Comment: Testing | 80.0 - 100.0 fl | EXTERNAL | | | | performed at [facility], [address] | | LAB | | | | [address], | | | | | | [place] [address] | | | | + + + + + + | MCH | 32.5Comment: Testing | 27.0 - 34.0 pg | EXTERNAL | | | | performed at [facility], [address] | | LAB | | | | [address], | | | | | | [place] [address] | | | | + + + + + + | MCHC | 34.2Comment: Testing | 32.0 - 35.5 | EXTERNAL | | | | performed at [facility], [address] | g/dL | LAB | | | | [address], | | | | | | [place] [address] | | | | + + + + + + | RDW-CV | 40.7Comment: Testing | 37 - 53 fl | EXTERNAL | | | | performed at [facility], [address] | | LAB | | | | [address], | | | | | | [place] [address] | | | | + + + + + + | Platelet | 220Comment: Testing | 150 - 400 K/uL | EXTERNAL | | | Count | performed at [facility], [address] | | LAB | | | Plasma | [address], | | | | | | [place] [address] | | | | + + + + + + | MPV | 9.1Comment: Testing | fl | EXTERNAL | | | | performed at [facility], [address] | | LAB | | | | [address], | | | | | | [place] [address] | | | | + + + + + + | Differentia | AUTOMATEDComment: | | EXTERNAL | | | l Type | Testing performed at | | LAB | | | | [facility], [address] [address] | | | | | | [place] | | | | | | [address] | | | | + + + + + + | % Segmented | 68.2Comment: Testing | % | EXTERNAL | | | | performed at [facility], [address] | | LAB | | | Neutrophils | [address], | | | | | | [place] [address] | | | | + + + + + + | % | 15.1Comment: Testing | % | EXTERNAL | | | Lymphocytes | performed at [facility], [address] | | LAB | | | | [address], | | | | | | [place] [address] | | | | + + + + + + | % Monocytes | 11.2Comment: Testing | % | EXTERNAL | | | | performed at [facility], [address] | | LAB | | | | [address], | | | | | | [place] [address] | | | | + + + + + + | % | 4.9Comment: Testing | % | EXTERNAL | | | Eosinophils | performed at [facility], [address] | | LAB | | | | [address], | | | | | | [place] [address] | | | | + + + + + + | % Basophils | 0.6Comment: Testing | % | EXTERNAL | | | | performed at [facility], [address] | | LAB | | | | [address], | | | | | | [place] [address] | | | | + + + + + + | Absolute | 5.2Comment: Testing | 1.9 - 7.4 K/uL | EXTERNAL | | | Segmented | performed at [facility], [address] | | LAB | | | Neutrophils | [address], | | | | | | [place] [address] | | | | + + + + + + | Absolute | 1.1Comment: Testing | 1.0 - 3.9 K/uL | EXTERNAL | | | Lymphocytes | performed at [facility], [address] | | LAB | | | | [address], | | | | | | [place] [address] | | | | + + + + + + | Absolute | 0.8Comment: Testing | 0 - 0.8 K/uL | EXTERNAL | | | Monocytes | performed at [facility], [address] | | LAB | | | | [address], | | | | | | [place] [address] | | | | + + + + + + | Absolute | 0.4Comment: Testing | 0 - 0.5 K/uL | EXTERNAL | | | Eosinophils | performed at [facility], [address] | | LAB | | | | [address], | | | | | | [place] [address] | | | | + + + + + + | Absolute | 0.0Comment: Testing | 0 - 0.1 K/uL | EXTERNAL | | | Basophils | performed at [facility], [address] | | LAB | | | | [address], | | | | | | [place] [address] | | | | + + + [...] EXTERNAL | | | | performed at [facility], [address] | | LAB | | | | [address], | | | | | | [place] [address] | | | | + + + [...] EXTERNAL | | | | performed at [facility], [address] | | LAB | | | | [address], | | | | | | [place] [address] | | | | + + + [...] EXTERNAL | | | | performed at [facility];[address] | | LAB | | | | [address];[place], [place] | | | | | | [address] | | | | + + + [...] | | | | | [place] [address] | | | | + + + + + + | K | 4.5Comment: Testing | 3.5 - 4.9 | EXTERNAL | | | | performed at [facility], [address] | mmol/L | LAB | | | | [address], | | | | | | [place] [address] | | | | + + + + + + | Cl | 102Comment: Testing | 99 - 109 mmol/L | EXTERNAL | | | | performed at [facility], [address] | | LAB | | | | [address], | | | | | | [place] [address] | | | | + + + + + + | CO2 | 24Comment: Testing | 23 - 32 mmol/L | EXTERNAL | | | | performed at [facility], [address] | | LAB | | | | [address], | | | | | | [place] [address] | | | | + + + + + + | Anion Gap | 17Comment: Testing | 5 - 20 mmol/L | EXTERNAL | | | | performed at [facility], [address] | | LAB | | | | [address], | | | | | | [place] [address] | | | | + + + + + + | Glucose, | 93Comment: Testing | 65 - 99 mg/dL | EXTERNAL | | | Fasting | performed at [facility], [address] | | LAB | | | | [address], | | | | | | [place] [address] | | | | + + + + + + | BUN | 57 (H)Comment: Testing | 8 - 25 mg/dL | EXTERNAL | | | | performed at [facility], [address] | | LAB | | | | [address], | | | | | | [place] [address] | | | | + + + + + + | Creatinine | 11.78 (H)Comment: | 0.70 - 1.30 | EXTERNAL | | | | Testing performed at | mg/dL | LAB | | | | [facility], [address] | | | | | | [place] | | | | | | [address] | | | | + + + + + + | BUN/Creatin | 5Comment: Testing | | EXTERNAL | | | ine Ratio | performed at [facility], [address] | | LAB | | | | [address], | | | | | | [place] [address] | | | | + + + + + + | Calcium | 8.2 (L)Comment: Testing | 8.5 - 10.2 | EXTERNAL | | | | performed at [facility], [address] | mg/dL | LAB | | | | [address], | | | | | | [place] [address] | | | | + + + + + + | Protein, | 5.7 (L)Comment: Testing | 6.3 - 8.2 g/dL | EXTERNAL | | | Total | performed at [facility], [address] | | LAB | | | | [address], | | | | | | [place] [address] | | | | + + + + + + | Albumin | 3.2 (L)Comment: Testing | 3.6 - 5.0 g/dL | EXTERNAL | | | | performed at [facility], [address] | | LAB | | | | [address], | | | | | | [place] [address] | | | | + + + + + + | Globulin | 2.5Comment: Testing | 1.3 - 4.9 g/dL | EXTERNAL | | | | performed at [facility], [address] | | LAB | | | | [address], | | | | | | [place] [address] | | | | + + + + + + | A/G Ratio | 1.3Comment: Testing | 1.0 - 2.4 | EXTERNAL | | | | performed at [facility], [address] | | LAB | | | | [address], | | | | | | [place] [address] | | | | + + + + + + | Bilirubin | 0.4Comment: Testing | 0.1 - 1.5 mg/dL | EXTERNAL | | | Total | performed at [facility], [address] | | LAB | | | | [address], | | | | | | [place] [address] | | | | + + + + + + | ALP, | 31 (L)Comment: Testing | 35 - 115 U/L | EXTERNAL | | | External | performed at [facility], [address] | | LAB | | | | [address], | | | | | | [place] [address] | | | | + + + + + + | AST | 42Comment: Testing | 10 - 45 U/L | EXTERNAL | | | | performed at [facility], [address] | | LAB | | | | [address], | | | | | | [place] [address] | | | | + + + + + + | ALT | 73 (H)Comment: Testing | 10 - 65 U/L | EXTERNAL | | | | performed at [facility], [address] | | LAB | | | | [address] [place], | | | | | | [place] [address] | | | | + + + [...] | | | | | [place] [address] | | | | + + + [...] EXTERNAL LAB | | Testing performed at [facility];[address] [place] [address];[place] [address] MRSA PCR | | | NEGATIVE Testing performed at | | | [facility];[address] [place] [address];[place] [address] | | + + + + +---------+ [...] EXTERNAL | | | | performed at [facility], [address] | | LAB | | | | [address], | | | | | | [place] [address] | | | | + + + [...] EXTERNAL | | | | performed at [facility], [address] | | LAB | | | | [address], | | | | | | [place] [address] | | | | + + + + + + | Red Blood | 3.73 (L)Comment: Testing | 4.20 - 5.70 | EXTERNAL | | | Cells | performed at [facility], [address] | [address] | LAB | | | Counted | [address], | | | | | | [place] [address] | | | | + + + + + + | Hemoglobin | 12.1 (L)Comment: Testing | 13.2 - 17.0 | EXTERNAL | | | | performed at [facility], [address] | g/dL | LAB | | | | [address], | | | | | | [place] [address] | | | | + + + + + + | Hematocrit, | 35.3 (L)Comment: Testing | 39.0 - 50.0 % | EXTERNAL | | | POC | performed at [facility], [address] | | LAB | | | | [address], | | | | | | [place] [address] | | | | + + + + + + | MCV | 94.8Comment: Testing | 80.0 - 100.0 fl | EXTERNAL | | | | performed at [facility], [address] | | LAB | | | | [address], | | | | | | [place] [address] | | | | + + + + + + | MCH | 32.6Comment: Testing | 27.0 - 34.0 pg | EXTERNAL | | | | performed at [facility], [address] | | LAB | | | | [address], | | | | | | [place] [address] | | | | + + + + + + | MCHC | 34.4Comment: Testing | 32.0 - 35.5 | EXTERNAL | | | | performed at [facility], [address] | g/dL | LAB | | | | [address], | | | | | | [place] [address] | | | | + + + + + + | RDW-CV | 41.1Comment: Testing | 37 - 53 fl | EXTERNAL | | | | performed at [facility], [address] | | LAB | | | | [address], | | | | | | [place] [address] | | | | + + + + + + | Platelet | 207Comment: Testing | 150 - 400 K/uL | EXTERNAL | | | Count | performed at [facility], [address] | | LAB | | | Plasma | [address], | | | | | | [place] [address] | | | | + + + + + + | MPV | 9.2Comment: Testing | fl | EXTERNAL | | | | performed at [facility], [address] | | LAB | | | | [address], | | | | | | [place] [address] | | | | + + + + + + | Differentia | AUTOMATEDComment: | | EXTERNAL | | | l Type | Testing performed at | | LAB | | | | [facility], [address] | | | | | | [place] | | | | | | [address] | | | | + + + + + + | % Segmented | 68.0Comment: Testing | % | EXTERNAL | | | | performed at [facility], [address] | | LAB | | | Neutrophils | [address], | | | | | | [place], [place] [address] | | | | + + + + + + | % | 16.6Comment: Testing | % | EXTERNAL | | | Lymphocytes | performed at [facility], [address] | | LAB | | | | [address], | | | | | | [place] [address] | | | | + + + + + + | % Monocytes | 10.7Comment: Testing | % | EXTERNAL | | | | performed at [facility], [address] | | LAB | | | | [address], | | | | | | [place] [address] | | | | + + + + + + | % | 4.1Comment: Testing | % | EXTERNAL | | | Eosinophils | performed at [facility], [address] | | LAB | | | | [address], | | | | | | [place] [address] | | | | + + + + + + | % Basophils | 0.6Comment: Testing | % | EXTERNAL | | | | performed at [facility], [address] | | LAB | | | | [address], | | | | | | [place] [address] | | | | + + + + + + | Absolute | 5.6Comment: Testing | 1.9 - 7.4 K/uL | EXTERNAL | | | Segmented | performed at [facility], [address] | | LAB | | | Neutrophils | [address], | | | | | | [place] [address] | | | | + + + + + + | Absolute | 1.4Comment: Testing | 1.0 - 3.9 K/uL | EXTERNAL | | | Lymphocytes | performed at [facility], [address] | | LAB | | | | [address], | | | | | | [place] [address] | | | | + + + + + + | Absolute | 0.9 (H)Comment: Testing | 0 - 0.8 K/uL | EXTERNAL | | | Monocytes | performed at [facility], [address] | | LAB | | | | [address], | | | | | | [place] [address] | | | | + + + + + + | Absolute | 0.3Comment: Testing | 0 - 0.5 K/uL | EXTERNAL | | | Eosinophils | performed at [facility], [address] | | LAB | | | | [address], | | | | | | [place] [address] | | | | + + + + + + | Absolute | 0.0Comment: Testing | 0 - 0.1 K/uL | EXTERNAL | | | Basophils | performed at [facility], [address] | | LAB | | | | [address], | | | | | | [place] [address] | | | | + + + [...] EXTERNAL | | | | performed at [facility], [address] | | LAB | | | | [address], | | | | | | [place] [address] | | | | + + + [...] EXTERNAL | | | | performed at [facility], [address] | | LAB | | | | [address], | | | | | | [place] [address] | | | | + + + [...] EXTERNAL | | | | performed at [facility], [address] | | LAB | | | | [address], | | | | | | [place] [address] | | | | + + + [...] EXTERNAL | | | | performed at [facility];[address] | | LAB | | | | [address];[place] | | | | | | [address] | | | | + + + [...] | | | | | [place] [address] | | | | + + + + + + | K | 4.5Comment: Testing | 3.5 - 4.9 | EXTERNAL | | | | performed at [facility], [address] | mmol/L | LAB | | | | [address], | | | | | | [place] [address] | | | | + + + + + + | Cl | 100Comment: Testing | 99 - 109 mmol/L | EXTERNAL | | | | performed at [facility], [address] | | LAB | | | | [address], | | | | | | [place] [address] | | | | + + + + + + | CO2 | 28Comment: Testing | 23 - 32 mmol/L | EXTERNAL | | | | performed at [facility], [address] | | LAB | | | | [address], | | | | | | [place] [address] | | | | + + + + + + | Anion Gap | 15Comment: Testing | 5 - 20 mmol/L | EXTERNAL | | | | performed at [facility], [address] | | LAB | | | | [address], | | | | | | [place] [address] | | | | + + + + + + | Glucose, | 89Comment: Testing | 65 - 99 mg/dL | EXTERNAL | | | Fasting | performed at [facility], [address] | | LAB | | | | [address], | | | | | | [place] [address] | | | | + + + + + + | BUN | 52 (H)Comment: Testing | 8 - 25 mg/dL | EXTERNAL | | | | performed at [facility], [address] | | LAB | | | | [address], | | | | | | [place] [address] | | | | + + + + + + | Creatinine | 11.75 (H)Comment: | 0.70 - 1.30 | EXTERNAL | | | | Testing performed at | mg/dL | LAB | | | | [facility], [address] | | | | | | [place] | | | | | | [address] | | | | + + + + + + | BUN/Creatin | 4Comment: Testing | | EXTERNAL | | | ine Ratio | performed at [facility], [address] | | LAB | | | | [address], | | | | | | [place] [address] | | | | + + + + + + | Calcium | 8.3 (L)Comment: Testing | 8.5 - 10.2 | EXTERNAL | | | | performed at [facility], [address] | mg/dL | LAB | | | | [address], | | | | | | [place] [address] | | | | + + + + + + | Protein, | 6.1 (L)Comment: Testing | 6.3 - 8.2 g/dL | EXTERNAL | | | Total | performed at [facility], [address] | | LAB | | | | [address], | | | | | | [place] [address] | | | | + + + + + + | Albumin | 3.3 (L)Comment: Testing | 3.6 - 5.0 g/dL | EXTERNAL | | | | performed at [facility], [address] | | LAB | | | | [address], | | | | | | [place] [address] | | | | + + + + + + | Globulin | 2.8Comment: Testing | 1.3 - 4.9 g/dL | EXTERNAL | | | | performed at [facility], [address] | | LAB | | | | [address], | | | | | | [place] [address] | | | | + + + + + + | A/G Ratio | 1.2Comment: Testing | 1.0 - 2.4 | EXTERNAL | | | | performed at [facility], [address] | | LAB | | | | [address], | | | | | | [place] [address] | | | | + + + + + + | Bilirubin | 0.4Comment: Testing | 0.1 - 1.5 mg/dL | EXTERNAL | | | Total | performed at [facility], [address] | | LAB | | | | [address], | | | | | | [place] [address] | | | | + + + + + + | ALP, | 34 (L)Comment: Testing | 35 - 115 U/L | EXTERNAL | | | External | performed at [facility], [address] | | LAB | | | | [address], | | | | | | [place] [address] | | | | + + + + + + | AST | 45Comment: Testing | 10 - 45 U/L | EXTERNAL | | | | performed at [facility], [address] | | LAB | | | | [address], | | | | | | [place] [address] | | | | + + + + + + | ALT | 82 (H)Comment: Testing | 10 - 65 U/L | EXTERNAL | | | | performed at [facility], [address] | | LAB | | | | [address], | | | | | | [place] [address] | | | | + + + [...] | | | | | [place] [address] | | | | + + + [...] | | | | | [place] [address] | | | | + + + [...] | | | Urine | performed at [facility], [address] | | LAB | | | | [address], | | | | | | [place] [address] | | | | + + + [...] | | TB Gold | performed at [facility], [address] | | LAB | | | | [facility] | | | | | | [place] [address] | | | | + + + [...] | | | | | performed at [facility], [address] | | | | | | [address] | | | | | | [place] [address] | | | | + + + [...] | | | | | | [place] [address] | | | | + + + + + + | Result | 0.4 (A)Comment: | U | EXTERNAL | | | | Reference range: | | LAB | | | | <1.0Testing performed at | | | | | | [facility], [address] | | | | | | [place] | | | | | | [address] | | | | + + + [...] [address] | | | | | | [place], [place] [address] | | | | + + + + + + | FIBROSURE | F1 TO [id number]: Testing | | EXTERNAL | | | STAGE | performed at [facility] | | LAB | | | | [place], [address] | | | | | | [place], [place] [address] | | | | + + + + + + | Necroinflam | 0.55 (H)Comment: Testing | 0.00 - 0.17 | EXTERNAL | | | mat | performed at [facility] | | LAB | | | Activity | [place] | | | | | Score | [place], [place] [address] | | | | + + + + + + | Necroinflam | SEE BELOWComment: A2, | | EXTERNAL | | | mat | MODERATE ACTIVITYTesting | | LAB | | | Activity | performed at [facility] | | | | | Grade | [place], [address] | | | | | | [place] [address] | | | | + + + + + + | Alpha | 290 (H)Comment: Testing | 110 - 276 mg/dL | EXTERNAL | | | 2-Macroglob | performed by [facility], | | LAB | | | gela Qn | [address] [facility], | | | | | | [place] [address] | | | | + + + + + + | Haptoglobin | 203 (H)Comment: Testing | 34 - 200 mg/dL | EXTERNAL | | | | performed by [facility], | | LAB | | | | [address] [facility], | | | | | | [place] [address] | | | | + + + + + + | Apolipoprot | 79 (L)Comment: Testing | 110 - 180 mg/dL | EXTERNAL | | | ein A-1 | performed by [facility], | | LAB | | | | [address] [facility], | | | | | | [place] [address] | | | | + + + + + + | Bilirubin, | 0.3Comment: Testing | 0.0 - 1.2 mg/dL | EXTERNAL | | | Total | performed by [facility], | | LAB | | | | [address], | | | | | | [facility] [address] | | | | + + + + + + | Gamma | 36Comment: Testing | 0 - 65 IU/L | EXTERNAL | | | Glutamyl | performed by [facility], | | LAB | | | Transferase | [address], | | | | | | [place] [address] | | | | + + + + + + | ALT (SGPT) | 91 (H)Comment: Testing | 0 - 55 IU/L | EXTERNAL | | | P5P | performed by [facility], | | LAB | | | | [address], | | | | | | [facility] [address] | | | | + + + [...] | | | | [place] [address] | | | | + + + [...] | | | | | | at [facility] | | | | | | [place], | | | | | | [place] [address] | | | | + + + [...] DEPARTMENT | | | | | | [id number].Testing | | | | | | performed at [facility] | | | | | | [place], [address] | | | | | | [place] [address] | | | | + + + [...] | | | N | performed at [facility], [address] | | LAB | | | | [facility] | | | | | | [place] [address] | | | | + + + + + + | CRYOGLOBULI | NEGATIVEComment: Testing | | EXTERNAL | | | N 48H | performed at [facility], [address] | | LAB | | | | [address] | | | | | | [place] [address] | | | | + + + + + + | CRYOGLOBULI | NEGATIVEComment: Testing | | EXTERNAL | | | [address] 72H | performed at [facility], [address] | | LAB | | | | [address] | | | | | | [place] [address] | | | | + + + + + + | CRYOGLOBULI | NEGATIVEComment: Testing | | EXTERNAL | | | N 7D | performed at [facility], [address] | | LAB | | | | [address] | | | | | | [place] [address] | | | | + + + [...] | | | | | performed at [facility], [address] | | | | | | [facility], | | | | | | [place] [address] | | | | + + + [...] | | | | | [place] [address] | | | | + + + + + + | Red Blood | 3.98 (L)Comment: Testing | 4.20 - 5.70 | EXTERNAL | | | Cells | performed at [facility], [address] | M/uL | LAB | | | Counted | [address], | | | | | | [place] [address] | | | | + + + + + + | Hemoglobin | 12.8 (L)Comment: Testing | 13.2 - 17.0 | EXTERNAL | | | | performed at [facility], [address] | g/dL | LAB | | | | [address], | | | | | | [place] [address] | | | | + + + + + + | Hematocrit, | 38.0 (L)Comment: Testing | 39.0 - 50.0 % | EXTERNAL | | | POC | performed at [facility], [address] | | LAB | | | | [address], | | | | | | [place] [address] | | | | + + + + + + | MCV | 95.4Comment: Testing | 80.0 - 100.0 fl | EXTERNAL | | | | performed at [facility], [address] | | LAB | | | | [address], | | | | | | [place] [address] | | | | + + + + + + | MCH | 32.0Comment: Testing | 27.0 - 34.0 pg | EXTERNAL | | | | performed at [facility], [address] | | LAB | | | | [address], | | | | | | [place] [address] | | | | + + + + + + | MCHC | 33.6Comment: Testing | 32.0 - 35.5 | EXTERNAL | | | | performed at [facility], [address] | g/dL | LAB | | | | [address], | | | | | | [place] [address] | | | | + + + + + + | RDW-CV | 40.7Comment: Testing | 37 - 53 fl | EXTERNAL | | | | performed at [facility], [address] | | LAB | | | | [address], | | | | | | [place] [address] | | | | + + + + + + | Platelet | 199Comment: Testing | 150 - 400 K/uL | EXTERNAL | | | Count | performed at [facility], [address] | | LAB | | | Plasma | [address], | | | | | | [place] [address] | | | | + + + + + + | MPV | 9.1Comment: Testing | fl | EXTERNAL | | | | performed at [facility], [address] | | LAB | | | | [address], | | | | | | [place] [address] | | | | + + + + + + | Differentia | AUTOMATEDComment: | | EXTERNAL | | | l Type | Testing performed at | | LAB | | | | [facility], [address] | | | | | | [place] | | | | | | [address] | | | | + + + + + + | % Segmented | 69.5Comment: Testing | % | EXTERNAL | | | | performed at [facility], [address] | | LAB | | | Neutrophils | [address], | | | | | | [place] [address] | | | | + + + + + + | % | 14.3Comment: Testing | % | EXTERNAL | | | Lymphocytes | performed at [facility], [address] | | LAB | | | | [address], | | | | | | [place] [address] | | | | + + + + + + | % Monocytes | 12.1Comment: Testing | % | EXTERNAL | | | | performed at [facility], [address] | | LAB | | | | [address], | | | | | | [place] [address] | | | | + + + + + + | % | 3.7Comment: Testing | % | EXTERNAL | | | Eosinophils | performed at [facility], [address] | | LAB | | | | [address], | | | | | | [place] [address] | | | | + + + + + + | % Basophils | 0.4Comment: Testing | % | EXTERNAL | | | | performed at [facility], [address] | | LAB | | | | [address], | | | | | | [place] [address] | | | | + + + + + + | Absolute | 5.2Comment: Testing | 1.9 - 7.4 K/uL | EXTERNAL | | | Segmented | performed at [facility], [address] | | LAB | | | Neutrophils | [address], | | | | | | [place] [address] | | | | + + + + + + | Absolute | 1.1Comment: Testing | 1.0 - 3.9 K/uL | EXTERNAL | | | Lymphocytes | performed at [facility], [address] | | LAB | | | | [address], | | | | | | [place] [address] | | | | + + + + + + | Absolute | 0.9 (H)Comment: Testing | 0 - 0.8 K/uL | EXTERNAL | | | Monocytes | performed at [facility], [address] | | LAB | | | | [address], | | | | | | [place] [address] | | | | + + + + + + | Absolute | 0.3Comment: Testing | 0 - 0.5 K/uL | EXTERNAL | | | Eosinophils | performed at [facility], [address] | | LAB | | | | [address], | | | | | | [place] [address] | | | | + + + + + + | Absolute | 0.0Comment: Testing | 0 - 0.1 K/uL | EXTERNAL | | | Basophils | performed at [facility], [address] | | LAB | | | | [address], | | | | | | [place] [address] | | | | + + + [...] | | | | | [place] [address] | | | | + + + [...] EXTERNAL | | | | performed at [facility], [address] | | LAB | | | | [address], | | | | | | [place] [address] | | | | + + + [...] EXTERNAL | | | | performed at [facility];[address] | | LAB | | | | [address];[place] | | | | | | [address] | | | | + + + [...] EXTERNAL | | | | performed at [facility], [address] | | LAB | | | | [address], | | | | | | [place] [address] | | | | + + + [...] | | | | | [place] [address] | | | | + + + + + + | K | 4.6Comment: Testing | 3.5 - 4.9 | EXTERNAL | | | | performed at [facility], [address] | mmol/L | LAB | | | | [address], | | | | | | [place] [address] | | | | + + + + + + | Cl | 100Comment: Testing | 99 - 109 mmol/L | EXTERNAL | | | | performed at [facility], [address] | | LAB | | | | [address], | | | | | | [place] [address] | | | | + + + + + + | CO2 | 28Comment: Testing | 23 - 32 mmol/L | EXTERNAL | | | | performed at [facility], [address] | | LAB | | | | [address], | | | | | | [place] [address] | | | | + + + + + + | Anion Gap | 13Comment: Testing | 5 - 20 mmol/L | EXTERNAL | | | | performed at [facility], [address] | | LAB | | | | [address], | | | | | | [place] [address] | | | | + + + + + + | Glucose, | 92Comment: Testing | 65 - 99 mg/dL | EXTERNAL | | | Fasting | performed at [facility], [address] | | LAB | | | | [address], | | | | | | [place] [address] | | | | + + + + + + | BUN | 40 (H)Comment: Testing | 8 - 25 mg/dL | EXTERNAL | | | | performed at [facility], [address] | | LAB | | | | [address], | | | | | | [place] [address] | | | | + + + + + + | Creatinine | 10.15 (H)Comment: | 0.70 - 1.30 | EXTERNAL | | | | Testing performed at | mg/dL | LAB | | | | [facility], [address] | | | | | | [place] | | | | | | [address] | | | | + + + + + + | BUN/Creatin | 4Comment: Testing | | EXTERNAL | | | ine Ratio | performed at [facility], [address] | | LAB | | | | [address] [address], | | | | | | [place] [address] | | | | + + + + + + | Calcium | 8.2 (L)Comment: Testing | 8.5 - 10.2 | EXTERNAL | | | | performed at [facility], [address] | mg/dL | LAB | | | | [address], | | | | | | [place] [address] | | | | + + + [...] | | | | | | at [facility], [address] | | | | | | [address], | | | | | | [place] [address] | | | | + + + [...] Aug 01 2013 4:59PM Referring Provider Line: [phone] ID: | | | [id number] | | [...] 2013 4:59PM Referring | | Provider Line: [phone] ID: [id number] | |3. Subcutaneous soft tissue edema most pronounced in the region of the anterior left hip an d thigh. Cellulitis versus simple edema. | | | |RADIA | | | | Electronically signed by Samy Woodward MD on Aug 01 2013 4:59PM Referring Provider Line: [phone] ID: [id number] | + + Hepatitis C [...] EXTERNAL | | | | performed at [facility], [address] | | LAB | | | | [address] | | | | | | [place] [address] | | | | + + + + + + | HCV | [id number] (A)Comment: | IU/mL | EXTERNAL | | [...] [place] | | | | | | [place] [address] | | | | + + + [...] | | | | | [place] [address] | | | | + + + + + + | Red Blood | 4.05 (L)Comment: Testing | 4.20 - 5.70 | EXTERNAL | | | Cells | performed at [facility], [address] | [address] | LAB | | | [address] | [address], | | | | | | [place] [address] | | | | + + + + + + | Hemoglobin | 13.3Comment: Testing | 13.2 - 17.0 | EXTERNAL | | | | performed at [facility], [address] | g/dL | LAB | | | | [address], | | | | | | [place] [address] | | | | + + + + + + | Hematocrit, | 38.4 (L)Comment: Testing | 39.0 - 50.0 % | EXTERNAL | | | POC | performed at [facility], [address] | | LAB | | | | [address], | | | | | | [place] [address] | | | | + + + + + + | MCV | 94.8Comment: Testing | 80.0 - 100.0 fl | EXTERNAL | | | | performed at [facility], [address] | | LAB | | | | [address], | | | | | | [place] [address] | | | | + + + + + + | MCH | 32.7Comment: Testing | 27.0 - 34.0 pg | EXTERNAL | | | | performed at [facility], [address] | | LAB | | | | [address], | | | | | | [place] [address] | | | | + + + + + + | MCHC | 34.5Comment: Testing | 32.0 - 35.5 | EXTERNAL | | | | performed at [facility], [address] | g/dL | LAB | | | | [address], | | | | | | [place] [address] | | | | + + + + + + | RDW-CV | 40.7Comment: Testing | 37 - 53 fl | EXTERNAL | | | | performed at [facility], [address] | | LAB | | | | [address], | | | | | | [place] [address] | | | | + + + + + + | Platelet | 194Comment: Testing | 150 - 400 K/uL | EXTERNAL | | | Count | performed at [facility], [address] | | LAB | | | Plasma | [address], | | | | | | [place] [address] | | | | + + + + + + | MPV | 9.3Comment: Testing | fl | EXTERNAL | | | | performed at [facility], [address] | | LAB | | | | [address], | | | | | | [place] [address] | | | | + + + + + + | Differentia | AUTOMATEDComment: | | EXTERNAL | | | l Type | Testing performed at | | LAB | | | | [facility], [address] | | | | | | [place] | | | | | | [address] | | | | + + + + + + | % Segmented | 67.9Comment: Testing | % | EXTERNAL | | | | performed at [facility], [address] | | LAB | | | Neutrophils | [address], | | | | | | [place] [address] | | | | + + + + + + | % | 17.1Comment: Testing | % | EXTERNAL | | | Lymphocytes | performed at [facility], [address] | | LAB | | | | [address], | | | | | | [place] [address] | | | | + + + + + + | % Monocytes | 11.1Comment: Testing | % | EXTERNAL | | | | performed at [facility], [address] | | LAB | | | | [address], | | | | | | [place] [address] | | | | + + + + + + | % | 3.0Comment: Testing | % | EXTERNAL | | | Eosinophils | performed at [facility], [address] | | LAB | | | | [address], | | | | | | [place] [address] | | | | + + + + + + | % Basophils | 0.9Comment: Testing | % | EXTERNAL | | | | performed at [facility], [address] | | LAB | | | | [address], | | | | | | [place] [address] | | | | + + + + + + | Absolute | 6.0Comment: Testing | 1.9 - 7.4 K/uL | EXTERNAL | | | Segmented | performed at [facility], [address] | | LAB | | | Neutrophils | [address], | | | | | | [place] [address] | | | | + + + + + + | Absolute | 1.5Comment: Testing | 1.0 - 3.9 K/uL | EXTERNAL | | | Lymphocytes | performed at [facility], [address] | | LAB | | | | [address], | | | | | | [place] [address] | | | | + + + + + + | Absolute | 1.0 (H)Comment: Testing | 0 - 0.8 K/uL | EXTERNAL | | | Monocytes | performed at [facility], [address] | | LAB | | | | [address], | | | | | | [place] [address] | | | | + + + + + + | Absolute | 0.3Comment: Testing | 0 - 0.5 K/uL | EXTERNAL | | | Eosinophils | performed at [facility], [address] | | LAB | | | | [address], | | | | | | [place] [address] | | | | + + + + + + | Absolute | 0.1Comment: Testing | 0 - 0.1 K/uL | EXTERNAL | | | Basophils | performed at [facility], [address] | | LAB | | | | [address], | | | | | | [place] [address] | | | | + + + [...] EXTERNAL | | | | performed at [facility], [address] | | LAB | | | | [address], | | | | | | [place] [address] | | | | + + + [...] | | LAB | | | | [address], | | | | | | [place] [address] | | | | + + + [...] EXTERNAL | | | | performed at [facility];[address] | | LAB | | | | [address];[place], [place] | | | | | | [address] | | | | + + + [...] EXTERNAL | | | | performed at [facility], [address] | | LAB | | | | [address], | | | | | | [place] [address] | | | | + + + [...] | | | | | [place] [address] | | | | + + + + + + | K | 4.7Comment: Testing | 3.5 - 4.9 | EXTERNAL | | | | performed at [facility], [address] | mmol/L | LAB | | | | [address], | | | | | | [place] [address] | | | | + + + + + + | Cl | 98 (L)Comment: Testing | 99 - 109 mmol/L | EXTERNAL | | | | performed at [facility], [address] | | LAB | | | | [address], | | | | | | [place] [address] | | | | + + + + + + | CO2 | 23Comment: Testing | 23 - 32 mmol/L | EXTERNAL | | | | performed at [facility], [address] | | LAB | | | | [address], | | | | | | [place] [address] | | | | + + + + + + | Anion Gap | 18Comment: Testing | 5 - 20 mmol/L | EXTERNAL | | | | performed at [facility], [address] | | LAB | | | | [address], | | | | | | [place] [address] | | | | + + + + + + | Glucose, | 90Comment: Testing | 65 - 99 mg/dL | EXTERNAL | | | Fasting | performed at [facility], [address] | | LAB | | | | [address], | | | | | | [place] [address] | | | | + + + + + + | BUN | 67 (H)Comment: Testing | 8 - 25 mg/dL | EXTERNAL | | | | performed at [facility], [address] | | LAB | | | | [address], | | | | | | [place] [address] | | | | + + + + + + | Creatinine | 14.43 (H)Comment: | 0.70 - 1.30 | EXTERNAL | | | | Testing performed at | mg/dL | LAB | | | | [facility], [address] | | | | | | [place] | | | | | | [address] | | | | + + + + + + | BUN/Creatin | 5Comment: Testing | | EXTERNAL | | | ine Ratio | performed at [facility], [address] | | LAB | | | | [address], | | | | | | [place] [address] | | | | + + + + + + | Calcium | 8.2 (L)Comment: Testing | 8.5 - 10.2 | EXTERNAL | | | | performed at [facility], [address] | mg/dL | LAB | | | | [address], | | | | | | [place] [address] | | | | + + + [...] | | | | | [place] [address] | | | | + + + [...] | | | | | [place] [address] | | | | + + + + + + | Clarity | CLEARComment: Testing | | EXTERNAL | | | | performed at [facility], [address] | | LAB | | | | [address], | | | | | | [place] [address] | | | | + + + + + + | Specific | 1.007Comment: Testing | 1.002 - 1.030 | EXTERNAL | | | [place], | performed at [facility], [address] | | LAB | | | Urine | [address], | | | | | | [place] [address] | | | | + + + + + + | Leukocyte | NEGATIVEComment: Testing | | EXTERNAL | | | Esterase, | performed at [facility], [address] | | LAB | | | Urine | [address], | | | | | | [place] [address] | | | | + + + + + + | Nitrite, | NEGATIVEComment: Testing | | EXTERNAL | | | Urine | performed at [facility], [address] | | LAB | | | | [address], | | | | | | [place] [address] | | | | + + + + + + | Urobilinoge | 0.2Comment: Testing | mg/dL | EXTERNAL | | | n, Urine | performed at [facility], [address] | | LAB | | | | [address], | | | | | | [place] [address] | | | | + + + + + + | Protein, | 30 (A)Comment: Testing | mg/dL | EXTERNAL | | | Urine | performed at [facility], [address] | | LAB | | | | [address], | | | | | | [place] [address] | | | | + + + + + + | pH, Urine | 7.0Comment: Testing | 5.0 - 8.0 | EXTERNAL | | | | performed at [facility], [address] | | LAB | | | | [address], | | | | | | [place] [address] | | | | + + + + + + | Blood, | LARGE (A)Comment: | | EXTERNAL | | | Urine | Testing performed at | | LAB | | | | [facility], [address] | | | | | | [place] | | | | | | [address] | | | | + + + + + + | Ketones | NEGATIVEComment: Testing | mg/dL | EXTERNAL | | | | performed at [facility], [address] | | LAB | | | | [address], | | | | | | [place] [address] | | | | + + + + + + | Bilirubin, | NEGATIVEComment: Testing | | EXTERNAL | | | Urine | performed at [facility], [address] | | LAB | | | | [address], | | | | | | [place] [address] | | | | + + + + + + | Glucose, | NEGATIVEComment: Testing | mg/dL | EXTERNAL | | | Urine | performed at [facility], [address] | | LAB | | | | [address], | | | | | | [place] [address] | | | | + + + [...] | | | | | [place] [address] | | | | + + + + + + | RBC, UA | 6-10Comment: Testing | 0 - 2 /hpf | EXTERNAL | | | | performed at [facility], [address] | | LAB | | | | [address], | | | | | | [place] [address] | | | | + + + + + + | Epithelial | 11-15Comment: Testing | /lpf | EXTERNAL | | | Cells | performed at [facility], [address] | | LAB | | | | [address], | | | | | | [place] [address] | | | | + + + + + + | Bacteria, | NONE SEENComment: | | EXTERNAL | | | UA | Testing performed at | | LAB | | | | [facility], [address] | | | | | | [place] | | | | | | [address] | | | | + + + + + + | HYALINE | 0-2Comment: Testing | | EXTERNAL | | | CASTS UA | performed at [facility], [address] | | LAB | | | | [address], | | | | | | [place] [address] | | | | + + + [...] | | | | | | [place] [address] | | | | + + + + + + | Red Blood | 3.97 (L)Comment: Testing | 4.20 - 5.70 | EXTERNAL | | | Cells | performed at [facility], [address] | M/uL | LAB | | | Counted | [address], | | | | | | [place] [address] | | | | + + + + + + | Hemoglobin | 13.1 (L)Comment: Testing | 13.2 - 17.0 | EXTERNAL | | | | performed at [facility], [address] | g/dL | LAB | | | | [address], | | | | | | [place] [address] | | | | + + + + + + | Hematocrit, | 37.5 (L)Comment: Testing | 39.0 - 50.0 % | EXTERNAL | | | POC | performed at [facility], [address] | | LAB | | | | [address], | | | | | | [place] [address] | | | | + + + + + + | MCV | 94.6Comment: Testing | 80.0 - 100.0 fl | EXTERNAL | | | | performed at [facility], [address] | | LAB | | | | [address], | | | | | | [place] [address] | | | | + + + + + + | MCH | 32.9Comment: Testing | 27.0 - 34.0 pg | EXTERNAL | | | | performed at [facility], [address] | | LAB | | | | [address], | | | | | | [place] [address] | | | | + + + + + + | MCHC | 34.8Comment: Testing | 32.0 - 35.5 | EXTERNAL | | | | performed at [facility], [address] | g/dL | LAB | | | | [address], | | | | | | [place] [address] | | | | + + + + + + | RDW-CV | 41.1Comment: Testing | 37 - 53 fl | EXTERNAL | | | | performed at [facility], [address] | | LAB | | | | [address], | | | | | | [place] [address] | | | | + + + + + + | Platelet | 164Comment: Testing | 150 - 400 K/uL | EXTERNAL | | | Count | performed at [facility], [address] | | LAB | | | Plasma | [address], | | | | | | [place] [address] | | | | + + + + + + | MPV | 9.2Comment: Testing | fl | EXTERNAL | | | | performed at [facility], [address] | | LAB | | | | [address], | | | | | | [place] [address] | | | | + + + + + + | Differentia | AUTOMATEDComment: | | EXTERNAL | | | l Type | Testing performed at | | LAB | | | | [facility], [address] | | | | | | [place] | | | | | | [address] | | | | + + + + + + | % Segmented | 69.2Comment: Testing | % | EXTERNAL | | | | performed at [facility], [address] | | LAB | | | Neutrophils | [address], | | | | | | [place] [address] | | | | + + + + + + | % | 14.3Comment: Testing | % | EXTERNAL | | | Lymphocytes | performed at [facility], [address] | | LAB | | | | [address], | | | | | | [place] [address] | | | | + + + + + + | % Monocytes | 13.4Comment: Testing | % | EXTERNAL | | | | performed at [facility], [address] | | LAB | | | | [address], | | | | | | [place] [address] | | | | + + + + + + | % | 2.4Comment: Testing | % | EXTERNAL | | | Eosinophils | performed at [facility], [address] | | LAB | | | | [address], | | | | | | [place] [address] | | | | + + + + + + | % Basophils | 0.7Comment: Testing | % | EXTERNAL | | | | performed at [facility], [address] | | LAB | | | | [address], | | | | | | [place] [address] | | | | + + + + + + | Absolute | 5.3Comment: Testing | 1.9 - 7.4 K/uL | EXTERNAL | | | Segmented | performed at [facility], [address] | | LAB | | | Neutrophils | [address], | | | | | | [place] [address] | | | | + + + + + + | Absolute | 1.1Comment: Testing | 1.0 - 3.9 K/uL | EXTERNAL | | | Lymphocytes | performed at [facility], [address] | | LAB | | | | [address], | | | | | | [place] [address] | | | | + + + + + + | Absolute | 1.0 (H)Comment: Testing | 0 - 0.8 K/uL | EXTERNAL | | | Monocytes | performed at [facility], [address] | | LAB | | | | [address], | | | | | | [place] [address] | | | | + + + + + + | Absolute | 0.2Comment: Testing | 0 - 0.5 K/uL | EXTERNAL | | | Eosinophils | performed at [facility], [address] | | LAB | | | | [address], | | | | | | [place] [address] | | | | + + + + + + | Absolute | 0.1Comment: Testing | 0 - 0.1 K/uL | EXTERNAL | | | Basophils | performed at [facility], [address] | | LAB | | | | [address], | | | | | | [place] [address] | | | | + + + [...] EXTERNAL | | | | performed at [facility], [address] | | LAB | | | | [address], | | | | | | [place] [address] | | | | + + + [...] EXTERNAL | | | | performed at [facility], [address] | | LAB | | | | [address], | | | | | | [place] [address] | | | | + + + [...] EXTERNAL | | | | performed at [facility];[address] | | LAB | | | | [address];[place], [place] | | | | | | [address] | | | | + + + [...] | | | | | [place] [address] | | | | + + + + + + | K | 4.9Comment: Testing | 3.5 - 4.9 | EXTERNAL | | | | performed at [facility], [address] | mmol/L | LAB | | | | [address], | | | | | | [place] [address] | | | | + + + + + + | Cl | 101Comment: Testing | 99 - 109 mmol/L | EXTERNAL | | | | performed at [facility], [address] | | LAB | | | | [address], | | | | | | [place] [address] | | | | + + + + + + | CO2 | 24Comment: Testing | 23 - 32 mmol/L | EXTERNAL | | | | performed at [facility], [address] | | LAB | | | | [address], | | | | | | [place] [address] | | | | + + + + + + | Anion Gap | 14Comment: Testing | 5 - 20 mmol/L | EXTERNAL | | | | performed at [facility], [address] | | LAB | | | | [address], | | | | | | [place] [address] | | | | + + + + + + | Glucose, | 96Comment: Testing | 65 - 99 mg/dL | EXTERNAL | | | Fasting | performed at [facility], [address] | | LAB | | | | [address], | | | | | | [place] [address] | | | | + + + + + + | BUN | 63 (H)Comment: Testing | 8 - 25 mg/dL | EXTERNAL | | | | performed at [facility], [address] | | LAB | | | | [address], | | | | | | [place] [address] | | | | + + + + + + | Creatinine | 13.28 (H)Comment: | 0.70 - 1.30 | EXTERNAL | | | | Testing performed at | mg/dL | LAB | | | | [facility], [address] | | | | | | [place] | | | | | | [address] | | | | + + + + + + | BUN/Creatin | 5Comment: Testing | | EXTERNAL | | | ine Ratio | performed at [facility], [address] | | LAB | | | | [address], | | | | | | [place] [address] | | | | + + + + + + | Calcium | 7.9 (L)Comment: Testing | 8.5 - 10.2 | EXTERNAL | | | | performed at [facility], [address] | mg/dL | LAB | | | | [address], | | | | | | [place] [address] | | | | + + + + + + | Protein, | 5.3 (L)Comment: Testing | 6.3 - 8.2 g/dL | EXTERNAL | | | Total | performed at [facility], [address] | | LAB | | | | [address], | | | | | | [place] [address] | | | | + + + + + + | Albumin | 2.8 (L)Comment: Testing | 3.6 - 5.0 g/dL | EXTERNAL | | | | performed at [facility], [address] | | LAB | | | | [address], | | | | | | [place] [address] | | | | + + + + + + | Globulin | 2.5Comment: Testing | 1.3 - 4.9 g/dL | EXTERNAL | | | | performed at [facility], [address] | | LAB | | | | [address], | | | | | | [place] [address] | | | | + + + + + + | A/G Ratio | 1.1Comment: Testing | 1.0 - 2.4 | EXTERNAL | | | | performed at [facility], [address] | | LAB | | | | [address], | | | | | | [place] [address] | | | | + + + + + + | Bilirubin | 0.4Comment: Testing | 0.1 - 1.5 mg/dL | EXTERNAL | | | Total | performed at [facility], [address] | | LAB | | | | [address], | | | | | | [place] [address] | | | | + + + + + + | ALP, | 24 (L)Comment: Testing | 35 - 115 U/L | EXTERNAL | | | External | performed at [facility], [address] | | LAB | | | | [address], | | | | | | [place] [address] | | | | + + + + + + | AST | 37Comment: Testing | 10 - 45 U/L | EXTERNAL | | | | performed at [facility], [address] | | LAB | | | | [address], | | | | | | [place] [address] | | | | + + + + + + | ALT | 87 (H)Comment: Testing | 10 - 65 U/L | EXTERNAL | | | | performed at [facility], [address] | | LAB | | | | [address], | | | | | | [place] [address] | | | | + + + [...] | | | | | | at [facility], [address] | | | | | | [address], | | | | | | [place] [address] | | | | + + + [...] EXTERNAL | | | | performed at [facility];[address] | mmol/L | LAB | | | | [address];[place], [place] | | | | | | [address] | | | | + + + [...] EXTERNAL | | | | performed at [facility], [address] | | LAB | | | | [address], | | | | | | [place] [address] | | | | + + + + + + | Red Blood | 4.18 (L)Comment: Testing | 4.20 - 5.70 | EXTERNAL | | | Cells | performed at [facility], [address] | M/uL | LAB | | | Counted | [address], | | | | | | [place] [address] | | | | + + + + + + | Hemoglobin | 13.5Comment: Testing | 13.2 - 17.0 | EXTERNAL | | | | performed at [facility], [address] | g/dL | LAB | | | | [address], | | | | | | [place] [address] | | | | + + + + + + | Hematocrit, | 39.0Comment: Testing | 39.0 - 50.0 % | EXTERNAL | | | POC | performed at [facility], [address] | | LAB | | | | [address], | | | | | | [place] [address] | | | | + + + + + + | MCV | 93.4Comment: Testing | 80.0 - 100.0 fl | EXTERNAL | | | | performed at [facility], [address] | | LAB | | | | [address], | | | | | | [place] [address] | | | | + + + + + + | MCH | 32.3Comment: Testing | 27.0 - 34.0 pg | EXTERNAL | | | | performed at [facility], [address] | | LAB | | | | [address], | | | | | | [place] [address] | | | | + + + + + + | MCHC | 34.6Comment: Testing | 32.0 - 35.5 | EXTERNAL | | | | performed at [facility], [address] | g/dL | LAB | | | | [address], | | | | | | [place] [address] | | | | + + + + + + | RDW-CV | 40.7Comment: Testing | 37 - 53 fl | EXTERNAL | | | | performed at [facility], [address] | | LAB | | | | [address], | | | | | | [place] [address] | | | | + + + + + + | Platelet | 160Comment: Testing | 150 - 400 K/uL | EXTERNAL | | | Count | performed at [facility], [address] | | LAB | | | Plasma | [address], | | | | | | [place] [address] | | | | + + + + + + | MPV | 9.6Comment: Testing | fl | EXTERNAL | | | | performed at [facility], [address] | | LAB | | | | [address], | | | | | | [place] [address] | | | | + + + + + + | Differentia | AUTOMATEDComment: | | EXTERNAL | | | l Type | Testing performed at | | LAB | | | | [facility], [address] | | | | | | [place] | | | | | | [address] | | | | + + + + + + | % Segmented | 70.7Comment: Testing | % | EXTERNAL | | | | performed at [facility], [address] | | LAB | | | Neutrophils | [address], | | | | | | [place] [address] | | | | + + + + + + | % | 13.8Comment: Testing | % | EXTERNAL | | | Lymphocytes | performed at [facility], [address] | | LAB | | | | [address], | | | | | | [place] [address] | | | | + + + + + + | % Monocytes | 13.4Comment: Testing | % | EXTERNAL | | | | performed at [facility], [address] | | LAB | | | | [address], | | | | | | [place] [address] | | | | + + + + + + | % | 1.6Comment: Testing | % | EXTERNAL | | | Eosinophils | performed at [facility], [address] | | LAB | | | | [address], | | | | | | [place] [address] | | | | + + + + + + | % Basophils | 0.5Comment: Testing | % | EXTERNAL | | | | performed at [facility], [address] | | LAB | | | | [address], | | | | | | [place] [address] | | | | + + + + + + | Absolute | 5.9Comment: Testing | 1.9 - 7.4 K/uL | EXTERNAL | | | Segmented | performed at [facility], [address] | | LAB | | | Neutrophils | [address], | | | | | | [place] [address] | | | | + + + + + + | Absolute | 1.2Comment: Testing | 1.0 - 3.9 K/uL | EXTERNAL | | | Lymphocytes | performed at [facility], [address] | | LAB | | | | [address], | | | | | | [place] [address] | | | | + + + + + + | Absolute | 1.1 (H)Comment: Testing | 0 - 0.8 K/uL | EXTERNAL | | | Monocytes | performed at [facility], [address] | | LAB | | | | [address], | | | | | | [place] [address] | | | | + + + + + + | Absolute | 0.1Comment: Testing | 0 - 0.5 K/uL | EXTERNAL | | | Eosinophils | performed at [facility], [address] | | LAB | | | | [address], | | | | | | [place] [address] | | | | + + + + + + | Absolute | 0.0Comment: Testing | 0 - 0.1 K/uL | EXTERNAL | | | Basophils | performed at [facility], [address] | | LAB | | | | [address], | | | | | | [place] [address] | | | | + + + [...] EXTERNAL | | | | performed at [facility];[address] | | LAB | | | | [address];[place], [place] | | | | | | [address] | | | | + + + [...] EXTERNAL | | | | performed at [facility];[address] | mmol/L | LAB | | | | [address];[place] | | | | | | [address] | | | | + + + + + + | K | 5.9 (H)Comment: Testing | 3.5 - 4.9 | EXTERNAL | | | | performed at [facility];[address] | mmol/L | LAB | | | | [address];[place] | | | | | | [address] | | | | + + + + + + | Cl | 99Comment: Testing | 99 - 109 mmol/L | EXTERNAL | | | | performed at [facility];[address] | | LAB | | | | [address];[place] | | | | | | [address] | | | | + + + + + + | CO2 | 20 (L)Comment: Testing | 23 - 32 mmol/L | EXTERNAL | | | | performed at [facility];[address] | | LAB | | | | [address];[place] | | | | | | [address] | | | | + + + + + + | Anion Gap | 19Comment: Testing | 5 - 20 mmol/L | EXTERNAL | | | | performed at [facility];[address] | | LAB | | | | [address];[place] | | | | | | [address] | | | | + + + + + + | Glucose, | 96Comment: Testing | 65 - 99 mg/dL | EXTERNAL | | | Fasting | performed at [facility];[address] | | LAB | | | | [address];[place] | | | | | | [address] | | | | + + + + + + | BUN | 102 (H)Comment: Testing | 8 - 25 mg/dL | EXTERNAL | | | | performed at [facility];[address] | | LAB | | | | [address];[place] | | | | | | [address] | | | | + + + + + + | Creatinine | 16.30 (H)Comment: | 0.70 - 1.30 | EXTERNAL | | | | Testing performed at | mg/dL | LAB | | | | [facility];[address];[place] [address] | | | | + + + + + + | Calcium | 7.0 (L)Comment: Testing | 8.5 - 10.2 | EXTERNAL | | | | performed at [facility];888 | mg/dL | LAB | | | | [address];[place] | | | | | | [address] | | | | + + + + + + | Albumin | 2.4 (L)Comment: Testing | 3.6 - 5.0 g/dL | EXTERNAL | | | | performed at [facility];[address] | | LAB | | | | [address];[place] | | | | | | [address] | | | | + + + + + + | PHOSPHORUS | 7.6 (H)Comment: Testing | 2.3 - 4.8 mg/dL | EXTERNAL | | | | performed at [facility];[address] | | LAB | | | | [address];[place] | | | | | | [address] | | | | + + + [...] | | | | | | at [facility];[address];[place] [address] | | | | + + + [...] EXTERNAL | | | | performed at [facility];[address] | | LAB | | | | [address];[place], [place] | | | | | | [address] | | | | + + + [...] EXTERNAL | | | | performed at [facility];888 | mmol/L | LAB | | | | [address];[place] | | | | | | [address] | | | | + + + + + + | K | 4.3Comment: Testing | 3.5 - 4.9 | EXTERNAL | | | | performed at [facility];888 | mmol/L | LAB | | | | [address];[place] | | | | | | [address] | | | | + + + + + + | Cl | 97 (L)Comment: Testing | 99 - 109 mmol/L | EXTERNAL | | | | performed at [facility];[address] | | LAB | | | | [address];[place] | | | | | | [address] | | | | + + + + + + | CO2 | 25Comment: Testing | 23 - 32 mmol/L | EXTERNAL | | | | performed at [facility];[address] | | LAB | | | | [address];[place] | | | | | | [address] | | | | + + + + + + | Anion Gap | 16Comment: Testing | 5 - 20 mmol/L | EXTERNAL | | | | performed at [facility];[address] | | LAB | | | | [address];[place] | | | | | | [address] | | | | + + + + + + | Glucose, | 93Comment: Testing | 65 - 99 mg/dL | EXTERNAL | | | Fasting | performed at [facility];[address] | | LAB | | | | [address];[place] | | | | | | [address] | | | | + + + + + + | BUN | 90 (H)Comment: Testing | 8 - 25 mg/dL | EXTERNAL | | | | performed at [facility];[address] | | LAB | | | | [address];[place] | | | | | | [address] | | | | + + + + + + | Creatinine | 13.05 (H)Comment: | 0.70 - 1.30 | EXTERNAL | | | | Testing performed at | mg/dL | LAB | | | | [facility];[address];[place] [address] | | | | + + + + + + | BUN/Creatin | 7Comment: Testing | | EXTERNAL | | | ine Ratio | performed at [facility];[address] | | LAB | | | | [address];[place] | | | | | | [address] | | | | + + + + + + | Calcium | 7.5 (L)Comment: Testing | 8.5 - 10.2 | EXTERNAL | | | | performed at [facility];[address] | mg/dL | LAB | | | | [address];[place], [place] | | | | | | [address] | | | | + + + [...] | | | | | | at [facility];[address] | | | | | | [address]vd;[place] [address] | | | | + + + [...] | | + + Protein Electrophoresis and SEPINOZA with FLC (07/29/2013 4:00 AM PDT) + + + + + + | Component | Value | Ref Range | Performed | Pathologist | | | | | At | Signature | + + + + + + | Ig [place] | 6.92 (H)Comment: Testing | 0.33 - 1.94 | EXTERNAL | | | Free Light | performed at [facility], [address] | mg/dL | LAB | | | Chain | [address] | | | | | | [place] [address] | | | | + + + + + + | kaplamflc | 7.27 (H)Comment: Testing | 0.57 - 2.63 | EXTERNAL | | | | performed at [facility], [address] | mg/dL | LAB | | | | [address] | | | | | | [place] [address] | | | | + + + + + + | [place]/Lambd | 0.95Comment: NOTE: NEW | 0.26 - 1.65 | EXTERNAL | | | a Free | METHOD OF JUNE | | LAB | | | Light Chain | . RESULTS | | | | | Ratio | OBTAINED BY USING | | | | | | THEBINDING SITE REAGENTS | | | | | | ON A [employer] II | | | | | | ANALYZER. RESULTS JUNE | | | | | | VARYFROM PREVIOUS | | | | | | METHOD.Testing performed | | | | | | at [facility], [address] | | | | | | [place] | | | | | | [address] | | | | + + + + + + | Protein, | 5.5 (L)Comment: Testing | 6.2 - 8.2 g/dL | EXTERNAL | | | Total | performed at [facility], [address] | | LAB | | | | [address] [address] | | | | | | [place] [address] | | | | + + + + + + | ELP Albumin | 3.1 (L)Comment: Testing | 3.5 - 5.0 g/dL | EXTERNAL | | | % | performed at [facility], [address] | | LAB | | | | [address] | | | | | | [place] [address] | | | | + + + + + + | ALPHA 1, BF | 0.3Comment: Testing | 0.1 - 0.4 g/dL | EXTERNAL | | | | performed at [facility], [address] | | LAB | | | | [place] | | | | | | [place] [address] | | | | + + + + + + | ALPHA 2 | 0.7Comment: Testing | 0.5 - 1.1 g/dL | EXTERNAL | | | GLOBULIN | performed at [facility], [address] | | LAB | | | | [place] | | | | | | [place] [address] | | | | + + + + + + | Beta-1 | 0.4Comment: Testing | 0.4 - 0.8 g/dL | EXTERNAL | | | | performed at [facility], [address] | | LAB | | | | [address] [place] | | | | | | [place] [address] | | | | + + + + + + | BETA 2, BF | 0.3Comment: Testing | 0.2 - 0.5 g/dL | EXTERNAL | | | | performed at [facility], [address] | | LAB | | | | [address] [place] | | | | | | [place] [address] | | | | + + + + + + | GAMMA, BF | 0.7Comment: Testing | 0.6 - 1.5 g/dL | EXTERNAL | | | | performed at [facility], [address] | | LAB | | | | [address] [place] | | | | | | [place] [address] | | | | + + + + + + | Albumin | 55.5Comment: Testing | 45.0 - 80.0 % | EXTERNAL | | | | performed at [facility], [address] | | LAB | | | | [address], [place] | | | | | | [place] [address] | | | | + + + + + + | ALPHA 1, BF | 5.8Comment: Testing | 1.0 - 6.0 % | EXTERNAL | | | | performed at [facility], [address] | | LAB | | | | [address], [place] | | | | | | [place] [address] | | | | + + + + + + | Alpha 2 % | 13.1Comment: Testing | 6.0 - 17.0 % | EXTERNAL | | | | performed at [facility], [address] | | LAB | | | | [address] [address] | | | | | | [place] [address] | | | | + + + + + + | Beta-1 % | 7.0Comment: Testing | 5.0 - 13.0 % | EXTERNAL | | | | performed at [facility], [address] | | LAB | | | | [place] | | | | | | [place] [address] | | | | + + + + + + | Beta-2 % | 5.6Comment: Testing | 2.0 - 8.0 % | EXTERNAL | | | | performed at [facility], [address] | | LAB | | | | [address] | | | | | | [place] [address] | | | | + + + + + + | GAMMA, BF | 13.0Comment: Testing | 7.5 - 24.0 % | EXTERNAL | | | | performed at [facility], [address] | | LAB | | | | [address] [place] | | | | | | [place] [address] | | | | + + + + + + | ELP | HYPOALBUMINEMIA.Comment: | | EXTERNAL | | | INTERPRETAT | INTERPRETED BY | | LAB | | | ION | CLDTesting performed at | | | | | | [facility], [address] | | | | | | [place] | | | | | | [address] | | | | + + + [...] No | | | | | | [address] | | | | + + + [...] [place] | | | | | | [address] | | | | + + + + + + | HEP A IGM | NON REACTIVEComment: | | EXTERNAL | | | | Testing performed at | | LAB | | | | [facility], [address] | | | | | | [place] | | | | | | [address] | | | | + + + + + + | Hepatitis B | NON REACTIVEComment: | | EXTERNAL | | | Surface Ag | Testing performed at | | LAB | | | | [facility], [address] | | | | | | [place] | | | | | | [address] | | | | + + + + + + | Hepatitis B | NON REACTIVEComment: | | EXTERNAL | | | Core Ab | Testing performed at | | LAB | | | Total | [facility], [address] | | | | | | [place] | | | | | | [address] | | | | + + + + + + | HCV Ab | REACTIVE (A)Comment: | | EXTERNAL | | | | THIS IS A REPORTABLE | | LAB | | | | DISEASE. PLEASE | | | | | | CONTACT YOUR | | | | | | [facility] | | | | | | DEPARTMENT.Testing | | | | | | performed at [facility], [facility] [address] | | | | | | [facility] [address], | | | | | | [place] [address] | | | | + + + [...] | | | | | performed at [facility], [address] | | | | | | [facility] [address], | | | | | | [place] [address] | | | | + + + [...] | | LAB | | | | [address], | | | | | | [place] [address] | | | | + + + + + + | Complement | 38.5Comment: Testing | 10 - 40 mg/dL | EXTERNAL | | | Comp 4 | performed at [facility], [address] | | LAB | | | | [address], | | | | | | [place] [address] | | | | + + + [...] | | LAB | | | | [facility];[address] | | | | | | [address];[place] [address] | | | | + + + [...] | | | | | - 20 [id number] - 30 | | | | | [...] THE | | | | | | [employer] [place] | | | | [...] No | | | | | | [address] | | | | + + + [...] | | | | | performed at [facility], [address] | | | | | | [facility] | | | | | | [place] [address] | | | | + + + [...] | | | Streptolysi | performed at [facility], [address] | | LAB | | | n O | [address] [place], | | | | | | [place] [address] | | | | + + + [...] | | | | | | P,CHROMATIN, AGENCY DEVELOPMENT MANAGER, SM | | | | | | AGENCY DEVELOPMENT MANAGER, SCL-70, CENTROMERE | | | | | | B, SSA, SSB AND CARINA-1) | | | | | | WASPERFORMED AND NO | | | | | | AUTOANTIBODIES WERE | | | | | | DETECTED.Testing | | | | | | performed at [facility], [address] | | | | | | [facility] [place] | | | | | | [place] [address] | | | | + + + + + + | ANCA Screen | <1:20Comment: REFERENCE | | EXTERNAL | | | | RANGE: <1:20Testing | | LAB | | | | performed at [facility], [address] | | | | | | [facility] | | | | | | [place] [address] | | | | + + + [...] | | | | sting performed at [facility], | | | | | | [address] [facility], | | | | | | [facility] [address] | | | | + + + [...] | | | | | | at [facility], [address] | | | | | | [place] | | | | | | [address] | | | | + + + [...] EXTERNAL | | | | performed at [facility], [address] | | LAB | | | | [address], | | | | | | [place] [address] | | | | + + + + + + | Red Blood | 4.35Comment: Testing | 4.20 - 5.70 | EXTERNAL | | | Cells | performed at [facility], [address] | M/uL | LAB | | | Counted | [address], | | | | | | [place] [address] | | | | + + + + + + | Hemoglobin | 13.9Comment: Testing | 13.2 - 17.0 | EXTERNAL | | | | performed at [facility], [address] | g/dL | LAB | | | | [address], | | | | | | [place] [address] | | | | + + + + + + | Hematocrit, | 40.5Comment: Testing | 39.0 - 50.0 % | EXTERNAL | | | POC | performed at [facility], [address] | | LAB | | | | [address], | | | | | | [place] [address] | | | | + + + + + + | MCV | 93.1Comment: Testing | 80.0 - 100.0 fl | EXTERNAL | | | | performed at [facility], [address] | | LAB | | | | [place] [place], | | | | | | [place] [address] | | | | + + + + + + | MCH | 32.0Comment: Testing | 27.0 - 34.0 pg | EXTERNAL | | | | performed at [facility], [address] | | LAB | | | | [address], | | | | | | [place] [address] | | | | + + + + + + | MCHC | 34.4Comment: Testing | 32.0 - 35.5 | EXTERNAL | | | | performed at [facility], [address] | g/dL | LAB | | | | [address], | | | | | | [place] [address] | | | | + + + + + + | RDW-CV | 41.6Comment: Testing | 37 - 53 fl | EXTERNAL | | | | performed at [facility], [address] | | LAB | | | | [address], | | | | | | [place] [address] | | | | + + + + + + | Platelet | 151Comment: Testing | 150 - 400 K/uL | EXTERNAL | | | Count | performed at [facility], [address] | | LAB | | | Plasma | [address], | | | | | | [place] [address] | | | | + + + + + + | MPV | 9.5Comment: Testing | fl | EXTERNAL | | | | performed at [facility], [address] | | LAB | | | | [address], | | | | | | [place] [address] | | | | + + + + + + | Differentia | AUTOMATEDComment: | | EXTERNAL | | | l Type | Testing performed at | | LAB | | | | [facility], [address] | | | | | | [place] | | | | | | [address] | | | | + + + + + + | % Segmented | 75.2Comment: Testing | % | EXTERNAL | | | | performed at [facility], [address] | | LAB | | | Neutrophils | [address], | | | | | | [place] [address] | | | | + + + + + + | % | 11.4Comment: Testing | % | EXTERNAL | | | Lymphocytes | performed at [facility], [address] | | LAB | | | | [address], | | | | | | [place] [address] | | | | + + + + + + | % Monocytes | 12.6Comment: Testing | % | EXTERNAL | | | | performed at [facility], [address] | | LAB | | | | [address], | | | | | | [place] [address] | | | | + + + + + + | % | 0.4Comment: Testing | % | EXTERNAL | | | Eosinophils | performed at [facility], [address] | | LAB | | | | [address], | | | | | | [place] [address] | | | | + + + + + + | % Basophils | 0.4Comment: Testing | % | EXTERNAL | | | | performed at [facility], [address] | | LAB | | | | [address], | | | | | | [place] [address] | | | | + + + + + + | Absolute | 6.4Comment: Testing | 1.9 - 7.4 K/uL | EXTERNAL | | | Segmented | performed at [facility], [address] | | LAB | | | Neutrophils | [address], | | | | | | [place] [address] | | | | + + + + + + | Absolute | 1.0Comment: Testing | 1.0 - 3.9 K/uL | EXTERNAL | | | Lymphocytes | performed at [facility], [address] | | LAB | | | | [address], | | | | | | [place] [address] | | | | + + + + + + | Absolute | 1.1 (H)Comment: Testing | 0 - 0.8 K/uL | EXTERNAL | | | Monocytes | performed at [facility], [address] | | LAB | | | | [address], | | | | | | [place] [address] | | | | + + + + + + | Absolute | 0.0Comment: Testing | 0 - 0.5 K/uL | EXTERNAL | | | Eosinophils | performed at [facility], [address] | | LAB | | | | [address], | | | | | | [place] [address] | | | | + + + + + + | Absolute | 0.0Comment: Testing | 0 - 0.1 K/uL | EXTERNAL | | | Basophils | performed at [facility], [address] | | LAB | | | | [address], | | | | | | [place] [address] | | | | + + + [...] EXTERNAL | | | | performed at [facility], [address] | | LAB | | | | [address], | | | | | | [place] [address] | | | | + + + [...] + + | Hemoglobin | 5.4Comment: The [place] | 4.0 - 6.0 % | EXTERNAL [...] | | | | | performed at [facility], [address] | | | | | [address], | | | | | | [place] [address] | | | | + + + [...] | | | | | performed at [facility], [address] | | | | | | [facility], | | | | | | [place] [address] | | | | + + + [...] EXTERNAL | | | | performed at [facility];[address] | | LAB | | | | [address];[place], [place] | | | | | | [address] | | | | + + + [...] | | | | | [place] [address] | | | | + + + [...] [place] | | | | | | [address] | | | | + + + + + + | Cl | 91 (L)Comment: Testing | 99 - 109 mmol/L | EXTERNAL | | | | performed at [facility], [address] | | LAB | | | | [address], | | | | | | [place] [address] | | | | + + + + + + | CO2 | 24Comment: Testing | 23 - 32 mmol/L | EXTERNAL | | | | performed at [facility], [address] | | LAB | | | | [address], | | | | | | [place] [address] | | | | + + + + + + | Anion Gap | 20Comment: Testing | 5 - 20 mmol/L | EXTERNAL | | | | performed at [facility], [address] | | LAB | | | | [address], | | | | | | [place] [address] | | | | + + + + + + | Glucose, | 103 (H)Comment: Testing | 65 - 99 mg/dL | EXTERNAL | | | Fasting | performed at [facility], [address] | | LAB | | | | [address], | | | | | | [place] [address] | | | | + + + + + + | BUN | 137 (H)Comment: Testing | 8 - 25 mg/dL | EXTERNAL | | | | performed at [facility], [address] | | LAB | | | | [address], | | | | | | [place] [address] | | | | + + + + + + | Creatinine | 20.32 (H)Comment: | 0.70 - 1.30 | EXTERNAL | | | | Testing performed at | mg/dL | LAB | | | | [facility], [address] | | | | | | [place] | | | | | | [address] | | | | + + + + + + | Calcium | 7.7 (L)Comment: Testing | 8.5 - 10.2 | EXTERNAL | | | | performed at [facility], [address] | mg/dL | LAB | | | | [address], | | | | | | [place] [address] | | | | + + + + + + | Albumin | 3.2 (L)Comment: Testing | 3.6 - 5.0 g/dL | EXTERNAL | | | | performed at [facility], [address] | | LAB | | | | [address], | | | | | | [place] [address] | | | | + + + + + + | PHOSPHORUS | 8.6 (H)Comment: Testing | 2.3 - 4.8 mg/dL | EXTERNAL | | | | performed at [facility], [address] | | LAB | | | | [address] [facility], | | | | | | [place] [address] | | | | + + + [...] W | | | | | | [address] [facility], | | | | | | [place] [address] | | | | + + + [...] EXTERNAL | | | | performed at [facility];[address] | | LAB | | | | [address];[place] | | | | | | [address] | | | | + + + + + + | Red Blood | 3.95 (L)Comment: Testing | 4.20 - 5.70 | EXTERNAL | | | Cells | performed at [facility];[address] | M/uL | LAB | | | Counted | [address];[place] | | | | | | [address] | | | | + + + + + + | Hemoglobin | 12.8 (L)Comment: Testing | 13.2 - 17.0 | EXTERNAL | | | | performed at [facility];[address] | g/dL | LAB | | | | [address];[place] | | | | | | [address] | | | | + + + + + + | Hematocrit, | 36.3 (L)Comment: Testing | 39.0 - 50.0 % | EXTERNAL | | | POC | performed at [facility];[address] | | LAB | | | | [address];[place] | | | | | | [address] | | | | + + + + + + | MCV | 91.9Comment: Testing | 80.0 - 100.0 fl | EXTERNAL | | | | performed at [facility];[address] | | LAB | | | | [address];[place] | | | | | | [address] | | | | + + + + + + | MCH | 32.4Comment: Testing | 27.0 - 34.0 pg | EXTERNAL | | | | performed at [facility];[address] | | LAB | | | | [address];[place] | | | | | | [address] | | | | + + + + + + | MCHC | 35.3Comment: Testing | 32.0 - 35.5 | EXTERNAL | | | | performed at [facility];[address] | g/dL | LAB | | | | [address];[place] | | | | | | [address] | | | | + + + + + + | RDW-CV | 39.4Comment: Testing | 37 - 53 fl | EXTERNAL | | | | performed at [facility];[address] | | LAB | | | | [address];[place] | | | | | | [address] | | | | + + + + + + | Platelet | 155Comment: Testing | 150 - 400 K/uL | EXTERNAL | | | Count | performed at [facility];[address] | | LAB | | | Plasma | [address];[place] | | | | | | [address] | | | | + + + + + + | MPV | 8.6Comment: Testing | fl | EXTERNAL | | | | performed at [facility];[address] | | LAB | | | | [address];[place] | | | | | | [address] | | | | + + + + + + | Differentia | MANUALComment: Testing | | EXTERNAL | | | l Type | performed at [facility];[address] | | LAB | | | | [address];[place] | | | | | | [address] | | | | + + + + + + | Segmented | 75Comment: Testing | % | EXTERNAL | | | Neutrophils | performed at [facility];[address] | | LAB | | | Manual | [address];[place] | | | | | | [address] | | | | + + + + + + | Lymphocytes | 15Comment: Testing | % | EXTERNAL | | | Manual | performed at [facility];[address] | | LAB | | | | [address];[place] | | | | | | [address] | | | | + + + + + + | Monocytes | 10Comment: Testing | % | EXTERNAL | | | Manual | performed at [facility];[address] | | LAB | | | | [address];[place] | | | | | | [address] | | | | + + + + + + | Absolute | 6.1Comment: Testing | 1.9 - 7.4 K/uL | EXTERNAL | | | Neutrophils | performed at [facility];[address] | | LAB | | | | [address];[place] | | | | | | [address] | | | | + + + + + + | Absolute | 1.2Comment: Testing | 1.0 - 3.9 K/uL | EXTERNAL | | | Lymphocytes | performed at [facility];[address] | | LAB | | | | [address];[place] | | | | | | [address] | | | | + + + + + + | Absolute | 0.8Comment: Testing | 0 - 0.8 K/uL | EXTERNAL | | | Monocytes | performed at [facility];[address] | | LAB | | | | [address];[place] | | | | | | [address] | | | | + + + + + + | RBC | RBC AND PLT MORPHOLOGY | | EXTERNAL | | | Morphology | APPEAR NORMALComment: | | LAB | | | | Testing performed at | | | | | | [facility];[address];[place] [address] | | | | + + + [...] EXTERNAL | | | | performed at [facility];[address] | | LAB | | | | [address];[place], [place] | | | | | | [address] | | | | + + + [...] EXTERNAL | | | | performed at [facility] | | LAB | | | | [facility], [place] | | | | | | [address] | | | | + + + [...] EXTERNAL | | | | performed at [facility];[address] | mmol/L | LAB | | | | [address];[place] | | | | | | [address] | | | | + + + + + + | K | 5.1 (H)Comment: Testing | 3.5 - 4.9 | EXTERNAL | | | | performed at [facility];[address] | mmol/L | LAB | | | | [address];[place] | | | | | | [address] | | | | + + + + + + | Cl | 92 (L)Comment: Testing | 99 - 109 mmol/L | EXTERNAL | | | | performed at [facility];[address] | | LAB | | | | [address];[place] | | | | | | [address] | | | | + + + + + + | CO2 | 21 (L)Comment: Testing | 23 - 32 mmol/L | EXTERNAL | | | | performed at [facility];[address] | | LAB | | | | [address];[place] | | | | | | [address] | | | | + + + + + + | Anion Gap | 24 (H)Comment: Testing | 5 - 20 mmol/L | EXTERNAL | | | | performed at [facility];[address] | | LAB | | | | [address];[place] | | | | | | [address] | | | | + + + + + + | Glucose, | 94Comment: Testing | 65 - 99 mg/dL | EXTERNAL | | | Fasting | performed at [facility];[address] | | LAB | | | | [address];[place] | | | | | | [address] | | | | + + + + + + | BUN | 143 (H)Comment: Testing | 8 - 25 mg/dL | EXTERNAL | | | | performed at [facility];[address] | | LAB | | | | [address];[place] | | | | | | [address] | | | | + + + + + + | Creatinine | 19.48 (H)Comment: | 0.70 - 1.30 | EXTERNAL | | | | Testing performed at | mg/dL | LAB | | | | C;[address];[place] [address] | | | | + + + + + + | BUN/Creatin | 7Comment: Testing | | EXTERNAL | | | ine Ratio | performed at [facility];[address] | | LAB | | | | [address];[place] | | | | | | [address] | | | | + + + + + + | Calcium | 7.4 (L)Comment: Testing | 8.5 - 10.2 | EXTERNAL | | | | performed at [facility];[address] | mg/dL | LAB | | | | [address];[place] | | | | | | [address] | | | | + + + [...] | | | | | | at [facility];[address];[place] [address] | | | | + + + [...] LAB | | | | performed at [facility], [address] | | | | | | [address], | | | | | | [place] [address] | | | | + + + [...] | | at Ratio | performed at [facility], [address] | | LAB | | | | [address], | | | | | | [place] [address] | | | | + + + [...] | | | Urine | performed at [facility], [address] | | LAB | | | Random | [address], | | | | | | [place] [address] | | | | + + + [...] | | | Urine | performed at [facility], [address] | | LAB | | | | [address], | | | | | | [place] [address] | | | | + + + [...] | | | Urine | performed at [facility], [address] | | LAB | | | | [address], | | | | | | [place] [address] | | | | + + + [...] | | | Fingerstick | performed at [facility];[address] | | LAB | | | | [address];[place] | | | | | | [address] | | | | + + + [...] NEGATIVE Testing | | | performed at [facility];[address] [place] [address];[place] [address] | | + + + + +---------+ [...] EXTERNAL | | | | performed at [facility];888 | mmol/L | LAB | | | | [address];[place], [place] | | | | | | [address] | | | | + + + + + + | K | 4.7Comment: Testing | 3.5 - 4.9 | EXTERNAL | | | | performed at [facility];[address] | mmol/L | LAB | | | | [address];[place] | | | | | | [address] | | | | + + + + + + | Cl | 84 (L)Comment: Testing | 99 - 109 mmol/L | EXTERNAL | | | | performed at [facility];[address] | | LAB | | | | [address];[place] | | | | | | [address] | | | | + + + + + + | CO2 | 23Comment: Testing | 23 - 32 mmol/L | EXTERNAL | | | | performed at [facility];[address] | | LAB | | | | [address];[place] | | | | | | [address] | | | | + + + + + + | Anion Gap | 27 (H)Comment: Testing | 5 - 20 mmol/L | EXTERNAL | | | | performed at [facility];[address] | | LAB | | | | [address];[place] | | | | | | [address] | | | | + + + + + + | Glucose, | 117 (H)Comment: Testing | 65 - 99 mg/dL | EXTERNAL | | | Fasting | performed at [facility];[address] | | LAB | | | | [address];[place] | | | | | | [address] | | | | + + + + + + | BUN | 188 (H)Comment: Testing | 8 - 25 mg/dL | EXTERNAL | | | | performed at [facility];[address] | | LAB | | | | [address];[place] | | | | | | [address] | | | | + + + + + + | Creatinine | 24.82 (H)Comment: | 0.70 - 1.30 | EXTERNAL | | | | Testing performed at | mg/dL | LAB | | | | [facility];[address];[place] [address] | | | | + + + + + + | BUN/Creatin | 8Comment: Testing | | EXTERNAL | | | ine Ratio | performed at [facility];[address] | | LAB | | | | [address];[place] | | | | | | [address] | | | | + + + + + + | Calcium | 7.9 (L)Comment: Testing | 8.5 - 10.2 | EXTERNAL | | | | performed at [facility];[address] | mg/dL | LAB | | | | [address];[place] | | | | | | [address] | | | | + + + [...] | | | | | | at [facility];[address] | | | | | | [address];[place] [address] | | | | + + + [...] (500), | | | | | | department editor DMITRY JEROME ([id number]) | | | | [...] | EXTERNAL LAB | | procedure from [facility] environment | | + + + [...] Note | + + | Celso Jay - 09/26/2018 3:53 PM PDT This [...]
--- OUTSIDE RECORDS SUMMARY | ~2019-07-17 | XMS | Encounter Summary ---
Demographics + + + | Address | [address] | | | [place] [address] | + + + | Home Phone | | + + + | Preferred Language | Unknown | + + + | Marital Status | Single | + + + | Quaker Affiliation | [id number] | + + + | Race | Unknown | + + + | Ethnic Group | Unknown | + + + Author + + + | Author | [facility] | | | and [place] | + + + | Organization | [facility] | | | and [...] Team Providers + +------+ + | Care Army Manager Name | Role | Phone | + [...] + + | 08/22/ | Hospital | [facility] | Chicho Hurley, | Anxiety; Heroin use; | | 2019 - | Encounter | [facility] | MD Shanelle [address] | NSTEMI (non-ST | | | | [address] [place] | [address] [place] | elevated myocardial | | 08/23/ | | [place] [address] | [place] [address] | infarction) ([facility]); | | 2019 | | [phone] | [phone] | Paroxysmal SVT | | | | | | (supraventricular | | | | | Niko Gruber, | tachycardia) ([facility]); | | | | | [address] | 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[place], [place]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 | | | | | [id number] | tachycardia) ([facility]); | | | | | [phone] | Type 2 myocardial | | | | | | infarction ([facility]) | +--------+ + + + + [...] ECGs available Confirmed by MARGARET KEITH MD ([id number]) on 08/23/2018 7:19:58 AM ECHO Complete Result [...] E' Septal Velocity 5 cm/s MV Deceleration [place] 127.02 cm/s2 MV Deceleration Time 247.55 msec [...] episodes, noted in May ER visit at [facility] as well - Presented to [facility] with this on 08/22, resolved there, transferred [...] to EP for possible ablation Type 2 [place]: - Troponin peaked at 1.15, then fell [...] Specialty: Emergency Medicine Contact information: [address] [place] [address] [place] [address] Discharge Medications New Medications Details [...] signed by: Niko Gruber MD, 08/23/2018 12:55 [facility] documented in this encounter Discharge Instructions [...] troponins overnight. Start cardiac diet. Sandi Ho, Biological Plant Operator - 08/22/2018 7:23 PM PDTF ormatting of this note might be different from the original. HEPARIN MONITORING AND DOSING PER PHARMACY uLcy Cheek is a 43 y.o. male admitted on 08/22/2018 15:36. Heparin infusion is ordered. Diagnosis: ACS Protocol: CARDIAC DOSE 0.2- 0.4 units/mL Maximums: bolus 7,000 units, infusion 1,400 unit/h r Initial assessment: Describe any recent anticoagulant use prior to heparin initiation: na If RN BSN medlist shows Xa inhibitor oral agent or [...] Infusion Protocol Electronically signed by: Sandi Martinez, Biological Plant Operator 08/22/2018 19:23 docu mented in this encounter [...] | + + + + + | [facility] | [address] | [place] | [phone] | | [facility] | | [address] | | | - LABORATORY | | [...] ST. | [address] | [place] | [phone] | | [facility] | | [address] | | | - LABORATORY | | [...] | | | | | | [employer] | | | | | [address] | [place] | [phone] | | [facility] | | [address] | | | - LABORATORY | | [...] + | [facility] | [address] | [place] | [phone] | | [facility] | | [address] | | | - LABORATORY | | [...] [facility] | | | | | | [facility] | | | | | | MEDICAL | | | | | | CENTER - | | | | | | LABORATORY | | + + + + + + | RBC | 4.67 | 4.30 - 5.70 | [facility] | | | | | M/uL | [facility] | | | | | | MEDICAL [...] [address] | [place] | [phone] | | [facility] | | [address] | | | - LABORATORY | | [...] mL/min/1.73m2 | [facility] | | | SPANISH | RATE,ESTIMATED | | MEDICAL | | | | mL/min/1.95m9Lbpi than | | CENTER - | | [...] [address] | [place] | [phone] | | [facility] | | [address] | | | - LABORATORY | | [...] | | | | | | [employer] | | | | | [...] [address] | [place] | [phone] | | 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 Gender Male | | | Nurse Stress | | | Regional Education Manager Procedure Type of Study TTE procedure: ECHO [...] Diastolic: 1.22 cm EF | | | Gxzemyrmb12% EF Calculated: 38.03% Right Ventrical TAPSE: 1.8 [...] Diastolic: 1.22 cm | | | EF Zxzbvkpwa93% | | | EF Calculated: 38.03% | [...] Room Number 433 Patient | | Number [id number] Date of Study 08/22/2018 Visit Number [id number] | | Referring Physician IBRAHIMA Winn Number Date of | | 1975 Supervisor Files Age 43 year(s) Interpreting | | BETINA CIFUENTES MD Internet Application Developer Gender Male | | Nurse Stress TechnicianProcedureType [...] | cm PW Diastolic: 1.22 cm EF Ggxqfelzc04% EF Calculated: 38.03% Right Ventrical TAPSE: | [...] PW Diastolic: 1.22 cm | | EF Trfhtubdc14% | | EF Calculated: 38.03% | | | | Right Ventrical | | | | TAPSE: 1.8 cm | | | | Miscellaneous | | | | Aorta | | | | Aortic Root: 4.18 cm | | Ascending Aorta: 3.8 cm | + + + +---------+ + + | Performing | Address | City/State[facility] | Phone Number | | Organization | [...] MD | | | | | | ([id number]) on 08/23/2018 | | | | | [...] [address] | [place] | [phone] | | [facility] | | [address] | | | - LABORATORY | | [...] + | [facility] | [address] | [place] | [phone] | | [facility] | | [address] | | | - LABORATORY | | [...] ST. | [address] | [place], [place] | [phone] | | [facility] | | [address] | | | - LABORATORY | | [...] | | | FILTRATION | mL/min/1.73m2 | [facility] | | | SPANISH | RATE,ESTIMATED | | MEDICAL | | | | mL/min/1.91t5Pcst than | | CENTER - | | [...] | | | | | mg/dL | [facility] | | | | | | MEDICAL [...] [address] | [place] | [phone] | | [facility] | | [address] | | | - LABORATORY | | [...] | | | | | | [employer] | | | | | [...] + | [facility] | [address] | [place] | [phone] | | [facility] | | [address] | | | - LABORATORY | | [...] + | AVNRT (AV blanca re-entry tachycardia) ([facility]) Other specified cardiac dysrhythmias | + + | Type 2 myocardial infarction (HCC) | + + | Methamphetamine use ([facility]) Nondependent amphetamine or related acting sympathomimetic [...]
[~2019-07-17 21:36] MED LIST: ANAPROX DS550 MG PO; CRUTCH1 EACH
--- OUTSIDE RECORDS SUMMARY | 2019-07-17 21:40 | XMS ---
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 Armando has no Care Guidelines for this patient. Dick VISIT COUNT (12 MO.) [address] [place] [address] MONAE Alvarez TOTAL 2 NOTE: Visits indicate total known visits. ED/C VISIT TRACKING (12 MO.) 07/17/2019 21:37 [facility] [place] TYPE: Emergency COMPLAINT: - POSS. OVERDOSE 08/22/2018 09:31 [facility] [place] TYPE: Emergency DIAGNOSES: - IRREGULAR HEART RATE - Supraventricular tachycardia INPATIENT VISIT TRACKING (12 MO.) 08/22/2018 15:[address] [facility] TYPE: Medical Surgical DIAGNOSES: - tachycardia - Myocardial infarction type 2 - Anxiety disorder, unspecified - Supraventricular tachycardia - Non-ST elevation (NSTEMI) myocardial infarction - Opioid use, unspecified, uncomplicated [email or web address]
--- NOTE | 2019-07-18 06:58 | EKG ---
[facility] [address] [facility] [place] [address] Signed Sinus tachycardia with premature atrial complexes with aberrant conduction Minimal voltage criteria for LVH, may be normal variant Inferior infarct , age undetermined Abnormal ECG No previous ECGs available Confirmed by AMADEO MANCINI MD ([id number]) on 07/18/2019 6:58:10 AM Electronically Signed By: AMADEO MANCINI MD 07/18/19 0658 PATIENT NAME: LUCY VARGAS Electrocardiogram DATE OF : [birth year] PHYSICIAN: AMADEO MANCINI MD REPORT #: [id number] REPORT IS CONFIDENTIAL AND NOT TO BE RELEASED WITHOUT AUTHORIZATION
== END 2019-07-18 02:03 | disposition home or self-care (01) ==
LOC: ED 21:36
DX: F19.10 Other psychoactive substance abuse, uncomplicated (principal); F17.200 Nicotine dependence, unspecified, uncomplicated
CPT/HCPCS: 80053; 80176; 81001; 84443; 85025; 93005; 93010; 96360; 96361; 99284-25; G0480; J7030